=== PATIENT | female | born 1945 | race Two or more races ===

== ENCOUNTER 2020-09-07 08:11 | Outpatient (REF) | payer MEDICARE, SELFPAY ==
--- NOTE | 2020-09-07 | US_ITS ---
EXAMINATION: NONINVASIVE ASSESSMENT OF THE ARTERIES OF BOTH LOWER EXTREMITIES TO INCLUDE A PVR EXAM COMPLETE (3+ LEVELS), BILATERAL INCLUDING SEGMENTAL PRESSURES ? CLINICAL INFORMATION: Peripheral vascular disease COMPARISON: Bilateral lower extremity noninvasive examination on 05/10/2020 ? TECHNIQUE: The ankle/brachial indices of the distal posterior tibial and the dorsalis pedis arteries were obtained of the lower extremity arterial system bilaterally; along with segmental pressures and pulse volume recordings at the ankle, calf and above the knee levels and duplex Doppler techniques of the common femoral, proximal femoral and proximal profunda arteries. The study was performed at rest. ? FINDINGS: ?? RIGHT LEG 1. Right Ankle-Brachial Index: 1.10 (higher of the DP/PT) >0.97-1.25 = normal - no significant arterial disease 0.75-0.96 = mild peripheral arterial disease 0.5-0.74 = moderate peripheral arterial disease <0.50 = severe peripheral arterial disease <0.30 = critical arterial disease 2. SEGMENTAL PRESSURES: Ankle: PT 115 DP 199 3. PVR WAVEFORMS: Ankle: Biphasic 4. DIRECT DUPLEX: Common femoral: Moderate atherosclerotic disease, elevated velocities, biphasic waveform Proximal femoral: Moderate atherosclerotic disease, elevated velocities, monophasic waveforms Mid femoral: Mild atherosclerotic disease, normal velocities, biphasic waveform Distal femoral: Mild atherosclerotic disease, normal velocities, monophasic waveform Proximal profunda: Moderate atherosclerotic disease, elevated velocities, monophasic waveform Popliteal: Moderate atherosclerotic disease, elevated velocities, biphasic waveform Posterior tibial: Moderate atherosclerotic disease, decreased velocities, monophasic waveform LEFT LE. Left Ankle-Brachial Index: 0.48 (higher of the DP/PT) >0.97-1.25 = normal - no significant arterial disease 0.75-0.96 = mild peripheral arterial disease 0.5-0.74 = moderate peripheral arterial disease <0.50 = severe peripheral arterial disease <0.30 = critical arterial disease 2. SEGMENTAL PRESSURES: Ankle: PT not detected DP 86 3. PVR WAVEFORMS: Ankle: Monophasic 4. DIRECT DUPLEX: Common femoral: Moderate atherosclerotic disease, elevated velocities, monophasic waveforms Proximal femoral: Moderate atherosclerotic disease, elevated velocities, monophasic waveforms Mid femoral: Occluded Distal femoral: Moderate atherosclerotic disease, normal velocities, monophasic waveforms Proximal profunda: Moderate atherosclerotic disease, elevated velocities, monophasic waveforms Popliteal: Moderate atherosclerotic disease, normal velocities, monophasic waveforms Posterior tibial: Moderate atherosclerotic disease, decreased velocities, monophasic waveforms IMPRESSION: 1. Extensive bilateral lower extremity arterial disease, left greater than right. 2. Left mid SFA occlusion.
== END 2020-09-07 08:12 | disposition home or self-care (01) ==
LOC: HO.US 08:11
PROVIDERS: PCP Internal Medicine; Visit Provider Surgery Vascular Surgery
DX: I73.9 Peripheral vascular disease, unspecified (principal)
CPT/HCPCS: 93923; 93925

== ENCOUNTER 2020-10-06 08:37 | Outpatient (REF) | payer MEDICARE, SELFPAY ==
--- NOTE | 2020-10-06 08:42 | MM_ITS ---
EXAMINATION: MM SCREENING DIGITAL BREAST TOMOSYNTHESIS, BILATERAL CLINICAL INFORMATION: Screening. Asymptomatic. The lifetime risk of breast cancer based on the Tyrer-Cuzick Model is 1.6%. COMPARISON: Mammography: January 08, 2019 and study of March 21, 2007 TECHNIQUE: Digital breast tomosynthesis is performed in both the craniocaudal and mediolateral oblique views along with computer-aided detection (CAD). Synthesized 2D images are generated from the tomosynthesis. FINDINGS: The breasts are almost entirely fatty (ACR BI-RADS breast composition Category a). There are no significant masses, abnormal calcifications, or other abnormalities. MM/MM tomosynthesis screening BI IMPRESSION: There are no significant changes from prior study. ASSESSMENT: BI-RADS 1: Negative RECOMMENDATION: Routine annual mammography screening. This patient's information was entered into a reminder system with a target due date for their next mammogram.
== END 2020-10-06 08:38 | disposition home or self-care (01) ==
LOC: HO.MAMMO 08:37
PROVIDERS: Visit Provider Internal Medicine
DX: Z12.31 Encounter for screening mammogram for malignant neoplasm of breast (principal)
CPT/HCPCS: 77063; 77067

== ENCOUNTER → 2020-10-25 08:58 | Outpatient (BNVA) | payer MEDICARE, SELFPAY | PROVIDERS: PCP Internal Medicine; Referring Provider Internal Medicine; Visit Provider Surgery Vascular Surgery | DX: I73.9 Peripheral vascular disease, unspecified (principal) | CPT/HCPCS: 99212 ==

== ENCOUNTER 2021-04-11 09:51 | Outpatient (REF) | payer MEDICARE, SELFPAY ==
--- NOTE | ~2021-04-11 | US_ITS ---
EXAMINATION: ANKLE-BRACHIAL INDICES SINGLE LEVEL PULSE VOLUME RECORDING ARTERIAL DUPLEX BILATERAL LEGS CLINICAL INFORMATION: Peripheral artery disease. Hypertension, hyperlipidemia, history of SFA angioplasty. COMPARISON: 09/07/2020. TECHNIQUE: Ankle-brachial indices and PVR at the ankle were obtained. Duplex Doppler of the bilateral lower extremity arterial systems was performed. FINDINGS: RIGHT: Ankle-brachial index: 1.01 PVR: Normal. Common femoral: PSV 234 cm/s. Monophasic waveform. Deep femoral: PSV 202 cm/s. Monophasic waveform. Proximal superficial femoral: PSV 166 cm/s. Monophasic waveform. Mid superficial femoral: PSV 148 cm/s. Monophasic waveform. Distal superficial femoral: PSV 125 cm/s. Monophasic waveform. Popliteal: PSV 198 cm/s. Monophasic waveform. Posterior tibial artery: PSV 14 cm/s. Monophasic waveform. LEFT: Ankle-brachial index: 0.57 PVR: Abnormal. Common femoral: PSV 211 cm/s. Biphasic waveform. Deep femoral: PSV 181 cm/s. Monophasic waveform. Proximal superficial femoral: Occluded Mid superficial femoral: PSV 41 cm/s. Monophasic waveform. Distal superficial femoral: PSV 54 cm/s. Monophasic waveform. Popliteal: PSV 54 cm/s. Monophasic waveform. Posterior tibial artery: Not detected. US/US arterial duplex LE IMPRESSION: Bilateral peripheral arterial disease left greater than right which by RACHELLE is stable compared to the previous exam.
--- NOTE | ~2021-04-11 | US_ITS ---
EXAMINATION: ANKLE-BRACHIAL INDICES SINGLE LEVEL PULSE VOLUME RECORDING ARTERIAL DUPLEX BILATERAL LEGS CLINICAL INFORMATION: Peripheral artery disease. Hypertension, hyperlipidemia, history of SFA angioplasty. COMPARISON: 09/07/2020. TECHNIQUE: Ankle-brachial indices and PVR at the ankle were obtained. Duplex Doppler of the bilateral lower extremity arterial systems was performed. FINDINGS: RIGHT: Ankle-brachial index: 1.01 PVR: Normal. Common femoral: PSV 234 cm/s. Monophasic waveform. Deep femoral: PSV 202 cm/s. Monophasic waveform. Proximal superficial femoral: PSV 166 cm/s. Monophasic waveform. Mid superficial femoral: PSV 148 cm/s. Monophasic waveform. Distal superficial femoral: PSV 125 cm/s. Monophasic waveform. Popliteal: PSV 198 cm/s. Monophasic waveform. Posterior tibial artery: PSV 14 cm/s. Monophasic waveform. LEFT: Ankle-brachial index: 0.57 PVR: Abnormal. Common femoral: PSV 211 cm/s. Biphasic waveform. Deep femoral: PSV 181 cm/s. Monophasic waveform. Proximal superficial femoral: Occluded Mid superficial femoral: PSV 41 cm/s. Monophasic waveform. Distal superficial femoral: PSV 54 cm/s. Monophasic waveform. Popliteal: PSV 54 cm/s. Monophasic waveform. Posterior tibial artery: Not detected. US/US RACHELLE complete IMPRESSION: Bilateral peripheral arterial disease left greater than right which by RACHELLE is stable compared to the previous exam.
== END 2021-04-11 09:52 | disposition home or self-care (01) ==
LOC: HO.US 09:51
PROVIDERS: PCP Internal Medicine; Visit Provider Surgery Vascular Surgery
DX: I65.29 Occlusion and stenosis of unspecified carotid artery (principal); I70.213 Atherosclerosis of native arteries of extremities with intermittent claudication, bilateral legs
CPT/HCPCS: 93923; 93925

== ENCOUNTER → 2021-04-18 09:15 | Outpatient (BNVA) | payer MEDICARE, SELFPAY | PROVIDERS: PCP Internal Medicine; Visit Provider Surgery Vascular Surgery | DX: I73.9 Peripheral vascular disease, unspecified (principal) | CPT/HCPCS: 99212 ==

== ENCOUNTER 2021-06-01 08:46 | Inpatient (IN) | payer MEDICARE, SELFPAY ==
[2021-06-01] VITALS (11 sets, daily range): BP systolic 137–156; BP diastolic 43–70; PULSE 71–77; RESP 12–20; TEMP 36.1–36.8; O2SAT 95–100; BMI 24.9
--- NOTE | ~2021-06-01 | CT_ITS ---
EXAMINATION: CT ABDOMEN AND PELVIS WITHOUT CONTRAST CLINICAL INFORMATION: Diarrhea and vomiting and lower abdominal pain. Rule out diverticulitis COMPARISON: None TECHNIQUE: Multidetector volumetric imaging was performed from the superior aspect of the liver through the pubic symphysis. Sagittal and coronal reformatted images were obtained on the technologist's workstation. This CT examination was performed using dose optimization techniques as appropriate, variously including the following: *Automated exposure control *Adjustment of mA and/or kV according to patient size (this includes techniques or standardized protocols for targeted exams where dose is matched to indication/reason for exam; i.e. extremities or head) *Use of iterative reconstruction technique DLP: 434 mGy-cm FINDINGS: LUNG BASES: The visualized lung bases are unremarkable. LIVER, GALLBLADDER, AND BILIARY TREE: The liver is normal in size, shape, and attenuation. No focal hepatic lesion. The gallbladder has been removed. The common bile duct is slightly dilated entering 1.2 cm. This may be normal postcholecystectomy. PANCREAS: Unremarkable. SPLEEN: Unremarkable. ADRENAL GLANDS: Unremarkable. KIDNEYS AND URETERS: There are small bilateral renal calcifications probably representing stones. No hydronephrosis, ureteral dilatation or ureteral stone is seen. BLADDER: Not optimally distended. GASTROINTESTINAL TRACT: There is diffuse wall thickening of the colon suggestive of colitis. No evidence of obstruction, perforation or abscess is seen. There is evidence of mild diverticulosis. The appendix is normal. The stomach is not optimally distended. ABDOMINAL WALL: No significant hernia is appreciated. LYMPH NODES: Normal. VASCULAR: There is evidence of severe atherosclerotic disease. No aneurysm is seen. PELVIC VISCERA: The uterus appears to have been removed. No pelvic mass is seen. OSSEOUS STRUCTURES: There is arthritis at the hip joints. There are degenerative changes of the lumbar spine. CT/CT abdomen pelvis wo con IMPRESSION: Pancolitis. Small bilateral renal stones. Severe atherosclerotic disease.
--- NOTE | ~2021-06-01 | CT_ITS ---
EXAMINATION: CT ABDOMEN AND PELVIS WITHOUT CONTRAST CLINICAL INFORMATION: Pancolitis with persistent abdominal pain COMPARISON: CT abdomen pelvis June 01, 2021 TECHNIQUE: Multidetector volumetric imaging was performed from the superior aspect of the liver through the pubic symphysis. Sagittal and coronal reformatted images were obtained on the technologist's workstation. This CT examination was performed using dose optimization techniques as appropriate, variously including the following: *Automated exposure control *Adjustment of mA and/or kV according to patient size (this includes techniques or standardized protocols for targeted exams where dose is matched to indication/reason for exam; i.e. extremities or head) *Use of iterative reconstruction technique DLP: 485 mGy-cm FINDINGS: Visualized lung bases are well aerated. Interval development of trace bilateral pleural effusions with overlying airspace disease, suspected atelectasis. 3 mm subpleural nodule within the lateral left lung base (image 30/80, series 3). The liver demonstrates normal size, contour and attenuation. The gallbladder is surgically absent. The pancreas and spleen are unremarkable. The adrenal glands are mildly hypertrophied bilaterally. Symmetrically sized kidneys. Small bilateral nonobstructing renal calculi are again noted. There is no hydronephrosis of either kidney. The stomach is decompressed. Normal caliber loops of small bowel. Normal caliber colon. There remains some mild circumferential mucosal thickening of the descending colon, however, the previously visualized diffuse wall thickening of the remainder of the colon has resolved. The appendix is normal. Normal caliber abdominal aorta which demonstrates moderate to severe atherosclerotic disease. No retroperitoneal lymphadenopathy. The bladder is decompressed around a Monte catheter. Air within the bladder is felt to be iatrogenic. Uterus is surgically absent. No gross free pelvic fluid. No inguinal lymphadenopathy. Degenerative changes of the spine and hips. CT/CT abdomen pelvis wo con IMPRESSION: 1. There remains some mild circumferential mucosal thickening of the descending colon, however, the previously visualized diffuse wall thickening of the remainder of the colon has resolved. 2. Interval development of trace bilateral pleural effusions with overlying airspace disease, suspected atelectasis.
--- NOTE | 2021-06-01 10:18 | ECG_ITS ---
Test Reason : NAUSEA Blood Pressure : / mmHG Vent. Rate : 073 BPM Atrial Rate : 073 BPM P-R Int : 140 ms QRS Dur : 078 ms QT Int : 428 ms P-R-T Axes : -09 -04 257 degrees QTc Int : 471 ms Normal sinus rhythm ST & T wave abnormality, consider anterolateral ischemia Prolonged QT Abnormal ECG When compared with ECG of 14-APR-2019 16:58, Nonspecific T wave abnormality now evident in Inferior leads T wave inversion more evident in Anterolateral leads Referred By: Rubén Sesay Electronically Signed By:ZEE PIERCE MD
--- NOTE | 2021-06-01 10:22 | ED.NAVMDI ---
HPI - Nausea/Vomiting/Diarrhea General Chief complaint: Nausea/Vomiting/Diarrhea Stated complaint: N/V/D X'S 1 DAY Time Seen by Provider: 06/01/21 10:05 Source: patient and family ( patient's GEOSCIENCES ASSOCIATE PROFESSOR,Soco) Mode of arrival: EMS History of Present Illness HPI Narrative: 75-year-old female who presents emergency department for evaluation of nausea, vomiting, diarrhea. the patient states that she had 1 episode of vomiting yesterday. This morning at 2:00 a.m. she began vomiting again. She states she vomited too numerous times to count. She states initially she vomited up food that she ate earlier in the day and then the emesis was yellow. She denied any blood in the emesis. She states she then had 1 normal bowel movement and then had for liquidy diarrheal stools with no blood in the stool. She states that since her symptoms started she has been having abdominal pain, she points to her left lower quadrant, the pain is a constant, sharp pain which is severe and is 10/10. She denied fever, chills, lightheadedness, dizziness, chest pain, shortness of breath or dyspnea on exert Related Data Home Medications Medication Instructions Recorded Confirmed amlodipine 5 mg tablet 5 mg PO DAILY 04/18/21 06/01/21 aspirin 81 mg chewable tablet 1 tab PO DAILY 04/18/21 06/01/21 chlorthalidone 50 mg tablet 50 mg PO DAILY 04/18/21 06/01/21 cholecalciferol (vitamin D3) 50 50 mcg PO DAILY 04/18/21 06/01/21 mcg (2,000 unit) capsule gabapentin 300 mg capsule 300 mg PO TID 04/18/21 06/01/21 hydralazine 10 mg tablet 10 mg PO TID 04/18/21 06/01/21 pantoprazole 20 mg tablet,delayed 20 mg PO BID 04/18/21 06/01/21 release pioglitazone 15 mg tablet 15 mg PO BEDTIME 04/18/21 06/01/21 simvastatin 20 mg tablet 20 mg PO BEDTIME 04/18/21 06/01/21 trazodone 50 mg tablet 50 mg PO BEDTIME 04/18/21 06/01/21 verapamil 120 mg 24 hr 120 mg PO DAILY 04/18/21 06/01/21 capsule,extended release zolpidem 5 mg tablet 5 mg PO BEDTIME PRN 04/18/21 06/01/21 insulin glargine [Lantus U-100 25 unit SUBCUT QAM 06/01/21 06/01/21 Insulin] losartan 1 tab PO QAM 06/01/21 06/01/21 metformin 1 tab PO BID 06/01/21 06/01/21 sitagliptin [Januvia] 1 tab PO QAM 06/01/21 06/01/21 Allergies Allergy/AdvReac Type Severity Reaction Status Date / Time No Known Allergies Allergy Unknown Verified 06/01/21 09:12 [No Known Allergies*] Review of Systems Review of Systems: Yes all other systems are reviewed and are negative [facility] Past Medical History [facility] Narrative: Past medical history: Diabetes mellitus, hypertension, asthma, migraines, peripheral arterial disease with stents. Past surgical history: Appendectomy, 1 ovary removed. Social history: The patient lives by herself, she has a grandson that visits her and she has a GEOSCIENCES ASSOCIATE PROFESSOR that checks in on her daily. She denies tobacco, alcohol and drug use. Medical History HTN (hypertension) Hyperlipemia Osteoporosis Surgical History Cholecystostomy care Hx of hand surgery Family History Family History Father No problems noted. Mother No problems noted. Daughter No problems noted. Son No problems noted. Son No problems noted. Son No problems noted. Social History Social History Alcohol intake: never Patient Tobacco Use Status: Never used Tobacco Use of substances other than those prescribed or required for medical reasons: No Advance Directives: No Advance Directives Information Provided: Yes Physical Exam Vital Signs: Vital Signs: Last Vital Signs Temp 98.3 F 06/01/21 15:06 Pulse 76 06/01/21 16:24 Resp 18 06/01/21 16:24 BP 156/46 H 06/01/21 16:24 Pulse Ox 95 06/01/21 16:24 Body Mass Index 24.9 Const: General: cooperative Orientation/consciousness: oriented to person and oriented to place Limitations: no limitations HENMT: Head: Yes normal to inspection, Yes normocephalic and Yes atraumatic Ears: external ears normal General nose exam: Normal external nose present Face and sinus: Yes normal facial exam Mouth: Normal oral and palatal mucosa present Throat: Yes posterior oropharynx normal Eyes: Periorbital: periorbital findings normal Eyelids: Yes eyelids normal Conjunctivae: conjunctivae normal Sclerae: sclerae normal Corneas: corneas normal Pupils: Equal, round and reactive pupils present Direct Ophthalmoscopy: normal light reflex Neck: Neck: Yes full ROM, Yes no lymphadenopathy, Yes no meningeal signs, Yes trachea midline and Yes supple Chest: Chest palpation & inspection: normal inspection of the chest and normal palpation of entire chest wall Resp: Effort & Inspection: normal respiratory effort and able to speak in complete sentences Auscultation: clear to auscultation bilaterally Cardio: Rate: regular rate Rhythm: regular rhythm Heart sounds: S1 normal heart sound present, S2 normal heart sound present and no murmurs GI: Inspection: Yes normal to inspection Palpation (GI): Soft to palpation, Tenderness to palpation present (GI) ( Moderate left lower quadrant tenderness), no guarding, not rigid and No hepatosplenomegaly present : General: Yes no CVA tenderness Back/Spine/Pelvis: Back: no CVA tenderness Cervical Spine: normal cervical lordosis Thoracic/Lumbar Spine: thoracic and lumbar spine normal to inspection Skin: Lesions: no lesions Rashes: no rashes Wounds: no wounds Neuro: General: oriented to person, oriented to place and no meningeal signs Cranial nerves: Yes CN's II-XII intact bilaterally and Yes Equal, round and reactive pupils present Cognition (Neuro): normal cognition Motor exam (neuro): 5/5 motor strength present throughout Extrem: General: Yes normal to inspection and Yes full ROM Psych: Appearance: well kempt Mental Status: mental status grossly normal Speech and movement: Normal speech and movement present Affect: normal affect Attitude: cooperative Thought process: Normal thought process present Thought content: Normal thought content present Course Course Course Narrative: 75-year-old female who presents emergency department for evaluation nausea, vomiting, diarrhea and abdominal pain. Her symptoms started yesterday but became more severe at 2:00 a.m. this morning. The patient has vomited at least 4 times and has had too numerous to count diarrheal stools. vital signs revealed an elevated blood pressure of 141/48 otherwise was unremarkable. Physical examination did reveal moderate left lower quadrant tenderness otherwise was unremarkable. Laboratory evaluation was ordered. Also ordered a CT scan of the abdomen pelvis with IV contrast to evaluate her abdominal pain and tenderness. Patient's pain was treated with Toradol 30 mg IV. Her nausea was treated with Zofran 4 mg IV. She was ordered to get normal saline x1 L. 1439: Patient's abdominal pain improved with the above treatment. Laboratory evaluation revealed an elevated BUN and creatinine of 53 and 5.98 this is significantly above the patient's baseline. The patient's lactic acid is elevated at 3.5, this is most likely secondary to her renal failure. Urinalysis microscopic revealed 0-2 rbc's, 50-75 WBCs and 4+ bacteria suggesting the patient has urinary tract infection. CT scan of the patient's abdomen pelvis without IV contrast revealed a macdonald colitis. The patient was treated with ceftriaxone 1 g IV and Flagyl 500 mg IV for urinary tract infection and pancolitis. Patient has not been able to give us a stool sample. I will discuss the patient's presentation with Nephrology and with the covering hospitalist. The patient was treated with normal saline IV times 3 L. 16 20: I did discuss the patient's presentation with the covering seafood preparer , Dr. Kai Kerns who recommended that the patient continued to get IV normal saline. He also recommended checking a urine sodium. The patient will be admitted to the hospitalist service for further management. MDM - Nausea/Vomiting/Diarrhea Lab Data Result diagrams: 06/01/21 11:19 06/01/21 11:20 Labs: Lab Results 06/01/21 06/01/21 06/01/21 Range/Units 11:19 11:19 11:19 WBC 9.7 (4.8-10.8) X10*3/uL RBC 4.51 (4.20-5.50) X10*6/uL Hgb 12.0 (12.0-16.0) g/dl Hct 38.2 (37-47) % MCV 84.7 (80-98) fL MCH 26.6 L (27.0-33.0) pg MCHC 31.4 (31.0-35.0) g/dl RDW 14.0 (11.0-16.0) % Plt Count 290 (160-400) X10*3/uL MPV 10.5 (9.4-12.3) fL Immature Gran % (Auto) 0.4 (0.0-0.4) % Neut % (Auto) 77.8 H (45-73) % Lymph % (Auto) 13.1 L (20-40) % Stanly % (Auto) 8.5 (2-11) % Eos % (Auto) 0.1 (0-4) % Baso % (Auto) 0.1 (0-2) % Lymph # (Auto) 1.3 (1.2-4.9) X10*3/uL Stanly # (Auto) 0.8 (0.1-1.2) X10*3/uL Eos # (Auto) 0.0 (0.0-0.4) X10*3/uL Baso # (Auto) 0.0 (0.0-0.2) X10*3/uL Abs Immat Gran (auto) 0.04 H (0.00-0.03) X10*3/uL Absolute Neuts (auto) 7.5 (2.0-8.3) X10*3/uL Absolute Nucleated RBC 0.000 (0.0-0.012) X10*3/uL Nucleated RBC % (auto) 0.0 (0.0-0.2) /100WBC Sodium (135-145) mmol/L Potassium (3.3-5.1) mmol/L Chloride (96-108) mmol/L Carbon Dioxide (22-29) mmol/L Anion Gap (12-20) BUN (9-16) mg/dL Creatinine (0.5-1.4) mg/dL Estim Creat Clear Calc Estimated GFR POC Glucose (60-115) mg/dL Random Glucose (60-115) mg/dL Lactic Acid 3.0 H* (0.5-2.0) mmol/L Lactic Acid Fup @ 2Hr (0.5-2.0) mmol/L Lactic Acid Fup @ 4Hr (0.5-2.0) mmol/L Calcium (8.4-10.2) mg/dL Total Bilirubin (0.0-1.0) mg/dL AST (5-31) U/L ALT (0-31) U/L Alkaline Phosphatase (39-117) U/L Troponin I High Sens 14.6 (<3.5-17.0) ng/L Total Protein (6.5-8.0) g/dL Albumin (3.5-5.0) g/dL Lipase (8-78) U/L COVID-19 ([facility]) (Negative) COVID-19 Clin Com 06/01/21 06/01/21 06/01/21 Range/Units 11:19 11:20 11:26 WBC (4.8-10.8) X10*3/uL RBC (4.20-5.50) X10*6/uL Hgb (12.0-16.0) g/dl Hct (37-47) % MCV (80-98) fL MCH (27.0-33.0) pg MCHC (31.0-35.0) g/dl RDW (11.0-16.0) % Plt Count (160-400) X10*3/uL MPV (9.4-12.3) fL Immature Gran % (Auto) (0.0-0.4) % Neut % (Auto) (45-73) % Lymph % (Auto) (20-40) % Stanly % (Auto) (2-11) % Eos % (Auto) (0-4) % Baso % (Auto) (0-2) % Lymph # (Auto) (1.2-4.9) X10*3/uL Stanly # (Auto) (0.1-1.2) X10*3/uL Eos # (Auto) (0.0-0.4) X10*3/uL Baso # (Auto) (0.0-0.2) X10*3/uL Abs Immat Gran (auto) (0.00-0.03) X10*3/uL Absolute Neuts (auto) (2.0-8.3) X10*3/uL Absolute Nucleated RBC (0.0-0.012) X10*3/uL Nucleated RBC % (auto) (0.0-0.2) /100WBC Sodium 137 (135-145) mmol/L Potassium 5.7 H (3.3-5.1) mmol/L Chloride 101 (96-108) mmol/L Carbon Dioxide 18 L (22-29) mmol/L Anion Gap 24 H (12-20) BUN 53 H (9-16) mg/dL Creatinine 5.98 H* (0.5-1.4) mg/dL Estim Creat Clear Calc 7.1 Estimated GFR 7 POC Glucose 146 H (60-115) mg/dL Random Glucose 165 H (60-115) mg/dL Lactic Acid (0.5-2.0) mmol/L Lactic Acid Fup @ 2Hr (0.5-2.0) mmol/L Lactic Acid Fup @ 4Hr (0.5-2.0) mmol/L Calcium 8.8 (8.4-10.2) mg/dL Total Bilirubin 0.4 (0.0-1.0) mg/dL AST 16 (5-31) U/L ALT 9 (0-31) U/L Alkaline Phosphatase 42 (39-117) U/L Troponin I High Sens (<3.5-17.0) ng/L Total Protein 6.6 (6.5-8.0) g/dL Albumin 3.9 (3.5-5.0) g/dL Lipase < 4 L (8-78) U/L COVID-19 ([facility]LLY) Negative (Negative) COVID-19 Clin Com See Note 06/01/21 06/01/21 Range/Units 13:57 16:20 WBC (4.8-10.8) X10*3/uL RBC (4.20-5.50) X10*6/uL Hgb (12.0-16.0) g/dl Hct (37-47) % MCV (80-98) fL MCH (27.0-33.0) pg MCHC (31.0-35.0) g/dl RDW (11.0-16.0) % Plt Count (160-400) X10*3/uL MPV (9.4-12.3) fL Immature Gran % (Auto) (0.0-0.4) % Neut % (Auto) (45-73) % Lymph % (Auto) (20-40) % Stanly % (Auto) (2-11) % Eos % (Auto) (0-4) % Baso % (Auto) (0-2) % Lymph # (Auto) (1.2-4.9) X10*3/uL Stanly # (Auto) (0.1-1.2) X10*3/uL Eos # (Auto) (0.0-0.4) X10*3/uL Baso # (Auto) (0.0-0.2) X10*3/uL Abs Immat Gran (auto) (0.00-0.03) X10*3/uL Absolute Neuts (auto) (2.0-8.3) X10*3/uL Absolute Nucleated RBC (0.0-0.012) X10*3/uL Nucleated RBC % (auto) (0.0-0.2) /100WBC Sodium (135-145) mmol/L Potassium (3.3-5.1) mmol/L Chloride (96-108) mmol/L Carbon Dioxide (22-29) mmol/L Anion Gap (12-20) BUN (9-16) mg/dL Creatinine (0.5-1.4) mg/dL Estim Creat Clear Calc Estimated GFR POC Glucose (60-115) mg/dL Random Glucose (60-115) mg/dL Lactic Acid (0.5-2.0) mmol/L Lactic Acid Fup @ 2Hr 3.5 H* (0.5-2.0) mmol/L Lactic Acid Fup @ 4Hr 2.0 (0.5-2.0) mmol/L Calcium (8.4-10.2) mg/dL Total Bilirubin (0.0-1.0) mg/dL AST (5-31) U/L ALT (0-31) U/L Alkaline Phosphatase (39-117) U/L Troponin I High Sens (<3.5-17.0) ng/L Total Protein (6.5-8.0) g/dL Albumin (3.5-5.0) g/dL Lipase (8-78) U/L COVID-19 ([facility]) (Negative) COVID-19 Clin Com ECG Data Attestation: I personally reviewed and interpreted this ECG as follows: Interpretation: 1739: Normal sinus rhythm with a rate of 73, normal WA interval, QRS interval and QTC interval. Inverted T-waves V2 through V6, no PACs, no PVCs, no old EKG for comparison. Discharge Plan Discharge Clinical Impression: Colitis, Acute dehydration Urinary tract infection Qualifiers: Urinary tract infection type: site unspecified Hematuria presence: without hematuria Qualified Code(s): N39.0 - Urinary tract infection, site not specified Acute renal failure Qualifiers: Acute renal failure type: unspecified Qualified Code(s): N17.9 - Acute kidney failure, unspecified Patient Disposition: Admitted As Inpatient
[2021-06-01 11:27] LABS: MANUAL DIFF FLAG NO
--- NOTE | 2021-06-01 11:27 | PC.NURSE ---
RN aware POC 146
[2021-06-01 11:29] LABS: Basophils Percent Auto 0.1 % (0-2); Eosinophils Percent Auto 0.1 % (0-4); Hematocrit 38.2 % (37-47); Imm Gran Abs Auto 0.04 X10*3/uL (0.00-0.03); Imm Gran Pct Auto 0.4 % (0.0-0.4); Lymphocytes Absolute Auto 1.3 X10*3/uL (1.2-4.9); Lymphocytes Percent Auto 13.1 % (20-40); Mean Corpuscular HGB Conc 31.4 g/dl (31.0-35.0); Mean Corpuscular Hemoglobin 26.6 pg (27.0-33.0); Mean Corpuscular Volume 84.7 fL (80-98); Mean Platelet Volume 10.5 fL (9.4-12.3); Monocytes Absolute Auto 0.8 X10*3/uL (0.1-1.2); Monocytes Percent Auto 8.5 % (2-11); Neutrophils Absolute Auto 7.5 X10*3/uL (2.0-8.3); Neutrophils Percent Auto 77.8 % (45-73); Platelet Count 290 X10*3/uL (160-400); Red Blood Count 4.51 X10*6/uL (4.20-5.50); White Blood Count 9.7 X10*3/uL (4.8-10.8)
[2021-06-01 11:31] LABS: Glucose, Whole Blood 146 mg/dL (60-115)
[2021-06-01 11:53] LABS: COVID-19 Test Negative (Negative)
[2021-06-01] MEDS: 0.9 % Sodium Chloride 1,000 ML 999 ML IV ×3 (11:55→16:24)
[2021-06-01 12:01] LABS: Alanine Aminotransferase 9 U/L (0-31); Albumin Level 3.9 g/dL (3.5-5.0); Alkaline Phosphatase 42 U/L (39-117); Anion Gap 24 (12-20); Aspartate Amino Transferase 16 U/L (5-31); Bilirubin Total 0.4 mg/dL (0.0-1.0); Blood Urea Nitrogen 53 mg/dL (9-16); Calcium 8.8 mg/dL (8.4-10.2); Carbon Dioxide 18 mmol/L (22-29); Chloride 101 mmol/L (96-108); Creatinine Clr Calc Pharmacy 7.1; Estimated Glomerular Filt Rate 7; Glucose Random 165 mg/dL (60-115); Lipase < 4 U/L (8-78); Potassium 5.7 mmol/L (3.3-5.1); Sodium 137 mmol/L (135-145); Total Protein 6.6 g/dL (6.5-8.0)
[2021-06-01 12:04] LABS: Troponin-I High Sensitivity 14.6 ng/L (<3.5-17.0)
[2021-06-01] MEDS: ondansetron HCL 4 MG/2 ML VIAL IVPUSH (12:08)
[2021-06-01] MEDS: Ketorolac Tromethamine 30 MG/ML VIAL IVPUSH (12:10)
--- NOTE | 2021-06-01 12:59 | PC.NURSE ---
Patient is back from CT in no distress. Pt currently denies any pain. No vomiting since arrival in ER
[2021-06-01] MEDS: cefTRIAXone sodium 1 GM in 0.9 % Sodium Chloride 50 ML IV (13:05)
[2021-06-01 13:25] LABS: Reflex Lactate? Lactic Acid Added
[2021-06-01 14:38] LABS: ~Lactic Acid-LAB USE ONLY 3.5 mmol/L (0.5-2.0)
[2021-06-01] MEDS: metroNIDAZOLE/NS 500 MG/100 ML PIGGYBACK 100 MG IV ×2 (15:00→22:22)
[2021-06-01 15:59] LABS: Reflex Lactate? 2 Y
--- NOTE | 2021-06-01 19:43 | HP_ITS ---
DATE OF SERVICE: 06/01/2021 CHIEF COMPLAINT: Nausea, vomiting, abdominal pain, and diarrhea. HISTORY OF PRESENTING ILLNESS: This is a very pleasant, Albanian-speaking female patient, history is obtained via site interpreter, who presented to [facility] with acute onset of nausea, vomiting, and diarrhea since yesterday. According to the patient, she had some potatoes made by her family and after that she became nauseous, started vomiting. She had multiple bilious vomiting, nonbloody, associated with diffuse abdominal pain, diarrhea, mostly liquidy with no blood in stools. She felt very weak, lightheaded, dizzy, associated with fever and chills. The emergency room workup showed that she is in acute renal failure with a creatinine of 5.98 with no prior history of kidney disease. Her potassium was 5.7 with an anion gap of 24. Her lactic acid initially 3, bumped up to 3.5. Urinalysis also positive for UTI; however, the patient denies any urinary symptoms of urgency or frequency. The patient denied any sick contacts. No other family member with similar symptoms. The patient in the ER treated with IV fluids, antiemetics. CAT scan of the abdomen and pelvis showed pancolitis. The patient is now being admitted to [facility] for continued monitoring and treatment for pancolitis with acute kidney injury and anion gap metabolic acidosis. PAST MEDICAL HISTORY: Significant for, 1. Diabetes mellitus on insulin. 2. History of hypertension. 3. History of asthma. 4. History of migraine. 5. History of peripheral vascular disease, status post stent placement. 6. History of hyperlipidemia. 7. History of osteoporosis. PAST SURGICAL HISTORY: 1. Status post appendectomy. 2. Status post cholecystectomy. 3. Status post hand surgery. SOCIAL HISTORY: The patient lives alone, ambulates with the help of a walker. She has [facility] services Saturday through Saturday. Denies alcohol or tobacco use. FAMILY HISTORY: Denies any family history of premature coronary artery disease. Parents are . REVIEW OF SYSTEMS: UNLOADER OPERATOR: She complains of lightheadedness. Denies any headache. CVS: Denies chest pain or palpitation. RESPIRATORY: Denies cough, sputum production, or chest tightness. : She denies any symptoms of urgency or frequency. Rest of all other systems are reviewed and are negative. PHYSICAL EXAMINATION: GENERAL: She is resting in bed. Does not appear to be in acute distress. VITAL SIGNS: Her current vitals are BP 156/46, pulse of 76, respiratory rate 18, O2 saturation 95% on room air. HEENT: Pupils equal, round, and reactive to light and accommodation. Anicteric sclerae. NECK: Supple. No increased JVD. No lymphadenopathy. LUNGS: Clear to auscultation bilaterally. No wheezes, rhonchi, or respiratory distress noticed. HEART: Regular rate and rhythm. No murmurs. ABDOMEN: Soft, mild diffuse tenderness to palpation. No guarding, no rigidity. EXTREMITIES: No edema. Good peripheral pulses. SKIN: No rashes. No open wounds. PSYCH: Appropriate affect. LABORATORY DATA: Showed a WBC 9.7, hemoglobin 12, hematocrit 38, Sodium 137, potassium of 5.7, bicarb 18, anion gap 24, BUN 53, creatinine of 5.98 with a recent creatinine from last year of 0.84, blood sugar 146. Lactic acid 3.5. Repeat lactic acid improved to 2. Lipase less than 4. Troponin normal 14.6, albumin 3.9. Abdomen and pelvic CAT scan showed pancolitis, small bilateral renal stones, and severe arthrosclerotic renal disease. ASSESSMENT AND PLAN: 75-year-old female patient with multiple medical issues including hypertension, diabetes mellitus, hyperlipidemia, peripheral vascular disease, presented to [facility] with acute onset of nausea, vomiting, abdominal pain, and diarrhea. The patient diagnosed to have acute pancolitis, acute kidney injury with anion gap metabolic acidosis, hyperkalemia, and lactic acidosis with no evidence of sepsis. 1. Acute pancolitis. The patient will be admitted to medical floor. We will keep her n.p.o., treat with aggressive IV hydration. Continue IV ceftriaxone and Flagyl. Follow CBC, blood cultures, stool studies including stool for C diff, ova and parasite, and stool culture. 2. Acute kidney injury with anion gap metabolic acidosis likely due to GI loss. The patient will be aggressively treated with IV fluids, follow BMP closely. Obtain renal consultation, urine for urinary sodium. 3. Hyperkalemia due to acute renal failure. Give IV fluids and follow BMP closely. 4. Lactic acidosis due to acute colitis. Continue IV hydration. Lactic acid has improved. 5. Hypertension. The patient with elevated blood pressure. We will hold losartan and metformin. We will treat her with Norvasc for blood pressure control. 6. Diabetes mellitus. The patient will be placed on insulin sliding scale q.6 hours and she will be n.p.o., hold oral hypoglycemics including metformin and Januvia. 7. Deep vein thrombosis prophylaxis. The patient will be placed on heparin subcu. 8. Code status, the patient wishes to be a full code. MD CORINE Colbert/YONAS / [id number] MTDD
--- NOTE | 2021-06-01 20:02 | PC.NURSE ---
This RN called [facility] for second time to attempt to give RN to RN report, but nurse remains unavailable to take report at this time per Tiffanie (munitions handler supervisor). Awaiting call back from Donya. Plan to straight catheterize patient for urinary retention and urine specimen. Otherwise denies complaints. Will continue to monitor. neonatal critical care nurse aware.
--- NOTE | 2021-06-01 20:13 | PC.NURSE ---
Report given to Donya METCALF on IMC. Preparing for admission to room 473. Straight cath for urine and NS infusion to be initiated prior to transfer.
[2021-06-01] MEDS: 0.9 % Sodium Chloride 1,000 ML 100 ML IVCONT (20:35)
[2021-06-01 20:37] LABS: Glucose, Whole Blood 124 mg/dL (60-115)
[2021-06-01 20:50] LABS: Glucose Urine UA NEG (NEG); Leukocyte Esterase Urine 1+ (NEG); Nitrite Urine NEG (NEG); PH 5.5 (5.0-8.0); Specific Gravity - Urine 1.025 (1.005-1.025); UACC Culture Trigger YES; Urine Blood TRACE (NEG); Urine Ketones 5 MG/DL (NEG); Urine Protein 2+ MG/DL (NEG-TRACE)
[2021-06-01 20:53] LABS: Appearance Urine HAZY; Color Urine YELLOW
[2021-06-01 21:01] LABS: Amorphous Sediment Urine 2+ /LPF; Bacteria Urine 2+ /LPF; Squamous Epithelial Cell Urine 2+ /LPF; WBC Clumps Urine NOTED
[2021-06-01] MEDS: Acetaminophen 325 MG TABLET 650 MG PO (22:18)
[2021-06-01] MEDS: Heparin Sodium,Porcine 5,000 UNIT/ML VIAL 5000 UNIT SUBCUT (22:19)
[2021-06-02] VITALS (8 sets, daily range): BP systolic 132–172; BP diastolic 58–74; PULSE 71–83; RESP 14–20; TEMP 36.2–36.6; O2SAT 96–98
[2021-06-02] LABS: Glucose, Whole Blood 127 mg/dL (60-115)
[2021-06-02] MEDS: HYDROmorphone HCl 0.5 MG/0.5 ML SYRINGE IVPUSH (04:11)
[2021-06-02 04:23] LABS: Glucose, Whole Blood 130 mg/dL (60-115)
[2021-06-02 06:08] LABS: Hematocrit 37.9 % (37-47); Hemoglobin 11.5 g/dl (12.0-16.0); Mean Corpuscular HGB Conc 30.3 g/dl (31.0-35.0); Mean Corpuscular Hemoglobin 26.4 pg (27.0-33.0); Mean Corpuscular Volume 86.9 fL (80-98); Mean Platelet Volume 10.9 fL (9.4-12.3); Platelet Count 275 X10*3/uL (160-400); Red Blood Count 4.36 X10*6/uL (4.20-5.50); Red Cell Distribution Width 14.3 % (11.0-16.0); White Blood Count 7.6 X10*3/uL (4.8-10.8)
[2021-06-02] MEDS: metroNIDAZOLE/NS 500 MG/100 ML PIGGYBACK 100 MG IV ×3 (06:16→22:03)
[2021-06-02 06:25] LABS: Glucose, Whole Blood 163 mg/dL (60-115)
--- NOTE | 2021-06-02 07:20 | PC.NURSE ---
7P-7A; Patient up to floor from ed around 2100. Upon arrival to unit, patient bladder scanned for 90 mls. Patient denied urge to void. At 0400, patient up to bedside commode with 2 assist, voided 100 mls, bladder scan shows 81 mls. At 0600, patient voided small amount 50 mls yellow urine. Patient on IVF, NS @ 100mls/hr. MD made aware. 0600 POC 163, no coverage needed per MD.
[2021-06-02 07:30] LABS: Anion Gap 26 (12-20); Blood Urea Nitrogen 51 mg/dL (9-16); Calcium 7.9 mg/dL (8.4-10.2); Carbon Dioxide 11 mmol/L (22-29); Chloride 109 mmol/L (96-108); Creatinine Clr Calc Pharmacy 6.8; Estimated Glomerular Filt Rate 6; Glucose Random 166 mg/dL (60-115); Potassium 5.3 mmol/L (3.3-5.1); Sodium 141 mmol/L (135-145)
--- NOTE | 2021-06-02 08:37 | MHC.CM.PN ---
CM attempted tp reach Patient by phone at [phone], in order to use telephonic Bottle Label Inspector, but Patient's [facility]/BRANDYS LYE MACHINE OPERATOR/Tona (25 hours/week), answered the phone. CM met briefly with Patient and LYE MACHINE OPERATOR at bedside, providing Patient with the original IMM, in Bhutanese and placing a copy on the chart.Patient lives alone in an apartment and Patient's goal for dc is to return home with resumption of her home services. CM has initiated and will follow for dc planning. Patient's Grandson/HCP/Kevin @ [phone] and Patient's PCP is Dr. Hafsa Carlos.
[2021-06-02] MEDS: 0.9 % Sodium Chloride 1,000 ML 150 ML IVCONT (08:57)
[2021-06-02] MEDS: Heparin Sodium,Porcine 5,000 UNIT/ML VIAL 5000 UNIT SUBCUT ×2 (09:00→22:04)
[2021-06-02] MEDS: amLODIPine Besylate 5 MG TABLET PO (09:39)
--- NOTE | 2021-06-02 09:43 | PM.CNNEP ---
History of Present Illness Reason for Consult Consult date: 06/02/21 Reason for consult: RAHEL Requesting physician: Vin Ho Chief Complaint Chief complaint: Pancolitis RAHEL History of Present Illness Narrative: No prior kidney disease she is oliguric despite fluids Review of Systems Review of Systems Yes all other systems are reviewed and are negative [facility] Past Medical History Medical History HTN (hypertension) Hyperlipemia Osteoporosis Family History Family History Father No problems noted. Mother No problems noted. Daughter No problems noted. Son No problems noted. Son No problems noted. Son No problems noted. Surgical History Surgical History Cholecystostomy care Hx of hand surgery Social History Social History Household Members: None Housing: Apartment Do you presently have visiting nurse or other home services: Yes ([employer]INTER[employer] DAILY) Alcohol intake: never Patient Tobacco Use Status: Never used Tobacco Use of substances other than those prescribed or required for medical reasons: No Currently Displaying Signs/Symptoms of Drug Intoxication Withdrawal: No Have you been hit, kicked, punched, or otherwise hurt by someone within the past year? If so, by whom?: No Do you feel safe in your current relationship?: No Current Relationship Is there a partner from a previous relationship who is making you feel unsafe now?: No Are you made to feel afraid or neglected: No Advance Directives: No Advance Directives Information Provided: Yes Do you have thoughts of harming others: None Do you have a plan to hurt others: No Plan Recently lost weight without trying: Unsure service: No Current occupational status: disabled Meds Allergies Allergy/AdvReac Type Severity Reaction Status Date / Time No Known Allergies Allergy Unknown Verified 06/01/21 09:12 [No Known Allergies*] Active Medications: Current Medications Generic Name Dose Route Start Last Admin Trade Name Freq PRN Reason Stop Dose Admin Acetaminophen 650 mg 06/01/21 17:32 06/01/21 22:18 Acetaminophen 325 Mg Tablet PO 650 mg Q6H PRN Administration Pain, Mild (Pain Scale 1-3) Amlodipine Besylate 5 mg 06/02/21 10:00 06/02/21 09:39 Amlodipine Besylate 5 Mg Tablet PO 5 mg DAILY [facility] Administration Protocol Heparin Sodium (Porcine) 5,000 unit 06/01/21 21:00 06/02/21 09:00 Heparin Sodium,Porcine 5,000 Unit/Ml Vial SUBCUT 5,000 unit BID NERI Administration Hydromorphone HCl 0.5 mg 06/01/21 17:32 06/02/21 04:11 Hydromorphone Hcl 0.5 Mg/0.5 Ml Syringe IVPUSH 0.5 mg Q4H PRN Administration pain Metronidazole 500 mg in 100 mls @ 100 mls/hr 06/01/21 22:00 06/02/21 07:20 Flagyl IV Infused Q8H [facility] Infusion Ceftriaxone Sodium 1 gm/ 50 mls @ 100 mls/hr 06/02/21 13:00 Sodium Chloride IV Q24H NERI Sodium Chloride 1,000 mls @ 150 mls/hr 06/01/21 18:09 06/02/21 08:57 Ns IVCONT 150 mls/hr .Q6H40M [facility] Administration Insulin Human Lispro 0 unit 06/01/21 18:09 06/02/21 06:18 Insulin Lispro 100 Unit/Ml 3 Ml Vial SUBCUT Not Given Q6H [facility] Protocol Ondansetron HCl 4 mg 06/01/21 17:32 Ondansetron Hcl 4 Mg/2 Ml Vial IVPUSH Q8H PRN Nausea and Vomiting Pharmacy Consult 1 each 06/01/21 17:17 Consult Rx Perform Med Rec MISCELLANE ONCE PRN Consult order Sodium Chloride 3 ml 06/02/21 00:00 06/02/21 07:21 0.9 % Sodium Chloride Flush 3 Ml Syringe IVFLUSH Not Given QSHIFT [facility] Home Medications Medication Instructions Recorded Confirmed Last Taken Type amlodipine 5 mg tablet 5 mg PO DAILY 04/18/21 06/01/21 05/31/21 History aspirin 81 mg chewable tablet 1 tab PO DAILY 04/18/21 06/01/21 05/31/21 History chlorthalidone 50 mg tablet 50 mg PO DAILY 04/18/21 06/01/21 05/31/21 History cholecalciferol (vitamin D3) 50 50 mcg PO DAILY 04/18/21 06/01/21 05/31/21 History mcg (2,000 unit) capsule gabapentin 300 mg capsule 300 mg PO TID 04/18/21 06/01/21 05/31/21 History hydralazine 10 mg tablet 10 mg PO TID 04/18/21 06/01/21 05/31/21 History pantoprazole 20 mg tablet,delayed 20 mg PO BID 04/18/21 06/01/21 05/31/21 History release pioglitazone 15 mg tablet 15 mg PO BEDTIME 04/18/21 06/01/21 05/31/21 History simvastatin 20 mg tablet 20 mg PO BEDTIME 04/18/21 06/01/21 05/31/21 History trazodone 50 mg tablet 50 mg PO BEDTIME 04/18/21 06/01/21 05/31/21 History verapamil 120 mg 24 hr 120 mg PO DAILY 04/18/21 06/01/21 05/31/21 History capsule,extended release zolpidem 5 mg tablet 5 mg PO BEDTIME PRN 04/18/21 06/01/21 05/31/21 History insulin glargine [Lantus U-100 25 unit SUBCUT QAM 06/01/21 06/01/21 05/31/21 History Insulin] losartan 1 tab PO QAM 06/01/21 06/01/21 05/31/21 History metformin 1 tab PO BID 06/01/21 06/01/21 05/31/21 History sitagliptin [Januvia] 1 tab PO QAM 06/01/21 06/01/21 05/31/21 History Physical Exam Vital Signs: Last Vital Signs Temp 97.8 F 06/02/21 08:00 Pulse 77 06/02/21 08:00 Resp 18 06/02/21 08:00 BP 172/74 H 06/02/21 08:00 Pulse Ox 98 06/02/21 08:00 Body Mass Index 24.9 Const General: cooperative Orientation/consciousness: oriented to person and oriented to place Limitations: no limitations HENMT Head: Yes normal to inspection, Yes normocephalic and Yes atraumatic Ears: external ears normal General nose exam: Normal external nose present Face and sinus: Yes normal facial exam Mouth: Normal oral and palatal mucosa present Throat: Yes posterior oropharynx normal Eyes Periorbital: periorbital findings normal Eyelids: Yes eyelids normal Conjunctivae: conjunctivae normal Sclerae: sclerae normal Corneas: corneas normal Pupils: Equal, round and reactive pupils present Direct Ophthalmoscopy: normal light reflex Neck Neck: Yes full ROM, Yes no lymphadenopathy, Yes no meningeal signs, Yes trachea midline and Yes supple Chest Chest palpation & inspection: normal inspection of the chest and normal palpation of entire chest wall Resp Effort & Inspection: normal respiratory effort and able to speak in complete sentences Auscultation: clear to auscultation bilaterally Cardio Rate: regular rate Rhythm: regular rhythm Heart sounds: S1 normal heart sound present, S2 normal heart sound present and no murmurs GI Inspection: Yes normal to inspection Palpation (GI): Soft to palpation, Tenderness to palpation present (GI) ( Moderate left lower quadrant tenderness), no guarding, not rigid and No hepatosplenomegaly present General: Yes no CVA tenderness Back/Spine/Pelvis Back: no CVA tenderness Cervical Spine: normal cervical lordosis Thoracic/Lumbar Spine: thoracic and lumbar spine normal to inspection Skin Lesions: no lesions Rashes: no rashes Wounds: no wounds Neuro General: oriented to person, oriented to place and no meningeal signs Cranial nerves: Yes CN's II-XII intact bilaterally and Yes Equal, round and reactive pupils present Cognition (Neuro): normal cognition Motor exam (neuro): 5/5 motor strength present throughout Extrem General: Yes normal to inspection and Yes full ROM Psych Appearance: well kempt Mental Status: mental status grossly normal Speech and movement: Normal speech and movement present Affect: normal affect Attitude: cooperative Thought process: Normal thought process present Thought content: Normal thought content present Results Lab Results Result Diagrams: 06/02/21 05:22 06/02/21 05:22 Lab results: Chemistry 06/01/21 06/02/21 11:20 05:22 Sodium 137 141 Potassium 5.7 H 5.3 H Carbon Dioxide 18 L 11 L BUN 53 H 51 H Creatinine 5.98 H* 6.27 H* Calcium 8.8 7.9 L D Hematology 06/01/21 06/02/21 11:19 05:22 WBC 9.7 7.6 Hgb 12.0 11.5 L Plt Count 290 275 Urinalysis 06/01/21 20:31 Urine Color YELLOW Urine Appearance HAZY Urine pH 5.5 Ur Specific [place] 1.025 Urine Protein 2+ H Urine Glucose (UA) NEG Urine Ketones 5 Urine Blood TRACE Urine Nitrite NEG Ur Leukocyte Esterase 1+ H Urine RBC 5-9 H Urine WBC 5-9 H Ur Squamous Epith Cells 2+ Assessment and Plan (1) Colitis: Status: Acute (2) Acute renal failure: Qualifiers: Acute renal failure type: unspecified Qualified Code(s): N17.9 - Acute kidney failure, unspecified Status: Acute will order urine studies her CT KIDNEYS AND URETERS: There are small bilateral renal calcifications probably representing stones. No hydronephrosis, ureteral dilatation or ureteral stone is seen. KIDNEYS AND URETERS: There are small bilateral renal calcifications probably representing stones. No hydronephrosis, ureteral dilatation or ureteral stone is seen. would get a jerome in and agree to normal bicarb iv at 200 cc hr may need dialysis if stays oliguric aand looks like ATN (3) Acute dehydration: Status: Acute (4) PAD (peripheral artery disease): Status: Acute Procedures Date of Service Date of Service: 06/02/21
--- NOTE | 2021-06-02 10:02 | HO.PM.IMPN ---
Subjective Subjective Date of Service: 06/02/21 Interval History: patient complaining of persistent abdominal discomfort, headache, lightheadedness but feels a little better since yesterday, no further nausea vomiting or diarrhea. 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 Neck no JVD. CVS regular rate rhythm, Respiratory lungs clear to auscultation, no respiratory distress, no rales, no rhonchi. Gastrointestinal abdomen soft, mild diffuse tenderness, no distension, bowel sounds audible, no guarding , no rigidity. Extremities no edema. Neuro nonfocal ,speech clear. Skin no rash Objective Data Current Medications Generic Name Dose Route Start Last Admin Trade Name Freq PRN Reason Stop Dose Admin Acetaminophen 650 mg 06/01/21 17:32 06/01/21 22:18 Acetaminophen 325 Mg Tablet PO 650 mg Q6H PRN Administration Pain, Mild (Pain Scale 1-3) Amlodipine Besylate 5 mg 06/02/21 10:00 06/02/21 09:39 Amlodipine Besylate 5 Mg Tablet PO 5 mg DAILY NERI Administration Protocol Heparin Sodium (Porcine) 5,000 unit 06/01/21 21:00 06/02/21 09:00 Heparin Sodium,Porcine 5,000 Unit/Ml Vial SUBCUT 5,000 unit BID NERI Administration Hydromorphone HCl 0.5 mg 06/01/21 17:32 06/02/21 04:11 Hydromorphone Hcl 0.5 Mg/0.5 Ml Syringe IVPUSH 0.5 mg Q4H PRN Administration pain Metronidazole 500 mg in 100 mls @ 100 mls/hr 06/01/21 22:00 06/02/21 07:20 Flagyl IV Infused Q8H NERI Infusion Ceftriaxone Sodium 1 gm/ 50 mls @ 100 mls/hr 06/02/21 13:00 Sodium Chloride IV Q24H NERI Sodium Chloride 1,000 mls @ 150 mls/hr 06/01/21 18:09 06/02/21 08:57 Ns IVCONT 150 mls/hr .[id number] [facility] Administration Insulin Human Lispro 0 unit 06/01/21 18:09 06/02/21 06:18 Insulin Lispro 100 Unit/Ml 3 Ml Vial SUBCUT Not Given Q6H [facility] Protocol Ondansetron HCl 4 mg 06/01/21 17:32 Ondansetron Hcl 4 Mg/2 Ml Vial IVPUSH Q8H PRN Nausea and Vomiting Pharmacy Consult 1 each 06/01/21 17:17 Consult Rx Perform Med Rec MISCELLANE ONCE PRN Consult order Sodium Chloride 3 ml 06/02/21 00:00 06/02/21 07:21 0.9 % Sodium Chloride Flush 3 Ml Syringe IVFLUSH Not Given QSHIFT [facility] Labs CBC & Chem 7: 06/02/21 05:22 06/02/21 05:22 Labs: Laboratory Results - last 24 hr 06/01/21 06/01/21 06/01/21 11:19 11:19 11:19 WBC 9.7 RBC 4.51 Hgb 12.0 Hct 38.2 MCV 84.7 MCH 26.6 L MCHC 31.4 RDW 14.0 Plt Count 290 MPV 10.5 Immature Gran % (Auto) 0.4 Neut % (Auto) 77.8 H Lymph % (Auto) 13.1 L [place] % (Auto) 8.5 Eos % (Auto) 0.1 Baso % (Auto) 0.1 Lymph # (Auto) 1.3 [place] # (Auto) 0.8 Eos # (Auto) 0.0 Baso # (Auto) 0.0 Abs Immat Gran (auto) 0.04 H Absolute Neuts (auto) 7.5 Absolute Nucleated RBC 0.000 Nucleated RBC % (auto) 0.0 Sodium Potassium Chloride Carbon Dioxide Anion Gap BUN Creatinine Estim Creat Clear Calc Estimated GFR POC Glucose Random Glucose Lactic Acid 3.0 H* Lactic Acid Fup @ 2Hr Lactic Acid Fup @ 4Hr Calcium Total Bilirubin AST ALT Alkaline Phosphatase Troponin I High Sens 14.6 Total Protein Albumin Lipase Urine Color Urine Appearance Urine pH Ur Specific [place] Urine Protein Urine Glucose (UA) Urine Ketones Urine Blood Urine Nitrite Ur Leukocyte Esterase Urine RBC Urine WBC Urine WBC Clumps Ur Squamous Epith Cells Amorphous Sediment Urine Bacteria Ur Random Sodium COVID-19 (KELLY) COVID-19 Clin Com 06/01/21 06/01/21 06/01/21 11:19 11:20 11:26 WBC RBC Hgb Hct MCV MCH MCHC RDW Plt Count MPV Immature Gran % (Auto) Neut % (Auto) Lymph % (Auto) [place] % (Auto) Eos % (Auto) Baso % (Auto) Lymph # (Auto) [place] # (Auto) Eos # (Auto) Baso # (Auto) Abs Immat Gran (auto) Absolute Neuts (auto) Absolute Nucleated RBC Nucleated RBC % (auto) Sodium 137 Potassium 5.7 H Chloride 101 Carbon Dioxide 18 L Anion Gap 24 H BUN 53 H Creatinine 5.98 H* Estim Creat Clear Calc 7.1 Estimated GFR 7 POC Glucose 146 H Random Glucose 165 H Lactic Acid Lactic Acid Fup @ 2Hr Lactic Acid Fup @ 4Hr Calcium 8.8 Total Bilirubin 0.4 AST 16 ALT 9 Alkaline Phosphatase 42 Troponin I High Sens Total Protein 6.6 Albumin 3.9 Lipase < 4 L Urine Color Urine Appearance Urine pH Ur Specific [place] Urine Protein Urine Glucose (UA) Urine Ketones Urine Blood Urine Nitrite Ur Leukocyte Esterase Urine RBC Urine WBC Urine WBC Clumps Ur Squamous Epith Cells Amorphous Sediment Urine Bacteria Ur Random Sodium COVID-19 (KELLY) Negative COVID-19 [employer] Com See Note 06/01/21 06/01/21 06/01/21 13:57 16:20 20:30 WBC RBC Hgb Hct MCV MCH MCHC RDW Plt Count MPV Immature Gran % (Auto) Neut % (Auto) Lymph % (Auto) [place] % (Auto) Eos % (Auto) Baso % (Auto) Lymph # (Auto) [place] # (Auto) Eos # (Auto) Baso # (Auto) Abs Immat Gran (auto) Absolute Neuts (auto) Absolute Nucleated RBC Nucleated RBC % (auto) Sodium Potassium Chloride Carbon Dioxide Anion Gap BUN Creatinine Estim Creat Clear Calc Estimated GFR POC Glucose 124 H Random Glucose Lactic Acid Lactic Acid Fup @ 2Hr 3.5 H* Lactic Acid Fup @ 4Hr 2.0 Calcium Total Bilirubin AST ALT Alkaline Phosphatase Troponin I High Sens Total Protein Albumin Lipase Urine Color Urine Appearance Urine pH Ur Specific [place] Urine Protein Urine Glucose (UA) Urine Ketones Urine Blood Urine Nitrite Ur Leukocyte Esterase Urine RBC Urine WBC Urine WBC Clumps Ur Squamous Epith Cells Amorphous Sediment Urine Bacteria Ur Random Sodium COVID-19 (KELLY) COVID-19 [employer] Com 06/01/21 06/01/21 06/01/21 20:31 20:32 23:55 WBC RBC Hgb Hct MCV MCH MCHC RDW Plt Count MPV Immature Gran % (Auto) Neut % (Auto) Lymph % (Auto) [place] % (Auto) Eos % (Auto) Baso % (Auto) Lymph # (Auto) [place] # (Auto) Eos # (Auto) Baso # (Auto) Abs Immat Gran (auto) Absolute Neuts (auto) Absolute Nucleated RBC Nucleated RBC % (auto) Sodium Potassium Chloride Carbon Dioxide Anion Gap BUN Creatinine Estim Creat Clear Calc Estimated GFR POC Glucose 127 H Random Glucose Lactic Acid Lactic Acid Fup @ 2Hr Lactic Acid Fup @ 4Hr Calcium Total Bilirubin AST ALT Alkaline Phosphatase Troponin I High Sens Total Protein Albumin Lipase Urine Color YELLOW Urine Appearance HAZY Urine pH 5.5 Ur Specific [place] 1.025 Urine Protein 2+ H Urine Glucose (UA) NEG Urine Ketones 5 Urine Blood TRACE Urine Nitrite NEG Ur Leukocyte Esterase 1+ H Urine RBC 5-9 H Urine WBC 5-9 H Urine WBC Clumps NOTED Ur Squamous Epith Cells 2+ Amorphous Sediment 2+ Urine Bacteria 2+ Ur Random Sodium 84.0 COVID-19 (KELLY) COVID-19 [employer] 06/02/21 06/02/21 06/02/21 04:14 05:22 05:22 WBC 7.6 RBC 4.36 Hgb 11.5 L Hct 37.9 MCV 86.9 MCH 26.4 L MCHC 30.3 L RDW 14.3 Plt Count 275 MPV 10.9 Immature Gran % (Auto) Neut % (Auto) Lymph % (Auto) [place] % (Auto) Eos % (Auto) Baso % (Auto) Lymph # (Auto) [place] # (Auto) Eos # (Auto) Baso # (Auto) Abs Immat Gran (auto) Absolute Neuts (auto) Absolute Nucleated RBC 0.000 Nucleated RBC % (auto) 0.0 Sodium 141 Potassium 5.3 H Chloride 109 H Carbon Dioxide 11 L Anion Gap 26 H BUN 51 H Creatinine 6.27 H* Estim Creat Clear Calc 6.8 Estimated GFR 6 POC Glucose 130 H Random Glucose 166 H Lactic Acid Lactic Acid Fup @ 2Hr Lactic Acid Fup @ 4Hr Calcium 7.9 L D Total Bilirubin AST ALT Alkaline Phosphatase Troponin I High Sens Total Protein Albumin Lipase Urine Color Urine Appearance Urine pH Ur Specific [place] Urine Protein Urine Glucose (UA) Urine Ketones Urine Blood Urine Nitrite Ur Leukocyte Esterase Urine RBC Urine WBC Urine WBC Clumps Ur Squamous Epith Cells Amorphous Sediment Urine Bacteria Ur Random Sodium COVID-19 (KELLY) COVID-19 [employer] 06/02/21 06:17 WBC RBC Hgb Hct MCV MCH MCHC RDW Plt Count MPV Immature Gran % (Auto) Neut % (Auto) Lymph % (Auto) [place] % (Auto) Eos % (Auto) Baso % (Auto) Lymph # (Auto) [place] # (Auto) Eos # (Auto) Baso # (Auto) Abs Immat Gran (auto) Absolute Neuts (auto) Absolute Nucleated RBC Nucleated RBC % (auto) Sodium Potassium Chloride Carbon Dioxide Anion Gap BUN Creatinine Estim Creat Clear Calc Estimated GFR POC Glucose 163 H Random Glucose Lactic Acid Lactic Acid Fup @ 2Hr Lactic Acid Fup @ 4Hr Calcium Total Bilirubin AST ALT Alkaline Phosphatase Troponin I High Sens Total Protein Albumin Lipase Urine Color Urine Appearance Urine pH Ur Specific [place] Urine Protein Urine Glucose (UA) Urine Ketones Urine Blood Urine Nitrite Ur Leukocyte Esterase Urine RBC Urine WBC Urine WBC Clumps Ur Squamous Epith Cells Amorphous Sediment Urine Bacteria Ur Random Sodium COVID-19 (KELLY) COVID-19 [employer] Quality Stroke Does the patient have a stroke diagnosis?: No VTE Prior VTE?: No VTE Risk Level:: Medical - moderate - high VTE Device Contraindication: Treatment Not Indicated VTE Drug Contraindication: N/A - Med Ordered Assessment and Plan (1) Acute renal failure: Status: Acute (2) Colitis: Status: Acute (3) Acute dehydration: Status: Acute (4) PAD (peripheral artery disease): Status: Acute (5) Urinary tract infection: Status: Acute Assessment and Plan: 75-year-old female patient with multiple medical issues including hypertension, diabetes mellitus, hyperlipidemia, peripheral vascular disease, presented to [facility] with acute onset of nausea, vomiting, abdominal pain, and diarrhea. The patient diagnosed to have acute pancolitis, acute kidney injury with anion gap metabolic acidosis, hyperkalemia, and lactic acidosis with no evidence of sepsis. 1. Acute pancolitis. persistent abdominal pain and dizziness, no further nausea, vomiting or diarrhea NPO, start clears if pain improves,cont. ivf will continue IV ceftriaxone and Flagyl day 2, follow urine and blood culture, stool culture not collected since no diarrhea CT abdomen showed pancolitis with no obstruction, no abscess, follow clinical course closely continue supportive care with antiemetics and analgesics. 2. Acute kidney injury with anion gap metabolic acidosis / hyperkalemia likely pre renal from GI loss/question ATN. still appear dehydrated, Case discussed with Dr. Ortiz urine study sent, will change IV fluids to IV soda bicarb/d5w 200 mL/hr hold losartan and metformin follow BMP closely if not better,will need dialysis, spoke to daughter and grandson and informed them about current clinical condition 3. Hyperkalemia due to acute renal failure. Give IV fluids and follow BMP closely. 4. Lactic acidosis due to acute colitis. Continue IV hydration. Lactic acid normalized. 5. Hypertension. BP noted to be elevated will place on Norvasc and hold losartan. 6. Diabetes mellitus. Blood sugars stable around 150, continue insulin sliding scale , hold oral hypoglycemics including metformin and Januvia. 7. Deep vein thrombosis prophylaxis. on heparin subcu. 8. Code status, full code.
[2021-06-02] MEDS: Sodium Bicarbonate 8.4% 150 MEQ in Dextrose 5 % 850 ML 200 MEQ IV ×2 (10:45→18:01)
--- NOTE | 2021-06-02 11:58 | PC.NURSE ---
Skin assessment completed today. Patient has slight blanchable redness to buttocks. EPC barrier cream applied. No other skin issues were noted. Skin dry and intact.
[2021-06-02 13:24] LABS: Glucose, Whole Blood 222 mg/dL (60-115)
[2021-06-02] MEDS: cefTRIAXone sodium 1 GM in 0.9 % Sodium Chloride 50 ML IV (13:44)
[2021-06-02 13:48] LABS: Osmolality Urine 325 mosm/kg (373-1093)
[2021-06-02 16:33] LABS: Glucose, Whole Blood 168 mg/dL (60-115)
[2021-06-02 17:01] LABS: Anion Gap 25 (12-20); Blood Urea Nitrogen 52 mg/dL (9-16); Calcium 7.5 mg/dL (8.4-10.2); Carbon Dioxide 14 mmol/L (22-29); Chloride 107 mmol/L (96-108); Estimated Glomerular Filt Rate 7; Glucose Random 183 mg/dL (60-115); Potassium 4.9 mmol/L (3.3-5.1); Sodium 141 mmol/L (135-145)
--- NOTE | 2021-06-02 17:41 | PC.NURSE ---
at 12:00 pt had not voided. bladder scanned for 259mL, but then voided clear, light yellow urine, 200mL on the commode. Pt reported feeling better, decreased pain and no nausea. Moved to room 476 d/t outlet/call button broken. Pt diet increased to clears and pt sipped some water. at 1400 pt reported needing to have a BM, assisted to the commode. pt reported feeling dizzy/ lightheaded and nauseous. pt back to bed reported feeling better, but remained slightly nauseous. refused any further clear liquid diet. did not tolerate well. will cont to monitor and asses. pt now sleeping
[2021-06-02 20:17] LABS: Glucose, Whole Blood 217 mg/dL (60-115)
[2021-06-02] MEDS: Insulin Lispro 100 UNIT/ML 3 ML VIAL SUBCUT (22:04)
[2021-06-03] MEDS: Sodium Bicarbonate 8.4% 150 MEQ in Dextrose 5 % 850 ML 125 MEQ IV (01:49)
[2021-06-03 02:41] VITALS: BP 132/60; PULSE 68; RESP 18; TEMP 36.4; O2SAT 94
[2021-06-03 05:31] LABS: CDiff Gene PCR NEGATIVE (Negative)
[2021-06-03] MEDS: metroNIDAZOLE/NS 500 MG/100 ML PIGGYBACK 100 MG IV ×3 (06:18→21:37)
[2021-06-03 07:21] VITALS: BP 171/72; PULSE 77; RESP 20; TEMP 36; O2SAT 97
[2021-06-03 07:33] LABS: Glucose, Whole Blood 152 mg/dL (60-115)
[2021-06-03 07:56] LABS: Anion Gap 20 (12-20); Blood Urea Nitrogen 46 mg/dL (9-16); Calcium 7.2 mg/dL (8.4-10.2); Carbon Dioxide 26 mmol/L (22-29); Chloride 99 mmol/L (96-108); Creatinine Clr Calc Pharmacy 8.4; Estimated Glomerular Filt Rate 8; Glucose Random 173 mg/dL (60-115); Potassium 3.6 mmol/L (3.3-5.1); Sodium 141 mmol/L (135-145)
[2021-06-03] MEDS: amLODIPine Besylate 5 MG TABLET PO (08:22)
[2021-06-03] MEDS: Heparin Sodium,Porcine 5,000 UNIT/ML VIAL 5000 UNIT SUBCUT ×2 (08:24→20:43)
[2021-06-03 11:00] VITALS: BP 184/70; PULSE 79; RESP 20; TEMP 36.4; O2SAT 98
[2021-06-03 11:07] LABS: Glucose, Whole Blood 181 mg/dL (60-115)
[2021-06-03] MEDS: Insulin Lispro 100 UNIT/ML 3 ML VIAL SUBCUT ×2 (11:20→20:43)
--- NOTE | 2021-06-03 12:54 | HO.PM.IMPN ---
Subjective Subjective Date of Service: 06/03/21 Interval History: Seen in f/u for abdominal pain, acute pancolitis and renal failure ([place]), persistent abdominal pain, renal function not any better. 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 CVS no chest pain, no palpitation no urinary frequency, no urgency Musculoskeletal no back pain Physical Exam Vital Signs: Vital Signs: Last Vital Signs Temp 97.6 F 06/03/21 11:00 Pulse 79 06/03/21 11:00 Resp 20 06/03/21 11:00 BP 184/70 H 06/03/21 11:00 Pulse Ox 98 06/03/21 11:00 Body Mass Index 24.9 Const: Other: General: AO X 3, no acute distress Resp: CTA bilateral CVS: S1,S2,RRR GI: +BS, NT, no distention Skin: No rash Neuro: motor grossly intact Psych: appropriate affect Objective Data Current Medications Generic Name Dose Route Start Last Admin Trade Name Freq PRN Reason Stop Dose Admin Acetaminophen 650 mg 06/01/21 17:32 06/01/21 22:18 Acetaminophen 325 Mg Tablet PO 650 mg Q6H PRN Administration Pain, Mild (Pain Scale 1-3) Amlodipine Besylate 5 mg 06/02/21 10:00 06/03/21 08:22 Amlodipine Besylate 5 Mg Tablet PO 5 mg DAILY NERI Administration Protocol Heparin Sodium (Porcine) 5,000 unit 06/01/21 21:00 06/03/21 08:24 Heparin Sodium,Porcine 5,000 Unit/Ml Vial SUBCUT 5,000 unit BID NERI Administration Hydromorphone HCl 0.5 mg 06/01/21 17:32 06/02/21 04:11 Hydromorphone Hcl 0.5 Mg/0.5 Ml Syringe IVPUSH 0.5 mg Q4H PRN Administration pain Metronidazole 500 mg in 100 mls @ 100 mls/hr 06/01/21 22:00 06/03/21 07:18 Flagyl IV Infused Q8H NERI Infusion Ceftriaxone Sodium 1 gm/ 50 mls @ 100 mls/hr 06/02/21 13:00 06/02/21 14:18 Sodium Chloride IV Infused Q24H NERI Infusion Sodium Bicarbonate 150 meq/ 1,000 mls @ 125 mls/hr 06/02/21 10:15 06/03/21 09:49 Dextrose IV Infused .Q8H NERI Infusion Insulin Human Lispro 0 unit 06/02/21 16:30 06/03/21 11:20 Insulin Lispro 100 Unit/Ml 3 Ml Vial SUBCUT 2 unit [facility] Administration Protocol Ondansetron HCl 4 mg 06/01/21 17:32 Ondansetron Hcl 4 Mg/2 Ml Vial IVPUSH Q8H PRN Nausea and Vomiting Pharmacy Consult 1 each 06/01/21 17:17 Consult Rx Perform Med Rec MISCELLANE ONCE PRN Consult order Sodium Chloride 3 ml 06/02/21 00:00 06/03/21 08:22 0.9 % Sodium Chloride Flush 3 Ml Syringe IVFLUSH Not Given QSHIFT [facility] Labs CBC & Chem 7: 06/02/21 05:22 06/03/21 07:02 Labs: Laboratory Results - last 24 hr 06/02/21 06/02/21 06/02/21 12:18 12:18 13:20 Sodium Potassium Chloride Carbon Dioxide Anion Gap BUN Creatinine Estim Creat Clear Calc Estimated GFR POC Glucose 222 H Random Glucose Calcium Urine Osmolality 325 L Ur Random Sodium 94.0 C. difficile Tox B Gene 06/02/21 06/02/21 06/02/21 16:02 16:30 20:00 Sodium 141 Potassium 4.9 Chloride 107 Carbon Dioxide 14 L Anion Gap 25 H BUN 52 H Creatinine 6.14 H* Estim Creat Clear Calc 7.0 Estimated GFR 7 POC Glucose 168 H 217 H Random Glucose 183 H Calcium 7.5 L Urine Osmolality Ur Random Sodium C. difficile Tox B Gene 06/03/21 06/03/21 06/03/21 04:15 07:02 07:26 Sodium 141 Potassium 3.6 D Chloride 99 Carbon Dioxide 26 Anion Gap 20 BUN 46 H Creatinine 5.09 H* Estim Creat Clear Calc 8.4 Estimated GFR 8 POC Glucose 152 H Random Glucose 173 H Calcium 7.2 L Urine Osmolality Ur Random Sodium C. difficile Tox B Gene NEGATIVE 06/03/21 11:02 Sodium Potassium Chloride Carbon Dioxide Anion Gap BUN Creatinine Estim Creat Clear Calc Estimated GFR POC Glucose 181 H Random Glucose Calcium Urine Osmolality Ur Random Sodium C. difficile Tox B Gene Microbiology Microbiology Results: Microbiology 06/01/21 20:30 Urine Culture - Final Urine clean catch - Urine barrios top Escherichia coli 06/02/21 00:13 Blood Culture - Preliminary Blood - Venous No growth after 24 hours. 06/02/21 00:13 Blood Culture - Preliminary Blood - Venous No growth after 24 hours. Quality Stroke Does the patient have a stroke diagnosis?: No VTE Prior VTE?: No VTE Risk Level:: Medical - moderate - high VTE Device Contraindication: Treatment Not Indicated VTE Drug Contraindication: N/A - Med Ordered Assessment and Plan (1) Acute renal failure: Status: Acute (2) Colitis: Status: Acute (3) Acute dehydration: Status: Acute (4) PAD (peripheral artery disease): Status: Acute (5) Urinary tract infection: Status: Acute Assessment and Plan: 75-year-old female patient with multiple medical issues including hypertension, diabetes mellitus, hyperlipidemia, peripheral vascular disease, presented to [facility] with acute onset of nausea, vomiting, abdominal pain, and diarrhea. The patient diagnosed to have acute pancolitis, acute kidney injury with anion gap metabolic acidosis, hyperkalemia, and lactic acidosis with no evidence of sepsis. 1. Acute pancolitis. persistent abdominal , no further nausea, vomiting or diarrhea NPO, start clears if pain improves,cont. ivf will continue IV ceftriaxone and Flagyl day 2, follow urine and blood culture, stool culture not collected since no diarrhea CT abdomen showed pancolitis with no obstruction, no abscess, follow clinical course closely continue supportive care with antiemetics and analgesics. GI consult and surgery consult check c dif repeat CT if not improving 2. Acute kidney injury with anion gap metabolic acidosis / hyperkalemia, last known normal creatine was a year ago, so chronicity is unclear at this time. There is sligth improvement in renal function today, could be pre renal or possibly ATN. Continue current management guided by Nephrology. She may need Biopsy and ultimately may Dialysis. 3. Hyperkalemia due to acute renal failure. Corrected, K is 3.6 4. Lactic acidosis due to acute colitis or renal failure. Not repeat since admission, recheck today 5. Hypertension. BP high, On amodipine 5, may not be absorbing well due to colitis, Add IV labatlol 6. Diabetes mellitus. Blood sugars stable around 150, continue insulin sliding scale , hold oral hypoglycemics including metformin and Januvia. 7. Deep vein thrombosis prophylaxis. on heparin subcu. 8. Code status, full code. I discussed plan of care with patient's grandson (HCP) over the phone
[2021-06-03] MEDS: cefTRIAXone sodium 1 GM in 0.9 % Sodium Chloride 50 ML IV (13:21)
[2021-06-03 13:55] LABS: Lactic Acid 3.1 mmol/L (0.5-2.0)
[2021-06-03 14:00] VITALS: BP 158/70; PULSE 75
--- NOTE | 2021-06-03 14:50 | PM.CNGS ---
History of Present Illness Consult details Consult date: 06/03/21 Narrative: 75-year-old female referred for macdonald colitis. She was admitted on 06/01/2021 because of multiple episodes of diarrhea with water stools, nausea as well as vomiting. She said that this started the day before admission. This was acute in onset. She was extremely dehydrated at the time of admission and was in acute renal failure with elevated creatinine and lactic acidosis. She had a CAT scan showing pancolitis with diffuse beginning of the colon without any other acute changes. She continues to have watery stools. She says that she does not have any significant pain anymore. Her creatinine is still elevated at 5.09. She denies any blood per rectum. She denies any previous similar episodes. She says she has colonoscopies in the past although does not recall exactly when the last 1 was. She does not have any record of a colonoscopy done here at the [facility]. She has vascular disease and has undergone angioplasties for the lower extremities. Review of Systems Constitutional: Constitutional: Denies chills and Denies fever(s) Cardiovascular: Cardiovascular: Denies chest pain, Denies dyspnea and Denies dyspnea on exertion Respiratory: Respiratory: Denies cough, Denies dyspnea and Denies dyspnea on exertion Gastrointestinal: Gastrointestinal: Denies hematochezia, Denies change in bowel habits and Reports diarrhea Genitourinary: Genitourinary: Denies hematuria Musculoskeletal: Musculoskeletal: Denies back pain and Denies limited range of motion Neurologic: Denies focal weakness and Denies convulsions Psychiatric: Psychiatric: Denies depression and Denies mood swings PMF Past Medical History Medical History HTN (hypertension) Hyperlipemia Osteoporosis Peripheral vascular disease Family History Family History Father No problems noted. Mother No problems noted. Daughter No problems noted. Son No problems noted. Son No problems noted. Son No problems noted. 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 If so, by whom?: No Do you feel safe in your current relationship?: No Current Relationship Is there a partner from a previous relationship who is making you feel unsafe now?: No Are you made to feel afraid or neglected: No Advance Directives: No Advance Directives Information Provided: Yes Do you have thoughts of harming others: None Do you have a plan to hurt others: No Plan Recently lost weight without trying: Unsure service: No Current occupational status: disabled Meds Allergies Allergy/AdvReac Type Severity Reaction Status Date / Time No Known Allergies Allergy Unknown Verified 06/01/21 09:12 [No Known Allergies*] Active Medications: Current Medications Generic Name Dose Route Start Last Admin Trade Name Freq PRN Reason Stop Dose Admin Acetaminophen 650 mg 06/01/21 17:32 06/01/21 22:18 Acetaminophen 325 Mg Tablet PO 650 mg Q6H PRN Administration Pain, Mild (Pain Scale 1-3) Amlodipine Besylate 5 mg 06/02/21 10:00 06/03/21 08:22 Amlodipine Besylate 5 Mg Tablet PO 5 mg DAILY NERI Administration Protocol Heparin Sodium (Porcine) 5,000 unit 06/01/21 21:00 06/03/21 08:24 Heparin Sodium,Porcine 5,000 Unit/Ml Vial SUBCUT 5,000 unit BID NERI Administration Hydromorphone HCl 0.5 mg 06/01/21 17:32 06/02/21 04:11 Hydromorphone Hcl 0.5 Mg/0.5 Ml Syringe IVPUSH 0.5 mg Q4H PRN Administration pain Metronidazole 500 mg in 100 mls @ 100 mls/hr 06/01/21 22:00 06/03/21 14:14 Flagyl IV 100 mls/hr Q8H [facility] Administration Ceftriaxone Sodium 1 gm/ 50 mls @ 100 mls/hr 06/02/21 13:00 06/03/21 13:51 Sodium Chloride IV Infused Q24H [facility] Infusion Sodium Bicarbonate 150 meq/ 1,000 mls @ 125 mls/hr 06/02/21 10:15 06/03/21 13:56 Dextrose IV Not Given .Q8H [facility] Insulin Human Lispro 0 unit 06/02/21 16:30 06/03/21 11:20 Insulin Lispro 100 Unit/Ml 3 Ml Vial SUBCUT 2 unit QIDACHS [facility] Administration Protocol Ondansetron HCl 4 mg 06/01/21 17:32 Ondansetron Hcl 4 Mg/2 Ml Vial IVPUSH Q8H PRN Nausea and Vomiting Pharmacy Consult 1 each 06/01/21 17:17 Consult Rx Perform Med Rec MISCELLANE ONCE PRN Consult order Sodium Chloride 3 ml 06/02/21 00:00 06/03/21 08:22 0.9 % Sodium Chloride Flush 3 Ml Syringe IVFLUSH Not Given QSHIFT [facility] Home Medications Medication Instructions Recorded Confirmed Last Taken Type amlodipine 5 mg tablet 5 mg PO DAILY 04/18/21 06/01/21 05/31/21 History aspirin 81 mg chewable tablet 1 tab PO DAILY 04/18/21 06/01/21 05/31/21 History chlorthalidone 50 mg tablet 50 mg PO DAILY 04/18/21 06/01/21 05/31/21 History cholecalciferol (vitamin D3) 50 50 mcg PO DAILY 04/18/21 06/01/21 05/31/21 History mcg (2,000 unit) capsule gabapentin 300 mg capsule 300 mg PO TID 04/18/21 06/01/21 05/31/21 History hydralazine 10 mg tablet 10 mg PO TID 04/18/21 06/01/21 05/31/21 History pantoprazole 20 mg tablet,delayed 20 mg PO BID 04/18/21 06/01/21 05/31/21 History release pioglitazone 15 mg tablet 15 mg PO BEDTIME 04/18/21 06/01/21 05/31/21 History simvastatin 20 mg tablet 20 mg PO BEDTIME 04/18/21 06/01/21 05/31/21 History trazodone 50 mg tablet 50 mg PO BEDTIME 04/18/21 06/01/21 05/31/21 History verapamil 120 mg 24 hr 120 mg PO DAILY 04/18/21 06/01/21 05/31/21 History capsule,extended release zolpidem 5 mg tablet 5 mg PO BEDTIME PRN 0506/01/21 05/31/21 History insulin glargine [Lantus U-100 25 unit SUBCUT QAM 06/01/21 06/01/21 05/31/21 History Insulin] losartan 1 tab PO QAM 06/01/21 06/01/21 05/31/21 History metformin 1 tab PO BID 06/01/21 06/01/21 05/31/21 History sitagliptin [Januvia] 1 tab PO QAM 06/01/21 06/01/21 05/31/21 History Physical Exam Vital Signs: Vital Signs: Last Vital Signs Temp 97.6 F 06/03/21 11:00 Pulse 75 06/03/21 14:00 Resp 20 06/03/21 11:00 BP 158/70 H 06/03/21 14:00 Pulse Ox 98 06/03/21 11:00 Body Mass Index 24.9 Const: Other: looks well General: comfortable and no acute distress Orientation/consciousness: patient oriented x3 Neck: Neck: Yes no lymphadenopathy Resp: Auscultation: clear to auscultation bilaterally Cardio: Rhythm: regular rhythm GI: Palpation (GI): Soft to palpation, nontender and no guarding Neuro: General: patient oriented x3 Results Labs Result diagrams: 06/02/21 05:22 06/05/21 06:13 Labs: Abnormal lab results 06/02/21 06/02/21 06/02/21 Range/Units 16:02 16:30 20:00 Carbon Dioxide 14 L (22-29) mmol/L Anion Gap 25 H (12-20) BUN 52 H (9-16) mg/dL Creatinine 6.14 H* (0.5-1.4) mg/dL POC Glucose 168 H 217 H (60-115) mg/dL Random Glucose 183 H (60-115) mg/dL Lactic Acid (0.5-2.0) mmol/L Calcium 7.5 L (8.4-10.2) mg/dL 06/03/21 06/03/21 06/03/21 Range/Units 07:02 07:26 11:02 Carbon Dioxide (22-29) mmol/L Anion Gap (12-20) BUN 46 H (9-16) mg/dL Creatinine 5.09 H* (0.5-1.4) mg/dL POC Glucose 152 H 181 H (60-115) mg/dL Random Glucose 173 H (60-115) mg/dL Lactic Acid (0.5-2.0) mmol/L Calcium 7.2 L (8.4-10.2) mg/dL 06/03/21 Range/Units 13:20 Carbon Dioxide (22-29) mmol/L Anion Gap (12-20) BUN (9-16) mg/dL Creatinine (0.5-1.4) mg/dL POC Glucose (60-115) mg/dL Random Glucose (60-115) mg/dL Lactic Acid 3.1 H* (0.5-2.0) mmol/L Calcium (8.4-10.2) mg/dL BMP 06/02/21 06/03/21 16:02 07:02 Sodium 141 141 Potassium 4.9 3.6 D Chloride 107 99 Carbon Dioxide 14 L 26 BUN 52 H 46 H Creatinine 6.14 H* 5.09 H* Calcium 7.5 L 7.2 L Urine 06/01/21 Range/Units 20:31 Urine Color YELLOW Urine Appearance HAZY Urine pH 5.5 (5.0-8.0) Ur Specific [place] 1.025 (1.005-1.025) Urine Protein 2+ H (NEG-TRACE) MG/DL Urine Glucose (UA) NEG (NEG) MG/DL All other labs normal. Imaging Abdomen CT scan report/results: report reviewed and image reviewed CT scan - pelvis: report reviewed and image reviewed Assessment and Plan (1) Colitis: Status: Acute Her CAT scan on admission is consistent with colitis involving most of the colon. She continues to have diarrhea although does not have significant pain anymore. Her white count is normal. She has a very benign exam and does not have any significant tenderness. Her lactate is still elevated although this is likely secondary to her acute renal failure with a markedly elevated creatinine. She is being followed by the furnace clerk. Her C diff test is negative. I am uncertain as to the etiology of her colitis. I would recommend a Gastroenterology consult. Stool studies should be done if these have not been done yet. She has peripheral vascular disease and her colitis may be secondary to some chronic ischemia although not very likely. The rest of her management for now will depend on the medical service well as the furnace clerk. I will follow along while she is in the hospital. Procedures Date of Service Date of Service: 06/05/21
--- NOTE | 2021-06-03 15:03 | P.PNNP_ITS ---
Subjective Subjective Date of Service: 06/03/21 Interval history: Cr slow improvement from 6.14 mg/dL -> 5.09 mg/dL Acidosis corrected, Lactate remains 3.1 Hyperkalemia resolved UOP 2.5L Physical Exam Vital Signs: Vital Signs: Last Vital Signs Temp 97.6 F 06/03/21 11:00 Pulse 75 06/03/21 14:00 Resp 20 06/03/21 11:00 BP 158/70 H 06/03/21 14:00 Pulse Ox 98 06/03/21 11:00 Body Mass Index 24.9 Const: General: cooperative Orientation/consciousness: oriented to person and oriented to place Limitations: no limitations HENMT: Head: Yes normal to inspection, Yes normocephalic and Yes atraumatic Ears: external ears normal General nose exam: Normal external nose present Face and sinus: Yes normal facial exam Mouth: Normal oral and palatal mucosa present Throat: Yes posterior oropharynx normal Eyes: Periorbital: periorbital findings normal Eyelids: Yes eyelids normal Conjunctivae: conjunctivae normal Sclerae: sclerae normal Corneas: corneas normal Pupils: Equal, round and reactive pupils present Direct Ophthalmoscopy: normal light reflex Neck: Neck: Yes full ROM, Yes no lymphadenopathy, Yes no meningeal signs, Yes trachea midline and Yes supple Chest: Chest palpation & inspection: normal inspection of the chest and normal palpation of entire chest wall Resp: Effort & Inspection: normal respiratory effort and able to speak in complete sentences Auscultation: clear to auscultation bilaterally Cardio: Rate: regular rate Rhythm: regular rhythm Heart sounds: S1 normal heart sound present, S2 normal heart sound present and no murmurs GI: Inspection: Yes normal to inspection Palpation (GI): Soft to palpation, Tenderness to palpation present (GI) ( Moderate left lower quadrant tenderness), no guarding, not rigid and No hepatosplenomegaly present : General: Yes no CVA tenderness Back/Spine/Pelvis: Back: no CVA tenderness Cervical Spine: normal cervical lordosis Thoracic/Lumbar Spine: thoracic and lumbar spine normal to inspection Skin: Lesions: no lesions Rashes: no rashes Wounds: no wounds Neuro: General: oriented to person, oriented to place and no meningeal signs Cranial nerves: Yes CN's II-XII intact bilaterally and Yes Equal, round and reactive pupils present Cognition (Neuro): normal cognition Motor exam (neuro): 5/5 motor strength present throughout Extrem: General: Yes normal to inspection and Yes full ROM Psych: Appearance: well kempt Mental Status: mental status grossly normal Speech and movement: Normal speech and movement present Affect: normal affect Attitude: cooperative Thought process: Normal thought process present Thought content: Normal thought content present Objective Data Labs CBC & Chem 7: 06/02/21 05:22 06/03/21 07:02 Labs: Laboratory Results - last 24 hr 06/02/21 06/02/21 06/02/21 16:02 16:30 20:00 Sodium 141 Potassium 4.9 Chloride 107 Carbon Dioxide 14 L Anion Gap 25 H BUN 52 H Creatinine 6.14 H* Estim Creat Clear Calc 7.0 Estimated GFR 7 POC Glucose 168 H 217 H Random Glucose 183 H Lactic Acid Calcium 7.5 L C. difficile Tox B Gene 06/03/21 06/03/21 06/03/21 04:15 07:02 07:26 Sodium 141 Potassium 3.6 D Chloride 99 Carbon Dioxide 26 Anion Gap 20 BUN 46 H Creatinine 5.09 H* Estim Creat Clear Calc 8.4 Estimated GFR 8 POC Glucose 152 H Random Glucose 173 H Lactic Acid Calcium 7.2 L C. difficile Tox B Gene NEGATIVE 06/03/21 06/03/21 11:02 13:20 Sodium Potassium Chloride Carbon Dioxide Anion Gap BUN Creatinine Estim Creat Clear Calc Estimated GFR POC Glucose 181 H Random Glucose Lactic Acid 3.1 H* Calcium C. difficile Tox B Gene Microbiology Microbiology Results: Microbiology 06/01/21 20:30 Urine clean catch - Urine barrios top Urine Culture - Final Escherichia coli 06/02/21 00:13 Blood - Venous Blood Culture - Preliminary No growth after 24 hours. 06/02/21 00:13 Blood - Venous Blood Culture - Preliminary No growth after 24 hours. Assessment & Plan Assessment and plan (1) Colitis: Status: Acute (2) Acute renal failure: Status: Acute Assessment and Plan: CT without hydronephrosis, stones or obstruction. Overall course most c/w pre-renal azotemia and likely a component of ischemic ATN. This is why the correction of GFR is delayed. However with 2.5L UOP and electrolytes controlled with medical management (IVF) there is no indication for dialysis. PLAN: - stop bicarb gtt her serum bicarb is now 26 - trend lactate - start LR at 125cc/hr - avoid nephrotoxins - avoid IV contrast with CT scans - CTX/Flagyl are ok (3) Acute dehydration: Status: Acute (4) PAD (peripheral artery disease): Status: Acute Time Spent With Patient Time: Total time spent is greater than 50% in coordination of care (as do cumented) at patient's floor/unit and/or counseling patient: Procedures Date of Service Date of Service: 06/03/21 Progress Note: Quality Stroke Does the patient have a stroke diagnosis?: No
[2021-06-03 15:12] VITALS: BP 157/56; PULSE 73; RESP 20; TEMP 36; O2SAT 99
[2021-06-03 15:29] LABS: Reflex Lactate? Lactic Acid Added
[2021-06-03] MEDS: 0.9 % Sodium Chloride Flush 3 ML SYRINGE IVFLUSH ×2 (15:50→23:58)
[2021-06-03 15:58] LABS: Glucose, Whole Blood 136 mg/dL (60-115)
[2021-06-03 16:27] LABS: ~Lactic Acid-LAB USE ONLY 1.7 mmol/L (0.5-2.0)
[2021-06-03] MEDS: Lactated Ringers 1,000 ML 125 ML IVCONT (17:14)
[2021-06-03 19:08] VITALS: BP 153/61; PULSE 76; RESP 20; TEMP 36.4; O2SAT 98
[2021-06-03] MEDS: HYDROmorphone HCl 0.5 MG/0.5 ML SYRINGE IVPUSH (19:44)
[2021-06-03 20:11] LABS: Glucose, Whole Blood 157 mg/dL (60-115)
[2021-06-04] VITALS (8 sets, daily range): BP systolic 145–189; BP diastolic 56–77; PULSE 66–81; RESP 18–20; TEMP 36.3–37.1; O2SAT 96–99
[2021-06-04] MEDS: Lactated Ringers 1,000 ML 125 ML IVCONT ×3 (01:49→23:12)
[2021-06-04] MEDS: ondansetron HCL 4 MG/2 ML VIAL IVPUSH (03:18)
[2021-06-04] MEDS: HYDROmorphone HCl 0.5 MG/0.5 ML SYRINGE IVPUSH (03:18)
[2021-06-04] MEDS: metroNIDAZOLE/NS 500 MG/100 ML PIGGYBACK 100 MG IV ×3 (05:11→20:38)
[2021-06-04 07:31] LABS: Glucose, Whole Blood 208 mg/dL (60-115)
[2021-06-04] MEDS: Insulin Lispro 100 UNIT/ML 3 ML VIAL SUBCUT (07:44)
[2021-06-04] MEDS: amLODIPine Besylate 5 MG TABLET PO (07:44)
[2021-06-04] MEDS: Heparin Sodium,Porcine 5,000 UNIT/ML VIAL 5000 UNIT SUBCUT ×2 (07:45→20:38)
[2021-06-04 08:40] LABS: Anion Gap 16 (12-20); Blood Urea Nitrogen 30 mg/dL (9-16); Calcium 7.5 mg/dL (8.4-10.2); Carbon Dioxide 30 mmol/L (22-29); Chloride 98 mmol/L (96-108); Estimated Glomerular Filt Rate 16; Glucose Random 216 mg/dL (60-115); Potassium 3.3 mmol/L (3.3-5.1); Sodium 141 mmol/L (135-145)
--- NOTE | 2021-06-04 08:51 | PM.GICN ---
History of Present Illness Data of Consult Service Date: 06/04/21 Requesting physician: Jason Blanc Primary Care Provider: Hafsa Carlos MD HPI Reason for consult: colitis 75 yr old f w/ hx of DM, PVD, and HTN who I am seeing for assessment for colitis. She was initially admitted few days ago w/ acute nausea, vomiting, and diarrhea possibly after eating some potatoes. The emesis was bilious and non bloody, and associated with diffuse abdominal pain. The stools were liquid without blood. She had lightheadedness and dizziness with fever and chills. Patient denies any urinary symptoms of urgency or frequency. The patient denied any sick contacts. No other family member with similar symptoms. She came to ED and found to be on ARF with a creatinine of 5.98 and potassium of 5.7 with an anion gap of 24 and lactic acidosis. Urinalysis suggestive of UTI w pos leuks, protein. CAT scan of the abdomen and pelvis showed pancolitis. A repeat CT scan after she had been on antibioitcs for few days was done and showed reduced colonic inflammation with thickening of descending colon. She feesl mch better now, with minimal pain,just some nausea Review of Systems Review of Systems: Yes all other systems are reviewed and are negative Constitutional: Constitutional: Denies chills and Denies fever(s) Cardiovascular: Cardiovascular: Denies chest pain, Denies dyspnea and Denies dyspnea on exertion Respiratory: Respiratory: Denies cough, Denies dyspnea and Denies dyspnea on exertion Gastrointestinal: Gastrointestinal: Denies hematochezia, Denies change in bowel habits and Reports diarrhea Musculoskeletal: Musculoskeletal: Denies back pain and Denies limited range of motion Neurologic: Denies focal weakness and Denies convulsions Psychiatric: Psychiatric: Denies depression and Denies mood swings [facility] Past Medical History Medical History HTN (hypertension) Hyperlipemia Osteoporosis Peripheral vascular disease Family History Family History Father No problems noted. Mother No problems noted. Daughter No problems noted. Son No problems noted. Son No problems noted. Son No problems noted. 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 If so, by whom?: No Do you feel safe in your current relationship?: No Current Relationship Is there a partner from a previous relationship who is making you feel unsafe now?: No Are you made to feel afraid or neglected: No Advance Directives: No Advance Directives Information Provided: Yes Do you have thoughts of harming others: None Do you have a plan to hurt others: No Plan Recently lost weight without trying: Unsure service: No Current occupational status: disabled Meds Allergies Allergy/AdvReac Type Severity Reaction Status Date / Time No Known Allergies Allergy Unknown Verified 06/01/21 09:12 [No Known Allergies*] Active Medications: Current Medications Generic Name Dose Route Start Last Admin Trade Name Freq PRN Reason Stop Dose Admin Acetaminophen 650 mg 06/01/21 17:32 06/01/21 22:18 Acetaminophen 325 Mg Tablet PO 650 mg Q6H PRN Administration Pain, Mild (Pain Scale 1-3) Amlodipine Besylate 5 mg 06/02/21 10:00 06/04/21 07:44 Amlodipine Besylate 5 Mg Tablet PO 5 mg DAILY NERI Administration Protocol Heparin Sodium (Porcine) 5,000 unit 06/01/21 21:00 06/04/21 07:45 Heparin Sodium,Porcine 5,000 Unit/Ml Vial SUBCUT 5,000 unit BID NERI Administration Hydromorphone HCl 0.5 mg 06/01/21 17:32 06/04/21 03:18 Hydromorphone Hcl 0.5 Mg/0.5 Ml Syringe IVPUSH 0.5 mg Q4H PRN Administration pain Metronidazole 500 mg in 100 mls @ 100 mls/hr 06/01/21 22:00 06/04/21 06:15 Flagyl IV Infused Q8H [facility] Infusion Ceftriaxone Sodium 1 gm/ 50 mls @ 100 mls/hr 06/02/21 13:00 06/03/21 13:51 Sodium Chloride IV Infused Q24H [facility] Infusion Lactated Ringer's 1,000 mls @ 125 mls/hr 06/03/21 16:15 06/04/21 07:45 Lr IVCONT Not Given .Q8H [facility] Insulin Human Lispro 0 unit 06/02/21 16:30 06/04/21 07:44 Insulin Lispro 100 Unit/Ml 3 Ml Vial SUBCUT 4 unit QIDACHS [facility] Administration Protocol Ondansetron HCl 4 mg 06/01/21 17:32 06/04/21 03:18 Ondansetron Hcl 4 Mg/2 Ml Vial IVPUSH 4 mg Q8H PRN Administration Nausea and Vomiting Pharmacy Consult 1 each 06/01/21 17:17 Consult Rx Perform Med Rec MISCELLANE ONCE PRN Consult order Sodium Chloride 3 ml 06/02/21 00:00 06/04/21 07:45 0.9 % Sodium Chloride Flush 3 Ml Syringe IVFLUSH Not Given QSHIFT [facility] Home Medications Medication Instructions Recorded Confirmed Last Taken Type amlodipine 5 mg tablet 5 mg PO DAILY 04/18/21 06/01/21 05/31/21 History aspirin 81 mg chewable tablet 1 tab PO DAILY 04/18/21 06/01/21 05/31/21 History chlorthalidone 50 mg tablet 50 mg PO DAILY 04/18/21 06/01/21 05/31/21 History cholecalciferol (vitamin D3) 50 50 mcg PO DAILY 04/18/21 06/01/21 05/31/21 History mcg (2,000 unit) capsule gabapentin 300 mg capsule 300 mg PO TID 04/18/21 06/01/21 05/31/21 History hydralazine 10 mg tablet 10 mg PO TID 04/18/21 06/01/21 05/31/21 History pantoprazole 20 mg tablet,delayed 20 mg PO BID 04/18/21 06/01/21 05/31/21 History release pioglitazone 15 mg tablet 15 mg PO BEDTIME 04/18/21 06/01/21 05/31/21 History simvastatin 20 mg tablet 20 mg PO BEDTIME 04/18/21 06/01/21 05/31/21 History trazodone 50 mg tablet 50 mg PO BEDTIME 04/18/21 06/01/21 05/31/21 History verapamil 120 mg 24 hr 120 mg PO DAILY 04/18/21 06/01/21 05/31/21 History capsule,extended release zolpidem 5 mg tablet 5 mg PO BEDTIME PRN 04/18/21 06/01/21 05/31/21 History insulin glargine [Lantus U-100 25 unit SUBCUT QAM 06/01/21 06/01/21 05/31/21 History Insulin] losartan 1 tab PO QAM 06/01/21 06/01/21 05/31/21 History metformin 1 tab PO BID 06/01/21 06/01/21 05/31/21 History sitagliptin [Januvia] 1 tab PO QAM 06/01/21 06/01/21 05/31/21 History Physical Exam Vital Signs: Vital Signs: Last Vital Signs Temp 98.6 F 06/04/21 08:00 Pulse 77 06/04/21 08:00 Resp 18 06/04/21 08:00 BP 184/76 H 06/04/21 08:00 Pulse Ox 98 06/04/21 08:00 Body Mass Index 24.9 Const: Other: looks well General: cooperative, comfortable and no acute distress Orientation/consciousness: oriented to person, oriented to place and patient oriented x3 Limitations: no limitations HENMT: Head: Yes normal to inspection, Yes normocephalic and Yes atraumatic Ears: external ears normal General nose exam: Normal external nose present Face and sinus: Yes normal facial exam Mouth: Normal oral and palatal mucosa present Throat: Yes posterior oropharynx normal Eyes: Periorbital: periorbital findings normal Eyelids: Yes eyelids normal Conjunctivae: conjunctivae normal Sclerae: sclerae normal Corneas: corneas normal Pupils: Equal, round and reactive pupils present Direct Ophthalmoscopy: normal light reflex Neck: Neck: Yes full ROM, Yes no lymphadenopathy, Yes no meningeal signs, Yes trachea midline and Yes supple Chest: Chest palpation & inspection: normal inspection of the chest and normal palpation of entire chest wall Resp: Effort & Inspection: normal respiratory effort and able to speak in complete sentences Auscultation: clear to auscultation bilaterally Cardio: Rate: regular rate Rhythm: regular rhythm Heart sounds: S1 normal heart sound present, S2 normal heart sound present and no murmurs GI: Inspection: Yes normal to inspection Palpation (GI): Soft to palpation, not firm, nontender ( Moderate left lower quadrant tenderness), no guarding, not rigid, No hepatosplenomegaly present, no hepatosplenomegaly and no hernias : General: Yes no CVA tenderness Back/Spine/Pelvis: Back: no CVA tenderness Cervical Spine: normal cervical lordosis Thoracic/Lumbar Spine: thoracic and lumbar spine normal to inspection Skin: Lesions: no lesions Rashes: no rashes Wounds: no wounds Neuro: General: oriented to person, oriented to place, patient oriented x3 and no meningeal signs Cranial nerves: Yes CN's II-XII intact bilaterally and Yes Equal, round and reactive pupils present Cognition (Neuro): normal cognition Motor exam (neuro): 5/5 motor strength present throughout Extrem: General: Yes normal to inspection and Yes full ROM Psych: Appearance: well kempt Mental Status: mental status grossly normal Speech and movement: Normal speech and movement present Affect: normal affect Attitude: cooperative Thought process: Normal thought process present Thought content: Normal thought content present Results Labs CBC & Chem 7: 06/02/21 05:22 06/04/21 08:10 Labs: BMP 06/04/21 08:10 Sodium 141 Potassium 3.3 Chloride 98 Carbon Dioxide 30 H BUN 30 H Creatinine 2.87 H Calcium 7.5 L Microbiology Microbiology Results: Microbiology 06/03/21 04:15 Stool Stool Culture - Preliminary Normal so far. 06/02/21 00:13 Blood - Venous Blood Culture - Preliminary No growth after 48 hours. 06/02/21 00:13 Blood - Venous Blood Culture - Preliminary No growth after 48 hours. 06/01/21 20:30 Urine clean catch - Urine barrios top Urine Culture - Final Escherichia coli Assessment and Plan (1) Colitis: Status: Acute 1/Suspect she developed gastroenteritis from food and became dehydrated leading to ischemic colitis due to low flow state givne the extensive atheroma burden visible on CT scanning with multiple plagque like areas in abdominal vessels. She is now improving clinically and in terms of renal and GI function PLAN: 1/ cont with 7 d of ABX 2/ o/p colonocpy in 4 weeks to r/o any colonic lesion, polyp or mass, preferably in about 4 weeks unless she gets worse before then. 3/ avoid aggressive BP lowering Procedures Date of Service Date of Service: 06/04/21
--- NOTE | 2021-06-04 11:02 | P.PNIM_ITS ---
Subjective Subjective Date of Service: 06/04/21 Interval History: Seen in f/u for abdominal pain, acute pancolitis and renal failure (Henry), abdominal pain has been reduced to some burning and has nausea, renal function is signficantly much better Cr 2.87 down from 5.09 [employer], positive headache positive dizziness CVS no chest pain, no palpitation no urinary frequency, no urgency Musculoskeletal no back pain Physical Exam Vital Signs: Vital Signs: Last Vital Signs Temp 98.6 F 06/04/21 08:00 Pulse 77 06/04/21 08:00 Resp 18 06/04/21 08:00 BP 184/76 H 06/04/21 08:00 Pulse Ox 98 06/04/21 08:00 Body Mass Index 24.9 Const: Other: General: AO X 3, no acute distress Resp: CTA bilateral CVS: S1,S2,RRR GI: +BS, NT, no distention Skin: No rash Neuro: motor grossly intact Psych: appropriate affect Objective Data Current Medications Generic Name Dose Route Start Last Admin Trade Name Ciaranq PRN Reason Stop Dose Admin Acetaminophen 650 mg 06/01/21 17:32 06/01/21 22:18 Acetaminophen 325 Mg Tablet PO 650 mg Q6H PRN Administration Pain, Mild (Pain Scale 1-3) Amlodipine Besylate 5 mg 06/02/21 10:00 06/04/21 07:44 Amlodipine Besylate 5 Mg Tablet PO 5 mg DAILY [facility] Administration Protocol Heparin Sodium (Porcine) 5,000 unit 06/01/21 21:00 06/04/21 07:45 Heparin Sodium,Porcine 5,000 Unit/Ml Vial SUBCUT 5,000 unit BID [facility] Administration Hydromorphone HCl 0.5 mg 06/01/21 17:32 06/04/21 03:18 Hydromorphone Hcl 0.5 Mg/0.5 Ml Syringe IVPUSH 0.5 mg Q4H PRN Administration pain Metronidazole 500 mg in 100 mls @ 100 mls/hr 06/01/21 22:00 06/04/21 06:15 Flagyl IV Infused Q8H [facility] Infusion Ceftriaxone Sodium 1 gm/ 50 mls @ 100 mls/hr 06/02/21 13:00 06/03/21 13:51 Sodium Chloride IV Infused Q24H [facility] Infusion Lactated Ringer's 1,000 mls @ 125 mls/hr 06/03/21 16:15 06/04/21 07:45 Lr IVCONT Not Given .Q8H [facility] Insulin Human Lispro 0 unit 06/02/21 16:30 06/04/21 07:44 Insulin Lispro 100 Unit/Ml 3 Ml Vial SUBCUT 4 unit QIDACHS [facility] Administration Protocol Ondansetron HCl 4 mg 06/01/21 17:32 06/04/21 03:18 Ondansetron Hcl 4 Mg/2 Ml Vial IVPUSH 4 mg Q8H PRN Administration Nausea and Vomiting Pharmacy Consult 1 each 06/01/21 17:17 Consult Rx Perform Med Rec MISCELLANE ONCE PRN Consult order Sodium Chloride 3 ml 06/02/21 00:00 06/04/21 07:45 0.9 % Sodium Chloride Flush 3 Ml Syringe IVFLUSH Not Given QSHIFT [facility] Labs CBC & Chem 7: 06/02/21 05:22 06/04/21 08:10 Labs: Laboratory Results - last 24 hr 06/03/21 06/03/21 06/03/21 11:02 13:20 15:41 Sodium Potassium Chloride Carbon Dioxide Anion Gap BUN Creatinine Estim Creat Clear Calc Estimated GFR POC Glucose 181 H Random Glucose Lactic Acid 3.1 H* Lactic Acid Fup @ 2Hr 1.7 Calcium 06/03/21 06/03/21 06/04/21 15:54 20:07 07:26 Sodium Potassium Chloride Carbon Dioxide Anion Gap BUN Creatinine Estim Creat Clear Calc Estimated GFR POC Glucose 136 H 157 H 208 H Random Glucose Lactic Acid Lactic Acid Fup @ 2Hr Calcium 06/04/21 08:10 Sodium 141 Potassium 3.3 Chloride 98 Carbon Dioxide 30 H Anion Gap 16 BUN 30 H Creatinine 2.87 H Estim Creat Clear Calc 15.0 Estimated GFR 16 POC Glucose Random Glucose 216 H Lactic Acid Lactic Acid Fup @ 2Hr Calcium 7.5 L Microbiology Microbiology Results: Microbiology 06/03/21 04:15 Stool Culture - Preliminary Stool Normal so far. 06/02/21 00:13 Blood Culture - Preliminary Blood - Venous No growth after 48 hours. 06/02/21 00:13 Blood Culture - Preliminary Blood - Venous No growth after 48 hours. 06/01/21 20:30 Urine Culture - Final Urine clean catch - Urine barrios top Escherichia coli Quality Stroke Does the patient have a stroke diagnosis?: No VTE Prior VTE?: No VTE Risk Level:: Medical - moderate - high VTE Device Contraindication: Treatment Not Indicated VTE Drug Contraindication: N/A - Med Ordered Assessment and Plan (1) Acute renal failure: Status: Acute (2) Colitis: Status: Acute (3) Acute dehydration: Status: Acute (4) PAD (peripheral artery disease): Status: Acute (5) Urinary tract infection: Status: Acute Assessment and Plan: 75-year-old female patient with multiple medical issues including hypertension, diabetes mellitus, hyperlipidemia, peripheral vascular disease, presented to [facility] with acute onset of nausea, vomiting, abdominal pain, and diarrhea. The patient diagnosed to have acute pancolitis, acute kidney injury with anion gap metabolic acidosis, hyperkalemia, and lactic acidosis with no evidence of sepsis. 1. Acute pancolitis likely infectious Pain is better, residual nausea, no vomitting Repeat CT 06/03 shows improvment Advance diet Awaiting GI/Surgery eval, I don't think she need intervention 2. Acute kidney injury with anion gap metabolic acidosis / hyperkalemia, last known normal creatine was a year ago, so chronicity is unclear at this time. Renal function is better, probable pre renal with component of ATN. She has responded well to IVF and will continue and encourage oral intake and ultimately DC IVF. Nephrology continue to guide us with therapy 3. Hyperkalemia due to acute renal failure. Corrected, K is 3.6 4. Lactic acidosis due to acute colitis or renal failure. Not repeat since admission, recheck today 5. Hypertension. BP high, On amodipine 5, may not be absorbing well due to colitis. IV Labetalol PRN 6. Diabetes mellitus. Blood sugars stable around 150, continue insulin sliding scale , hold oral hypoglycemics including metformin and Januvia. 7. Deep vein thrombosis prophylaxis. on heparin subcu. 8. Code status, full code. I discussed plan with FACULTY ADMINISTRATOR at bed side Check labs in the morning. DC tele
[2021-06-04 11:13] LABS: Glucose, Whole Blood 112 mg/dL (60-115)
[2021-06-04] MEDS: cefTRIAXone sodium 1 GM in 0.9 % Sodium Chloride 50 ML IV (12:44)
--- NOTE | 2021-06-04 15:02 | PM.PNGS ---
Subjective Subjective Date of Service: 06/04/21 Interval history: feels much better diarrhea has improved markedly taking some clear liquids Physical Exam Vital Signs: Vital Signs: Last Vital Signs Temp 98.5 F 06/04/21 12:00 Pulse 80 06/04/21 12:00 Resp 18 06/04/21 12:00 BP 189/77 H 06/04/21 12:00 Pulse Ox 99 06/04/21 12:00 Body Mass Index 24.9 Chemistry 06/02/21 06/02/21 06/03/21 05:22 16:02 07:02 Sodium 141 141 141 Potassium 5.3 H 4.9 3.6 D Carbon Dioxide 11 L 14 L 26 BUN 51 H 52 H 46 H Creatinine 6.27 H* 6.14 H* 5.09 H* Calcium 7.9 L D 7.5 L 7.2 L 06/04/21 08:10 Sodium 141 Potassium 3.3 Carbon Dioxide 30 H BUN 30 H Creatinine 2.87 H Calcium 7.5 L Hematology 06/02/21 05:22 WBC 7.6 Hgb 11.5 L Plt Count 275 Urinalysis 06/01/21 20:31 Urine Color YELLOW Urine Appearance HAZY Urine pH 5.5 Ur Specific Gravit y 1.025 Urine Protein 2+ H Urine Glucose (UA) NEG Urine Ketones 5 Urine Blood TRACE Urine Nitrite NEG Ur Leukocyte Zena ase 1+ H Urine RBC 5-9 H Urine WBC 5-9 H Ur Squamous Epith Cells 2+ Urine Studies 06/02/21 12:18 Urine Osmolality 325 L Const: General: comfortable and no acute distress Resp: Effort & Inspection: normal respiratory effort Cardio: Rate: regular rate GI: Other: soft, minimal tenderness diffusely with deep paplpation, no guarding or rebound Progress Note: A&P Assessment and plan (1) Colitis: Status: Acute Assessment and Plan: diarrhea much improved minimal abdl pain and tenderness creatinine signficantly better continue current care likely to be able to advance diet tomorrow Fall Risk Details Current Medications: Current Medications Generic Name Dose Route Start Last Admin Trade Name Freq PRN Reason Stop Dose Admin Acetaminophen 650 mg 06/01/21 17:32 06/01/21 22:18 Acetaminophen 325 Mg Tablet PO 650 mg Q6H PRN Administration Pain, Mild (Pain Scale 1-3) Amlodipine Besylate 5 mg 06/02/21 10:00 06/04/21 07:44 Amlodipine Besylate 5 Mg Tablet PO 5 mg DAILY [facility] Administration Protocol Heparin Sodium (Porcine) 5,000 unit 06/01/21 21:00 06/04/21 07:45 Heparin Sodium,Porcine 5,000 Unit/Ml Vial SUBCUT 5,000 unit BID [facility]I Administration Hydromorphone HCl 0.5 mg 06/01/21 17:32 06/04/21 03:18 Hydromorphone Hcl 0.5 Mg/0.5 Ml Syringe IVPUSH 0.5 mg Q4H PRN Administration pain Metronidazole 500 mg in 100 mls @ 100 mls/hr 06/01/21 22:00 06/04/21 14:39 Flagyl IV Infused Q8H [facility] Infusion Ceftriaxone Sodium 1 gm/ 50 mls @ 100 mls/hr 06/02/21 13:00 06/04/21 13:21 Sodium Chloride IV Infused Q24H [facility] Infusion Lactated Ringer's 1,000 mls @ 125 mls/hr 06/03/21 16:15 06/04/21 12:44 Lr IVCONT 125 mls/hr .Q8H [facility] Administration Insulin Human Lispro 0 unit 06/02/21 16:30 06/04/21 11:27 Insulin Lispro 100 Unit/Ml 3 Ml Vial SUBCUT Not Given QIDACHS [facility] Protocol Ondansetron HCl 4 mg 06/01/21 17:32 06/04/21 03:18 Ondansetron Hcl 4 Mg/2 Ml Vial IVPUSH 4 mg Q8H PRN Administration Nausea and Vomiting Pharmacy Consult 1 each 06/01/21 17:17 Consult Rx Perform Med Rec MISCELLANE ONCE PRN Consult order Sodium Chloride 3 ml 06/02/21 00:00 06/04/21 07:45 0.9 % Sodium Chloride Flush 3 Ml Syringe IVFLUSH Not Given QSHIFT [facility] Time Spent With Patient Time: Total time spent is greater than 50% in coordination of care (as documented) at patient's floor/unit and/or counseling patient: Time with patient: 15 - 24 minutes Procedures Date of Service Date of Service: 06/04/21 Quality Stroke Does the patient have a stroke diagnosis?: No VTE Prior VTE?: No VTE Risk Level:: Medical - moderate - high VTE Device Contraindication: Treatment Not Indicated VTE Drug Contraindication: N/A - Med Ordered
[2021-06-04 16:07] LABS: Glucose, Whole Blood 130 mg/dL (60-115)
--- NOTE | 2021-06-04 16:07 | PM.PNNEP ---
Subjective Subjective Date of Service: 06/04/21 Interval history: Tolerated IVF Cr improving Physical Exam Vital Signs: Vital Signs: Last Vital Signs Temp 98.7 F 06/04/21 15:06 Pulse 76 06/04/21 15:06 Resp 20 06/04/21 15:06 BP 157/58 H 06/04/21 15:06 Pulse Ox 98 06/04/21 15:06 Body Mass Index 24.9 Const: General: cooperative Orientation/consciousness: oriented to person and oriented to place Limitations: no limitations HENMT: Head: Yes normal to inspection, Yes normocephalic and Yes atraumatic Ears: external ears normal General nose exam: Normal external nose present Face and sinus: Yes normal facial exam Mouth: Normal oral and palatal mucosa present Throat: Yes posterior oropharynx normal Eyes: Periorbital: periorbital findings normal Eyelids: Yes eyelids normal Conjunctivae: conjunctivae normal Sclerae: sclerae normal Corneas: corneas normal Pupils: Equal, round and reactive pupils present Direct Ophthalmoscopy: normal light reflex Neck: Neck: Yes full ROM, Yes no lymphadenopathy, Yes no meningeal signs, Yes trachea midline and Yes supple Chest: Chest palpation & inspection: normal inspection of the chest and normal palpation of entire chest wall Resp: Effort & Inspection: normal respiratory effort and able to speak in complete sentences Auscultation: clear to auscultation bilaterally Cardio: Rate: regular rate Rhythm: regular rhythm Heart sounds: S1 normal heart sound present, S2 normal heart sound present and no murmurs GI: Inspection: Yes normal to inspection Palpation (GI): Soft to palpation, Tenderness to palpation present (GI) ( Moderate left lower quadrant tenderness), no guarding, not rigid and No hepatosplenomegaly present : General: Yes no CVA tenderness Back/Spine/Pelvis: Back: no CVA tenderness Neuro: General: oriented to person, oriented to place and no meningeal signs Cranial nerves: Yes Equal, round and reactive pupils present Extrem: General: Yes normal to inspection and Yes full ROM Objective Data Labs CBC & Chem 7: 06/02/21 05:22 06/04/21 08:10 Labs: Laboratory Results - last 24 hr 06/03/21 06/03/21 06/04/21 15:41 20:07 07:26 Sodium Potassium Chloride Carbon Dioxide Anion Gap BUN Creatinine Estim Creat Clear Calc Estimated GFR POC Glucose 157 H 208 H Random Glucose Lactic Acid Fup @ 2Hr 1.7 Calcium 06/04/21 06/04/21 06/04/21 08:10 11:05 16:03 Sodium 141 Potassium 3.3 Chloride 98 Carbon Dioxide 30 H Anion Gap 16 BUN 30 H Creatinine 2.87 H Estim Creat Clear Calc 15.0 Estimated GFR 16 POC Glucose 112 130 H Random Glucose 216 H Lactic Acid Fup @ 2Hr Calcium 7.5 L Microbiology Microbiology Results: Microbiology 06/03/21 04:15 Stool Stool Culture - Preliminary Normal so far. 06/02/21 00:13 Blood - Venous Blood Culture - Preliminary No growth after 48 hours. 06/02/21 00:13 Blood - Venous Blood Culture - Preliminary No growth after 48 hours. 06/01/21 20:30 Urine clean catch - Urine barrios top Urine Culture - Final Escherichia coli Assessment & Plan Assessment and plan (1) Colitis: Status: Acute (2) Acute renal failure: Status: Acute Assessment and Plan: CT without hydronephrosis, stones or obstruction. Overall course most c/w pre-renal azotemia and likely a component of ischemic ATN. This is why the correction of GFR is delayed. Doing well with IVF PLAN: - c.w LR if PO intake is poor - avoid nephrotoxins - avoid IV contrast with CT scans - c/w amlodipine (3) Acute dehydration: Status: Acute (4) PAD (peripheral artery disease): Status: Acute Time Spent With Patient Time: Total time spent is greater than 50% in coordination of care (as documented) at patient's floor/unit and/or counseling patient: Procedures Date of Service Date of Service: 06/04/21 Progress Note: Quality Stroke Does the patient have a stroke diagnosis?: No
[2021-06-04 20:05] LABS: Glucose, Whole Blood 138 mg/dL (60-115)
[2021-06-04] MEDS: 0.9 % Sodium Chloride Flush 3 ML SYRINGE IVFLUSH (20:38)
[2021-06-05 02:51] VITALS: BP 180/76; PULSE 81; RESP 18; TEMP 36.8; O2SAT 99
[2021-06-05] MEDS: HYDROmorphone HCl 0.5 MG/0.5 ML SYRINGE IVPUSH (03:13)
[2021-06-05] MEDS: ondansetron HCL 4 MG/2 ML VIAL IVPUSH ×2 (03:23→11:47)
[2021-06-05] MEDS: metroNIDAZOLE/NS 500 MG/100 ML PIGGYBACK 100 MG IV ×3 (05:19→21:29)
--- NOTE | 2021-06-05 06:08 | PC.NURSE ---
Pt. complaining of burning sensation in abdomen. Pt crying, restless in bed. Medicated with PRN IV Dilaudid and IV zofran around 03:30. Pt jerome output was around 850 mls of clear yellow urine. Pt jerome pulled this AM at 0600. Pt states she feels a little better this morning than she did in the middle of the night. Pt educated about need to void in 6 hours. Due to void around 12:00.
[2021-06-05 07:21] LABS: Anion Gap 19 (12-20); Blood Urea Nitrogen 15 mg/dL (9-16); Calcium 7.5 mg/dL (8.4-10.2); Carbon Dioxide 26 mmol/L (22-29); Chloride 99 mmol/L (96-108); Creatinine Clr Calc Pharmacy 28.8; Estimated Glomerular Filt Rate 34; Glucose Random 179 mg/dL (60-115); Potassium 3.2 mmol/L (3.3-5.1); Sodium 141 mmol/L (135-145)
[2021-06-05 07:36] LABS: Glucose, Whole Blood 172 mg/dL (60-115)
[2021-06-05] MEDS: oxyCODONE HCl Immed Release 5 MG TABLET PO ×2 (07:52→14:07)
[2021-06-05] MEDS: amLODIPine Besylate 5 MG TABLET PO ×2 (07:52→14:05)
[2021-06-05] MEDS: Lactated Ringers 1,000 ML 125 ML IVCONT ×2 (07:52→17:29)
[2021-06-05] MEDS: Heparin Sodium,Porcine 5,000 UNIT/ML VIAL 5000 UNIT SUBCUT ×2 (07:52→21:30)
[2021-06-05] MEDS: Insulin Lispro 100 UNIT/ML 3 ML VIAL SUBCUT (07:52)
[2021-06-05 07:57] VITALS: BP 167/80; PULSE 77; RESP 20; TEMP 37.7; O2SAT 99
[2021-06-05 11:27] VITALS: BP 174/84; PULSE 86; RESP 20; TEMP 36.7; O2SAT 98
[2021-06-05 11:51] LABS: Glucose, Whole Blood 88 mg/dL (60-115)
--- NOTE | 2021-06-05 12:11 | P.PNIM_ITS ---
Subjective Subjective Date of Service: 06/05/21 Interval History: Seen in f/u for abdominal pain, acute pancolitis and renal failure (Henry), abdominal pain has been reduced to some burning and has nausea, renal function is signficantly much better Cr 1.49 down from 6. She is complaining of more pain today Review of Systems Gen: no fever Resp: no sob, no cough CV: no chest, no [place], no leg edema GI: +nausea, abdominal pain Neuro: No confusion Physical Exam Vital Signs: Vital Signs: Last Vital Signs Temp 98.0 F 06/05/21 11:27 Pulse 86 06/05/21 11:27 Resp 20 06/05/21 11:27 BP 174/84 H 06/05/21 11:27 Pulse Ox 98 06/05/21 11:27 Body Mass Index 24.9 Const: Other: General: AO X 3, no acute distress Resp: CTA bilateral CVS: S1,S2,RRR GI: +BS, mild tenderness Skin: No rash Neuro: motor grossly intact Psych: appropriate affect Objective Data Current Medications Generic Name Dose Route Start Last Admin Trade Name Freq PRN Reason Stop Dose Admin Acetaminophen 650 mg 06/01/21 17:32 06/01/21 22:18 Acetaminophen 325 Mg Tablet PO 650 mg Q6H PRN Administration Pain, Mild (Pain Scale 1-3) Amlodipine Besylate 5 mg 06/02/21 10:00 06/05/21 07:52 Amlodipine Besylate 5 Mg Tablet PO 5 mg DAILY [facility]ERI Administration Protocol Heparin Sodium (Porcine) 5,000 unit 06/01/21 21:00 06/05/21 07:52 Heparin Sodium,Porcine 5,000 Unit/Ml Vial SUBCUT 5,000 unit BID NERI Administration Hydromorphone HCl 0.5 mg 06/01/21 17:32 06/05/21 03:13 Hydromorphone Hcl 0.5 Mg/0.5 Ml Syringe IVPUSH 0.5 mg Q4H PRN Administration pain Metronidazole 500 mg in 100 mls @ 100 mls/hr 06/01/21 22:00 06/05/21 06:26 Flagyl IV Infused Q8H [facility] Infusion Ceftriaxone Sodium 1 gm/ 50 mls @ 100 mls/hr 06/02/21 13:00 06/04/21 13:21 Sodium Chloride IV Infused Q24H [facility] Infusion Lactated Ringer's 1,000 mls @ 125 mls/hr 06/03/21 16:15 06/05/21 07:52 Lr IVCONT 125 mls/hr .Q8H [facility] Administration Insulin Human Lispro 0 unit 06/02/21 16:30 06/05/21 11:50 Insulin Lispro 100 Unit/Ml 3 Ml Vial SUBCUT Not Given [facility] Protocol Ondansetron HCl 4 mg 06/01/21 17:32 06/05/21 11:47 Ondansetron Hcl 4 Mg/2 Ml Vial IVPUSH 4 mg Q8H PRN Administration Nausea and Vomiting Oxycodone HCl 5 mg 06/05/21 07:44 06/05/21 07:52 Oxycodone Hcl Immed Release 5 Mg Tablet PO 5 mg Q6H PRN Administration Pain, Severe (Pain Scale 7-10) Pharmacy Consult 1 each 06/01/21 17:17 Consult Rx Perform Med Rec MISCELLANE ONCE PRN Consult order Sodium Chloride 3 ml 06/02/21 00:00 06/05/21 07:36 0.9 % Sodium Chloride Flush 3 Ml Syringe IVFLUSH Not Given [facility] Labs CBC & Chem 7: 06/02/21 05:22 06/05/21 06:13 Labs: Laboratory Results - last 24 hr 06/04/21 06/04/21 06/05/21 16:03 20:02 06:13 Sodium 141 Potassium 3.2 L Chloride 99 Carbon Dioxide 26 Anion Gap 19 BUN 15 Creatinine 1.49 H Estim Creat Clear Calc 28.8 Estimated GFR 34 POC Glucose 130 H 138 H Random Glucose 179 H Calcium 7.5 L 06/05/21 06/05/21 07:07 11:25 Sodium Potassium Chloride Carbon Dioxide Anion Gap BUN Creatinine Estim Creat Clear Calc Estimated GFR POC Glucose 172 H 88 Random Glucose Calcium Microbiology Microbiology Results: Microbiology 06/03/21 04:15 Stool Culture - Preliminary Stool Normal so far. Quality Stroke Does the patient have a stroke diagnosis?: No VTE Prior VTE?: No VTE Risk Level:: Medical - moderate - high VTE Device Contraindication: Treatment Not Indicated VTE Drug Contraindication: N/A - Med Ordered Assessment and Plan (1) Acute renal failure: Status: Acute (2) Colitis: Status: Acute (3) Acute dehydration: Status: Acute (4) PAD (peripheral artery disease): Status: Acute (5) Urinary tract infection: Status: Acute Assessment and Plan: 75-year-old female patient with multiple medical issues including hypertension, diabetes mellitus, hyperlipidemia, peripheral vascular disease, presented to [facility] with acute onset of nausea, vomiting, abdominal pain, and diarrhea. The patient diagnosed to have acute pancolitis, acute kidney injury with anion gap metabolic acidosis, hyperkalemia, and lactic acidosis with no evidence of sepsis. 1. Acute pancolitis likely infectious, she has a bit more pain today Repeat CT 06/03 shows improvment Advance diet Awaiting GI/Surgery eval, no indication for procedure 2. Acute kidney injury with anion gap metabolic acidosis / hyperkalemia, last known normal creatine was a year ago, so chronicity is unclear at this time. Renal function is better, probable pre renal with component of ATN. She has responded well to IVF and will continue and encourage oral intake and ultimately DC IVF. Nephrology continue to guide us with therapy 3. Hyperkalemia due to acute renal failure, Now HypOkalemia 3.2, monitor 4. Lactic acidosis due to acute colitis or renal failure. Not repeat since admission, recheck today 5. Hypertension. BP high, On amodipine 5, may not be absorbing well due to colitis. IV Labetalol PRN 6. Diabetes mellitus. Blood sugars stable around 180, continue insulin sliding scale , hold oral hypoglycemics including metformin and Januvia. 7. Deep vein thrombosis prophylaxis. on heparin subcu. 8. Code status, full code. I discussed plan with CLASSROOM INSTRUCTIONAL AIDE at bed side Check labs in the morning. DC tele
[2021-06-05] MEDS: cefTRIAXone sodium 1 GM in 0.9 % Sodium Chloride 50 ML IV (12:20)
--- NOTE | 2021-06-05 15:05 | P.PNGS_ITS ---
Subjective Subjective Date of Service: 06/05/21 Interval history: says she is ok still with diarrhea although improved abdl pain better Physical Exam Vital Signs: Vital Signs: Last Vital Signs Temp 98.0 F 06/05/21 11:27 Pulse 86 06/05/21 11:27 Resp 20 06/05/21 11:27 BP 174/84 H 06/05/21 11:27 Pulse Ox 98 06/05/21 11:27 Body Mass Index 24.9 Laboratory Results - last 24 hr 06/04/21 06/04/21 06/05/21 16:03 20:02 06:13 Sodium 141 Potassium 3.2 L Chloride 99 Carbon Dioxide 26 Anion Gap 19 BUN 15 Creatinine 1.49 H Estim Creat Clear Calc 28.8 Estimated GFR 34 POC Glucose 130 H 138 H Random Glucose 179 H Calcium 7.5 L 06/05/21 06/05/21 07:07 11:25 Sodium Potassium Chloride Carbon Dioxide Anion Gap BUN Creatinine Estim Creat Clear Calc Estimated GFR POC Glucose 172 H 88 Random Glucose Calcium Const: General: comfortable and no acute distress Resp: Effort & Inspection: normal respiratory effort Cardio: Rhythm: regular rhythm GI: Inspection: No distended Palpation (GI): Soft to palpation, not firm, nontender and no guarding Progress Note: A&P Assessment and plan (1) Colitis: Status: Acute Assessment and Plan: improving diarrhea is less tolerating clear liquids abd remains benign creatinine much improved currently on Ceftriaxone and Flagyl etiol of colitis uncertain Fall Risk Details Current Medications: Current Medications Generic Name Dose Route Start Last Admin Trade Name Freq PRN Reason Stop Dose Admin Acetaminophen 650 mg 06/01/21 17:32 06/01/21 22:18 Acetaminophen 325 Mg Tablet PO 650 mg Q6H PRN Administration Pain, Mild (Pain Scale 1-3) Amlodipine Besylate 10 mg 06/06/21 09:00 Amlodipine Besylate 5 Mg Tablet PO DAILY [facility] Protocol Heparin Sodium (Porcine) 5,000 unit 06/01/21 21:00 06/05/21 07:52 Heparin Sodium,Porcine 5,000 Unit/Ml Vial SUBCUT 5,000 unit BID [facility] Administration Hydromorphone HCl 0.5 mg 06/01/21 17:32 06/05/21 03:13 Hydromorphone Hcl 0.5 Mg/0.5 Ml Syringe IVPUSH 0.5 mg Q4H PRN Administration pain Metronidazole 500 mg in 100 mls @ 100 mls/hr 06/01/21 22:00 06/05/21 14:05 Flagyl IV 100 mls/hr Q8H [facility] Administration Ceftriaxone Sodium 1 gm/ 50 mls @ 100 mls/hr 06/02/21 13:00 06/05/21 13:09 Sodium Chloride IV Infused Q24H [facility] Infusion Lactated Ringer's 1,000 mls @ 125 mls/hr 06/03/21 16:15 06/05/21 07:52 Lr IVCONT 125 mls/hr .Q8H [facility] Administration Insulin Human Lispro 0 unit 06/02/21 16:30 06/05/21 11:50 Insulin Lispro 100 Unit/Ml 3 Ml Vial SUBCUT Not Given QIDACHS [facility] Protocol Ondansetron HCl 4 mg 06/01/21 17:32 06/05/21 11:47 Ondansetron Hcl 4 Mg/2 Ml Vial IVPUSH 4 mg Q8H PRN Administration Nausea and Vomiting Oxycodone HCl 5 mg 06/05/21 07:44 06/05/21 14:07 Oxycodone Hcl Immed Release 5 Mg Tablet PO 5 mg Q6H PRN Administration Pain, Severe (Pain Scale 7-10) Pharmacy Consult 1 each 06/01/21 17:17 Consult Rx Perform Med Rec MISCELLANE ONCE PRN Consult order Sodium Chloride 3 ml 06/02/21 00:00 06/05/21 07:36 0.9 % Sodium Chloride Flush 3 Ml Syringe IVFLUSH Not Given QSHIFT [facility] Time Spent With Patient Time: Total time spent is greater than 50% in coordination of care (as documented) at patient's floor/unit and/or counseling patient: Time with patient: 15 - 24 minutes Procedures Date of Service Date of Service: 06/05/21 Quality Stroke Does the patient have a stroke diagnosis?: No VTE Prior VTE?: No VTE Risk Level:: Medical - moderate - high VTE Device Contraindication: Treatment Not Indicated VTE Drug Contraindication: N/A - Med Ordered
[2021-06-05 15:20] VITALS: BP 173/74; PULSE 72; RESP 20; TEMP 37.1; O2SAT 99
[2021-06-05 16:09] LABS: Glucose, Whole Blood 108 mg/dL (60-115)
--- NOTE | 2021-06-05 16:44 | PM.PNNEP ---
Subjective Subjective Date of Service: 06/05/21 Interval history: Cr improving daily tolerating IVF Physical Exam Vital Signs: Vital Signs: Last Vital Signs Temp 98.7 F 06/05/21 15:20 Pulse 72 06/05/21 15:20 Resp 20 06/05/21 15:20 BP 173/74 H 06/05/21 15:20 Pulse Ox 99 06/05/21 15:20 Body Mass Index 24.9 Const: General: cooperative Orientation/consciousness: oriented to person and oriented to place Limitations: no limitations HENMT: Head: Yes normal to inspection, Yes normocephalic and Yes atraumatic Ears: external ears normal General nose exam: Normal external nose present Face and sinus: Yes normal facial exam Mouth: Normal oral and palatal mucosa present Throat: Yes posterior oropharynx normal Eyes: Periorbital: periorbital findings normal Eyelids: Yes eyelids normal Conjunctivae: conjunctivae normal Sclerae: sclerae normal Corneas: corneas normal Pupils: Equal, round and reactive pupils present Direct Ophthalmoscopy: normal light reflex Neck: Neck: Yes full ROM, Yes no lymphadenopathy, Yes no meningeal signs, Yes trachea midline and Yes supple Chest: Chest palpation & inspection: normal inspection of the chest and normal palpation of entire chest wall Resp: Effort & Inspection: normal respiratory effort and able to speak in complete sentences Auscultation: clear to auscultation bilaterally Cardio: Rate: regular rate Rhythm: regular rhythm Heart sounds: S1 normal heart sound present, S2 normal heart sound present and no murmurs GI: Inspection: Yes normal to inspection Palpation (GI): Soft to palpation, Tenderness to palpation present (GI) ( Moderate left lower quadrant tenderness), no guarding, not rigid and No hepatosplenomegaly present : General: Yes no CVA tenderness Back/Spine/Pelvis: Back: no CVA tenderness Cervical Spine: normal cervical lordosis Thoracic/Lumbar Spine: thoracic and lumbar spine normal to inspection Skin: Lesions: no lesions Rashes: no rashes Wounds: no wounds Neuro: General: oriented to person, oriented to place and no meningeal signs Cranial nerves: Yes CN's II-XII intact bilaterally and Yes Equal, round and reactive pupils present Cognition (Neuro): normal cognition Motor exam (neuro): 5/5 motor strength present throughout Extrem: General: Yes normal to inspection and Yes full ROM Psych: Appearance: well kempt Mental Status: mental status grossly normal Speech and movement: Normal speech and movement present Affect: normal affect Attitude: cooperative Thought process: Normal thought process present Thought content: Normal thought content present Objective Data Labs CBC & Chem 7: 06/02/21 05:22 06/05/21 06:13 Labs: Laboratory Results - last 24 hr 06/04/21 06/05/21 06/05/21 20:02 06:13 07:07 Sodium 141 Potassium 3.2 L Chloride 99 Carbon Dioxide 26 Anion Gap 19 BUN 15 Creatinine 1.49 H Estim Creat Clear Calc 28.8 Estimated GFR 34 POC Glucose 138 H 172 H Random Glucose 179 H Calcium 7.5 L 06/05/21 06/05/21 11:25 16:06 Sodium Potassium Chloride Carbon Dioxide Anion Gap BUN Creatinine Estim Creat Clear Calc Estimated GFR POC Glucose 88 108 Random Glucose Calcium Microbiology Microbiology Results: Microbiology 06/03/21 04:15 Stool Stool Culture - Preliminary Normal so far. 06/02/21 00:13 Blood - Venous Blood Culture - Preliminary No growth after 48 hours. 06/02/21 00:13 Blood - Venous Blood Culture - Preliminary No growth after 48 hours. 06/01/21 20:30 Urine clean catch - Urine barrios top Urine Culture - Final Escherichia coli Assessment & Plan Assessment and plan (1) Colitis: Status: Acute (2) Acute renal failure: Status: Acute Assessment and Plan: CT without hydronephrosis, stones or obstruction. Overall course most c/w pre-renal azotemia and likely a component of ischemic ATN. This is why the correction of GFR is delayed. Doing well with IVF PLAN: - c.w LR if PO intake is poor - avoid nephrotoxins - avoid IV contrast with CT scans - c/w amlodipine (3) Acute dehydration: Status: Acute (4) PAD (peripheral artery disease): Status: Acute Time Spent With Patient Time: Total time spent is greater than 50% in coordination of care (as documented) at patient's floor/unit and/or counseling patient: Procedures Date of Service Date of Service: 06/05/21 Progress Note: Quality Stroke Does the patient have a stroke diagnosis?: No
[2021-06-05 19:05] VITALS: BP 132/63; PULSE 69; RESP 20; TEMP 37; O2SAT 97
[2021-06-05 20:04] LABS: Glucose, Whole Blood 128 mg/dL (60-115)
[2021-06-05 23:28] VITALS: BP 156/71; PULSE 75; RESP 18; TEMP 36.9; O2SAT 98
[2021-06-05] MEDS: 0.9 % Sodium Chloride Flush 3 ML SYRINGE IVFLUSH (23:51)
[2021-06-06] VITALS (9 sets, daily range): BP systolic 147–189; BP diastolic 66–79; PULSE 69–88; RESP 18–20; TEMP 36.6–37.3; O2SAT 96–99
[2021-06-06] MEDS: Lactated Ringers 1,000 ML 125 ML IVCONT (02:33)
--- NOTE | 2021-06-06 04:33 | ECG_ITS ---
Test Reason : CHEST PAIN Blood Pressure : / mmHG Vent. Rate : 084 BPM Atrial Rate : 083 BPM P-R Int : 134 ms QRS Dur : 078 ms QT Int : 402 ms P-R-T Axes : 058 -01 -85 degrees QTc Int : 475 ms Artiffact in tracing Likely sinus rhythm Low voltage QRS ST & T wave abnormality, consider anterolateral ischemia Abnormal ECG No previous ECGs available Referred By: Jason Blanc Electronically Signed By:JOHN QUIGLEY
--- NOTE | 2021-06-06 04:45 | MHC.PIE ---
P.CHEST PAIN I.PT C/O MIDSTERNAL CHEST PAIN,NON RADIATING.O2 APPLIED AT 2L,STAT EKG DONE,BP 189/77,HR 78,SR ON TELE. UPDATED AND EKG SENT TO MD.ORDER FOR NITRO SL AND TROPONINS ORDERED .PT UPDATED AND MED WITH NITRO. E.PT STATES GOOD EFFECT FROM NITRO,O2 REMAINS ON.BP 160/70,HR 79.CONT TO MONITOR.
[2021-06-06] MEDS: Nitroglycerin 0.4 MG TAB.SUBL SUBLINGUAL (05:05)
[2021-06-06] MEDS: metroNIDAZOLE/NS 500 MG/100 ML PIGGYBACK 100 MG IV ×3 (05:13→21:22)
[2021-06-06 06:35] LABS: Anion Gap 22 (12-20); Blood Urea Nitrogen 8 mg/dL (9-16); Calcium 7.7 mg/dL (8.4-10.2); Carbon Dioxide 23 mmol/L (22-29); Chloride 99 mmol/L (96-108); Creatinine Clr Calc Pharmacy 47.8; Estimated Glomerular Filt Rate > 60; Glucose Random 189 mg/dL (60-115); Potassium 2.8 mmol/L (3.3-5.1); Sodium 141 mmol/L (135-145)
[2021-06-06 06:39] LABS: Troponin-I High Sensitivity 20.2 ng/L (<3.5-17.0)
[2021-06-06 07:26] LABS: Glucose, Whole Blood 182 mg/dL (60-115)
[2021-06-06] MEDS: Insulin Lispro 100 UNIT/ML 3 ML VIAL SUBCUT ×2 (07:45→16:27)
--- NOTE | 2021-06-06 08:45 | P.PNIM_ITS ---
Subjective Subjective Date of Service: 06/06/21 Interval History: Seen in f/u for colitis, RAHEL, overall feeling better this morning, No pain. Cr is < 1. Had chest pain overnight, non this morning, ECG shows no acute changes, trop 20 of no significance, repeat pending. Review of Systems Gen: no fever Resp: no sob, no cough CV: no chest, no [place], no leg edema GI: No n/v, no abd pain Neuro: No confusion Physical Exam Vital Signs: Vital Signs: Last Vital Signs Temp 98.6 F 06/06/21 08:00 Pulse 84 06/06/21 08:00 Resp 19 06/06/21 08:00 BP 173/76 H 06/06/21 08:00 Pulse Ox 99 06/06/21 08:00 Body Mass Index 24.9 Const: Other: General: AO X 3, no acute distress Resp: CTA bilateral CVS: S1,S2,RRR GI: +BS, mild tenderness Skin: No rash Neuro: motor grossly intact Psych: appropriate affect Objective Data Current Medications Generic Name Dose Route Start Last Admin Trade Name Ciaranq PRN Reason Stop Dose Admin Acetaminophen 650 mg 06/01/21 17:32 06/01/21 22:18 Acetaminophen 325 Mg Tablet PO 650 mg Q6H PRN Administration Pain, Mild (Pain Scale 1-3) Amlodipine Besylate 10 mg 06/06/21 09:00 Amlodipine Besylate 5 Mg Tablet PO DAILY [facility] Protocol Heparin Sodium (Porcine) 5,000 unit 06/01/21 21:00 06/05/21 21:30 Heparin Sodium,Porcine 5,000 Unit/Ml Vial SUBCUT 5,000 unit BID [facility] Administration Hydromorphone HCl 0.5 mg 06/01/21 17:32 06/05/21 03:13 Hydromorphone Hcl 0.5 Mg/0.5 Ml Syringe IVPUSH 0.5 mg Q4H PRN Administration pain Metronidazole 500 mg in 100 mls @ 100 mls/hr 06/01/21 22:00 06/06/21 06:22 Flagyl IV Infused Q8H [facility] Infusion Ceftriaxone Sodium 1 gm/ 50 mls @ 100 mls/hr 06/02/21 13:00 06/05/21 13:09 Sodium Chloride IV Infused Q24H [facility] Infusion Lactated Ringer's 1,000 mls @ 125 mls/hr 06/03/21 16:15 06/06/21 02:33 Lr IVCONT 125 mls/hr .Q8H [facility] Administration Potassium Chloride 10 meq in 100 mls @ 100 mls/hr 06/06/21 08:45 IV 06/06/21 10:44 Q1H [facility] Insulin Human Lispro 0 unit 06/02/21 16:30 06/06/21 07:45 Insulin Lispro 100 Unit/Ml 3 Ml Vial SUBCUT 2 unit QIDACHS [facility] Administration Protocol Nitroglycerin 0.4 mg 06/06/21 04:51 06/06/21 05:05 Nitroglycerin 0.4 Mg Tab.Subl SUBLINGUAL 0.4 mg Q5MX3 PRN Administration Chest Pain Ondansetron HCl 4 mg 06/01/21 17:32 06/05/21 11:47 Ondansetron Hcl 4 Mg/2 Ml Vial IVPUSH 4 mg Q8H PRN Administration Nausea and Vomiting Oxycodone HCl 5 mg 06/05/21 07:44 06/05/21 14:07 Oxycodone Hcl Immed Release 5 Mg Tablet PO 5 mg Q6H PRN Administration Pain, Severe (Pain Scale 7-10) Pharmacy Consult 1 each 06/01/21 17:17 Consult Rx Perform Med Rec MISCELLANE ONCE PRN Consult order Potassium Chloride 40 meq 06/06/21 08:45 Potassium Chloride Packet 20 Meq Packet PO 06/06/21 16:46 Q8H [facility] Sodium Chloride 3 ml 06/02/21 00:00 06/06/21 07:45 0.9 % Sodium Chloride Flush 3 Ml Syringe IVFLUSH Not Given QSHIFT [facility] Labs CBC & Chem 7: 06/02/21 05:22 06/06/21 05:21 Labs: Laboratory Results - last 24 hr 06/05/21 06/05/21 06/05/21 11:25 16:06 19:59 Sodium Potassium Chloride Carbon Dioxide Anion Gap BUN Creatinine Estim Creat Clear Calc Estimated GFR POC Glucose 88 108 128 H Random Glucose Calcium Troponin I High Sens 06/06/21 06/06/21 06/06/21 05:21 05:21 07:21 Sodium 141 Potassium 2.8 L Chloride 99 Carbon Dioxide 23 Anion Gap 22 H BUN 8 L Creatinine 0.90 Estim Creat Clear Calc 47.8 Estimated GFR > 60 POC Glucose 182 H Random Glucose 189 H Calcium 7.7 L Troponin I High Sens 20.2 H* Microbiology Microbiology Results: Microbiology 06/03/21 04:15 Stool Culture - Final Stool Quality Stroke Does the patient have a stroke diagnosis?: No VTE Prior VTE?: No VTE Risk Level:: Medical - moderate - high VTE Device Contraindication: Treatment Not Indicated VTE Drug Contraindication: N/A - Med Ordered Assessment and Plan (1) Acute renal failure: Status: Acute (2) Colitis: Status: Acute (3) Acute dehydration: Status: Acute (4) PAD (peripheral artery disease): Status: Acute (5) Urinary tract infection: Status: Acute Assessment and Plan: 75-year-old female patient with multiple medical issues including hypertension, diabetes mellitus, hyperlipidemia, peripheral vascular disease, presented to [facility] with acute onset of nausea, vomiting, abdominal pain, and diarrhea. The patient diagnosed to have acute pancolitis, acute kidney injury with anion gap metabolic acidosis, hyperkalemia, and lactic acidosis with no evidence of sepsis. 1. Acute pancolitis likely infectious, improved, no pain today Repeat CT 06/03 shows improvment Advance diet to full liquid and low residue later today Oral pain meds 2. Acute kidney injury with anion gap metabolic acidosis / hyperkalemia, last known normal creatine was a year ago, so chronicity is unclear at this time. Renal function is now normal, probable pre renal with component of ATN. She has responded well to IVF but will dc at this time, and encrouage oral water intake 3. Hyperkalemia, resolved, Now HyPOkalemia--give IV and PO potassium, check magnesium 4. Lactic acidosis, stabilized and didn't need repeat, mostly due to renal failure 5. Hypertension. BP remains high, Amlodipine has been increased to 10, add Metoprolol 25 bid 6. Diabetes mellitus. Blood sugars stable around 180, continue insulin sliding scale , hold oral hypoglycemics including metformin and Januvia until eating properly 7. Chest pain this morning, with no ischemic changes on ECG, no further pain, t rop 20, repeat pending if high will get cardiology consult, possibly echo 7. Deep vein thrombosis prophylaxis. on heparin subcu. PT eval Check labs in the morning. DC tele
[2021-06-06 09:11] LABS: Troponin-I High Sensitivity 20.4 ng/L (<3.5-17.0)
[2021-06-06] MEDS: Metoprolol Tartrate 25 MG TABLET PO ×2 (09:25→21:21)
[2021-06-06] MEDS: Heparin Sodium,Porcine 5,000 UNIT/ML VIAL 5000 UNIT SUBCUT ×2 (09:25→21:21)
[2021-06-06] MEDS: amLODIPine Besylate 5 MG TABLET 10 MG PO (09:25)
[2021-06-06] MEDS: Potassium Chloride Packet 20 MEQ PACKET 40 MEQ PO ×2 (09:26→17:38)
[2021-06-06] MEDS: Potassium Chloride/H20 10 MEQ/100 ML PIGGYBACK 100 MEQ IV ×2 (10:16→11:40)
[2021-06-06 11:12] LABS: Glucose, Whole Blood 114 mg/dL (60-115)
[2021-06-06] MEDS: cefTRIAXone sodium 1 GM in 0.9 % Sodium Chloride 50 ML IV (13:28)
[2021-06-06 16:19] LABS: Glucose, Whole Blood 185 mg/dL (60-115)
[2021-06-06 19:59] LABS: Glucose, Whole Blood 112 mg/dL (60-115)
[2021-06-06] MEDS: 0.9 % Sodium Chloride Flush 3 ML SYRINGE IVFLUSH (21:22)
[2021-06-07 03:35] VITALS: BP 180/76; PULSE 79; RESP 18; TEMP 37.3; O2SAT 98
[2021-06-07] MEDS: metroNIDAZOLE/NS 500 MG/100 ML PIGGYBACK 100 MG IV (05:38)
[2021-06-07 07:09] VITALS: BP 157/67; PULSE 80; RESP 16; TEMP 37.6; O2SAT 98
[2021-06-07 07:17] LABS: Anion Gap 25 (12-20); Blood Urea Nitrogen 5 mg/dL (9-16); Calcium 7.4 mg/dL (8.4-10.2); Carbon Dioxide 19 mmol/L (22-29); Chloride 101 mmol/L (96-108); Creatinine Clr Calc Pharmacy 55.2; Estimated Glomerular Filt Rate > 60; Glucose Random 198 mg/dL (60-115); Potassium 3.3 mmol/L (3.3-5.1); Sodium 142 mmol/L (135-145)
[2021-06-07 07:26] LABS: Glucose, Whole Blood 181 mg/dL (60-115)
[2021-06-07] MEDS: Insulin Lispro 100 UNIT/ML 3 ML VIAL SUBCUT ×2 (07:51→11:55)
[2021-06-07] MEDS: 0.9 % Sodium Chloride Flush 3 ML SYRINGE IVFLUSH (07:51)
[2021-06-07] MEDS: Metoprolol Tartrate 25 MG TABLET PO (08:11)
[2021-06-07] MEDS: Heparin Sodium,Porcine 5,000 UNIT/ML VIAL 5000 UNIT SUBCUT (08:11)
[2021-06-07] MEDS: amLODIPine Besylate 5 MG TABLET 10 MG PO (08:12)
--- NOTE | 2021-06-07 08:27 | MHC.CM.PN ---
dc plan is to return home c exercise physiology professor via [facility], exercise physiology professor to provide transport at dc. cm to cont. to follow.
[2021-06-07 08:42] VITALS: BP 157/67; PULSE 80; O2SAT 98
--- NOTE | 2021-06-07 09:36 | PM.DS ---
DS: Providers Provider Date of Service: 06/07/21 Date of admission: 06/01/21 17:32 Primary care physician: Hafsa Carlos MD Consults: 06/02/21 07:18 Consult to Nephrology Routine Consulting Provider: Alexei Dockery Reason for consultation: wilber Has provider been notified: No 06/03/21 13:02 Consult to General Surgery Routine Consulting Provider: Kip Melton Reason for consultation: Colitis 06/03/21 13:03 Consult to Gastroenterology Routine Consulting Provider: Rommel Avila Reason for consultation: pancolitis DS: Diagnosis Discharge Diagnosis (1) Acute renal failure: Status: Resolved (2) Colitis: Status: Acute (3) Acute dehydration: Status: Resolved (4) PAD (peripheral artery disease): (5) Urinary tract infection: Status: Resolved DS: Medications Discharge Medications Home Medications: Home Medications Medication Instructions Recorded Confirmed amlodipine 5 mg tablet 5 mg PO DAILY 04/18/21 06/01/21 aspirin 81 mg chewable tablet 1 tab PO DAILY 04/18/21 06/01/21 chlorthalidone 50 mg tablet 50 mg PO DAILY 04/18/21 06/01/21 cholecalciferol (vitamin D3) 50 50 mcg PO DAILY 04/18/21 06/01/21 mcg (2,000 unit) capsule gabapentin 300 mg capsule 300 mg PO TID 04/18/21 06/01/21 hydralazine 10 mg tablet 10 mg PO TID 04/18/21 06/01/21 pantoprazole 20 mg tablet,delayed 20 mg PO BID 04/18/21 06/01/21 release pioglitazone 15 mg tablet 15 mg PO BEDTIME 04/18/21 06/01/21 simvastatin 20 mg tablet 20 mg PO BEDTIME 04/18/21 06/01/21 trazodone 50 mg tablet 50 mg PO BEDTIME 04/18/21 06/01/21 verapamil 120 mg 24 hr 120 mg PO DAILY 04/18/21 06/01/21 capsule,extended release zolpidem 5 mg tablet 5 mg PO BEDTIME PRN 04/18/21 06/01/21 insulin glargine [Lantus U-100 25 unit SUBCUT QAM 06/01/21 06/01/21 Insulin] losartan 1 tab PO QAM 06/01/21 06/01/21 metformin 1 tab PO BID 06/01/21 06/01/21 sitagliptin [Januvia] 1 tab PO QAM 06/01/21 06/01/21 DS: Summary Hospital Course Hospital Course: CHIEF COMPLAINT: Nausea, vomiting, abdominal pain, and diarrhea. HISTORY OF PRESENTING ILLNESS: This is a very pleasant, Azeri-speaking female patient, history is obtained via certified court/medical interpreter, who presented to [facility] with acute onset of nausea, vomiting, and diarrhea since yesterday. According to the patient, she had some potatoes made by her family and after that she became nauseous, started vomiting. She had multiple bilious vomiting, nonbloody, associated with diffuse abdominal pain, diarrhea, mostly liquidy with no blood in stools. She felt very weak, lightheaded, dizzy, associated with fever and chills. The emergency room workup showed that she is in acute renal failure with a creatinine of 5.98 with no prior history of kidney disease. Her potassium was 5.7 with an anion gap of 24. Her lactic acid initially 3, bumped up to 3.5. Urinalysis also positive for UTI; however, the patient denies any urinary symptoms of urgency or frequency. The patient denied any sick contacts. No other family member with similar symptoms. The patient in the ER treated with IV fluids, antiemetics. CAT scan of the abdomen and pelvis showed pancolitis. The patient is now being admitted to [facility] for continued monitoring and treatment for pancolitis with acute kidney injury and anion gap metabolic acidosis. PAST MEDICAL HISTORY: Significant for, 1. Diabetes mellitus on insulin. 2. History of hypertension. 3. History of asthma. 4. History of migraine. 5. History of peripheral vascular disease, status post stent placement. 6. History of hyperlipidemia. 7. History of osteoporosis. PAST SURGICAL HISTORY: 1. Status post appendectomy. 2. Status post cholecystectomy. 3. Status post hand surgery. Hospital course: 1. Acute pancolitis likely infectious. Treated with IV Ceftriaxone and Ceftin with signficant improvement. The follow up CT 06/03 shows improvment. WBC has been normal the whole time. She was seen by surgery and GI and no intervention recommended. Presently her pain has resolved and diet has been advanced to normal diet which she is tolerating. Will discharge with Ceftin and Flgyl for total of 10 days. 2. Acute kidney injury with anion gap metabolic acidosis / hyperkalemia, last known normal creatine was a year ago, so chronicity is unclear at this time. Renal function is now normal, probable pre renal with component of ATN. She has responded well to IVF. Patient was followed by Nephrlogy service, Cratinine is 0.78 today which is much better from a high of 6.14. 3. Hyperkalemia, resolved, and later had Hypokalemia which rico corrected as well. K is 3.3 4. Lactic acidosis, stabilized and didn't need repeat, mostly due to renal failure 5. Hypertension. BP remains high, Amlodipine has been increased to 10, and Metoprolol 25 bid and should follow up with PCP for further med adjustment 6. Diabetes mellitus. Blood sugars stable around 180, continue insulin sliding scale , Januvia and Metformin were on hold but resume upon discharge. 7. Chest pain this morning, with no ischemic changes on ECG, no further pain, trop 20 was unchanged. 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 Time Spent with Patient Time attestation: Total time spent providing and/or coordinating discharge services: Discharge coordination time: Greater than 30 minutes Quality: Stroke Does the patient have a stroke diagnosis?: No Physical Exam Vital Signs: Vital Signs: Last Vital Signs Temp 99.6 F 06/07/21 07:09 Pulse 80 06/07/21 08:42 Resp 16 06/07/21 07:09 BP 157/67 H 06/07/21 08:42 Pulse Ox 98 06/07/21 08:42 Body Mass Index 24.9 DS: Data Data Completed and Pending Labs on day of discharge: Laboratory Results - last 24 hr 06/06/21 06/06/21 06/06/21 11:00 16:11 19:52 Sodium Potassium Chloride Carbon Dioxide Anion Gap BUN Creatinine Estim Creat Clear Calc Estimated GFR POC Glucose 114 185 H 112 Random Glucose Calcium 06/07/21 06/07/21 05:32 07:11 Sodium 142 Potassium 3.3 Chloride 101 Carbon Dioxide 19 L Anion Gap 25 H BUN 5 L Creatinine 0.78 Estim Creat Clear Calc 55.2 Estimated GFR > 60 POC Glucose 181 H Random Glucose 198 H Calcium 7.4 L Discharge Plan Discharge Anticipated Discharge Date/Time: 06/07/21 11:41 Patient Disposition: Home Health Service Discharge Diagnosis: colitis and acute renal failure Referrals: [facility] [Other] - 1 Week Hafsa Skinner MD [Primary Care Provider] - 1 Week Discharge Medications: New cefuroxime axetil 500 mg tablet 500 mg PO BID 3 Days Qty: 6 RF: 0 metronidazole [Flagyl] 500 mg tablet 500 mg PO BID Qty: 7 RF: 0 amlodipine 5 mg Tablet 10 mg PO DAILY Qty: 30 RF: 0 metoprolol tartrate 25 mg Tablet 25 mg PO BID Qty: 60 RF: 0 Continued Lantus U-100 Insulin 100 unit/mL Solution 25 unit SUBCUT QAM RF: 0 metformin 1,000 mg tablet 1 tab PO BID RF: 0 Januvia 50 mg tablet 1 tab PO QAM RF: 0 losartan 100 mg tablet 1 tab PO QAM RF: 0 Discharge Orders: Discharge Order (Routine); Ordered 06/07/21 Ordered By: Jason Smith Diet: advance to usual diet and diabetic diet Activity on Discharge: As tolerated Stand Alone Forms: Patient Portal Discharge page Care Plan Goals: full recovery from colitis, reanl ailure Health Concerns: renal failure, colitis Plan of Treatment: Take cefuroxime and Flagyl as recommended and follow up with your doctor henry week Drink plenty of fluid, follow up with your Doctor in a week Assessment: See above Discharge Date/Time: 06/07/21 12:35
--- NOTE | 2021-06-07 10:10 | MHC.CM.PN ---
mei clayton at ph: [phone] was called to inform her of dc and to request [facility] - home PT for patient per [facility] PT eval . this will be provided by [facility]. [email or web address] to cont. to follow.
[2021-06-07 11:28] VITALS: BP 147/70; PULSE 77; RESP 16; TEMP 37.3; O2SAT 95
[2021-06-07 11:42] LABS: Glucose, Whole Blood 175 mg/dL (60-115)
--- NOTE | 2021-06-07 11:48 | W.MHC.F2F ---
Service Date Service Date: 06/07/21 Encounter Date of encounter: 06/07/21 Reasons for Services Homebound: Leaving the home is medically contraindicated at this time without the asist of a device and/or another person due th the listed conditions above and below. Homebound supporting statement: Homeboud due severe decondition from hospilization for renal failure an colitis and is very weakn and therefore needs the assistance of another person Certification: Based on the above findings, I certify that this patient is confined to the home and needs intermittent [facility] care, physical therapy and/or speech therapy, or continues to need occupational therapy. The patient is under my care, and I have initiated the establishment of the plan of care. The patient will be followed by a physician who will periodically review the plan of care.
== END 2021-06-07 12:35 | disposition home health service (06) | DRG 391 ==
LOC: HO.ED 16:19 → HO.EDOVER 17:37 → HO.IMC 19:13
PROVIDERS: Hospitalist; Internal Medicine Nephrology; Admitting Provider Hospitalist; Emergency Provider Emergency Medicine Emergency Medical Services; PCP Internal Medicine; Visit Provider Internal Medicine
DX: A09 Infectious gastroenteritis and colitis, unspecified (principal); N17.0 Acute kidney failure with tubular necrosis; N39.0 Urinary tract infection, site not specified; E87.2 Acidosis; E78.5 Hyperlipidemia, unspecified; R07.9 Chest pain, unspecified; E11.51 Type 2 diabetes mellitus with diabetic peripheral angiopathy without gangrene; E87.5 Hyperkalemia; I10 Essential (primary) hypertension; E86.0 Dehydration; M81.0 Age-related osteoporosis without current pathological fracture; Z20.822 Contact with and (suspected) exposure to COVID-19; Z79.4 Long term (current) use of insulin; Z79.82 Long term (current) use of aspirin; Z79.899 Other long term (current) drug therapy
CPT/HCPCS: 36415; 74176; 80048; 80053; 81001; 81003; 82947; 83605; 83690; 83935; 84300; 84484; 85025; 85027; 87040; 87045; 87046; 87086; 87088; 87186; 87493; 87635; 93005; 97162; 99285; C1758; J0696; J1170; J1885; J2405

== ENCOUNTER 2021-08-21 08:45 | Day surgery (SDC) | payer MEDICARE, SELFPAY ==
[2021-08-16 09:25] VITALS: BMI 25.1
--- NOTE | 2021-08-17 14:41 | P.CONAN_ITS ---
Documented by User: Rachael Castro NP 08/17/21 14:45 HPI - Anesthesia Eval Consult details Narrative: 75yo F for Colonoscopy 06/2021 [facility] admit with acute colitis PMFSH Active Problems Active Problems: All Active Problems (Updated 08/15/21 @ 15:35 by Gisele Casarez RN) Colitis (Acute) Peripheral vascular disease (Acute) Past Medical History Medical History (Updated 08/15/21 @ 15:35 by Gisele Casarez RN) Diabetes Elevated cholesterol GERD (gastroesophageal reflux disease) History of femoral angiogram HTN (hypertension) Hyperlipemia Osteoporosis PAD (peripheral artery disease) Peripheral vascular disease Family History Family History Father No problems noted. Mother No problems noted. Daughter No problems noted. Son No problems noted. Son No problems noted. Son No problems noted. 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 If so, by whom?: No Are you DNR?: No Advance Directives: No (states is grandson-unsure if has official HCP form) Advance Directives Information Provided: Yes Advance Directives on File: No Recently lost weight without trying: No Eating poorly because of decreased appetite: No Nutrition Risks: Surgical patient >75years service: No Current occupational status: disabled Meds Allergies Allergy/AdvReac Type Severity Reaction Status Date / Time No Known Allergies Allergy Verified 08/16/21 09:25 Home Medications Medication Instructions Recorded Confirmed Last Taken Type aspirin 81 mg chewable tablet 1 tab PO DAILY 04/18/21 08/16/21 05/31/21 History chlorthalidone 50 mg tablet 50 mg PO DAILY 04/18/21 08/16/21 05/31/21 History cholecalciferol (vitamin D3) 50 50 mcg PO DAILY 04/18/21 08/16/21 05/31/21 History mcg (2,000 unit) capsule gabapentin 300 mg capsule 300 mg PO TID 04/18/21 08/16/21 05/31/21 History hydralazine 10 mg tablet 10 mg PO TID 04/18/21 08/16/21 05/31/21 History pantoprazole 20 mg tablet,delayed 20 mg PO BID 04/18/21 08/16/21 05/31/21 History release pioglitazone 15 mg tablet 15 mg PO BEDTIME 04/18/21 08/16/21 05/31/21 History simvastatin 20 mg tablet 20 mg PO BEDTIME 04/18/21 08/16/21 05/31/21 History trazodone 50 mg tablet 50 mg PO BEDTIME 04/18/21 08/16/21 05/31/21 History verapamil 120 mg 24 hr 120 mg PO DAILY 04/18/21 08/16/21 05/31/21 History capsule,extended release zolpidem 5 mg tablet 5 mg PO BEDTIME PRN 04/18/21 08/16/21 05/31/21 History insulin glargine 100 unit/mL 25 unit SUBCUT QAM 06/01/21 08/16/21 05/31/21 History subcutaneous solution (Lantus U-100 Insulin) losartan 100 mg tablet 1 tab PO QAM 06/01/21 08/16/21 05/31/21 History metformin 1,000 mg tablet 1 tab PO BID 06/01/21 08/16/21 05/31/21 History sitagliptin 50 mg tablet (Januvia) 1 tab PO QAM 06/01/21 08/16/21 05/31/21 History Exam Exam Date and Time: August 17, 2021 1441 Height,Weight and Vital Signs: Height 5 ft 3 in Weight 64.41 kg Pertinent Lab Results Pertinent Lab Results: Laboratory Tests 06/02/21 06/07/21 05:22 05:32 WBC 7.6 Hgb 11.5 L Hct 37.9 Plt Count 275 Sodium 142 Potassium 3.3 Chloride 101 Carbon Dioxide 19 L BUN 5 L Creatinine 0.78 Narrative Narrative: EKG 06/2021 Vent. Rate : 084 BPM ? ? Atrial Rate : 083 BPM ?? P-R Int : 134 ms? QRS Dur : 078 ms ? ? QT Int : 402 ms ? ? ? P-R-T Axes : 058 -01 -85 degrees ?? QTc Int : 475 ms ? Artiffact in tracing Likely sinus rhythm Low voltage QRS ST & T wave abnormality, consider anterolateral ischemia Abnormal ECG No previous ECGs available Assessment and Plan Assessment Anesthesia Assessment: Chart Reviewed Documented by User: Judy Cortes MD 08/21/21 09:02 [facility] Past Medical History Medical History (Updated 08/15/21 @ 15:35 by Gisele Casarez RN) Diabetes Elevated cholesterol GERD (gastroesophageal reflux disease) History of femoral angiogram HTN (hypertension) Hyperlipemia Osteoporosis PAD (peripheral artery disease) Peripheral vascular disease Family History Family History Father No problems noted. Mother No problems noted. Daughter No problems noted. Son No problems noted. Son No problems noted. Son No problems noted. 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 If so, by whom?: No Are you DNR?: No Advance Directives: No (states is grandson-unsure if has official HCP form) Advance Directives Information Provided: Yes Advance Directives on File: No Recently lost weight without trying: No Eating poorly because of decreased appetite: No Nutrition Risks: Surgical patient >75years service: No Current occupational status: disabled Meds Allergies Allergy/AdvReac Type Severity Reaction Status Date / Time No Known Allergies Allergy Verified 08/16/21 09:25 Home Medications Medication Instructions Recorded Confirmed Last Taken Type aspirin 81 mg chewable tablet 1 tab PO DAILY 04/18/21 08/16/21 05/31/21 History chlorthalidone 50 mg tablet 50 mg PO DAILY 04/18/21 08/16/21 05/31/21 History cholecalciferol (vitamin D3) 50 50 mcg PO DAILY 04/18/21 08/16/21 05/31/21 History mcg (2,000 unit) capsule gabapentin 300 mg capsule 300 mg PO TID 04/18/21 08/16/21 05/31/21 History hydralazine 10 mg tablet 10 mg PO TID 04/18/21 08/16/21 05/31/21 History pantoprazole 20 mg tablet,delayed 20 mg PO BID 04/18/21 08/16/21 05/31/21 History release pioglitazone 15 mg tablet 15 mg PO BEDTIME 04/18/21 08/16/21 05/31/21 History simvastatin 20 mg tablet 20 mg PO BEDTIME 04/18/21 08/16/21 05/31/21 History trazodone 50 mg tablet 50 mg PO BEDTIME 04/18/21 08/16/21 05/31/21 History verapamil 120 mg 24 hr 120 mg PO DAILY 04/18/21 08/16/21 05/31/21 History capsule,extended release zolpidem 5 mg tablet 5 mg PO BEDTIME PRN 04/18/21 08/16/21 05/31/21 History insulin glargine 100 unit/mL 25 unit SUBCUT QAM 06/01/21 08/16/21 05/31/21 History subcutaneous solution (Lantus U-100 Insulin) losartan 100 mg tablet 1 tab PO QAM 06/01/21 08/16/21 05/31/21 History metformin 1,000 mg tablet 1 tab PO BID 06/01/21 08/16/21 05/31/21 History sitagliptin 50 mg tablet (Januvia) 1 tab PO QAM 06/01/21 08/16/21 05/31/21 History Exam Airway Mallampati Class: II (Missing a couple) TM Dist: >3cm Neck ROM: Full Heart: rrr Lungs: cta Assessment and Plan Assessment Anesthesia Assessment: Anesthesia Plan Discussed and Chart Reviewed Final Anesthetic Review Family History of Problems with Anesthesia: No History of Problems with Anesthesia: No NPO: Yes ASA Class: III Final Preanesthetic Review: No Changes in Pt Med Stat, Meds/Allgs Chart Reviewed and Consent Obtained/Reviewed Patient Risk: Intermediate Procedure Risk: Intermediate Anesthetic Plan Anesthetic Plan: MAC: Disposition: Standard PACU
--- NOTE | 2021-08-21 09:00 | MHC.SHP ---
Pre-Procedural Eval Section A Date of Service: 08/21/21 Section B Chief Complaint: Colitis Relevant Family History (Specify if Yes): No Relevant Social History: None Present Medications: see Short Stay Collaborative assessment Medical History: Significant History (Diabetes Elevated cholesterol GERD (gastroesophageal reflux disease) History of femoral angiogram HTN (hypertension) Hyperlipemia Osteoporosis PAD (peripheral artery disease) Peripheral vascular disease) History of Previous Operations: Relevant previous surgery/procedure and date(s) (H/O colonoscopy Hx of angioplasty Hx of hand surgery) Allergies: Allergies Allergy/AdvReac Type Severity Reaction Status Date / Time No Known Allergies Allergy Verified 08/16/21 09:25 Review of Systems Sugical H&P ROS: Negative: Constitution, Cardiovascular, Respiratory, Neurological, Psychiatric, Hem-Onc, Allergic/Immunologic, Gastrointestinal, Genitourinary, Musculoskeletal, Integumentary, Endocrine and Eyes/Ears/Nose/Throat Exam Surgical H&P Exam: Normal: HEENT, Normal: Heart, Normal: Lungs, Normal: Extremities, Normal: Abdomen, Normal: Skin and Normal: Neurological Plan Diagnosis/Plan: Unchanged I have reviewed the history and physical and performed a pertinent physical examination on my patient. No changes have occurred unless specified.
[2021-08-21 09:11] VITALS: BP 171/58; PULSE 65; RESP 16; TEMP 37.1; O2SAT 100
[2021-08-21 09:24] LABS: Glucose, Whole Blood 189 mg/dL (60-115)
--- NOTE | 2021-08-21 10:18 | P.BOP_ITS ---
Brief Operative Note Date of Service: 08/21/21 Pre-op diagnosis: hx of ischemic colitis Post-op diagnosis: same Procedure: see op note Surgeon: Rommel Avila MD Anesthesia: MAC Was an Chief Hydroelectric Station Operator used for this Procedure?: No Estimated blood loss (mL): 0 Condition: stable Disposition: PACU
--- NOTE | 2021-08-21 10:19 | P.OP_ITS ---
Operative Note Operative Note Date of Service: 08/21/21 Narrative: Operative Information Procedure Description: Colonoscopy COLONOSCOPY Instrument: Olympus variable stiffness pediatric scope 190L Colonoscopy Monitoring: Vital signs and clinical assessment, continuous EKG monitoring, Pulse oximetry, Carbon Dioxide monitoring and blood pressure monitoring were done throughout the procedure. Colon withdrawal time was 17 minutes. Procedure: The patient was placed in the left lateral decubitis position and pre-procedure medications were administered. After a digital rectal examination of the ano-rectum, the video colonoscope was inserted into the rectum and advanced through the colon to the cecum/TI. The colonoscope was slowly withdrawn in a retrograde panoramic fashion and the colon mucosa was carefully examined including a retroflexed view of the rectum. Findings and interventions are described below. Procedure Difficulty:moderate Findings: Terminal Ileum-normal Cecum:normal Ascending Colon: x 1 sessile polyp 6-8 mm removed with forceps Transverse Colon -normal Descending Colon:x 2 sessile polyps 10-12 mm removed with cold snare. X1 polyp with clip applied due to oozing of blood. Sigmoid Colon: mild diverticulosis noted Rectum: Retroflexion with small internal hemorrhoids, grade I Anorectum - normal Colon preparation: [place] Bowel Preparation Scale Right colon; 2 Transverse colon: 2 Left colon; 2 (0 = Unprepared colon segment with mucosa not seen due to solid stool that cannot be cleared. 1 = Portion of mucosa of the colon segment seen, but other areas of the colon segment not well seen due to staining, residual stool and/or opaque liquid. 2 = Minor amount of residual staining, small fragments of stool and/or opaque liquid, but mucosa of colon segment seen well. 3 = Entire mucosa of colon segment seen well with no residual staining, small fragments of stool or opaque liquid) Impression and Post Procedure Diagnosis: polyps internal hemorrhoids diverticular disease Plan: High fiber diet leaflet Avoid straining at stool, epsom salts and sitz bath, anusol supps or cream Repeat Colonoscopy in 5 years due to polyps or earlier if clinically indicated and if her general health allows at that time. Above findings were reviewed with the patient and relevant handouts were provided if indicated.
[2021-08-21 10:27] VITALS: BP 106/42; PULSE 51; RESP 16; TEMP 36.4; O2SAT 100
[2021-08-21 10:41] VITALS: BP 135/59; PULSE 55; RESP 16; O2SAT 100
== END 2021-08-21 11:21 | disposition home or self-care (01) ==
PROVIDERS: PCP Internal Medicine; Visit Provider Internal Medicine Gastroenterology
PROC: 0DJD8ZZ Inspection of Lower Intestinal Tract, Via Natural or Artificial Opening Endoscopic (ICD-10-PCS; CPT 45378; principal; 2021-08-21 10:00)
DX: K52.9 Noninfective gastroenteritis and colitis, unspecified (principal); D12.2 Benign neoplasm of ascending colon; D12.4 Benign neoplasm of descending colon; K57.30 Diverticulosis of large intestine without perforation or abscess without bleeding; K64.0 First degree hemorrhoids; E11.9 Type 2 diabetes mellitus without complications; I10 Essential (primary) hypertension
CPT/HCPCS: 45385; 45380; 82947; 88305

== ENCOUNTER 2021-10-18 10:01 | Outpatient (REF) | payer MEDICARE, SELFPAY ==
--- NOTE | ~2021-10-18 | MM_ITS ---
EXAMINATION: MM SCREENING DIGITAL BREAST TOMOSYNTHESIS, BILATERAL CLINICAL INFORMATION: Screening. Asymptomatic. The lifetime risk of breast cancer based on the Tyrer-Cuzick Model is 2%. COMPARISON: Mammography: 10/06/2020, 01/08/2019 TECHNIQUE: Digital breast tomosynthesis is performed in both the craniocaudal and mediolateral oblique views along with computer-aided detection (CAD). Synthesized 2D images are generated from the tomosynthesis. FINDINGS: There are scattered areas of fibroglandular density (ACR BI-RADS breast composition Category b). There are no significant masses, abnormal calcifications, or other abnormalities. There are bilateral vascular and multiple grouped dermal calcifications again seen. No significant changes. MM/MM tomosynthesis screening BI IMPRESSION: No mammographic evidence of malignancy. ASSESSMENT: BI-RADS 2: Benign RECOMMENDATION: Routine annual mammography screening. This patient's information was entered into a reminder system with a target due date for their next mammogram.
== END 2021-10-18 10:02 | disposition home or self-care (01) ==
LOC: HO.MAMMO 10:01
PROVIDERS: Visit Provider Internal Medicine
DX: Z12.31 Encounter for screening mammogram for malignant neoplasm of breast (principal)
CPT/HCPCS: 77063; 77067

== ENCOUNTER → 2021-10-19 09:17 | Outpatient (BNVA) | payer MEDICARE, SELFPAY | PROVIDERS: PCP Internal Medicine; Visit Provider Surgery Vascular Surgery | DX: I73.9 Peripheral vascular disease, unspecified (principal) | CPT/HCPCS: 99212 ==

== ENCOUNTER 2021-11-21 10:19 | Outpatient (REF) | payer MEDICARE, SELFPAY ==
--- NOTE | ~2021-11-21 | XR_ITS ---
EXAMINATION: XR RIBS, LEFT CLINICAL INFORMATION: Left-sided rib pain following a fall. COMPARISON: Chest radiograph dated 04/14/2019. TECHNIQUE: PA view the chest as well as 3 views of the left ribs. FINDINGS: Minimal probable atelectasis within the left costophrenic angle. No pleural effusion or pneumothorax. Stable cardiomediastinal silhouette. No displaced fracture. No lytic or blastic osseous lesion. No abnormal soft tissue calcification. XR/XR ribs LT min 3V w CXR1V IMPRESSION: No displaced fracture.
== END 2021-11-21 10:20 | disposition home or self-care (01) ==
LOC: HO.XRAY 10:19
PROVIDERS: Visit Provider Internal Medicine
DX: R07.81 Pleurodynia (principal)
CPT/HCPCS: 71101

== ENCOUNTER → 2022-04-23 09:40 | Outpatient (BNVA) | payer MEDICARE, SELFPAY | PROVIDERS: PCP Internal Medicine; Visit Provider Internal Medicine Gastroenterology | DX: Z13.89 Encounter for screening for other disorder (principal) | CPT/HCPCS: 99212 ==

== ENCOUNTER → 2022-08-07 10:07 | Outpatient (REF) | payer OTHER, SELFPAY ==
--- NOTE | 2022-08-07 10:15 | CA_ITS ---
Transthoracic Echocardiogram Patient (Last, First, Middle): Gabriella Galan, Gender: Female Date of : 1945 Age: 76 Procedure Date: 08/07/2022 Procedure Type: Transthoracic Echocardiogram Location: OP Height: 162.56 cm Weight: 54.43 kg BSA: 1.57 m2 Heart Rate: bpm BP: 130 / 65 mmHg Supervisor [employer]: GEORGE Referring MD: Hafsa Carlos MD Symptoms: R60.0 LOCALIZED EDEMA Study Quality: Adequate ECG Rhythm: Sinus Conclusions: - The left ventricular systolic function is normal. The calculated ejection fraction is 64% by biplane method. - No obvious valvular pathology seen on this study. Findings Left Ventricle Normal left ventricular cavity size. There is normal left ventricular wall thickness. The left ventricular systolic function is normal. The calculated ejection fraction is 64% by biplane method. There is no evidence of regional wall motion abnormalities. Diastolic function is normal for age. Right Ventricle Normal right ventricular cavity size and systolic function. Atria The left atrium is mildly dilated. The right atrium is normal in size. Aortic Valve There is a normal trileaflet aortic valve. There is no aortic valve stenosis. There is no aortic valve regurgitation. Mitral Valve The mitral valve appears normal. There is trace mitral valve regurgitation. There is no mitral valve stenosis. Pulmonic Valve The pulmonic valve is likely normal. Tricuspid Valve Normal tricuspid valve structure. There is trace tricuspid valve regurgitation. The pulmonary artery systolic pressure is normal. Great Vessels The asc aorta is normal in size. Venous The inferior vena cava is normal in size and collapses greater than 50% with inspiration. Pericardium/Pleural There is no evidence of pericardial effusion. Prior Study Comparison No prior study available for comparison. Recommendations, Care & Conclusions No obvious valvular pathology seen on this study. Measurements 2D Linear Measurements IVSd: 0.85 0.6-0.9/0.6-1.0 cm LVIDd: 4.40 3.9-5.3/4.2-5.9 cm LVIDd Index: 2.80 2.4-3.2/2.2-3.1 cm/m2 LVIDs: 3.13 2.0-3.6 cm LVPWd: 0.98 0.7-1.1 cm LA Diam: 3.00 2.7-3.8/3.0-4.0 cm LAIDs Index: 1.91 1.5-2.3 cm/m2 LV Mass: 162.28 67-162/88-224 g LV Mass Index: 103.36 43-95/49-115 g/m2 LVOT Diam: 2.00 3.0+(-)1.3 cm 2D Systolic Function EF 4C: 63.30 >55% EF 2C: 65.40 >55% EF BiP: 64.40 >55% Mitral Valve MV Pk E: 0.77 MV PK A: 1.04 MV Decel Time: 248.00 E/A: 0.70 E'Lateral: 9.36 E'Medial: 7.29 E/E' Med: 10.60 E/E' Lat: 8.20 PHT: 67.00 MVA PHT: 3.28 Decel Izard: 3.45 Aortic Valve AoV Pk Ritchie: 1.05 AoV Mn Ritchie: 0.75 AoV VTI: 0.29 AoV Pk Grad: 4.00 Aov Mn Grad: 3.00 SOLEDAD Cont.VTI: 2.28 LVOT LVOT Pk Ritchie: 0.76 LVOT Mn Ritchie: 0.49 LVOT VTI: 0.21 LVOT Pk Grad: 2.00 LVOT Mn Grad: 1.00 LVOT Diam: 2.00 LVOT Area: 3.14 Diastolic Function MV Pk E: 0.77 MV Pk A: 1.04 E/A: 0.70 E'Medial: 7.29 E/E' Med: 10.60 E' Laterial: 9.36 E/E' Lat: 8.20 Right Ventricle TAPSE (mm): 18.30 TVS' Ritchie: 10.40 Tricuspid Valve TR Pk Ritchie: 1.71 TR Pk Grad: 12.00 RA Press: 3.00 RVSP: 15.00 Great Vessels Aorta Sinus of Valsalva: 3.16 2.0-3.[address] [place]: 2.64 1.7-3.4 cm Ao Asc: 3.30 2.1-3.4 cm Updated in Other Vendor System with Status of Final Magen Tierney MD electronically signed on 08/07/2022 12:21:10 PM with status of Final
== END ==
LOC: HO.CARD 10:07
PROVIDERS: PCP Internal Medicine; Visit Provider Internal Medicine
DX: R60.0 Localized edema (principal)
CPT/HCPCS: 93306

== ENCOUNTER 2022-08-09 09:06 | Outpatient (REF) | payer OTHER, SELFPAY ==
--- NOTE | ~2022-08-09 | US_ITS ---
EXAMINATION: NONINVASIVE ASSESSMENT OF THE ARTERIES OF BOTH LOWER EXTREMITIES INCLUDING PVR EXAM AND BILATERAL LOWER EXTREMITY DUPLEX. CLINICAL INFORMATION: Peripheral vascular disease COMPARISON: Noninvasive arterial exam on 04/11/2021 TECHNIQUE: Ankle pulse volume recordings, ankle pressure measurements and ankle brachial indices were obtained of the lower extremity arterial system bilaterally in addition to duplex Doppler techniques with wave form analysis and measurement of velocities in the common femoral, profunda femoral, superficial femoral, popliteal, tibial and peroneal arteries. The study was performed only at rest. FINDINGS: RIGHT LEG 1. THE RIGHT ANKLE-BRACHIAL INDEX IS: 1.02 >0.97-1.25 = normal - no significant arterial disease 0.75-0.96 = mild peripheral arterial disease 0.5-0.74 = moderate peripheral arterial disease <0.50 = severe peripheral arterial disease <0.30 = critical arterial disease 2. SEGMENTAL PRESSURES (mmHg): Ankle: DP 203 3. PVR WAVEFORMS: Ankle: Normal 4. DIRECT DUPLEX: Common femoral artery: 266 cm/s, monophasic Profunda femoris artery: 181 cm/s, monophasic Superficial femoral artery (proximal): 157 cm/s, monophasic Superficial femoral artery (mid): 187 cm/s, monophasic Superficial femoral artery (distal): 156 cm/s, monophasic Proximal Popliteal artery: 160 cm/s, monophasic Mid posterior tibial artery: 26 cm/s, monophasic LEFT LE. THE LEFT ANKLE-BRACHIAL INDEX IS: 1.03 (higher of the DP/PT) >0.97-1.25 = normal - no significant arterial disease 0.75-0.96 = mild peripheral arterial disease 0.5-0.74 = moderate peripheral arterial disease <0.50 = severe peripheral arterial disease <0.30 = critical arterial disease 2. SEGMENTAL PRESSURES: Ankle: DP 206 3. PVR WAVEFORMS: Ankle: Normal 4. DIRECT DUPLEX: Common femoral artery: 199 cm/s, monophasic Profunda femoris artery: 214 cm/s, monophasic Superficial femoral artery (proximal): Occluded Superficial femoral artery (mid): 63 cm/s, monophasic Superficial femoral artery (distal): 63 cm/s, monophasic Proximal Popliteal artery: 66 cm/s, monophasic Distal popliteal artery: 52 cm/s, monophasic Mid posterior tibial artery: 52 cm/s, monophasic US/US arterial duplex LE BI IMPRESSION: 1. 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 2. Redemonstration of bilateral moderate peripheral vascular disease, however the left lower extremity RACHELLE on this exam has normalized.
== END 2022-08-09 09:07 | disposition home or self-care (01) ==
LOC: HO.US 09:06
PROVIDERS: Visit Provider Surgery Vascular Surgery
DX: I73.9 Peripheral vascular disease, unspecified (principal)
CPT/HCPCS: 93923; 93925

== ENCOUNTER → 2022-08-14 10:34 | Outpatient (BNVA) | payer OTHER, SELFPAY | PROVIDERS: PCP Internal Medicine; Visit Provider Surgery Vascular Surgery | DX: I73.9 Peripheral vascular disease, unspecified (principal) | CPT/HCPCS: 99212 ==

== ENCOUNTER 2022-10-19 09:49 | Outpatient (REF) | payer OTHER, SELFPAY ==
--- NOTE | ~2022-10-19 | MM_ITS ---
EXAMINATION: MM SCREENING DIGITAL BREAST TOMOSYNTHESIS, BILATERAL CLINICAL INFORMATION: Screening. Asymptomatic. The lifetime risk of breast cancer based on the Tyrer-Cuzick Model is 3%. COMPARISON: Mammography: 10/18/2021, 10/06/2020, 01/08/2019 TECHNIQUE: Digital breast tomosynthesis is performed in both the craniocaudal and mediolateral oblique views along with computer-aided detection (CAD). Synthesized 2D images are generated from the tomosynthesis. FINDINGS: There are scattered areas of fibroglandular density (ACR BI-RADS breast composition Category b). There are no significant masses, abnormal calcifications, or other abnormalities. Breast tissue composition borders on predominantly fatty. Background stromal markings are stable. Again, there are scattered vascular calcifications upper outer quadrants and bilateral grouped predominantly dermal calcifications in the inferior medial bilateral breasts. Biopsy clip marker is seen posterior inferior medial left breast on CC view. No developing density or architectural abnormality. No significant changes. MM/MM tomosynthesis screening BI IMPRESSION: No mammographic evidence of malignancy. ASSESSMENT: BI-RADS 2: Benign RECOMMENDATION: Routine annual mammography screening. This patient's information was entered into a reminder system with a target due date for their next mammogram.
== END 2022-10-19 09:50 | disposition home or self-care (01) ==
LOC: HO.MAMMO 09:49
PROVIDERS: PCP Internal Medicine; Visit Provider Internal Medicine
DX: Z12.31 Encounter for screening mammogram for malignant neoplasm of breast (principal)
CPT/HCPCS: 77063; 77067

== ENCOUNTER 2022-12-14 15:30 | Observation (INO) | payer OTHER, SELFPAY ==
--- NOTE | ~2022-12-14 | CT_ITS ---
EXAMINATION: NONCONTRAST HEAD CT NONCONTRAST CERVICAL SPINE CT INDICATION INFORMATION: Fall with loss of consciousness. Neck pain COMPARISON: Head CT 04/14/2019 TECHNIQUE: Separate noncontrast CT examinations of the head and cervical spine were performed. Coronal and sagittal images were created for each examination at the technologist workstation. This CT examination was performed using dose optimization techniques as appropriate, variously including the following: *Automated exposure control *Adjustment of mA and/or kV according to patient size (this includes techniques or standardized protocols for targeted exams where dose is matched to indication/reason for exam; i.e. extremities or head) *Use of iterative reconstruction technique DLP: 1169 mGy-cm FINDINGS: HEAD: No intra or extra-axial fluid collection, hemorrhage, or mass. No ventriculomegaly. No midline shift or herniation. Basal cisterns are patent. Carey-white matter differentiation is maintained. Unchanged small focus of encephalomalacia in the lateral left frontal lobe with surrounding hypoattenuation/gliosis. Proportional prominence of the ventricles and sulcal spaces is consistent with mild volume loss. Patchy periventricular and deep white matter hypoattenuation is consistent with mild small vessel ischemic changes. No calvarial fracture or soft tissue abnormality. Partial opacification of a posterior left ethmoid air cell. Paranasal sinuses and mastoid air cells otherwise normally aerated. CERVICAL SPINE: Alignment: Mild retrolisthesis at C5-C6. No additional subluxation. Vertebra: No acute fracture. No prevertebral soft tissue swelling. Degenerative disc disease: Mild multilevel cervical spondylosis with mild endplate sclerosis and proliferative change. Mild disc height loss at C5-C6. Intervertebral disc heights otherwise fairly well-maintained. Multilevel small posterior disc protrusions/disc osteophyte complexes at C3-C4 through C6-C7. Some focal ossification of the region of the ligamentum flavum at C3-C4 and C4-C5 noted incidentally. Other findings: Scattered small sub-4 mm subpleural biapical pulmonary nodules right greater than left. Asymmetrically enlarged left thyroid lobe with heterogeneous conglomerate nodules or large dominant nodule measuring 4.8 cm in size. No calcification detected. Left worse than right carotid vascular calcifications at the carotid bifurcations. CT/CT cervical spine wo IV con IMPRESSION: 1. No intracranial hemorrhage, calvarial fracture, or other acute intracranial abnormality. 2. No traumatic subluxation or acute cervical spine fracture. 3. Scattered small sub-4 mm subpleural biapical pulmonary nodules right greater than left, likely benign. If patient is high risk for primary pulmonary malignancy consider optional low-dose chest CT in 12 months. Otherwise no follow-up or core per Fleischner Society guidelines. 4. Asymmetrically enlarged left thyroid lobe with heterogeneous conglomerate nodules or large dominant nodule measuring 4.8 cm in size. Suggest thyroid ultrasound for further evaluation if clinically appropriate.
--- NOTE | ~2022-12-14 | XR_ITS ---
EXAMINATION: CR X-RAY WRIST LEFT WITH SCAPHOID CLINICAL INFORMATION: Distal radius fracture with scaphoid fracture. COMPARISON: Left hand radiographs dated 12/14/2022. TECHNIQUE: 4 views of the left wrist are obtained with limited scaphoid view. FINDINGS: There is questionable deformity in the mid body of the scaphoid bone with subtle transverse linear lucency. The carpal bones are normally aligned. Again seen is a comminuted distal radial metaphysis fracture with intra-articular extension distally to the radiocarpal joint space. A transverse linear lucency is seen to the distal tip of the ulnar styloid. There is generalized osteopenia. Moderate to severe atherosclerosis is noted. XR/XR wrist LT w scaphoid IMPRESSION: 1. Questionable deformity in the mid body of the scaphoid bone with subtle transverse linear lucency. Nondisplaced fracture cannot be excluded. A CT scan may be needed to better investigate this finding. 2. Comminuted distal radial metaphysis fracture with intra-articular extension. 3. Probable nondisplaced fracture of the distal tip of the ulnar styloid. 4. Generalized osteopenia. 5. Moderate to severe atherosclerosis.
--- NOTE | ~2022-12-14 | XR_ITS ---
EXAMINATION: X-RAY LEFT SHOULDER X-RAY LEFT HUMERUS X-RAY LEFT ELBOW X-RAY LEFT WRIST/HAND CLINICAL INFORMATION: Fall, pain. COMPARISON: Radiograph of the left shoulder 12/31/2019. TECHNIQUE: 3 views of the left shoulder. 2 views of the left humerus. 1 view of the left forearm. 4 views of the left wrist/hand. FINDINGS: Left shoulder: Comminuted mildly displaced and impacted left humeral neck fracture. The acromioclavicular joint is intact with superimposed osteoarthritis. Multiple left-sided rib fractures, best described on separate report from a simultaneous chest radiograph. Decreased bone mineralization. Left humerus and left elbow: No other fractures or malalignment. Although evaluation is somewhat limited in the absence of lateral views. Decreased bone mineralization. Left wrist/hand: Comminuted distal radial fracture with intra-articular extension. Equivocal linear defect in the scaphoid waist which could be related with a scaphoid fracture. 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 Extensive vascular calcifications. There is a 2 mm radiopaque body projecting over the ventral soft tissues adjacent to the base of the first metacarpal, possibly representing a foreign body. XR/XR elbow LT min 3V IMPRESSION: 1. Comminuted mildly displaced and impacted left humeral neck fracture. 2. Comminuted distal radial fracture with intra-articular extension. 3. Equivocal scaphoid waist fracture. 4. Multiple left-sided rib fractures, best seen on separate report from a simultaneous chest radiograph. 5. Questionable 2 mm foreign body in the ventral soft tissues adjacent to the base of the first metacarpal. 6. 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
--- NOTE | ~2022-12-14 | US_ITS ---
EXAMINATION: US THYROID CLINICAL INFORMATION: Thyroid nodule. COMPARISON: None TECHNIQUE: Linear transducer grayscale and color Doppler examination with attention to the region of the thyroid. FINDINGS: SIZE: Measurements of the thyroid lobes and nodules are given in sagittal, anteroposterior and transverse dimensions respectively. Right Thyroid Lobe: 3.3 x 1.3 x 1.0 cm, volume 2.2 mL. Parenchyma: The gland echotexture is heterogeneous. Thyroid vascularity is normal. Left Thyroid Lobe: 5.1 x 3.1 x 2.6 cm, volume 27.5 mL. Parenchyma: The gland echotexture is heterogeneous. Thyroid vascularity is normal. Isthmus: 0.2 cm in maximum AP dimension. Estimated total number of nodules greater than or equal to 1 cm: 2. 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 Location: Right upper pole. Size: 1.0 x 0.6 x 0.8 cm, volume 0.3 mL. Nodule characteristics: Composition: Solid/almost completely solid (2). Echogenicity: Isoechoic (1). Shape: Not taller than wide (0). Margins: Ill-defined (0). Echogenic Foci: Comet-tail artifacts (0). ACR TI-RADS total points: 3 ACR TI-RADS category: 3 2. Location: Upper/midpole. Size: 0.5 x 0.3 x 0.4 cm, volume 0.30 mL. Nodule characteristics: Composition: Solid/almost completely solid (2). Echogenicity: Hypoechoic Shape: Not taller than wide (0). Margins: Ill-defined (0). Echogenic Foci: ACR TI-RADS total points: 4 ACR TI-RADS category: 4 3. Location: Lower pole. Size: 0.8 x 0.5 x 0.7 cm, volume 0.1 mL. Nodule characteristics: Composition: Solid/almost completely solid (2). Echogenicity: Hypoechoic Shape: Not taller than wide (0). Margins: Smooth (0). Echogenic Foci: None. ACR TI-RADS total points: 4 ACR TI-RADS category: 4 4. Location: Isthmus. Size: 0.7 x 0.2 x 0.5 cm, volume 0.03 mL. Nodule characteristics: Composition: Solid/almost completely solid (2). Echogenicity: Isoechoic (1). Shape: Not taller than wide (0). Margins: Ill-defined (0). Echogenic Foci: None (0). ACR TI-RADS total points: 3 ACR TI-RADS category: 3 5. There is a larger 3.1 x 2.4 x 3.0 nodule in the left midpole with a volume 11.8 mL. It is mixed in position with hyperechogenicity and ill-defined margins. No acute increased echogenicity seen. Total points 2. TI-RADS 2. NODES: No lymphadenopathy is seen in the tissue surrounding the thyroid gland. US/US thyroid IMPRESSION: 1. Bilateral thyroid nodules. 2 nodular greater than 1 cm and are nonsuspicious. Recommend follow-up as per TI-RADS recommendation 2. TR1 (0 point) and TR 2 (2 points): 3. TR4 (4-6 points): FNA if more than or equal to 1.5 cm in maximum dimension, followup ultrasound in 1, 2, 3 and 5 years if 1 to 1.4 cm in maximum dimension. 4. TR5 (more than or equal to 7 points): FNA if more than or equal to 1 cm in maximum dimension, followup ultrasound every year for 5 years if 0.5 to 0.9 cm in maximum dimension.
--- NOTE | ~2022-12-14 | XR_ITS ---
EXAMINATION: XR RIBS, LEFT CLINICAL INFORMATION: Pain. COMPARISON: Chest radiograph 11/21/2021. TECHNIQUE: 3 views of the left ribs were obtained. FINDINGS: Stable appearance of the cardiomediastinal silhouette with atherosclerotic disease of the thoracic aorta. No focal airspace opacity, pleural effusion or pneumothorax. Displaced left-sided fourth, fifth, sixth and seventh rib fractures. Left humeral neck fracture, described on separate report from dedicated views of the left shoulder. XR/XR ribs LT min 3V w CXR1V IMPRESSION: 1. Multiple displaced left-sided rib fractures. 2. No acute cardiopulmonary findings. 3. Left humeral neck fracture, described on separate report from the left shoulder.
--- NOTE | ~2022-12-14 | XR_ITS ---
EXAMINATION: X-RAY LEFT SHOULDER X-RAY LEFT HUMERUS X-RAY LEFT ELBOW X-RAY LEFT WRIST/HAND CLINICAL INFORMATION: Fall, pain. COMPARISON: Radiograph of the left shoulder 12/31/2019. TECHNIQUE: 3 views of the left shoulder. 2 views of the left humerus. 1 view of the left forearm. 4 views of the left wrist/hand. FINDINGS: Left shoulder: Comminuted mildly displaced and impacted left humeral neck fracture. The acromioclavicular joint is intact with superimposed osteoarthritis. Multiple left-sided rib fractures, best described on separate report from a simultaneous chest radiograph. Decreased bone mineralization. Left humerus and left elbow: No other fractures or malalignment. Although evaluation is somewhat limited in the absence of lateral views. Decreased bone mineralization. Left wrist/hand: Comminuted distal radial fracture with intra-articular extension. Equivocal linear defect in the scaphoid waist which could be related with a scaphoid fracture. 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 Extensive vascular calcifications. There is a 2 mm radiopaque body projecting over the ventral soft tissues adjacent to the base of the first metacarpal, possibly representing a foreign body. XR/XR shoulder LT min 2V IMPRESSION: 1. Comminuted mildly displaced and impacted left humeral neck fracture. 2. Comminuted distal radial fracture with intra-articular extension. 3. Equivocal scaphoid waist fracture. 4. Multiple left-sided rib fractures, best seen on separate report from a simultaneous chest radiograph. 5. Questionable 2 mm foreign body in the ventral soft tissues adjacent to the base of the first metacarpal. 6. 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
--- NOTE | ~2022-12-14 | XR_ITS ---
EXAMINATION: X-RAY LEFT SHOULDER X-RAY LEFT HUMERUS X-RAY LEFT ELBOW X-RAY LEFT WRIST/HAND CLINICAL INFORMATION: Fall, pain. COMPARISON: Radiograph of the left shoulder 12/31/2019. TECHNIQUE: 3 views of the left shoulder. 2 views of the left humerus. 1 view of the left forearm. 4 views of the left wrist/hand. FINDINGS: Left shoulder: Comminuted mildly displaced and impacted left humeral neck fracture. The acromioclavicular joint is intact with superimposed osteoarthritis. Multiple left-sided rib fractures, best described on separate report from a simultaneous chest radiograph. Decreased bone mineralization. Left humerus and left elbow: No other fractures or malalignment. Although evaluation is somewhat limited in the absence of lateral views. Decreased bone mineralization. Left wrist/hand: Comminuted distal radial fracture with intra-articular extension. Equivocal linear defect in the scaphoid waist which could be related with a scaphoid fracture. 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 Extensive vascular calcifications. There is a 2 mm radiopaque body projecting over the ventral soft tissues adjacent to the base of the first metacarpal, possibly representing a foreign body. XR/XR hand wrist LT IMPRESSION: 1. Comminuted mildly displaced and impacted left humeral neck fracture. 2. Comminuted distal radial fracture with intra-articular extension. 3. Equivocal scaphoid waist fracture. 4. Multiple left-sided rib fractures, best seen on separate report from a simultaneous chest radiograph. 5. Questionable 2 mm foreign body in the ventral soft tissues adjacent to the base of the first metacarpal. 6. 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
--- NOTE | ~2022-12-14 | XR_ITS ---
EXAMINATION: X-RAY LEFT SHOULDER X-RAY LEFT HUMERUS X-RAY LEFT ELBOW X-RAY LEFT WRIST/HAND CLINICAL INFORMATION: Fall, pain. COMPARISON: Radiograph of the left shoulder 12/31/2019. TECHNIQUE: 3 views of the left shoulder. 2 views of the left humerus. 1 view of the left forearm. 4 views of the left wrist/hand. FINDINGS: Left shoulder: Comminuted mildly displaced and impacted left humeral neck fracture. The acromioclavicular joint is intact with superimposed osteoarthritis. Multiple left-sided rib fractures, best described on separate report from a simultaneous chest radiograph. Decreased bone mineralization. Left humerus and left elbow: No other fractures or malalignment. Although evaluation is somewhat limited in the absence of lateral views. Decreased bone mineralization. Left wrist/hand: Comminuted distal radial fracture with intra-articular extension. Equivocal linear defect in the scaphoid waist which could be related with a scaphoid fracture. 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 Extensive vascular calcifications. There is a 2 mm radiopaque body projecting over the ventral soft tissues adjacent to the base of the first metacarpal, possibly representing a foreign body. XR/XR humerus LT IMPRESSION: 1. Comminuted mildly displaced and impacted left humeral neck fracture. 2. Comminuted distal radial fracture with intra-articular extension. 3. Equivocal scaphoid waist fracture. 4. Multiple left-sided rib fractures, best seen on separate report from a simultaneous chest radiograph. 5. Questionable 2 mm foreign body in the ventral soft tissues adjacent to the base of the first metacarpal. 6. 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
[2022-12-14 15:45] VITALS: BP 100/58; BP 131/45; PULSE 54; PULSE 76; RESP 16; TEMP 36.7; O2SAT 98; BMI 21.9
--- NOTE | 2022-12-14 16:05 | ECG_ITS ---
Test Reason : SYNCOPAL Blood Pressure : / mmHG Vent. Rate : 050 BPM Atrial Rate : 050 BPM P-R Int : 142 ms QRS Dur : 086 ms QT Int : 478 ms P-R-T Axes : 031 -07 043 degrees QTc Int : 435 ms Sinus bradycardia T wave abnormality, consider anterior ischemia Abnormal ECG When compared with ECG of 06-JUN-2021 04:42, Previous ECG has undetermined rhythm, needs review ST no longer depressed in Inferior leads ST no longer depressed in Lateral leads Nonspecific T wave abnormality no longer evident in Inferior leads T wave inversion no longer evident in Lateral leads Referred By: Generic ED Physician Electronically Signed By:Link Real
--- NOTE | 2022-12-14 16:24 | ED.FALL ---
HPI - Fall General Chief Complaint: Fall Stated Complaint: FALL,LT SHLDR PAIN,?THINNERS,+COLLAR Time Seen by Provider: 12/14/22 16:06 Source: patient and EMS Mode of arrival: EMS Limitations: no limitations History of Present Illness HPI Narrative: Patient comes to the emergency room via EMS from home. Patient states that she was trying to get out of the couch, started to feel dizzy, fell on her left side. Patient states that she remembers hitting something on her way down, hurting her shoulder. Also, patient states that she may have passed out for a few seconds but is not sure. Patient complaining of a headache, neck pain, and severe left arm pain from the shoulder to the elbow. Patient states that she had to drag herself across the room to get to the phone. When she attempted to grabbing the phone with her right arm, it fell behind a piece of foreign sure. Patient had to rotate her whole body and tried to pull it out with her legs. Then she was able to call her friend and 911. Patient lives by herself. Patient states that she has history of dizziness (from what the patient describes, likely vertigo), describing dizziness as room spinning . Patient states that she is already being worked up by her primary care physician for patient. Related Data Home Medications Medication Instructions Recorded Confirmed aspirin 81 mg chewable tablet 1 tab PO DAILY 04/18/21 08/16/21 chlorthalidone 50 mg tablet 50 mg PO DAILY 04/18/21 08/16/21 cholecalciferol (vitamin D3) 50 50 mcg PO DAILY 04/18/21 08/16/21 mcg (2,000 unit) capsule gabapentin 300 mg capsule 300 mg PO TID 04/18/21 08/16/21 hydralazine 10 mg tablet 10 mg PO TID 04/18/21 08/16/21 pantoprazole 20 mg tablet,delayed 20 mg PO BID 04/18/21 08/16/21 release pioglitazone 15 mg tablet 15 mg PO BEDTIME 04/18/21 08/16/21 simvastatin 20 mg tablet 20 mg PO BEDTIME 04/18/21 08/16/21 trazodone 50 mg tablet 50 mg PO BEDTIME 04/18/21 08/16/21 verapamil 120 mg 24 hr 120 mg PO DAILY 04/18/21 08/16/21 capsule,extended release zolpidem 5 mg tablet 5 mg PO BEDTIME PRN Sleep 04/18/21 08/16/21 insulin glargine 100 unit/mL 25 unit subcut QAM 06/01/21 08/16/21 subcutaneous solution (Lantus U-100 Insulin) losartan 100 mg tablet 1 tab PO QAM 06/01/21 08/16/21 metformin 1,000 mg tablet 1 tab PO BID 06/01/21 08/16/21 sitagliptin phosphate 50 mg tablet 1 tab PO QAM 06/01/21 08/16/21 (Januvia) alcohol swabs (Alcohol Prep Pads) 0 pad topical QID 04/23/22 amlodipine 10 mg tablet 10 mg PO QAM 04/23/22 insulin glargine 100 unit/mL (3 25 unit subcut DAILY 04/23/22 mL) subcutaneous pen (Lantus Solostar U-100 Insulin) lancets 33 gauge (TRUEplus Lancets) #100 ea 04/23/22 multivitamin 1 tab PO QAM 04/23/22 Previous Rx's Medication Instructions Recorded amlodipine 5 mg tablet 10 mg PO DAILY #30 tabs 06/07/21 metoprolol tartrate 25 mg tablet 25 mg PO BID #60 tabs 06/07/21 bisacodyl 5 mg tablet,delayed 20 mg PO ONCE 1 day #4 tabs 06/30/21 release (Dulcolax (bisacodyl)) polyethylene glycol 3350 17 238 g PO ONCE #238 grams 06/30/21 gram/dose oral powder (Miralax) Allergies Allergy/AdvReac Type Severity Reaction Status Date / Time No Known Allergies Allergy Verified 08/14/22 10:40 Review of Systems Review of Systems: Constitutional : No Weight loss, No Fever, No Chills, No Night Sweats, No Fatigue, No Malaise ENT/Mouth : No Hearing loss, No Ear Pain, No Nasal Congestion, No Sinus Pain, No Hoarseness, No sore throat, No Rhinorrhea, No Swallowing Difficulty Eyes: No Eye Pain, No Swelling, No Redness, No Foreign Body, No Discharge, No Vision Changes Cardiovascular : No Chest Pain, No SOB, No Dyspnea on Exertion, No Orthopnea, No Edema, No Palpitations Respiratory : No Cough, No Sputum, No Wheezing, No Smoke Exposure, No Dyspnea Gastrointestinal : No Nausea, No Vomiting, No Diarrhea, No Constipation, No abdominal Pain, No Hematochezia, No Melena Genitourinary : no irregular bleeding, No Dysuria, No Urinary Frequency, No Hematuria, No Urinary Incontinence, No Urgency, No Flank Pain, No Urinary Flow Changes, No Hesitancy Musculoskeletal : Complaining of severe left arm pain from the shoulder down to the left elbow, No Myalgias, No Joint Swelling Skin : No Skin Lesions, No rash Neuro : No Weakness, No Numbness, No Paresthesias, No Loss of Consciousness, No Dizziness, No Headache Psych : No Anxiety/Panic, No Depression, No SI/HI/AH/VH, No Social Issues, Heme/Lymph: No Bruising, No Bleeding,No Lymphadenopathy Endocrine : No Polyuria, No Polydipsia, No Temperature Intolerance [facility] Past Medical History Medical History Diabetes Elevated cholesterol GERD (gastroesophageal reflux disease) History of femoral angiogram HTN (hypertension) Hyperlipemia Osteoporosis PAD (peripheral artery disease) Peripheral vascular disease Surgical History H/O colonoscopy Hx of angioplasty Hx of hand surgery Family History Family History Father No problems noted. Mother No problems noted. Daughter No problems noted. Son No problems noted. Son No problems noted. Son No problems noted. 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) Alcohol intake: never Patient Tobacco Use Status: Former Tobacco user Quit Date: >50 years ago Tobacco use type: Cigarette Smoked in Last 30 Days: No Use of substances other than those prescribed or required for medical reasons: No Advance Directives: No Advance Directives Information Provided: No service: No Current occupational status: disabled Physical Exam Vital Signs: Vital Signs: Last Vital Signs Temp 97.9 F 12/14/22 18:14 Pulse 51 12/14/22 18:14 Resp 12 12/14/22 18:14 BP 142/40 H 12/14/22 18:14 Pulse Ox 100 12/14/22 18:14 O2 Del Method 12/14/22 18:14 O2 Flow Rate 2 12/14/22 16:47 BMI result Body Mass Index 21.9 Const: Other: Appearance: Alert. Oriented X3. No acute distress. Eyes: Pupils equal, round and reactive to light. ENT: Pharynx normal. Neck: Normal inspection. Neck supple. No lymph nodes noted. No crepitus CVS: Normal heart rate and rhythm. Pulses normal. Normal S1 and S2 Respiratory: No respiratory distress. Breath sounds normal. No Wheezing. No rales Abdomen: Soft and nontender. No rigidity. No distention. Skin: Skin warm and dry. Normal skin color. Normal skin turgor. Extremities: No lower extremity edema. Patient complaining of severe pain in the left shoulder and left humerus, moderate pain in left elbow, minimal wrist pain. Patient complaining of palpation around the ribs laterally on the side Neuro: Oriented X 3. No motor deficit. No sensory deficit. Moving all extremities. No slurred speech. CN 2 through 12 grossly intact Psych: calm, cooperative, normal affect Course Course Course Narrative: -seems that the vertigo/dizziness is chronic, being worked up by the PCP. All of patient's labs are pending. -labs and CT scan/x-rays pending. -patient was IV fluids, morphine. Patient more comfortable. However still in pain. It has a left humeral neck fracture and also for rib fractures. Patient's respiratory rate and oxygen saturation within normal limits. I discussed the patient with the hospitalist team, patient being admitted for pain control. Patient does not have flail chest Medications Administered Discontinued Medications Generic Name Dose Route Start Last Admin Trade Name Freq PRN Reason Stop Dose Admin Sodium Chloride 1,000 mls @ 999 mls/hr 12/14/22 16:18 12/14/22 18:10 Ns IVCONT 12/14/22 17:18 Infused .Q1H1M ONE Infusion Morphine Sulfate 4 mg 12/14/22 16:40 12/14/22 16:54 Morphine Sulfate 4 Mg/Ml Cartridge IVPUSH 12/14/22 16:41 4 mg ONCE ONE Administration Protocol Morphine Sulfate 2 mg 12/14/22 18:59 12/14/22 20:07 Morphine Sulfate 2 Mg/Ml Cartridge IVPUSH 12/14/22 19:00 2 mg ONCE ONE Administration Protocol Medical Decision Making Differential Diagnosis Differential Diagnoses: The differential diagnosis associated with the presentation includes (Costochondritis, rib fracture, shoulder dislocation, shoulder contusion, humeral fracture, clavicular fracture) Admission/Observation Consideration of admission/observation: Escalation of care including admission/observation considered (Patient is still uncomfortable, has multiple rib fractures and humeral neck fracture. Patient will be admitted to hospitalist service) Consult Healthcare Provider Management of the patient was discussed with: Hospitalist Dr. Burris Lab Data MDM Lab Attestation statement: I reviewed the patient's lab results. 12/14/22 16:53 12/14/22 16:53 Labs: Lab Results 12/14/22 12/14/22 12/14/22 Range/Units 16:53 16:53 16:53 WBC 11.9 H (4.8-10.8) X10*3/uL RBC 4.45 (4.20-5.50) X10*6/uL Hgb 11.6 L (12.0-16.0) g/dl Hct 35.9 L (37.0-47.0) % MCV 80.7 (80.0-98.0) fL MCH 26.1 L (27.0-33.0) pg MCHC 32.3 (31.0-35.0) g/dl RDW 14.1 (11.0-16.0) % Plt Count 292 (160-400) X10*3/uL MPV 10.6 (9.4-12.3) fL Immature Gran % (Auto) 0.5 H (0.0-0.4) % Neut % (Auto) 77.5 H (45-73) % Lymph % (Auto) 14.3 L (20-40) % [place] % (Auto) 6.6 (2-11) % Eos % (Auto) 0.8 (0-4) % Baso % (Auto) 0.3 (0-2) % Lymph # (Auto) 1.7 (1.2-4.9) X10*3/uL [place] # (Auto) 0.8 (0.1-1.2) X10*3/uL Eos # (Auto) 0.1 (0.0-0.4) X10*3/uL Baso # (Auto) 0.0 (0.0-0.2) X10*3/uL Abs Immat Gran (auto) 0.06 H (0.00-0.03) X10*3/uL Absolute Neuts (auto) 9.2 H (2.0-8.3) x10*3/uL Absolute Nucleated RBC 0.000 (0.0-0.012) X10*3/uL Nucleated RBC % (auto) 0.0 (0.0-0.2) /100WBC Sodium 137 (135-145) mmol/L Potassium 3.7 (3.3-5.1) mmol/L Chloride 103 (96-108) mmol/L Carbon Dioxide 23 (22-29) mmol/L Anion Gap 15 (12-20) BUN 45 H (9-16) mg/dL Creatinine 1.18 (0.5-1.4) mg/dL Estim Creat Clear Calc 32.5 Estimated GFR 44 Random Glucose 114 (60-115) mg/dL Calcium 8.9 D (8.4-10.2) mg/dL Total Bilirubin 0.3 (0.0-1.0) mg/dL Direct Bilirubin < 0.2 (0.0-0.5) mg/dL AST 19 (5-31) U/L ALT 13 (0-31) U/L Alkaline Phosphatase 48 (39-117) U/L Total Creatine Kinase 79 (26-140) U/L Troponin I High Sens 13.0 (<3.5-17.0) ng/L Total Protein 6.4 L (6.5-8.0) g/dL Albumin 3.7 (3.5-5.0) g/dL Ethyl Alcohol mg/dL COVID-19 ([facility]) (Negative) COVID-19 Clin Com 12/14/22 12/14/22 Range/Units 16:53 16:53 WBC (4.8-10.8) X10*3/uL RBC (4.20-5.50) X10*6/uL Hgb (12.0-16.0) g/dl Hct (37.0-47.0) % MCV (80.0-98.0) fL MCH (27.0-33.0) pg MCHC (31.0-35.0) g/dl RDW (11.0-16.0) % Plt Count (160-400) X10*3/uL MPV (9.4-12.3) fL Immature Gran % (Auto) (0.0-0.4) % Neut % (Auto) (45-73) % Lymph % (Auto) (20-40) % [place] % (Auto) (2-11) % Eos % (Auto) (0-4) % Baso % (Auto) (0-2) % Lymph # (Auto) (1.2-4.9) X10*3/uL [place] # (Auto) (0.1-1.2) X10*3/uL Eos # (Auto) (0.0-0.4) X10*3/uL Baso # (Auto) (0.0-0.2) X10*3/uL Abs Immat Gran (auto) (0.00-0.03) X10*3/uL Absolute Neuts (auto) (2.0-8.3) x10*3/uL Absolute Nucleated RBC (0.0-0.012) X10*3/uL Nucleated RBC % (auto) (0.0-0.2) /100WBC Sodium (135-145) mmol/L Potassium (3.3-5.1) mmol/L Chloride (96-108) mmol/L Carbon Dioxide (22-29) mmol/L Anion Gap (12-20) BUN (9-16) mg/dL Creatinine (0.5-1.4) mg/dL Estim Creat Clear Calc Estimated GFR Random Glucose (60-115) mg/dL Calcium (8.4-10.2) mg/dL Total Bilirubin (0.0-1.0) mg/dL Direct Bilirubin (0.0-0.5) mg/dL AST (5-31) U/L ALT (0-31) U/L Alkaline Phosphatase (39-117) U/L Total Creatine Kinase (26-140) U/L Troponin I High Sens (<3.5-17.0) ng/L Total Protein (6.5-8.0) g/dL Albumin (3.5-5.0) g/dL Ethyl Alcohol < 10 mg/dL COVID-19 ([facility]) Negative (Negative) COVID-19 Clin Com See Note Independent Interpretation I performed an independent interpretation of an: Plain X-Ray (My interpretation from x-rays: Multiple left-sided rib fractures, at least 3, the femoral neck fracture) Radiology Impression Discussion of test interpretation with radiology: I have reviewed the radiologist's reading. Radiologist Impression: IMPRESSION: 1.? Multiple displaced left-sided rib fractures. 2.? No acute cardiopulmonary findings. 3.? Left humeral neck fracture, described on separate report from the left shoulder. Critical Care Time Critical Care Time Critical Care Time: Yes Total Critical Care Time: 30 Attestation: I have personally provided critical care time. Time includes review of lab data, radiology results, discussion with consultants, and monitoring for potential decompensation. Intervention performed as documented. Discharge Plan Discharge Clinical Impression: Multiple fractures of rib involving four or more ribs, Closed fracture of neck of left humerus, Inadequate pain control Patient Disposition: Admitted As Inpatient Prescriptions: No Action polyethylene glycol 3350 [Miralax] 17 gram/dose powder 238 g PO ONCE Qty: 238 0RF Rx Instructions: mix the full container with 64 ounces of gatorade for colonoscopy prep day before the test bisacodyl [Dulcolax (bisacodyl)] 5 mg tablet,delayed release (DR/EC) 20 mg PO ONCE 1 Days Qty: 4 0RF Rx Instructions: take at 6 pm day before colonoscopy Lantus U-100 Insulin 100 unit/mL Solution 25 unit SUBCUT QAM metformin 1,000 mg tablet 1 tab PO BID Januvia 50 mg tablet 1 tab PO QAM losartan 100 mg tablet 1 tab PO QAM amlodipine 5 mg Tablet 10 mg PO DAILY Qty: 30 0RF Protocol: Hold for SBP< HOLD for SBP < : 90 metoprolol tartrate 25 mg Tablet 25 mg PO BID Qty: 60 0RF Protocol: Hold for SBP/HR < HOLD for SBP < : 90 HOLD for HR < : 60 gabapentin 300 mg capsule 300 mg PO TID simvastatin 20 mg tablet 20 mg PO BEDTIME trazodone 50 mg tablet 50 mg PO BEDTIME cholecalciferol (vitamin D3) 50 mcg (2,000 unit) capsule 50 mcg PO DAILY zolpidem 5 mg tablet 5 mg PO BEDTIME PRN (Reason: Sleep) verapamil 120 mg capsule,ext rel. pellets 24 hr 120 mg PO DAILY chlorthalidone 50 mg tablet 50 mg PO DAILY hydralazine 10 mg tablet 10 mg PO TID pantoprazole 20 mg tablet,delayed release (DR/EC) 20 mg PO BID pioglitazone 15 mg tablet 15 mg PO BEDTIME aspirin 81 mg tablet,chewable 1 tab PO DAILY (DME) lancets [TRUEplus Lancets] 33 gauge misc See Rx Instructions topical .MEDSUPPLY Qty: 100 Rx Instructions: As directed alcohol swabs [Alcohol Prep Pads] Pads, Medicated 0 pad topical QID multivitamin Tablet 1 tab PO QAM amlodipine 10 mg tablet 10 mg PO QAM Lanmary Josephar U-100 Insulin 100 unit/mL (3 mL) insulin pen 25 unit subcut DAILY
[2022-12-14 16:47] VITALS: BP 177/39; PULSE 49; RESP 22; TEMP 36.5; O2SAT 100
[2022-12-14] MEDS: 0.9 % Sodium Chloride 1,000 ML 999 ML IVCONT (16:54)
[2022-12-14] MEDS: Morphine Sulfate 4 MG/ML CARTRIDGE IVPUSH (16:54)
--- NOTE | 2022-12-14 17:05 | PC.NURSE ---
pt's grand-son kamila jackson ([phone]) called and was updated on pt status.
--- NOTE | 2022-12-14 17:06 | PC.NURSE ---
pt's grand-son (kamila bettencourt) states that he is pt's hcp.
[2022-12-14 17:28] LABS: MANUAL DIFF FLAG NO
[2022-12-14 17:31] LABS: Basophils Percent Auto 0.3 % (0-2); Eosinophils Absolute Auto 0.1 X10*3/uL (0.0-0.4); Eosinophils Percent Auto 0.8 % (0-4); Hematocrit 35.9 % (37.0-47.0); Hemoglobin 11.6 g/dl (12.0-16.0); Imm Gran Abs Auto 0.06 X10*3/uL (0.00-0.03); Imm Gran Pct Auto 0.5 % (0.0-0.4); Lymphocytes Absolute Auto 1.7 X10*3/uL (1.2-4.9); Lymphocytes Percent Auto 14.3 % (20-40); Mean Corpuscular HGB Conc 32.3 g/dl (31.0-35.0); Mean Corpuscular Hemoglobin 26.1 pg (27.0-33.0); Mean Corpuscular Volume 80.7 fL (80.0-98.0); Mean Platelet Volume 10.6 fL (9.4-12.3); Monocytes Absolute Auto 0.8 X10*3/uL (0.1-1.2); Monocytes Percent Auto 6.6 % (2-11); Neutrophils Absolute Auto 9.2 x10*3/uL (2.0-8.3); Neutrophils Percent Auto 77.5 % (45-73); Platelet Count 292 X10*3/uL (160-400); Red Blood Count 4.45 X10*6/uL (4.20-5.50); Red Cell Distribution Width 14.1 % (11.0-16.0); White Blood Count 11.9 X10*3/uL (4.8-10.8)
[2022-12-14 17:47] LABS: IDNOW Serial# 16C4AD1C
[2022-12-14 17:48] LABS: COVID-19 Test Negative (Negative); Ethanol < 10 mg/dL
[2022-12-14 17:51] LABS: Alanine Aminotransferase 13 U/L (0-31); Albumin Level 3.7 g/dL (3.5-5.0); Alkaline Phosphatase 48 U/L (39-117); Anion Gap 15 (12-20); Aspartate Amino Transferase 19 U/L (5-31); Bilirubin Direct < 0.2 mg/dL (0.0-0.5); Bilirubin Total 0.3 mg/dL (0.0-1.0); Blood Urea Nitrogen 45 mg/dL (9-16); Calcium 8.9 mg/dL (8.4-10.2); Carbon Dioxide 23 mmol/L (22-29); Chloride 103 mmol/L (96-108); Creatinine Clr Calc Pharmacy 32.5; Estimated Glomerular Filt Rate 44; Glucose Random 114 mg/dL (60-115); Potassium 3.7 mmol/L (3.3-5.1); Sodium 137 mmol/L (135-145); Total Protein 6.4 g/dL (6.5-8.0)
[2022-12-14 18:14] VITALS: BP 142/40; PULSE 51; PULSE 53; RESP 12; TEMP 36.6; O2SAT 100
--- NOTE | 2022-12-14 18:19 | PC.NURSE ---
pt states that when she was lying down she was dizzy, she got up to get some water(drinks water when she feels dizzy) hit herself on the table felt disorientated then she fell on the carpet hitting head and l arm/shoulder. pt c/o increase pain with deep breathing. s/p fall pt screamed and the neighbors head and open the door. her grand-son was notified because he works in [place] as a truck bracer and he called the ems. he is the pt hcp.
[2022-12-14] MEDS: Morphine Sulfate 2 MG/ML CARTRIDGE IVPUSH (20:07)
--- NOTE | 2022-12-14 22:45 | PC.NURSE ---
Pt. lying in bed. Pt. reports some pain relief from the morphine down to 8/10 from 08/11. Pt's family is at bedside. Pt. requesting water. Water was provided to pt.
[2022-12-15] VITALS (7 sets, daily range): BP systolic 130–156; BP diastolic 51–76; PULSE 55–84; RESP 17–20; TEMP 36.2–36.7; O2SAT 98–100; BMI 22.6
--- NOTE | 2022-12-15 00:43 | P.HPHOSP_ITS ---
History of Present Illness Date of Service: 12/15/22 Chief Complaint: fall Cypriot-speaking only, she is obtained with the help of ED physician as no rv parts and service director was available this is a 77-year-old female with past medical history of diabetes, HLD, GERD, HTN, peripheral vascular disease who comes from home after having a fall. Patient reports that she has chronic vertigo, she was walking, felt dizzy, trip ped on a table in the house and fell to her left side. Patient reports that when she fell she did lose consciousness, that she gained her consciousness was not seconds, denies having any chest pain, denied having any palpitations, ports no change in vision, reports no previous similar episode, no change in vision prior to the fall, no seizure-like activity. Patient reports that she has been well, eating and drinking well, has not had any chest pain, no shortness of breath, no abdominal pain nausea or vomiting, no diarrhea constipation, no urinary symptoms and no lower extremity edema. Currently has pain on her left arm as well as left chest wall. Reports no difficulty with taking deep breaths. On arrival to the ED patient hemodynamically stable with a slightly elevated blood pressure Labs are significant for WBC count of 11.9, hemoglobin of 11.9, hematocrit 35.9, labs otherwise unremarkable, alcoholic negative, COVID-19 negative, troponin of 13, Patient imaging include commuted mildly displaced and impacted left humeral neck fracture, commuted distal radial fracture with an intra-articular extension, scaphoid waist fracture, multiple left-sided rib fractures, cervical spine CT showed asymmetrically enlarged left thyroid lobe with heterogeneous conglomerate nodule measuring about 4.8 cm in size and recommending thyroid ultrasound Ribs x-ray shows 4 displaced left-sided rib fractures patient will be admitted for pain control Review of Systems Review of Systems: Yes all other systems are reviewed and are negative [facility] Medical History Diabetes Elevated cholesterol GERD (gastroesophageal reflux disease) History of femoral angiogram HTN (hypertension) Hyperlipemia Osteoporosis PAD (peripheral artery disease) Peripheral vascular disease Family History Father No problems noted. Mother No problems noted. Daughter No problems noted. Son No problems noted. Son No problems noted. Son No problems noted. Surgical History H/O colonoscopy Hx of angioplasty Hx of hand surgery Social History Household Members: None Housing: Apartment Are you a primary companion caregiver to a significant other at home: No Do you presently have visiting nurse or other home services: Yes (has RN HOUSE SUPERVISOR) Alcohol intake: never Patient Tobacco Use Status: Former Tobacco user Quit Date: >50 years ago Tobacco use type: Cigarette Smoked in Last 30 Days: No Use of substances other than those prescribed or required for medical reasons: No Advance Directives: No Advance Directives Information Provided: No service: No Current occupational status: disabled Meds Allergies Allergy/AdvReac Type Severity Reaction Status Date / Time No Known Allergies Allergy Verified 08/14/22 10:40 Home Medications Medication Instructions Recorded Confirmed Last Taken Type aspirin 81 mg chewable tablet 1 tab PO DAILY 04/18/21 08/16/21 05/31/21 History chlorthalidone 50 mg tablet 50 mg PO DAILY 04/18/21 08/16/21 05/31/21 History cholecalciferol (vitamin D3) 50 50 mcg PO DAILY 04/18/21 08/16/21 05/31/21 History mcg (2,000 unit) capsule gabapentin 300 mg capsule 300 mg PO TID 04/18/21 08/16/21 05/31/21 History hydralazine 10 mg tablet 10 mg PO TID 04/18/21 08/16/21 05/31/21 History pantoprazole 20 mg tablet,delayed 20 mg PO BID 04/18/21 08/16/21 05/31/21 History release pioglitazone 15 mg tablet 15 mg PO BEDTIME 04/18/21 08/16/21 05/31/21 History simvastatin 20 mg tablet 20 mg PO BEDTIME 04/18/21 08/16/21 05/31/21 History trazodone 50 mg tablet 50 mg PO BEDTIME 04/18/21 08/16/21 05/31/21 History verapamil 120 mg 24 hr 120 mg PO DAILY 04/18/21 08/16/21 05/31/21 History capsule,extended release losartan 100 mg tablet 1 tab PO DAILY 06/01/21 08/16/21 05/31/21 History metformin 1,000 mg tablet 1 tab PO BID 06/01/21 08/16/21 05/31/21 History lancets 33 gauge (TRUEplus Lancets) #100 ea 04/23/22 Unknown History multivitamin 1 tab PO DAILY 04/23/22 Unknown History amlodipine 10 mg tablet 1 tab PO DAILY 12/14/22 Unknown History dapagliflozin 5 mg tablet (Farxiga) 1 tab PO DAILY 12/14/22 Unknown History docusate sodium 100 mg capsule 1 cap PO BID 12/14/22 Unknown History insulin glargine 100 unit/mL (3 25 unit subcut DAILY 12/14/22 Unknown History mL) subcutaneous pen (Lantus Solostar U-100 Insulin) sitagliptin phosphate 50 mg tablet 1 tab PO DAILY 12/14/22 Unknown History ([place]) Physical Exam Vital Signs and Narrative: Vital Signs: Last Vital Signs Temp 97.9 F 12/14/22 18:14 Pulse 51 12/14/22 18:14 Resp 12 12/14/22 18:14 BP 142/40 H 12/14/22 18:14 Pulse Ox 100 12/14/22 18:14 O2 Del Method 12/14/22 18:14 O2 Flow Rate 2 12/14/22 16:47 BMI result Body Mass Index 21.9 Const: Other: patient appears comfortable, no apparent distress General: cooperative and no acute distress Orientation/consciousness: patient oriented x3 Eyes: General: appearance normal, both eyes and all related structures Chest: Other: pain on palpation of left chest wall Resp: Other: no respiratory distress, no tachypnea, Effort & Inspection: normal respiratory effort Auscultation: clear to auscultation bilaterally Cardio: Rate: regular rate Rhythm: regular rhythm GI: Palpation (GI): Soft to palpation Auscultation: normal bowel sounds Skin: General skin exam: no rashes or lesions noted Neuro: General: patient oriented x3 Cognition (Neuro): normal cognition Extrem: Other: holding her all left arm in a sling, General: Yes normal to inspection and Yes no pedal edema Results Labs 12/14/22 16:53 12/14/22 16:53 Labs: Laboratory Results - last 24 hr 12/14/22 12/14/22 12/14/22 16:53 16:53 16:53 MCV 80.7 MCH 26.1 L MCHC 32.3 RDW 14.1 Plt Count 292 MPV 10.6 Immature Gran % (Auto) 0.5 H Neut % (Auto) 77.5 H Lymph % (Auto) 14.3 L Stanton % (Auto) 6.6 Eos % (Auto) 0.8 Baso % (Auto) 0.3 Lymph # (Auto) 1.7 Stanton # (Auto) 0.8 Eos # (Auto) 0.1 Baso # (Auto) 0.0 Abs Immat Gran (auto) 0.06 H Absolute Neuts (auto) 9.2 H Absolute Nucleated RBC 0.000 Nucleated RBC % (auto) 0.0 Anion Gap 15 Estim Creat Clear Calc 32.5 Estimated GFR 44 Random Glucose 114 Calcium 8.9 D Total Bilirubin 0.3 Direct Bilirubin < 0.2 AST 19 ALT 13 Alkaline Phosphatase 48 Total Creatine Kinase 79 Troponin I High Sens 13.0 Total Protein 6.4 L Albumin 3.7 Ethyl Alcohol COVID-19 (KELLY) COVID-19 Clin Com 12/14/22 12/14/22 16:53 16:53 MCV MCH MCHC RDW Plt Count MPV Immature Gran % (Auto) Neut % (Auto) Lymph % (Auto) Stanton % (Auto) Eos % (Auto) Baso % (Auto) Lymph # (Auto) Stanton # (Auto) Eos # (Auto) Baso # (Auto) Abs Immat Gran (auto) Absolute Neuts (auto) Absolute Nucleated RBC Nucleated RBC % (auto) Anion Gap Estim Creat Clear Calc Estimated GFR Random Glucose Calcium Total Bilirubin Direct Bilirubin AST ALT Alkaline Phosphatase Total Creatine Kinase Troponin I High Sens Total Protein Albumin Ethyl Alcohol < 10 COVID-19 (KELLY) Negative COVID-19 Clin Com See Note Imaging Radiologist's Impressions: Impressions Cervical Spine CT 12/14/22 17:42 IMPRESSION: 1. No intracranial hemorrhage, calvarial fracture, or other acute intracranial abnormality. 2. No traumatic subluxation or acute cervical spine fracture. 3. Scattered small sub-4 mm subpleural biapical pulmonary nodules right greater than left, likely benign. If patient is high risk for primary pulmonary malignancy consider optional low-dose chest CT in 12 months. Otherwise no follow-up or core per Fleischner Society guidelines. 4. Asymmetrically enlarged left thyroid lobe with heterogeneous conglomerate nodules or large dominant nodule measuring 4.8 cm in size. Suggest thyroid ultrasound for further evaluation if clinically appropriate. Head CT 12/14/22 17:42 IMPRESSION: 1. No intracranial hemorrhage, calvarial fracture, or other acute intracranial abnormality. 2. No traumatic subluxation or acute cervical spine fracture. 3. Scattered small sub-4 mm subpleural biapical pulmonary nodules right greater than left, likely benign. If patient is high risk for primary pulmonary malignancy consider optional low-dose chest CT in 12 months. Otherwise no follow-up or core per Fleischner Society guidelines. 4. Asymmetrically enlarged left thyroid lobe with heterogeneous conglomerate nodules or large dominant nodule measuring 4.8 cm in size. Suggest thyroid ultrasound for further evaluation if clinically appropriate. Elbow X-Ray 12/14/22 19:52 IMPRESSION: 1. Comminuted mildly displaced and impacted left humeral neck fracture. 2. Comminuted distal radial fracture with intra-articular extension. 3. Equivocal scaphoid waist fracture. 4. Multiple left-sided rib fractures, best seen on separate report from a simultaneous chest radiograph. 5. Questionable 2 mm foreign body in the ventral soft tissues adjacent to the base of the first metacarpal. 6. 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 Hand/Wrist X-Ray 12/14/22 19:52 IMPRESSION: 1. Comminuted mildly displaced and impacted left humeral neck fracture. 2. Comminuted distal radial fracture with intra-articular extension. 3. Equivocal scaphoid waist fracture. 4. Multiple left-sided rib fractures, best seen on separate report from a simultaneous chest radiograph. 5. Questionable 2 mm foreign body in the ventral soft tissues adjacent to the base of the first metacarpal. 6. 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 Humerus X-Ray 12/14/22 19:52 IMPRESSION: 1. Comminuted mildly displaced and impacted left humeral neck fracture. 2. Comminuted distal radial fracture with intra-articular extension. 3. Equivocal scaphoid waist fracture. 4. Multiple left-sided rib fractures, best seen on separate report from a simultaneous chest radiograph. 5. Questionable 2 mm foreign body in the ventral soft tissues adjacent to the base of the first metacarpal. 6. 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 Ribs X-Ray 12/14/22 19:52 IMPRESSION: 1. Multiple displaced left-sided rib fractures. 2. No acute cardiopulmonary findings. 3. Left humeral neck fracture, described on separate report from the left shoulder. Shoulder X-Ray 12/14/22 19:52 IMPRESSION: 1. Comminuted mildly displaced and impacted left humeral neck fracture. 2. Comminuted distal radial fracture with intra-articular extension. 3. Equivocal scaphoid waist fracture. 4. Multiple left-sided rib fractures, best seen on separate report from a simultaneous chest radiograph. 5. Questionable 2 mm foreign body in the ventral soft tissues adjacent to the base of the first metacarpal. 6. 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 Assessment and Plan (1) Multiple fractures of rib involving four or more ribs: Status: Acute (2) Closed fracture of neck of left humerus: Status: Acute (3) Dizziness: Status: Acute (4) Thyroid nodule: Status: Acute Plan 77-year-old female with past medical history of use, hypertension, hyperlipidemia, GERD presents to the hospital with fall found to have multiple rib fractures # floor rib fractures of the left, was humeral fracture - patient hemodynamically stable, has no evidence of flail chest, breathing normally, with no difficulty, satting 100% on room air - at this time will consult orthopedic surgery for humerus fracture - incentive spirometry - pain control # dizziness - unclear etiology - orthostatic vitals ordered - pending UA but has no evidence of acute infection - monitor BP, orthostatics prior to discharge - telemetry # thyroid nodule - seen on cervical spine - will obtain thyroid ultrasound - TSH DVT prophylaxis: Eliquis Time Spent With Patient Time: Total time managing care of this patient today ____ minutes. Quality Stroke Does the patient have a stroke diagnosis?: No VTE Prior VTE?: No VTE Risk Level:: Medical - moderate - high VTE Device Contraindication: Treatment Not Indicated VTE Drug Contraindication: N/A - Med Ordered
[2022-12-15] MEDS: Morphine Sulfate 4 MG/ML CARTRIDGE IVPUSH ×3 (01:52→22:21)
[2022-12-15] MEDS: Enoxaparin Sodium 40 MG/0.4 ML SYRINGE SUBCUT (01:52)
--- NOTE | 2022-12-15 04:01 | PC.NURSE ---
Pt. awake and lying in bed, requesting food. Provided pt. with ham sandwich. Pt. reports relief from pain with the morphine and is reporting pain at 6/10. Pt. is moving to [facility], bed 469. Pt. is aware of this plan. Report called, however, RN unable to take call. RNJacqueline, will call to the ED as soon as she's available.
--- NOTE | 2022-12-15 06:51 | PC.NURSE ---
Pt's grandson, Kevin, is his contact and healthcare proxy. Kevin cell number is [phone].
--- NOTE | 2022-12-15 08:32 | PHA.MEDREC ---
Pharmacy Consult ? Medication Reconciliation Pharmacy has completed the medication reconciliation. med rec completed by rn and reviewed by pharmacy. insulin dose verified with kamila FERRIS
[2022-12-15] MEDS: Acetaminophen 325 MG TABLET 650 MG PO (08:38)
[2022-12-15 08:44] LABS: Appearance Urine Clear; Color Urine Yellow; Glucose Urine UA >=1000 mg/dL (Negative); Leukocyte Esterase Urine Negative (Negative); Nitrite Urine Negative (Negative); PH 5.5 (5.0-9.0); UMIC TRIGGER UACC YES; Urine Blood Negative (Negative); Urine Ketones Trace mg/dL (Negative); Urine Protein Negative (Neg-Trace)
[2022-12-15 08:47] LABS: Glucose, Whole Blood 206 mg/dL (60-115)
[2022-12-15 08:49] LABS: Bacteria Urine None Seen (None Seen); WBC Urine 0-5 /HPF (0-5)
[2022-12-15] MEDS: Insulin Lispro 100 UNIT/ML 3 ML VIAL SUBCUT ×4 (08:56→23:42)
[2022-12-15 09:48] LABS: Thyroid Stimulating Hormone 2.22 uIU/mL (0.32-4.0)
[2022-12-15 09:57] LABS: Alanine Aminotransferase 14 U/L (0-31); Alkaline Phosphatase 54 U/L (39-117); Anion Gap 17 (12-20); Aspartate Amino Transferase 21 U/L (5-31); Bilirubin Total 0.5 mg/dL (0.0-1.0); Blood Urea Nitrogen 39 mg/dL (9-16); Carbon Dioxide 21 mmol/L (22-29); Chloride 99 mmol/L (96-108); Creatinine Clr Calc Pharmacy 35.4; Estimated Glomerular Filt Rate 49; Glucose Random 236 mg/dL (60-115); Potassium 3.2 mmol/L (3.3-5.1); Sodium 134 mmol/L (135-145); Total Protein 7.1 g/dL (6.5-8.0)
--- NOTE | 2022-12-15 10:51 | P.CONOP_ITS ---
History of Present Illness HPI Consult date: 12/15/22 Chief complaint: rib fracture, dizziness Narrative: 77 yo female presented to the emergency department yesterday after a mechanical fall. Male family member is at bedside. She is in a sling and velcro wrist splint. Pain is well managed. No additional complaints. Review of Systems Review of Systems: Yes all other systems are reviewed and are negative PMFSH Past Medical History Medical History Diabetes Elevated cholesterol GERD (gastroesophageal reflux disease) History of femoral angiogram HTN (hypertension) Hyperlipemia Osteoporosis PAD (peripheral artery disease) Peripheral vascular disease Family History Family History Father No problems noted. Mother No problems noted. Daughter No problems noted. Son No problems noted. Son No problems noted. Son No problems noted. Surgical History Surgical History H/O colonoscopy Hx of angioplasty Hx of hand surgery Social History Social History Household Members: None Housing: Apartment Are you a primary wound care specialist to a significant other at home: No Do you presently have visiting nurse or other home services: Yes Alcohol intake: never Patient Tobacco Use Status: Former Tobacco user Quit Date: > 50 yrs Tobacco use type: Cigarette Smoked in Last 30 Days: No Use of substances other than those prescribed or required for medical reasons: No Have you been hit, kicked, punched, or otherwise hurt by someone within the past year? If so, by whom?: No Do you feel safe in your current relationship?: No Current Relationship Is there a partner from a previous relationship who is making you feel unsafe now?: No Are you made to feel afraid or neglected: No Advance Directives: No Advance Directives Information Provided: No Do you have thoughts of harming others: None Do you have a plan to hurt others: No Plan Recently lost weight without trying: No Nutrition Risks: No Nutritional Risk Patient : No : No Poor oral hygiene: No service: No Current occupational status: disabled Meds Allergies Allergy/AdvReac Type Severity Reaction Status Date / Time No Known Allergies Allergy Verified 08/14/22 10:40 Active Medications: Current Medications Acetaminophen (Acetaminophen 325 Mg Tablet) 650 mg PO Q6H PRN PRN Reason: Pain, Mild (Pain Scale 1-3) Last Admin: 12/15/22 08:38 Dose: 650 mg Dextrose (Dextrose 50 % 25 Gm/50 Ml Syringe) 25 gm IVPUSH Q15M PRN; Protocol PRN Reason: per Hypoglycemia Standing Ord. Enoxaparin Sodium (Enoxaparin Sodium 40 Mg/0.4 Ml Syringe) 40 mg SUBCUT Q24H [facility] Last Admin: 12/15/22 01:52 Dose: 40 mg Glucose (Glucose Gel 15 Gm Gel..Gram.) 15 gm PO Q15M PRN; Protocol PRN Reason: per Hypoglycemia Standing Ord. Insulin Human Lispro (Insulin Lispro 100 Unit/Ml 3 Ml Vial) 0 unit SUBCUT QIDACHS [facility]; Protocol Last Admin: 12/15/22 08:56 Dose: 4 unit Morphine Sulfate (Morphine Sulfate 4 Mg/Ml Cartridge) 4 mg IVPUSH Q4H PRN; Protocol PRN Reason: Pain, Severe (Pain Scale 7-10) Last Admin: 12/15/22 05:49 Dose: 4 mg Pharmacy Consult (Consult Rx Perform Med Rec) 1 each MISCELLANE ONCE PRN PRN Reason: Consult order Home Medications Medication Instructions Recorded Confirmed Last Taken Type aspirin 81 mg chewable tablet 1 tab PO DAILY 04/18/21 12/15/22 05/31/21 History chlorthalidone 50 mg tablet 50 mg PO DAILY 04/18/21 12/15/22 05/31/21 History cholecalciferol (vitamin D3) 50 50 mcg PO DAILY 04/18/21 12/15/22 05/31/21 History mcg (2,000 unit) capsule gabapentin 300 mg capsule 300 mg PO TID 04/18/21 12/15/22 05/31/21 History hydralazine 10 mg tablet 10 mg PO TID 04/18/21 12/15/22 05/31/21 History pantoprazole 20 mg tablet,delayed 20 mg PO BID 04/18/21 12/15/22 05/31/21 History release pioglitazone 15 mg tablet 15 mg PO BEDTIME 04/18/21 12/15/22 05/31/21 History simvastatin 20 mg tablet 20 mg PO BEDTIME 04/18/21 12/15/22 05/31/21 History trazodone 50 mg tablet 50 mg PO BEDTIME 04/18/21 12/15/22 05/31/21 History verapamil 120 mg 24 hr 120 mg PO DAILY 04/18/21 12/15/22 05/31/21 History capsule,extended release losartan 100 mg tablet 1 tab PO DAILY 06/01/21 12/15/22 05/31/21 History metformin 1,000 mg tablet 1 tab PO BID 06/01/21 12/15/22 05/31/21 History lancets 33 gauge (TRUEplus Lancets) #100 ea 04/23/22 12/15/22 Unknown History multivitamin 1 tab PO DAILY 04/23/22 12/15/22 Unknown History amlodipine 10 mg tablet 1 tab PO DAILY 12/14/22 12/15/22 Unknown History dapagliflozin 5 mg tablet (Farxiga) 1 tab PO DAILY 12/14/22 12/15/22 Unknown History docusate sodium 100 mg capsule 1 cap PO BID 12/14/22 12/15/22 Unknown History insulin glargine 100 unit/mL (3 20 unit subcut DAILY 12/14/22 12/15/22 Unknown History mL) subcutaneous pen (Lantus Solostar U-100 Insulin) sitagliptin phosphate 50 mg tablet 1 tab PO DAILY 12/14/22 12/15/22 Unknown History (Chace) Physical Exam Vital Signs: Vital Signs: Last Vital Signs Temp 97.9 F 12/15/22 08:00 Pulse 84 12/15/22 08:00 Resp 20 12/15/22 08:00 BP 148/66 H 12/15/22 08:00 Pulse Ox 98 12/15/22 08:00 O2 Del Method 12/15/22 08:00 O2 Flow Rate 2 12/14/22 16:47 BMI result Body Mass Index 22.6 Const: General: cooperative, healthy appearing and no acute distress Resp: Effort & Inspection: normal respiratory effort and able to speak in complete sentences Cardio: Rate: regular rate Peripheral pulses: Peripheral pulses 2+ throughout GI: Palpation (GI): Soft to palpation Skin: Lesions: no lesions Rashes: no rashes Extrem: Other: Left upper extremity sensation intact lateral aspect of humerus, forearm, and hand. Able to move all digits. Able to make a closed fist. Tremor noted on exam - confirmed with family member this is baseline. Results Labs 12/14/22 16:53 12/15/22 08:57 Labs: Abnormal lab results 12/14/22 12/14/22 12/15/22 Range/Units 16:53 16:53 08:30 WBC 11.9 H (4.8-10.8) X10*3/uL Hgb 11.6 L (12.0-16.0) g/dl Hct 35.9 L (37.0-47.0) % MCH 26.1 L (27.0-33.0) pg Immature Gran % (Auto) 0.5 H (0.0-0.4) % Neut % (Auto) 77.5 H (45-73) % Lymph % (Auto) 14.3 L (20-40) % Abs Immat Gran (auto) 0.06 H (0.00-0.03) X10*3/uL Absolute Neuts (auto) 9.2 H (2.0-8.3) x10*3/uL Sodium (135-145) mmol/L Potassium (3.3-5.1) mmol/L Carbon Dioxide (22-29) mmol/L BUN 45 H (9-16) mg/dL POC Glucose (60-115) mg/dL Random Glucose (60-115) mg/dL Total Protein 6.4 L (6.5-8.0) g/dL Urine Glucose (UA) >=1000 H (Negative) mg/dL Urine RBC 3-5 H (0-2) /HPF 12/15/22 12/15/22 Range/Units 08:42 08:57 WBC (4.8-10.8) X10*3/uL Hgb (12.0-16.0) g/dl Hct (37.0-47.0) % MCH (27.0-33.0) pg Immature Gran % (Auto) (0.0-0.4) % Neut % (Auto) (45-73) % Lymph % (Auto) (20-40) % Abs Immat Gran (auto) (0.00-0.03) X10*3/uL Absolute Neuts (auto) (2.0-8.3) x10*3/uL Sodium 134 L (135-145) mmol/L Potassium 3.2 L (3.3-5.1) mmol/L Carbon Dioxide 21 L (22-29) mmol/L BUN 39 H (9-16) mg/dL POC Glucose 206 H (60-115) mg/dL Random Glucose 236 H (60-115) mg/dL Total Protein (6.5-8.0) g/dL Urine Glucose (UA) (Negative) mg/dL Urine RBC (0-2) /HPF H & H 12/14/22 Range/Units 16:53 Hgb 11.6 L (12.0-16.0) g/dl Hct 35.9 L (37.0-47.0) % All other labs normal. Assessment and Plan (1) Closed fracture of neck of left humerus: Status: Acute Left humerus surgical neck fracture - Sling for comfort, can come out to let the arm hang. Can perform elbow ROM to prevent stiffness. No lifting, pushing pulling LUE. Pain management as appropriate Will f/u in the out patient clinic this week (2) Distal radius fracture, left: Status: Acute Left distal radius fx - Continue velcro wrist splint Encourage ROM all digits to a closed fist No WB, pushing, pulling, lifting greater than a coffee cup or cell phone LUE Pain management as appropriate Evaluate in the outpatient office this week for possibility of surgical intervention. Time Spent With Patient Time: Total time managing care of this patient today ____ minutes. Procedures Date of Service Date of Service: 12/15/22
[2022-12-15 11:44] LABS: Glucose, Whole Blood 261 mg/dL (60-115)
--- NOTE | 2022-12-15 15:52 | PM.EVENT ---
Event Note Date of Service: 12/15/22 Event Note: Chart reviewed patient examined agree with exam assessment and plan as outlined Time Spent With Patient Time: Total time managing care of this patient today ____ minutes.
[2022-12-15 16:10] LABS: Glucose, Whole Blood 164 mg/dL (60-115)
--- NOTE | 2022-12-15 17:15 | PC.NURSE ---
POC maintained. Per Chelly metformin to start tomorrow morning, evening dose to not be administered. wastewater treatment plant attendant at bedside throughout the shift for assessment and med pass. pt able to get OOB to bedside commode [address] pt's pain has improved. pt refused tylenol for pain stating she was not in pain this evening. Chelly informed of pt's abnormal labs and ?'ed transition of IV morphine to PO pain meds. HCP was updated by this RN and visited this evening
[2022-12-15 20:29] LABS: Glucose, Whole Blood 254 mg/dL (60-115)
[2022-12-15] MEDS: hydrALAZINE HCl 10 MG TABLET PO (23:41)
[2022-12-15] MEDS: Docusate Sodium 100 MG CAPSULE PO (23:41)
[2022-12-15] MEDS: Gabapentin 300 MG CAPSULE PO (23:41)
[2022-12-15] MEDS: Metoprolol Tartrate 25 MG TABLET PO (23:41)
[2022-12-15] MEDS: traZODone HCL 50 MG TABLET PO (23:42)
[2022-12-16] VITALS (7 sets, daily range): BP systolic 101–159; BP diastolic 51–67; PULSE 65–78; RESP 16–20; TEMP 36.3–37.6; O2SAT 95–99
[2022-12-16] MEDS: Enoxaparin Sodium 40 MG/0.4 ML SYRINGE SUBCUT (01:20)
[2022-12-16] MEDS: Morphine Sulfate 4 MG/ML CARTRIDGE IVPUSH ×2 (03:07→15:33)
[2022-12-16] MEDS: Omeprazole 20 MG CAPSULE.DR PO (05:43)
[2022-12-16 07:35] LABS: Glucose, Whole Blood 275 mg/dL (60-115)
[2022-12-16] MEDS: Gabapentin 300 MG CAPSULE PO ×3 (08:01→21:25)
[2022-12-16] MEDS: Losartan Potassium 50 MG TABLET 100 MG PO (08:01)
[2022-12-16 08:02] LABS: MANUAL DIFF FLAG NO
[2022-12-16] MEDS: VerapamiL HCL SR 120 MG TABLET.ER PO (08:03)
[2022-12-16] MEDS: Cholecalciferol (Vitamin D3) 25 MCG TABLET 50 MCG PO (08:03)
[2022-12-16] MEDS: hydroCHLOROthiazide 50 MG TABLET PO (08:03)
[2022-12-16] MEDS: amLODIPine Besylate 10 MG TABLET PO (08:04)
[2022-12-16] MEDS: Multivitamin TABLET 1 TAB PO (08:04)
[2022-12-16] MEDS: Metoprolol Tartrate 25 MG TABLET PO ×2 (08:04→21:25)
[2022-12-16] MEDS: Aspirin 81 MG TAB.CHEW PO (08:04)
[2022-12-16] MEDS: SITagliptin Phosphate 50 MG TABLET PO (08:04)
[2022-12-16 08:05] LABS: Basophils Percent Auto 0.2 % (0-2); Eosinophils Percent Auto 0.3 % (0-4); Hematocrit 34.6 % (37.0-47.0); Imm Gran Abs Auto 0.04 X10*3/uL (0.00-0.03); Imm Gran Pct Auto 0.4 % (0.0-0.4); Lymphocytes Absolute Auto 1.5 X10*3/uL (1.2-4.9); Lymphocytes Percent Auto 16.3 % (20-40); Mean Corpuscular HGB Conc 31.8 g/dl (31.0-35.0); Mean Corpuscular Hemoglobin 25.7 pg (27.0-33.0); Mean Corpuscular Volume 80.8 fL (80.0-98.0); Mean Platelet Volume 10.9 fL (9.4-12.3); Monocytes Percent Auto 10.8 % (2-11); Neutrophils Absolute Auto 6.7 x10*3/uL (2.0-8.3); Platelet Count 246 X10*3/uL (160-400); Red Blood Count 4.28 X10*6/uL (4.20-5.50); White Blood Count 9.3 X10*3/uL (4.8-10.8)
[2022-12-16] MEDS: Insulin Lispro 100 UNIT/ML 3 ML VIAL SUBCUT ×4 (08:05→21:38)
[2022-12-16] MEDS: Atorvastatin Calcium 10 MG TABLET PO (08:05)
[2022-12-16] MEDS: metFORMIN HCl 1,000 MG TABLET 1000 MG PO ×2 (08:05→16:46)
[2022-12-16] MEDS: Insulin Glargine,Hum.rec.anlog 100 UNIT/ML 10 ML VIAL 20 UNIT SUBCUT (08:07)
[2022-12-16] MEDS: Docusate Sodium 100 MG CAPSULE PO ×2 (08:08→21:25)
[2022-12-16] MEDS: hydrALAZINE HCl 10 MG TABLET PO ×3 (08:09→21:25)
[2022-12-16 08:33] LABS: Alanine Aminotransferase 10 U/L (0-31); Albumin Level 3.7 g/dL (3.5-5.0); Alkaline Phosphatase 52 U/L (39-117); Anion Gap 19 (12-20); Aspartate Amino Transferase 18 U/L (5-31); Bilirubin Total 0.5 mg/dL (0.0-1.0); Blood Urea Nitrogen 25 mg/dL (9-16); Carbon Dioxide 27 mmol/L (22-29); Chloride 94 mmol/L (96-108); Creatinine Clr Calc Pharmacy 43.5; Estimated Glomerular Filt Rate > 60; Glucose Random 285 mg/dL (60-115); Potassium 3.5 mmol/L (3.3-5.1); Sodium 136 mmol/L (135-145); Total Protein 6.7 g/dL (6.5-8.0)
[2022-12-16 11:24] LABS: Glucose, Whole Blood 235 mg/dL (60-115)
--- NOTE | 2022-12-16 13:00 | HO.PM.IMPN ---
Subjective Subjective Date of Service: 12/16/22 Interval History: All information gleaned via solar installation crew supervisor Pain control adequate per patient. No acute issues Review of Systems Denies chest pain Denies shortness of breath Denies nausea vomiting diarrhea Physical Exam Vital Signs: Vital Signs: Last Vital Signs Temp 99.6 F 12/16/22 11:29 Pulse 70 12/16/22 11:29 Resp 20 12/16/22 11:29 BP 117/55 L 12/16/22 11:29 Pulse Ox 97 12/16/22 11:29 O2 Del Method 12/16/22 11:29 O2 Flow Rate 2 12/14/22 16:47 BMI result Body Mass Index 22.6 Objective Data Active Medications Acetaminophen (Acetaminophen 325 Mg Tablet) 650 mg PO Q6H PRN PRN Reason: Pain, Mild (Pain Scale 1-3) Last Admin: 12/15/22 08:38 Dose: 650 mg Documented By: MEGAN Amlodipine Besylate (Amlodipine Besylate 10 Mg Tablet) 10 mg PO DAILY [facility]; Protocol Last Admin: 12/16/22 08:04 Dose: 10 mg Documented By: MATT Aspirin (Aspirin 81 Mg Tab.Chew) 81 mg PO DAILY [facility] Last Admin: 12/16/22 08:04 Dose: 81 mg Documented By: MATT Atorvastatin Calcium (Atorvastatin Calcium 10 Mg Tablet) 10 mg PO DAILY [facility] Last Admin: 12/16/22 08:05 Dose: 10 mg Documented By: MATT Dextrose (Dextrose 50 % 25 Gm/50 Ml Syringe) 25 gm IVPUSH Q15M PRN; Protocol PRN Reason: per Hypoglycemia Standing Ord. Docusate Sodium (Docusate Sodium 100 Mg Capsule) 100 mg PO BID [facility] Last Admin: 12/16/22 08:08 Dose: 100 mg Documented By: MATT Enoxaparin Sodium (Enoxaparin Sodium 40 Mg/0.4 Ml Syringe) 40 mg SUBCUT Q24H [facility] Last Admin: 12/16/22 01:20 Dose: 40 mg Documented By: MISA Gabapentin (Gabapentin 300 Mg Capsule) 300 mg PO TID [facility] Last Admin: 12/16/22 08:01 Dose: 300 mg Documented By: MATT Glucose (Glucose Gel 15 Gm Gel..Gram.) 15 gm PO Q15M PRN; Protocol PRN Reason: per Hypoglycemia Standing Ord. Hydralazine HCl (Hydralazine Hcl 10 Mg Tablet) 10 mg PO TID [facility]; Protocol Last Admin: 12/16/22 08:09 Dose: 10 mg Documented By: MATT Hydrochlorothiazide (Hydrochlorothiazide 50 Mg Tablet) 50 mg PO DAILY [facility] Last Admin: 12/16/22 08:03 Dose: 50 mg Documented By: MATT Insulin Glargine (Insulin Glargine,Hum.Rec.Anlog 100 Unit/Ml 10 Ml Vial) 20 unit SUBCUT DAILY [facility] Last Admin: 12/16/22 08:07 Dose: 20 unit Documented By: MATT Insulin Human Lispro (Insulin Lispro 100 Unit/Ml 3 Ml Vial) 0 unit SUBCUT QIDACHS [facility]; Protocol Last Admin: 12/16/22 11:42 Dose: 4 unit Documented By: MATT Losartan Potassium (Losartan Potassium 50 Mg Tablet) 100 mg PO DAILY [facility]; Protocol Last Admin: 12/16/22 08:01 Dose: 100 mg Documented By: MATT Metformin HCl (Metformin Hcl 1,000 Mg Tablet) 1,000 mg PO BIDWM [facility] Last Admin: 12/16/22 08:05 Dose: 1,000 mg Documented By: MATT Metoprolol Tartrate (Metoprolol Tartrate 25 Mg Tablet) 25 mg PO BID [facility]; Protocol Last Admin: 12/16/22 08:04 Dose: 25 mg Documented By: MATT Morphine Sulfate (Morphine Sulfate 4 Mg/Ml Cartridge) 4 mg IVPUSH Q4H PRN; Protocol PRN Reason: Pain, Severe (Pain Scale 7-10) Last Admin: 12/16/22 03:07 Dose: 4 mg Documented By: MISA Multivitamins/Vitamin C (Multivitamin Tablet) 1 tab PO DAILY [facility] Last Admin: 12/16/22 08:04 Dose: 1 tab Documented By: MATT Non-Formulary Medication (Dapagliflozin [Farxiga]) 1 tab PO DAILY [facility] Omeprazole (Omeprazole 20 Mg Capsule.Dr) 20 mg PO DAILY@0630 [facility] Last Admin: 12/16/22 05:43 Dose: 20 mg Documented By: MISA Oxycodone HCl (Oxycodone Hcl Immed Release 5 Mg Tablet) 5 mg PO Q4H PRN PRN Reason: Pain, Moderate (Pain Scale 4-6 Pharmacy Consult (Consult Rx Perform Med Rec) 1 each MISCELLANE ONCE PRN PRN Reason: Consult order Pioglitazone HCl (Pioglitazone Hcl 15 Mg Tablet) 15 mg PO BEDTIME [facility] Last Admin: 12/15/22 23:41 Dose: 15 mg Documented By: MISA Sitagliptin Phosphate (Sitagliptin Phosphate 50 Mg Tablet) 50 mg PO DAILY [facility] Last Admin: 12/16/22 08:04 Dose: 50 mg Documented By: MATT Trazodone HCl (Trazodone Hcl 50 Mg Tablet) 50 mg PO BEDTIME [facility] Last Admin: 12/15/22 23:42 Dose: 50 mg Documented By: MISA Verapamil HCl (Verapamil Hcl Sr 120 Mg Tablet.Er) 120 mg PO DAILY [facility]; Protocol Last Admin: 12/16/22 08:03 Dose: 120 mg Documented By: MATT Vitamin D (Cholecalciferol (Vitamin D3) 25 Mcg Tablet) 50 mcg PO DAILY [facility] Last Admin: 12/16/22 08:03 Dose: 50 mcg Documented By: MATT Labs 12/16/22 07:38 12/16/22 07:38 Labs: Laboratory Results - last 24 hr 12/15/22 12/15/22 12/16/22 16:00 20:24 07:26 MCV MCH MCHC RDW Plt Count MPV Immature Gran % (Auto) Neut % (Auto) Lymph % (Auto) [place] % (Auto) Eos % (Auto) Baso % (Auto) Lymph # (Auto) [place] # (Auto) Eos # (Auto) Baso # (Auto) Abs Immat Gran (auto) Absolute Neuts (auto) Absolute Nucleated RBC Nucleated RBC % (auto) Anion Gap Estim Creat Clear Calc Estimated GFR POC Glucose 164 H 254 H 275 H Random Glucose Calcium Total Bilirubin AST ALT Alkaline Phosphatase Total Protein Albumin 12/16/22 12/16/22 12/16/22 07:38 07:38 11:08 MCV 80.8 MCH 25.7 L MCHC 31.8 RDW 14.0 Plt Count 246 MPV 10.9 Immature Gran % (Auto) 0.4 Neut % (Auto) 72.0 Lymph % (Auto) 16.3 L [place] % (Auto) 10.8 Eos % (Auto) 0.3 Baso % (Auto) 0.2 Lymph # (Auto) 1.5 [place] # (Auto) 1.0 Eos # (Auto) 0.0 Baso # (Auto) 0.0 Abs Immat Gran (auto) 0.04 H Absolute Neuts (auto) 6.7 Absolute Nucleated RBC 0.000 Nucleated RBC % (auto) 0.0 Anion Gap 19 Estim Creat Clear Calc 43.5 Estimated GFR > 60 POC Glucose 235 H Random Glucose 285 H Calcium 9.0 Total Bilirubin 0.5 AST 18 ALT 10 Alkaline Phosphatase 52 Total Protein 6.7 Albumin 3.7 Assessment and Plan (1) Multiple fractures of rib involving four or more ribs: Status: Acute (2) Closed fracture of neck of left humerus: Status: Acute (3) Dizziness: Status: Acute (4) Thyroid nodule: Status: Acute Plan 77-year-old female with past medical history of use, hypertension, hyperlipidemia, GERD presents to the hospital with fall found to have multiple rib fractures 1.Multiple rib fractures/humeral fracture of the left - ortho consult reviewed -adamantly refusing placement. .. States family very involved - incentive spirometry - pain control 2.Dizziness - workup thus far unremarkable - 3.Thyroid nodule - thyroid ultrasound reviewed -follow-up with PCP Full code DVT prophylaxis: Mily Requires ongoing hospitalization for stabilization of fractures and monitoring on telemetry Time Spent With Patient Time: Total time managing care of this patient today ____ minutes. Quality Stroke Does the patient have a stroke diagnosis?: No VTE Prior VTE?: No VTE Risk Level:: Medical - moderate - high VTE Device Contraindication: Treatment Not Indicated VTE Drug Contraindication: N/A - Med Ordered
--- NOTE | 2022-12-16 14:36 | MHC.CM.PN ---
CM ATTEMPTED TO CONTACT PTS SONJEREMIAH [phone] HOWEVER THERE WAS NO ANSWER CM ALSO UNABLE TO LEAVE A VM CM WILL REVISIT PT WHO WAS SLEEPING ON FIRST ATTEMPT
[2022-12-16 15:43] LABS: Glucose, Whole Blood 168 mg/dL (60-115)
--- NOTE | 2022-12-16 18:15 | PC.NURSE ---
PATIENT COMPLAIN OF 10/10 RIB/L SIDE PAIN. 4MG MORPHINE IVP GIVEN PRN, SEE EMAR. PATIENT AND FAMILY MADE AWARE OF CURRENT HEALTH STATUS.
[2022-12-16 19:30] LABS: Glucose, Whole Blood 161 mg/dL (60-115)
[2022-12-16] MEDS: traZODone HCL 50 MG TABLET PO (21:25)
[2022-12-17] VITALS (7 sets, daily range): BP systolic 109–142; BP diastolic 52–68; PULSE 66–70; RESP 18–20; TEMP 36.7–37.3; O2SAT 96–98
[2022-12-17] MEDS: Enoxaparin Sodium 40 MG/0.4 ML SYRINGE SUBCUT ×2 (00:20→23:45)
[2022-12-17] MEDS: Morphine Sulfate 4 MG/ML CARTRIDGE IVPUSH (01:52)
[2022-12-17] MEDS: oxyCODONE HCl Immed Release 5 MG TABLET PO ×4 (05:55→20:38)
[2022-12-17] MEDS: Omeprazole 20 MG CAPSULE.DR PO (05:55)
[2022-12-17 07:35] LABS: Glucose, Whole Blood 173 mg/dL (60-115)
--- NOTE | 2022-12-17 09:42 | MHC.CM.PN ---
CM met with Patient at bedside with the assist of a Vendor Management Consultant and addressed GARNICA with Patient (original was given to Patient and a copy has been placed on the chart). STR (pending rehab evals) is Patient's goal and CM has initiated and will follow for dc planning. Patient lives alone in an apartment and she explains that she was alone when she fell. Patient's Grandson is the HCP and the PCP is Dr. Topete. Patient has received covid vax x5. Patient was using a walker SEWER REPAIRER and her SENIOR SCHEDULER recently quit.
[2022-12-17] MEDS: Acetaminophen 325 MG TABLET 650 MG PO (10:03)
[2022-12-17] MEDS: Docusate Sodium 100 MG CAPSULE PO ×2 (10:03→20:38)
[2022-12-17] MEDS: Gabapentin 300 MG CAPSULE PO ×3 (10:04→20:38)
[2022-12-17] MEDS: Aspirin 81 MG TAB.CHEW PO (10:04)
[2022-12-17] MEDS: VerapamiL HCL SR 120 MG TABLET.ER PO (10:16)
[2022-12-17] MEDS: Empagliflozin 10 MG TABLET PO (10:16)
[2022-12-17] MEDS: Cholecalciferol (Vitamin D3) 25 MCG TABLET 50 MCG PO (10:17)
[2022-12-17] MEDS: amLODIPine Besylate 10 MG TABLET PO (10:17)
[2022-12-17] MEDS: metFORMIN HCl 1,000 MG TABLET 1000 MG PO ×2 (10:17→17:01)
[2022-12-17] MEDS: hydroCHLOROthiazide 50 MG TABLET PO (10:17)
[2022-12-17] MEDS: SITagliptin Phosphate 50 MG TABLET PO (10:17)
[2022-12-17] MEDS: Multivitamin TABLET 1 TAB PO (10:17)
[2022-12-17] MEDS: hydrALAZINE HCl 10 MG TABLET PO ×3 (10:17→20:38)
[2022-12-17] MEDS: Atorvastatin Calcium 10 MG TABLET PO (10:17)
[2022-12-17] MEDS: Losartan Potassium 50 MG TABLET 100 MG PO (10:17)
[2022-12-17] MEDS: Metoprolol Tartrate 25 MG TABLET PO ×2 (10:18→20:38)
[2022-12-17] MEDS: Insulin Glargine,Hum.rec.anlog 100 UNIT/ML 10 ML VIAL 20 UNIT SUBCUT (10:20)
[2022-12-17] MEDS: Insulin Lispro 100 UNIT/ML 3 ML VIAL SUBCUT ×3 (10:20→20:37)
--- NOTE | 2022-12-17 11:12 | PC.NURSE ---
informed of pt's tremors. PT and aviation neuropsychologist at bedside this AM for assessment and med pass. pt cont able to get OOB with 1 assist to commode. sling fixed. pain meds administered w/ + effect.
--- NOTE | 2022-12-17 11:20 | P.PNIM_ITS ---
Subjective Subjective Date of Service: 12/17/22 Interval History: This history was taken in Kiswahili from the patient. C/o tremor Pain in left arm + ribs Review of Systems Review of Systems: Yes all other systems are reviewed and are negative Physical Exam Vital Signs: Vital Signs: Last Vital Signs Temp 98.2 F 12/17/22 08:00 Pulse 66 12/17/22 08:00 Resp 18 12/17/22 08:00 BP 142/54 H 12/17/22 08:00 Pulse Ox 97 12/17/22 08:00 O2 Del Method 12/17/22 08:00 O2 Flow Rate 2 12/14/22 16:47 BMI result Body Mass Index 22.6 Gen: in no acute distress HEENT: sclera anicteric, moist mucus membranes Neck: supple Lungs: clear to auscultation bilaterally Heart: regular rate and rhythm, no murmurs Abd: soft, non-tender, non-distended Ext: no edema, LUE in sling + wrist splint, distally neurovascularly intact Skin: warm/well-perfused Neuro: alert and oriented x3, tremulous Psych: appropriate affect Objective Data Active Medications Acetaminophen (Acetaminophen 325 Mg Tablet) 650 mg PO Q6H PRN PRN Reason: Pain, Mild (Pain Scale 1-3) Last Admin: 12/17/22 10:03 Dose: 650 mg Documented By: PAULINA-LEONIDES Amlodipine Besylate (Amlodipine Besylate 10 Mg Tablet) 10 mg PO DAILY [facility]; Protocol Last Admin: 12/17/22 10:17 Dose: 10 mg Documented By: MEGAN Aspirin (Aspirin 81 Mg Tab.Chew) 81 mg PO DAILY [facility] Last Admin: 12/17/22 10:04 Dose: 81 mg Documented By: MEGAN Atorvastatin Calcium (Atorvastatin Calcium 10 Mg Tablet) 10 mg PO DAILY [facility] Last Admin: 12/17/22 10:17 Dose: 10 mg Documented By: MEGAN Dextrose (Dextrose 50 % 25 Gm/50 Ml Syringe) 25 gm IVPUSH Q15M PRN; Protocol PRN Reason: per Hypoglycemia Standing Ord. Docusate Sodium (Docusate Sodium 100 Mg Capsule) 100 mg PO BID [facility] Last Admin: 12/17/22 10:03 Dose: 100 mg Documented By: PAULINA-LEONIDES Empagliflozin (Empagliflozin 10 Mg Tablet) 10 mg PO DAILY [facility] Last Admin: 12/17/22 10:16 Dose: 10 mg Documented By: PAULINA-FAITHFA Enoxaparin Sodium (Enoxaparin Sodium 40 Mg/0.4 Ml Syringe) 40 mg SUBCUT Q24H [facility] Last Admin: 12/17/22 00:20 Dose: 40 mg Documented By: SHANNAN Gabapentin (Gabapentin 300 Mg Capsule) 300 mg PO TID [facility] Last Admin: 12/17/22 10:04 Dose: 300 mg Documented By: PAULINA-LEONIDES Glucose (Glucose Gel 15 Gm Gel..Gram.) 15 gm PO Q15M PRN; Protocol PRN Reason: per Hypoglycemia Standing Ord. Hydralazine HCl (Hydralazine Hcl 10 Mg Tablet) 10 mg PO TID [facility]; Protocol Last Admin: 12/17/22 10:17 Dose: 10 mg Documented By: PAULINA-FAITHFA Hydrochlorothiazide (Hydrochlorothiazide 50 Mg Tablet) 50 mg PO DAILY [facility] Last Admin: 12/17/22 10:17 Dose: 50 mg Documented By: PAULINA-SOFFA Insulin Glargine (Insulin Glargine,Hum.Rec.Anlog 100 Unit/Ml 10 Ml Vial) 20 unit SUBCUT DAILY [facility] Last Admin: 12/17/22 10:20 Dose: 20 unit Documented By: PAULINA-FAITHFA Insulin Human Lispro (Insulin Lispro 100 Unit/Ml 3 Ml Vial) 0 unit SUBCUT QIDACHS [facility]; Protocol Last Admin: 12/17/22 10:20 Dose: 4 unit Documented By: PAULINA-FAITHFA Losartan Potassium (Losartan Potassium 50 Mg Tablet) 100 mg PO DAILY [facility]; Protocol Last Admin: 12/17/22 10:17 Dose: 100 mg Documented By: PAULINA-FAITHFA Metformin HCl (Metformin Hcl 1,000 Mg Tablet) 1,000 mg PO BIDWM [facility] Last Admin: 12/17/22 10:17 Dose: 1,000 mg Documented By: PAULINA-SOFFA Metoprolol Tartrate (Metoprolol Tartrate 25 Mg Tablet) 25 mg PO BID [facility]; Protocol Last Admin: 12/17/22 10:18 Dose: 25 mg Documented By: PAULINA-SOFFA Morphine Sulfate (Morphine Sulfate 4 Mg/Ml Cartridge) 4 mg IVPUSH Q4H PRN; Protocol PRN Reason: Pain, Severe (Pain Scale 7-10) Last Admin: 12/17/22 01:52 Dose: 4 mg Multivitamins/Vitamin C (Multivitamin Tablet) 1 tab PO DAILY [facility] Last Admin: 12/17/22 10:17 Dose: 1 tab Documented By: MEGAN Omeprazole (Omeprazole 20 Mg Capsule.Dr) 20 mg PO DAILY@0630 [facility] Last Admin: 12/17/22 05:55 Dose: 20 mg Documented By: SHANNAN Oxycodone HCl (Oxycodone Hcl Immed Release 5 Mg Tablet) 5 mg PO Q4H PRN PRN Reason: Pain, Moderate (Pain Scale 4-6 Last Admin: 12/17/22 10:03 Dose: 5 mg Documented By: MEGAN Pharmacy Consult (Consult Rx Perform Med Rec) 1 each MISCELLANE ONCE PRN PRN Reason: Consult order Pioglitazone HCl (Pioglitazone Hcl 15 Mg Tablet) 15 mg PO BEDTIME [facility] Last Admin: 12/16/22 21:38 Dose: Not Given Documented By: RAYMOND Non-Admin Reason: Patient Refused Sitagliptin Phosphate (Sitagliptin Phosphate 50 Mg Tablet) 50 mg PO DAILY [facility] Last Admin: 12/17/22 10:17 Dose: 50 mg Documented By: MEGAN Trazodone HCl (Trazodone Hcl 50 Mg Tablet) 50 mg PO BEDTIME [facility] Last Admin: 12/16/22 21:25 Dose: 50 mg Documented By: RAYMOND Verapamil HCl (Verapamil Hcl Sr 120 Mg Tablet.Er) 120 mg PO DAILY [facility]; Protocol Last Admin: 12/17/22 10:16 Dose: 120 mg Documented By: MEGAN Vitamin D (Cholecalciferol (Vitamin D3) 25 Mcg Tablet) 50 mcg PO DAILY [facility] Last Admin: 12/17/22 10:17 Dose: 50 mcg Documented By: MEGAN Labs 12/16/22 07:38 12/16/22 07:38 Labs: Laboratory Results - last 24 hr 12/16/22 12/16/22 12/16/22 11:08 15:35 19:12 POC Glucose 235 H 168 H 161 H 12/17/22 07:25 POC Glucose 173 H ITS Impressions Cervical Spine CT 12/14/22 17:42 IMPRESSION: 1. No intracranial hemorrhage, calvarial fracture, or other acute intracranial abnormality. 2. No traumatic subluxation or acute cervical spine fracture. 3. Scattered small sub-4 mm subpleural biapical pulmonary nodules right greater than left, likely benign. If patient is high risk for primary pulmonary malignancy consider optional low-dose chest CT in 12 months. Otherwise no follow-up or core per Fleischner Society guidelines. 4. Asymmetrically enlarged left thyroid lobe with heterogeneous conglomerate nodules or large dominant nodule measuring 4.8 cm in size. Suggest thyroid ultrasound for further evaluation if clinically appropriate. Head CT 12/14/22 17:42 IMPRESSION: 1. No intracranial hemorrhage, calvarial fracture, or other acute intracranial abnormality. 2. No traumatic subluxation or acute cervical spine fracture. 3. Scattered small sub-4 mm subpleural biapical pulmonary nodules right greater than left, likely benign. If patient is high risk for primary pulmonary malignancy consider optional low-dose chest CT in 12 months. Otherwise no follow-up or core per Fleischner Society guidelines. 4. Asymmetrically enlarged left thyroid lobe with heterogeneous conglomerate nodules or large dominant nodule measuring 4.8 cm in size. Suggest thyroid ultrasound for further evaluation if clinically appropriate. Elbow X-Ray 12/14/22 19:52 IMPRESSION: 1. Comminuted mildly displaced and impacted left humeral neck fracture. 2. Comminuted distal radial fracture with intra-articular extension. 3. Equivocal scaphoid waist fracture. 4. Multiple left-sided rib fractures, best seen on separate report from a simultaneous chest radiograph. 5. Questionable 2 mm foreign body in the ventral soft tissues adjacent to the base of the first metacarpal. 6. 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 Hand/Wrist X-Ray 12/14/22 19:52 IMPRESSION: 1. Comminuted mildly displaced and impacted left humeral neck fracture. 2. Comminuted distal radial fracture with intra-articular extension. 3. Equivocal scaphoid waist fracture. 4. Multiple left-sided rib fractures, best seen on separate report from a simultaneous chest radiograph. 5. Questionable 2 mm foreign body in the ventral soft tissues adjacent to the base of the first metacarpal. 6. 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 Humerus X-Ray 12/14/22 19:52 IMPRESSION: 1. Comminuted mildly displaced and impacted left humeral neck fracture. 2. Comminuted distal radial fracture with intra-articular extension. 3. Equivocal scaphoid waist fracture. 4. Multiple left-sided rib fractures, best seen on separate report from a simultaneous chest radiograph. 5. Questionable 2 mm foreign body in the ventral soft tissues adjacent to the base of the first metacarpal. 6. 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 Ribs X-Ray 12/14/22 19:52 IMPRESSION: 1. Multiple displaced left-sided rib fractures. 2. No acute cardiopulmonary findings. 3. Left humeral neck fracture, described on separate report from the left shoulder. Shoulder X-Ray 12/14/22 19:52 IMPRESSION: 1. Comminuted mildly displaced and impacted left humeral neck fracture. 2. Comminuted distal radial fracture with intra-articular extension. 3. Equivocal scaphoid waist fracture. 4. Multiple left-sided rib fractures, best seen on separate report from a simultaneous chest radiograph. 5. Questionable 2 mm foreign body in the ventral soft tissues adjacent to the base of the first metacarpal. 6. 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 Thyroid Ultrasound 12/15/22 08:04 IMPRESSION: 1. Bilateral thyroid nodules. 2 nodular greater than 1 cm and are nonsuspicious. Recommend follow-up as per TI-RADS recommendation 2. TR1 (0 point) and TR 2 (2 points): 3. TR4 (4-6 points): FNA if more than or equal to 1.5 cm in maximum dimension, followup ultrasound in 1, 2, 3 and 5 years if 1 to 1.4 cm in maximum dimension. 4. TR5 (more than or equal to 7 points): FNA if more than or equal to 1 cm in maximum dimension, followup ultrasound every year for 5 years if 0.5 to 0.9 cm in maximum dimension. Assessment and Plan (1) Multiple fractures of rib involving four or more ribs: Status: Acute (2) Closed fracture of neck of left humerus: Status: Acute (3) Dizziness: Status: Acute (4) Thyroid nodule: Status: Acute Plan d#3 77yo F with DM2, HTN, HLD, GERD presented after fall, found to have multiple fractures # L humeral neck fx, comminuted + mildly displaced/impacted # L distal radial fx, comminuted with intra-articular extension # possible L scaphoid waist fx - Ortho consulted. maintain sling/splint and plan outpt evaluation in clinic 12/25/22 @ 10:30 - PT consult # rib fractures - IS, pain control # dizziness - resolved. check orthostatics # tremor - Neuro consult # multiple thyroid nodules - outpt f/u # HTN - amlodipine, hydralazine, losartan, verapamil, metoprolol, HCTZ # DM2 - MTF, pioglitazone, Lantus, sitagliptin, empagliflozin # HLD - atorvastatin # VTE ppx: LMWH # dispo: pending PT eval In my clinical judgment, the patient requires continued inpatient hospitalization for the following reasons: placement Time Spent With Patient Time: Total time managing care of this patient today __30__ minutes. Quality Stroke Does the patient have a stroke diagnosis?: No VTE Prior VTE?: No VTE Risk Level:: Medical - moderate - high VTE Device Contraindication: Treatment Not Indicated VTE Drug Contraindication: N/A - Med Ordered
[2022-12-17 11:51] LABS: Glucose, Whole Blood 204 mg/dL (60-115)
[2022-12-17] MEDS: oxyCODONE HCl Immed Release 5 MG TABLET 2.5 MG PO (12:02)
--- NOTE | 2022-12-17 15:54 | PM.NEUROCN ---
History of Present Illness Data of Consult Service Date: 12/17/22 Primary Care Provider: Hafsa Carlos MD [facility] Reason for consult: Tremor 77 years old woman who was admitted hospital after a fall. She has sustained multiple left-sided fractures including left humeral fracture. This consultation was requesting for tremor though she did not complain of any symptom. Review of Systems Review of Systems: Limited partly due to language barrier [facility] Past Medical History Medical History Diabetes Elevated cholesterol GERD (gastroesophageal reflux disease) History of femoral angiogram HTN (hypertension) Hyperlipemia Osteoporosis PAD (peripheral artery disease) Peripheral vascular disease Family History Family History Father No problems noted. Mother No problems noted. Daughter No problems noted. Son No problems noted. Son No problems noted. Son No problems noted. Surgical History Surgical History H/O colonoscopy Hx of angioplasty Hx of hand surgery Social History Social History Household Members: None Housing: Apartment Are you a primary critical care clinical nurse specialist to a significant other at home: No Do you presently have visiting nurse or other home services: Yes Alcohol intake: never Patient Tobacco Use Status: Former Tobacco user Quit Date: > 50 yrs Tobacco use type: Cigarette service: No Current occupational status: disabled Meds Allergies Allergy/AdvReac Type Severity Reaction Status Date / Time No Known Allergies Allergy Verified 08/14/22 10:40 Active Medications: Current Medications Acetaminophen (Acetaminophen 325 Mg Tablet) 650 mg PO Q6H PRN PRN Reason: Pain, Mild (Pain Scale 1-3) Last Admin: 12/17/22 10:03 Dose: 650 mg Amlodipine Besylate (Amlodipine Besylate 10 Mg Tablet) 10 mg PO DAILY [facility]; Protocol Last Admin: 12/17/22 10:17 Dose: 10 mg Aspirin (Aspirin 81 Mg Tab.Chew) 81 mg PO DAILY [facility] Last Admin: 12/17/22 10:04 Dose: 81 mg Atorvastatin Calcium (Atorvastatin Calcium 10 Mg Tablet) 10 mg PO DAILY [facility] Last Admin: 12/17/22 10:17 Dose: 10 mg Dextrose (Dextrose 50 % 25 Gm/50 Ml Syringe) 25 gm IVPUSH Q15M PRN; Protocol PRN Reason: per Hypoglycemia Standing Ord. Docusate Sodium (Docusate Sodium 100 Mg Capsule) 100 mg PO BID [facility] Last Admin: 12/17/22 10:03 Dose: 100 mg Empagliflozin (Empagliflozin 10 Mg Tablet) 10 mg PO DAILY [facility] Last Admin: 12/17/22 10:16 Dose: 10 mg Enoxaparin Sodium (Enoxaparin Sodium 40 Mg/0.4 Ml Syringe) 40 mg SUBCUT Q24H [facility] Last Admin: 12/17/22 00:20 Dose: 40 mg Gabapentin (Gabapentin 300 Mg Capsule) 300 mg PO TID [facility] Last Admin: 12/17/22 14:26 Dose: 300 mg Glucose (Glucose Gel 15 Gm Gel..Gram.) 15 gm PO Q15M PRN; Protocol PRN Reason: per Hypoglycemia Standing Ord. Hydralazine HCl (Hydralazine Hcl 10 Mg Tablet) 10 mg PO TID [facility]; Protocol Last Admin: 12/17/22 14:26 Dose: 10 mg Hydrochlorothiazide (Hydrochlorothiazide 50 Mg Tablet) 50 mg PO DAILY [facility] Last Admin: 12/17/22 10:17 Dose: 50 mg Insulin Glargine (Insulin Glargine,Hum.Rec.Anlog 100 Unit/Ml 10 Ml Vial) 20 unit SUBCUT DAILY [facility] Last Admin: 12/17/22 10:20 Dose: 20 unit Insulin Human Lispro (Insulin Lispro 100 Unit/Ml 3 Ml Vial) 0 unit SUBCUT QIDACHS [facility]; Protocol Last Admin: 12/17/22 12:02 Dose: 4 unit Losartan Potassium (Losartan Potassium 50 Mg Tablet) 100 mg PO DAILY [facility]; Protocol Last Admin: 12/17/22 10:17 Dose: 100 mg Metformin HCl (Metformin Hcl 1,000 Mg Tablet) 1,000 mg PO BIDWM [facility] Last Admin: 12/17/22 10:17 Dose: 1,000 mg Metoprolol Tartrate (Metoprolol Tartrate 25 Mg Tablet) 25 mg PO BID [facility]; Protocol Last Admin: 12/17/22 10:18 Dose: 25 mg Morphine Sulfate (Morphine Sulfate 4 Mg/Ml Cartridge) 4 mg IVPUSH Q4H PRN; Protocol PRN Reason: Pain, Severe (Pain Scale 7-10) Last Admin: 12/17/22 01:52 Dose: 4 mg Multivitamins/Vitamin C (Multivitamin Tablet) 1 tab PO DAILY [facility] Last Admin: 12/17/22 10:17 Dose: 1 tab Omeprazole (Omeprazole 20 Mg Capsule.Dr) 20 mg PO DAILY@0630 [facility] Last Admin: 12/17/22 05:55 Dose: 20 mg Oxycodone HCl (Oxycodone Hcl Immed Release 5 Mg Tablet) 5 mg PO Q4H PRN PRN Reason: Pain, Moderate (Pain Scale 4-6 Last Admin: 12/17/22 14:26 Dose: 5 mg Pharmacy Consult (Consult Rx Perform Med Rec) 1 each MISCELLANE ONCE PRN PRN Reason: Consult order Pioglitazone HCl (Pioglitazone Hcl 15 Mg Tablet) 15 mg PO BEDTIME [facility] Last Admin: 12/16/22 21:38 Dose: Not Given Sitagliptin Phosphate (Sitagliptin Phosphate 50 Mg Tablet) 50 mg PO DAILY [facility] Last Admin: 12/17/22 10:17 Dose: 50 mg Trazodone HCl (Trazodone Hcl 50 Mg Tablet) 50 mg PO BEDTIME [facility] Last Admin: 12/16/22 21:25 Dose: 50 mg Verapamil HCl (Verapamil Hcl Sr 120 Mg Tablet.Er) 120 mg PO DAILY [facility]; Protocol Last Admin: 12/17/22 10:16 Dose: 120 mg Vitamin D (Cholecalciferol (Vitamin D3) 25 Mcg Tablet) 50 mcg PO DAILY [facility] Last Admin: 12/17/22 10:17 Dose: 50 mcg Home Medications Medication Instructions Recorded Confirmed Last Taken Type aspirin 81 mg chewable tablet 1 tab PO DAILY 04/18/21 12/15/22 05/31/21 History chlorthalidone 50 mg tablet 50 mg PO DAILY 04/18/21 12/15/22 05/31/21 History cholecalciferol (vitamin D3) 50 50 mcg PO DAILY 04/18/21 12/15/22 05/31/21 History mcg (2,000 unit) capsule gabapentin 300 mg capsule 300 mg PO TID 04/18/21 12/15/22 05/31/21 History hydralazine 10 mg tablet 10 mg PO TID 04/18/21 12/15/22 05/31/21 History pantoprazole 20 mg tablet,delayed 20 mg PO BID 04/18/21 12/15/22 05/31/21 History release pioglitazone 15 mg tablet 15 mg PO BEDTIME 04/18/21 12/15/22 05/31/21 History simvastatin 20 mg tablet 20 mg PO BEDTIME 04/18/21 12/15/22 05/31/21 History trazodone 50 mg tablet 50 mg PO BEDTIME 04/18/21 12/15/22 05/31/21 History verapamil 120 mg 24 hr 120 mg PO DAILY 04/18/21 12/15/22 05/31/21 History capsule,extended release losartan 100 mg tablet 1 tab PO DAILY 06/01/21 12/15/22 05/31/21 History metformin 1,000 mg tablet 1 tab PO BID 06/01/21 12/15/22 05/31/21 History lancets 33 gauge (TRUEplus Lancets) #100 ea 04/23/22 12/15/22 Unknown History multivitamin 1 tab PO DAILY 04/23/22 12/15/22 Unknown History amlodipine 10 mg tablet 1 tab PO DAILY 12/14/22 12/15/22 Unknown History dapagliflozin 5 mg tablet (Farxiga) 1 tab PO DAILY 12/14/22 12/15/22 Unknown History docusate sodium 100 mg capsule 1 cap PO BID 12/14/22 12/15/22 Unknown History insulin glargine 100 unit/mL (3 20 unit subcut DAILY 12/14/22 12/15/22 Unknown History mL) subcutaneous pen (Lantus Solostar U-100 Insulin) sitagliptin phosphate 50 mg tablet 1 tab PO DAILY 12/14/22 12/15/22 Unknown History (Chace) Physical Exam Vital Signs: Vital Signs: Last Vital Signs Temp 98.1 F 12/17/22 15:28 Pulse 70 12/17/22 15:28 Resp 18 12/17/22 15:28 BP 124/68 12/17/22 15:28 Pulse Ox 97 12/17/22 15:28 O2 Del Method 12/17/22 15:28 O2 Flow Rate 2 12/14/22 16:47 BMI result Body Mass Index 22.6 Neuro: Other: She was alert and awake answering questions or following commands. There was no nystagmus. There was no facial asymmetry. Visual [place] are full. There was no tremor right hand. Left arm was in sling and she was very resistant to examination of her left side. Deep tendon reflexes were trace to absent with flexor plantars. Results Labs 12/16/22 07:38 12/16/22 07:38 Labs: Head CT revealed moderately severe cortical atrophy and embolic looking left frontal chronic ischemic infarction. 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 Her examination was limited as she was resistant to be examined or left side because of recent fracture and pain. On the right side, I did not see any significant resting or postural or action tremor. As far as tremor is concerned, my recommendation is to not intervene at this time and have an outpatient evaluation if needed in 2-3 months time when her other ailments are healed. As far as stroke is concerned, anti-platelet agent blood pressure control and control of vascular risk factors is recommended. Time Spent With Patient Time: Total time managing care of this patient today ____ minutes. Procedures Date of Service Date of Service: 12/17/22
[2022-12-17 16:06] LABS: Glucose, Whole Blood 139 mg/dL (60-115)
[2022-12-17 20:18] LABS: Glucose, Whole Blood 170 mg/dL (60-115)
[2022-12-17] MEDS: traZODone HCL 50 MG TABLET PO (20:38)
[2022-12-18] VITALS (7 sets, daily range): BP systolic 94–125; BP diastolic 44–69; PULSE 59–69; RESP 15–18; TEMP 36.4–36.9; O2SAT 96–99
[2022-12-18] MEDS: Omeprazole 20 MG CAPSULE.DR PO (03:38)
[2022-12-18] MEDS: Acetaminophen 325 MG TABLET 650 MG PO ×2 (03:38→11:27)
[2022-12-18] MEDS: oxyCODONE HCl Immed Release 5 MG TABLET PO ×3 (03:38→16:59)
[2022-12-18 08:06] LABS: Glucose, Whole Blood 141 mg/dL (60-115)
[2022-12-18] MEDS: VerapamiL HCL SR 120 MG TABLET.ER PO (08:22)
[2022-12-18] MEDS: Gabapentin 300 MG CAPSULE PO ×3 (08:22→21:43)
[2022-12-18] MEDS: metFORMIN HCl 1,000 MG TABLET 1000 MG PO ×2 (08:23→16:58)
[2022-12-18] MEDS: SITagliptin Phosphate 50 MG TABLET PO (08:23)
[2022-12-18] MEDS: Docusate Sodium 100 MG CAPSULE PO ×2 (08:23→21:43)
[2022-12-18] MEDS: hydrALAZINE HCl 10 MG TABLET PO ×2 (08:23→21:43)
[2022-12-18] MEDS: hydroCHLOROthiazide 50 MG TABLET PO (08:23)
[2022-12-18] MEDS: Insulin Glargine,Hum.rec.anlog 100 UNIT/ML 10 ML VIAL 20 UNIT SUBCUT (08:23)
[2022-12-18] MEDS: amLODIPine Besylate 10 MG TABLET PO (08:23)
[2022-12-18] MEDS: Multivitamin TABLET 1 TAB PO (08:23)
[2022-12-18] MEDS: Atorvastatin Calcium 10 MG TABLET PO (08:23)
[2022-12-18] MEDS: Aspirin 81 MG TAB.CHEW PO (08:23)
[2022-12-18] MEDS: Losartan Potassium 50 MG TABLET 100 MG PO (08:23)
[2022-12-18] MEDS: Empagliflozin 10 MG TABLET PO (08:23)
[2022-12-18] MEDS: Cholecalciferol (Vitamin D3) 25 MCG TABLET 50 MCG PO (08:23)
[2022-12-18] MEDS: Metoprolol Tartrate 25 MG TABLET PO ×2 (08:23→21:43)
--- NOTE | 2022-12-18 09:37 | HO.PM.IMPN ---
Subjective Subjective Date of Service: 12/18/22 Interval History: This history was taken in Nepali from the patient. c/o severe L wrist pain, also rib pain tremor resolved Review of Systems Review of Systems: Yes all other systems are reviewed and are negative Physical Exam Vital Signs: Vital Signs: Last Vital Signs Temp 97.8 F 12/18/22 07:29 Pulse 66 12/18/22 07:29 Resp 16 12/18/22 07:29 BP 116/44 L 12/18/22 07:29 Pulse Ox 98 12/18/22 07:29 O2 Del Method 12/18/22 07:29 O2 Flow Rate 2 12/14/22 16:47 BMI result Body Mass Index 22.6 Gen: in pain HEENT: sclera anicteric, moist mucus membranes Neck: supple Lungs: clear to auscultation bilaterally Heart: regular rate and rhythm, no murmurs Abd: soft, non-tender, non-distended Ext: no edema, LUE in sling + wrist splint, distally neurovascularly intact Skin: warm/well-perfused Neuro: alert and oriented x3 Psych: appropriate affect Objective Data Active Medications Acetaminophen (Acetaminophen 325 Mg Tablet) 650 mg PO Q6H PRN PRN Reason: Pain, Mild (Pain Scale 1-3) Last Admin: 12/18/22 03:38 Dose: 650 mg Documented By: KENNEY Amlodipine Besylate (Amlodipine Besylate 10 Mg Tablet) 10 mg PO DAILY [facility]; Protocol Last Admin: 12/18/22 08:23 Dose: 10 mg Documented By: MEGAN Aspirin (Aspirin 81 Mg Tab.Chew) 81 mg PO DAILY [facility] Last Admin: 12/18/22 08:23 Dose: 81 mg Documented By: MEGAN Atorvastatin Calcium (Atorvastatin Calcium 10 Mg Tablet) 10 mg PO DAILY [facility] Last Admin: 12/18/22 08:23 Dose: 10 mg Documented By: MEGAN Dextrose (Dextrose 50 % 25 Gm/50 Ml Syringe) 25 gm IVPUSH Q15M PRN; Protocol PRN Reason: per Hypoglycemia Standing Ord. Docusate Sodium (Docusate Sodium 100 Mg Capsule) 100 mg PO BID [facility] Last Admin: 12/18/22 08:23 Dose: 100 mg Documented By: MEGAN Empagliflozin (Empagliflozin 10 Mg Tablet) 10 mg PO DAILY [facility] Last Admin: 12/18/22 08:23 Dose: 10 mg Documented By: PAULINA-LEONIDES Enoxaparin Sodium (Enoxaparin Sodium 40 Mg/0.4 Ml Syringe) 40 mg SUBCUT Q24H [facility] Last Admin: 12/17/22 23:45 Dose: 40 mg Documented By: RADHAASY Gabapentin (Gabapentin 300 Mg Capsule) 300 mg PO TID [facility] Last Admin: 12/18/22 08:22 Dose: 300 mg Documented By: PAULINA-LEONIDES Glucose (Glucose Gel 15 Gm Gel..Gram.) 15 gm PO Q15M PRN; Protocol PRN Reason: per Hypoglycemia Standing Ord. Hydralazine HCl (Hydralazine Hcl 10 Mg Tablet) 10 mg PO TID [facility]; Protocol Last Admin: 12/18/22 08:23 Dose: 10 mg Documented By: PAULINA-LEONIDES Hydrochlorothiazide (Hydrochlorothiazide 50 Mg Tablet) 50 mg PO DAILY [facility] Last Admin: 12/18/22 08:23 Dose: 50 mg Documented By: PAULINA-LEONIDES Insulin Glargine (Insulin Glargine,Hum.Rec.Anlog 100 Unit/Ml 10 Ml Vial) 20 unit SUBCUT DAILY [facility] Last Admin: 12/18/22 08:23 Dose: 20 unit Documented By: PAULINA-LEONIDES Insulin Human Lispro (Insulin Lispro 100 Unit/Ml 3 Ml Vial) 0 unit SUBCUT QIDACHS [facility]; Protocol Last Admin: 12/18/22 08:11 Dose: Not Given Documented By: PAULINA-LEONIDES Non-Admin Reason: See Note Losartan Potassium (Losartan Potassium 50 Mg Tablet) 100 mg PO DAILY [facility]; Protocol Last Admin: 12/18/22 08:23 Dose: 100 mg Documented By: PAULINA-FAITHFA Metformin HCl (Metformin Hcl 1,000 Mg Tablet) 1,000 mg PO BIDWM [facility] Last Admin: 12/18/22 08:23 Dose: 1,000 mg Documented By: PAULINA-FAITHFA Metoprolol Tartrate (Metoprolol Tartrate 25 Mg Tablet) 25 mg PO BID [facility]; Protocol Last Admin: 12/18/22 08:23 Dose: 25 mg Documented By: PAULINA-FAITHFA Morphine Sulfate (Morphine Sulfate 4 Mg/Ml Cartridge) 2 mg IVPUSH Q4H PRN; Protocol PRN Reason: Pain, Severe (Pain Scale 7-10) Multivitamins/Vitamin C (Multivitamin Tablet) 1 tab PO DAILY [facility] Last Admin: 12/18/22 08:23 Dose: 1 tab Documented By: MEGAN Omeprazole (Omeprazole 20 Mg Capsule.Dr) 20 mg PO DAILY@0630 [facility] Last Admin: 12/18/22 03:38 Dose: 20 mg Documented By: KENNEY Oxycodone HCl (Oxycodone Hcl Immed Release 5 Mg Tablet) 5 mg PO Q4H PRN PRN Reason: Pain, Moderate (Pain Scale 4-6 Last Admin: 12/18/22 08:22 Dose: 5 mg Documented By: MEGAN Pharmacy Consult (Consult Rx Perform Med Rec) 1 each MISCELLANE ONCE PRN PRN Reason: Consult order Pioglitazone HCl (Pioglitazone Hcl 15 Mg Tablet) 15 mg PO BEDTIME [facility] Last Admin: 12/17/22 20:42 Dose: 15 mg Documented By: SABINA Sitagliptin Phosphate (Sitagliptin Phosphate 50 Mg Tablet) 50 mg PO DAILY [facility] Last Admin: 12/18/22 08:23 Dose: 50 mg Documented By: MEGAN Trazodone HCl (Trazodone Hcl 50 Mg Tablet) 50 mg PO BEDTIME [facility] Last Admin: 12/17/22 20:38 Dose: 50 mg Documented By: SABINA Verapamil HCl (Verapamil Hcl Sr 120 Mg Tablet.Er) 120 mg PO DAILY [facility]; Protocol Last Admin: 12/18/22 08:22 Dose: 120 mg Documented By: MEGAN Vitamin D (Cholecalciferol (Vitamin D3) 25 Mcg Tablet) 50 mcg PO DAILY [facility] Last Admin: 12/18/22 08:23 Dose: 50 mcg Documented By: MEGAN Labs 12/16/22 07:38 12/16/22 07:38 Labs: Laboratory Results - last 24 hr 12/17/22 12/17/22 12/17/22 11:48 16:02 20:13 POC Glucose 204 H 139 H 170 H 12/18/22 07:56 POC Glucose 141 H Assessment and Plan (1) Multiple fractures of rib involving four or more ribs: Status: Acute (2) Closed fracture of neck of left humerus: Status: Acute (3) Dizziness: Status: Acute (4) Thyroid nodule: Status: Acute Plan d#4 77yo F with DM2, HTN, HLD, GERD presented after fall, found to have multiple fractures # L humeral neck fx, comminuted + mildly displaced/impacted # L distal radial fx, comminuted with intra-articular extension # possible L scaphoid waist fx - Ortho consulted. maintain sling/splint. scaphoid films now. IV/PO opioids for pain control and plan ORIF distal radius and scaphoid 12/20/22 - PT consulted, STR recommended # rib fractures - IS, pain control # dizziness - resolved. check orthostatics # tremor - Neuro consulted, appears to have resolved, outpt f/u if recurs # multiple thyroid nodules - outpt f/u # HTN - continue outpt regimen: amlodipine, hydralazine, losartan, verapamil, metoprolol, HCTZ # DM2 - continue outpt regimen: MTF, pioglitazone, Lantus, sitagliptin, empagliflozin # HLD - atorvastatin # VTE ppx: LMWH # dispo: STR postop In my clinical judgment, the patient requires continued inpatient hospitalization for the following reasons: pain control, operative fixation Time Spent With Patient Time: Total time managing care of this patient today _30___ minutes. Quality Stroke Does the patient have a stroke diagnosis?: No VTE Prior VTE?: No VTE Risk Level:: Medical - moderate - high VTE Device Contraindication: Treatment Not Indicated VTE Drug Contraindication: N/A - Med Ordered
[2022-12-18] MEDS: Morphine Sulfate 4 MG/ML CARTRIDGE 2 MG IVPUSH (09:46)
[2022-12-18 11:14] LABS: Glucose, Whole Blood 165 mg/dL (60-115)
[2022-12-18] MEDS: Insulin Lispro 100 UNIT/ML 3 ML VIAL SUBCUT (11:27)
[2022-12-18 16:13] LABS: Glucose, Whole Blood 107 mg/dL (60-115)
[2022-12-18 20:02] LABS: Glucose, Whole Blood 138 mg/dL (60-115)
[2022-12-18] MEDS: traZODone HCL 50 MG TABLET PO (21:43)
[2022-12-19] MEDS: Enoxaparin Sodium 40 MG/0.4 ML SYRINGE SUBCUT (01:11)
[2022-12-19 03:47] VITALS: BP 134/63; PULSE 72; RESP 14; TEMP 36.9; O2SAT 96
[2022-12-19] MEDS: Omeprazole 20 MG CAPSULE.DR PO (04:47)
[2022-12-19] MEDS: oxyCODONE HCl Immed Release 5 MG TABLET PO ×2 (04:47→12:39)
[2022-12-19 07:18] VITALS: BP 160/69; PULSE 69; RESP 20; TEMP 36.4; O2SAT 97
--- NOTE | 2022-12-19 07:34 | PM.EVENT ---
Event Note Date of Service: 12/19/22 Event Note: Repeat x-rays obtained of the left distal radius and scaphoid. Stable appearance of both fractures. Imaging and case discussed with Dr. Drake. Nonoperative management is recommended at this time. Continue velcro wrist splint at all times. Sling for left proximal humerus fx. F/U with orthopedics outpatient next week. 12/25/22 at 1:00pm with Dr. Drake Time Spent With Patient Time: Total time managing care of this patient today ____ minutes.
[2022-12-19 07:36] LABS: Glucose, Whole Blood 118 mg/dL (60-115)
[2022-12-19] MEDS: Insulin Glargine,Hum.rec.anlog 100 UNIT/ML 10 ML VIAL 20 UNIT SUBCUT (09:18)
[2022-12-19] MEDS: amLODIPine Besylate 10 MG TABLET PO (09:20)
[2022-12-19] MEDS: Multivitamin TABLET 1 TAB PO (09:20)
[2022-12-19] MEDS: Empagliflozin 10 MG TABLET PO (09:20)
[2022-12-19] MEDS: Cholecalciferol (Vitamin D3) 25 MCG TABLET 50 MCG PO (09:21)
[2022-12-19] MEDS: hydroCHLOROthiazide 50 MG TABLET PO (09:23)
[2022-12-19] MEDS: hydrALAZINE HCl 10 MG TABLET PO ×2 (09:23→18:00)
[2022-12-19] MEDS: Atorvastatin Calcium 10 MG TABLET PO (09:23)
[2022-12-19] MEDS: Gabapentin 300 MG CAPSULE PO ×2 (09:25→18:00)
[2022-12-19] MEDS: Docusate Sodium 100 MG CAPSULE PO (09:25)
[2022-12-19] MEDS: metFORMIN HCl 1,000 MG TABLET 1000 MG PO (09:25)
[2022-12-19] MEDS: VerapamiL HCL SR 120 MG TABLET.ER PO (09:25)
[2022-12-19] MEDS: Metoprolol Tartrate 25 MG TABLET PO (09:25)
[2022-12-19] MEDS: Aspirin 81 MG TAB.CHEW PO (09:25)
[2022-12-19] MEDS: Losartan Potassium 50 MG TABLET 100 MG PO (09:25)
[2022-12-19] MEDS: SITagliptin Phosphate 50 MG TABLET PO (09:25)
--- NOTE | 2022-12-19 11:10 | HO.PM.IMPN ---
Subjective Subjective Date of Service: 12/19/22 Interval History: This history was taken in Estonian from the patient. LUE pain controlled Orthopedics recommends nonoperative management now STR placement pending Review of Systems Review of Systems: Yes all other systems are reviewed and are negative Physical Exam Vital Signs: Vital Signs: Last Vital Signs Temp 97.6 F 12/19/22 07:18 Pulse 69 12/19/22 07:18 Resp 20 12/19/22 07:18 BP 160/69 H 12/19/22 07:18 Pulse Ox 97 12/19/22 07:18 O2 Del Method 12/19/22 07:18 O2 Flow Rate 2 12/14/22 16:47 BMI result Body Mass Index 22.6 Gen: NAD HEENT: sclera anicteric, moist mucus membranes Neck: supple Lungs: clear to auscultation bilaterally Heart: regular rate and rhythm, no murmurs Abd: soft, non-tender, non-distended Ext: no edema, LUE in sling + wrist splint, distally neurovascularly intact Skin: warm/well-perfused Neuro: alert and oriented x3 Psych: appropriate affect ? Objective Data Active Medications Acetaminophen (Acetaminophen 325 Mg Tablet) 650 mg PO Q6H PRN PRN Reason: Pain, Mild (Pain Scale 1-3) Last Admin: 12/18/22 11:27 Dose: 650 mg Documented By: MEGAN Amlodipine Besylate (Amlodipine Besylate 10 Mg Tablet) 10 mg PO DAILY [facility]; Protocol Last Admin: 12/19/22 09:20 Dose: 10 mg Documented By: DOMONIQUE Aspirin (Aspirin 81 Mg Tab.Chew) 81 mg PO DAILY [facility] Last Admin: 12/19/22 09:25 Dose: 81 mg Documented By: DOMONIQUE Atorvastatin Calcium (Atorvastatin Calcium 10 Mg Tablet) 10 mg PO DAILY [facility] Last Admin: 12/19/22 09:23 Dose: 10 mg Documented By: DOMONIQUE Dextrose (Dextrose 50 % 25 Gm/50 Ml Syringe) 25 gm IVPUSH Q15M PRN; Protocol PRN Reason: per Hypoglycemia Standing Ord. Docusate Sodium (Docusate Sodium 100 Mg Capsule) 100 mg PO BID [facility] Last Admin: 12/19/22 09:25 Dose: 100 mg Documented By: DOMONIQUE Empagliflozin (Empagliflozin 10 Mg Tablet) 10 mg PO DAILY [facility] Last Admin: 12/19/22 09:20 Dose: 10 mg Documented By: DOMONIQUE Enoxaparin Sodium (Enoxaparin Sodium 40 Mg/0.4 Ml Syringe) 40 mg SUBCUT Q24H [facility] Last Admin: 12/19/22 01:11 Dose: 40 mg Documented By: PAULINA-CARLOS Gabapentin (Gabapentin 300 Mg Capsule) 300 mg PO TID [facility] Last Admin: 12/19/22 09:25 Dose: 300 mg Documented By: DOMONIQUE Glucose (Glucose Gel 15 Gm Gel..Gram.) 15 gm PO Q15M PRN; Protocol PRN Reason: per Hypoglycemia Standing Ord. Hydralazine HCl (Hydralazine Hcl 10 Mg Tablet) 10 mg PO TID [facility]; Protocol Last Admin: 12/19/22 09:23 Dose: 10 mg Documented By: DOMONIQUE Hydrochlorothiazide (Hydrochlorothiazide 50 Mg Tablet) 50 mg PO DAILY [facility] Last Admin: 12/19/22 09:23 Dose: 50 mg Documented By: DOMONIQUE Insulin Glargine (Insulin Glargine,Hum.Rec.Anlog 100 Unit/Ml 10 Ml Vial) 20 unit SUBCUT DAILY [facility] Last Admin: 12/19/22 09:18 Dose: 20 unit Documented By: DOMONIQUE Insulin Human Lispro (Insulin Lispro 100 Unit/Ml 3 Ml Vial) 0 unit SUBCUT QIDACHS [facility]; Protocol Last Admin: 12/19/22 08:19 Dose: Not Given Documented By: DOMONIQUE Non-Admin Reason: No Insulin Coverage Losartan Potassium (Losartan Potassium 50 Mg Tablet) 100 mg PO DAILY [facility]; Protocol Last Admin: 12/19/22 09:25 Dose: 100 mg Documented By: DOMONIQUE Metformin HCl (Metformin Hcl 1,000 Mg Tablet) 1,000 mg PO BIDWM [facility] Last Admin: 12/19/22 09:25 Dose: 1,000 mg Documented By: DOMONIQUE Metoprolol Tartrate (Metoprolol Tartrate 25 Mg Tablet) 25 mg PO BID [facility]; Protocol Last Admin: 12/19/22 09:25 Dose: 25 mg Documented By: DOMONIQUE Morphine Sulfate (Morphine Sulfate 4 Mg/Ml Cartridge) 2 mg IVPUSH Q4H PRN; Protocol PRN Reason: Pain, Severe (Pain Scale 7-10) Last Admin: 12/18/22 09:46 Dose: 2 mg Documented By: MEGAN Multivitamins/Vitamin C (Multivitamin Tablet) 1 tab PO DAILY [facility] Last Admin: 12/19/22 09:20 Dose: 1 tab Documented By: DOMONIQUE Omeprazole (Omeprazole 20 Mg Capsule.Dr) 20 mg PO DAILY@0630 [facility] Last Admin: 12/19/22 04:47 Dose: 20 mg Documented By: FLACA Oxycodone HCl (Oxycodone Hcl Immed Release 5 Mg Tablet) 5 mg PO Q4H PRN PRN Reason: Pain, Moderate (Pain Scale 4-6 Last Admin: 12/19/22 04:47 Dose: 5 mg Documented By: FLACA Pharmacy Consult (Consult Rx Perform Med Rec) 1 each MISCELLANE ONCE PRN PRN Reason: Consult order Pioglitazone HCl (Pioglitazone Hcl 15 Mg Tablet) 15 mg PO BEDTIME [facility] Last Admin: 12/18/22 21:43 Dose: 15 mg Documented By: RAYMOND Sitagliptin Phosphate (Sitagliptin Phosphate 50 Mg Tablet) 50 mg PO DAILY [facility] Last Admin: 12/19/22 09:25 Dose: 50 mg Documented By: DOMONIQUE Trazodone HCl (Trazodone Hcl 50 Mg Tablet) 50 mg PO BEDTIME [facility] Last Admin: 12/18/22 21:43 Dose: 50 mg Documented By: RAYMOND Verapamil HCl (Verapamil Hcl Sr 120 Mg Tablet.Er) 120 mg PO DAILY [facility]; Protocol Last Admin: 12/19/22 09:25 Dose: 120 mg Documented By: DOMONIQUE Vitamin D (Cholecalciferol (Vitamin D3) 25 Mcg Tablet) 50 mcg PO DAILY [facility] Last Admin: 12/19/22 09:21 Dose: 50 mcg Documented By: DOMONIQUE Labs 12/16/22 07:38 12/16/22 07:38 Labs: Laboratory Results - last 24 hr 12/18/22 12/18/22 12/18/22 10:56 16:07 19:54 POC Glucose 165 H 107 138 H 12/19/22 07:20 POC Glucose 118 H Impressions Wrist X-Ray 12/18/22 10:15 IMPRESSION: 1. Questionable deformity in the mid body of the scaphoid bone with subtle transverse linear lucency. Nondisplaced fracture cannot be excluded. A CT scan may be needed to better investigate this finding. 2. Comminuted distal radial metaphysis fracture with intra-articular extension. 3. Probable nondisplaced fracture of the distal tip of the ulnar styloid. 4. Generalized osteopenia. 5. Moderate to severe atherosclerosis. Assessment and Plan (1) Multiple fractures of rib involving four or more ribs: Status: Acute (2) Closed fracture of neck of left humerus: Status: Acute (3) Dizziness: Status: Acute (4) Thyroid nodule: Status: Acute Plan d#5 77yo F with DM2, HTN, HLD, GERD presented after fall, found to have multiple fractures # L humeral neck fx, comminuted + mildly displaced/impacted # L distal radial fx, comminuted with intra-articular extension # possible L scaphoid waist fx - Ortho consulted. maintain sling/splint. Orthopedics outpt 12/25/22 at 10:30 scheduled - PT consulted, STR recommended # rib fractures - IS, pain control # dizziness - resolved. # tremor - Neuro consulted, appears to have resolved, outpt f/u if recurs # multiple thyroid nodules - outpt f/u # HTN - continue outpt regimen: amlodipine, hydralazine, losartan, verapamil, metoprolol, HCTZ # DM2 - continue outpt regimen: MTF, pioglitazone, Lantus, sitagliptin, empagliflozin # HLD - atorvastatin # VTE ppx: LMWH # dispo: STR In my clinical judgment, the patient requires continued inpatient hospitalization for the following reasons: safe disposition/placement Time Spent With Patient Time: Total time managing care of this patient today ___25_ minutes. Quality Stroke Does the patient have a stroke diagnosis?: No VTE Prior VTE?: No VTE Risk Level:: Medical - moderate - high VTE Device Contraindication: Treatment Not Indicated VTE Drug Contraindication: N/A - Med Ordered
[2022-12-19 11:12] VITALS: BP 110/56; PULSE 59; RESP 18; TEMP 36.7; O2SAT 96
[2022-12-19 11:19] LABS: Glucose, Whole Blood 165 mg/dL (60-115)
[2022-12-19] MEDS: Insulin Lispro 100 UNIT/ML 3 ML VIAL SUBCUT (11:32)
--- NOTE | 2022-12-19 11:44 | MHC.CM.PN ---
Per ROUNDS discussion, Patient is medically cleared for dc. Broad SNF search referrals have been updated and a few facilities are following but no bed openings/offers today. CM has informed MD and will continue to follow.
[2022-12-19 14:56] VITALS: BP 116/56; PULSE 64; RESP 18; TEMP 37.2; O2SAT 97
--- NOTE | 2022-12-19 15:31 | PM.DS ---
DS: Providers Provider Date of Service: 12/19/22 Date of admission: 12/15/22 00:40 Primary care physician: Hafsa Carlos MD Consults: 12/15/22 06:08 Consult to Orthopedics Routine Consulting Provider: Aric Butts Reason for consultation: humerus fx Has provider been notified: Yes 12/17/22 11:07 Consult to Neurology Routine Consulting Provider: [facility] Reason for consultation: tremor DS: Diagnosis Discharge Diagnosis (1) Multiple fractures of rib involving four or more ribs: Status: Acute (2) Closed fracture of neck of left humerus: Status: Acute (3) Thyroid nodule: Status: Acute (4) Scaphoid fracture of wrist: Status: Acute DS: Summary Hospital Course Hospital Course: from admission H+P by hospitalist Jose Burris MD, 12/15/22: this is a 77-year-old female with past medical history of diabetes, HLD, GERD, HTN,? peripheral vascular disease who comes from home? after having a fall.? Patient reports that she? has chronic vertigo, she was walking, felt dizzy, tripped on a table in the house and fell to her left side.? Patient reports that? when she fell she did lose consciousness, that she? gained her consciousness was not seconds, denies having any chest pain, denied having any palpitations, ports no change in vision, reports no previous similar? episode, no change in vision prior to the fall, no seizure-like activity.? Patient reports that she has been well, eating and drinking well, has not had any chest pain, no shortness of breath, no abdominal pain nausea or vomiting, no diarrhea constipation, no urinary symptoms and no lower extremity edema.? Currently has pain on her left arm as well as left chest wall.? Reports no difficulty with taking deep breaths. ? On arrival to the ED patient hemodynamically stable with a slightly elevated blood pressure Labs are significant for? WBC count of 11.9, hemoglobin of 11.9, hematocrit 35.9, labs otherwise unremarkable, alcoholic? negative, COVID-19 negative, troponin of 13, Patient imaging include commuted mildly displaced and impacted left humeral neck fracture, commuted distal radial fracture with an intra-articular extension, scaphoid waist fracture, multiple left-sided rib fractures, ?cervical spine CT showed asymmetrically enlarged left thyroid lobe with heterogeneous conglomerate nodule measuring about 4.8 cm in size and recommending thyroid ultrasound Ribs x-ray shows 4 displaced left-sided rib fractures ?patient will be admitted for pain control 77yo F with DM2, HTN, HLD, GERD presented after fall and was found to have multiple fractures. Hospital course by problem: # L humeral neck fx, comminuted + mildly displaced/impacted # L distal radial fx, comminuted with intra-articular extension # possible L scaphoid waist fx - Ortho consulted.? maintain sling/splint.? Orthopedics appt scheduled 12/25/22 at 13:00. - PT consulted, STR recommended # rib fractures - IS, pain control # dizziness - resolved # tremor - Neuro consulted, appears to have resolved, outpt f/u if recurs # incidental finding of multiple thyroid nodules - outpt f/u as per radiology guidelines Time Spent with Patient Time attestation: Total time managing care of this patient today __35__ minutes. Discharge coordination time: Greater than 30 minutes Quality: Safe Use of Opioids Does Pt have an Active Cancer Diagnosis on the Problem List?: No Quality: Stroke Does the patient have a stroke diagnosis?: No Physical Exam Vital Signs: Vital Signs: Last Vital Signs Temp 98.9 F 12/19/22 14:56 Pulse 64 12/19/22 14:56 Resp 18 12/19/22 14:56 BP 116/56 L 12/19/22 14:56 Pulse Ox 97 12/19/22 14:56 O2 Del Method 12/19/22 14:56 O2 Flow Rate 2 12/14/22 16:47 BMI result Body Mass Index 22.6 Const: Other: Temp Pulse Resp BP Pulse Ox O2 Del Method O2 Flow Rate 98.9 F 64 18 116/56 L 97 2 12/19/22 14:56 12/19/22 14:56 12/19/22 14:56 12/19/22 14:56 12/19/22 14:56 12/19/22 14:56 12/14/22 16:47 Gen: NAD HEENT: sclera anicteric, moist mucus membranes Neck: supple Lungs: clear to auscultation bilaterally Heart: regular rate and rhythm, no murmurs Abd: soft, non-tender, non-distended Ext: no edema, LUE in sling + wrist splint, distally neurovascularly intact Skin: warm/well-perfused Neuro: alert and oriented x3 Psych: appropriate affect DS: Data Data Completed and Pending Completed studies during hospitalization [Text1]: Laboratory Results WBC 9.3 X10*3/uL (4.8-10.8) 12/16/22 07:38 RBC 4.28 X10*6/uL (4.20-5.50) 12/16/22 07:38 Hgb 11.0 g/dl (12.0-16.0) L 12/16/22 07:38 Hct 34.6 % (37.0-47.0) L 12/16/22 07:38 MCV 80.8 fL (80.0-98.0) 12/16/22 07:38 MCH 25.7 pg (27.0-33.0) L 12/16/22 07:38 MCHC 31.8 g/dl (31.0-35.0) 12/16/22 07:38 RDW 14.0 % (11.0-16.0) 12/16/22 07:38 Plt Count 246 X10*3/uL (160-400) 12/16/22 07:38 MPV 10.9 fL (9.4-12.3) 12/16/22 07:38 Immature Gran % (Auto) 0.4 % (0.0-0.4) 12/16/22 07:38 Neut % (Auto) 72.0 % (45-73) 12/16/22 07:38 Lymph % (Auto) 16.3 % (20-40) L 12/16/22 07:38 [place] % (Auto) 10.8 % (2-11) 12/16/22 07:38 Eos % (Auto) 0.3 % (0-4) 12/16/22 07:38 Baso % (Auto) 0.2 % (0-2) 12/16/22 07:38 Lymph # (Auto) 1.5 X10*3/uL (1.2-4.9) 12/16/22 07:38 [place] # (Auto) 1.0 X10*3/uL (0.1-1.2) 12/16/22 07:38 Eos # (Auto) 0.0 X10*3/uL (0.0-0.4) 12/16/22 07:38 Baso # (Auto) 0.0 X10*3/uL (0.0-0.2) 12/16/22 07:38 Abs Immat Gran (auto) 0.04 X10*3/uL (0.00-0.03) H 12/16/22 07:38 Absolute Neuts (auto) 6.7 x10*3/uL (2.0-8.3) 12/16/22 07:38 Absolute Nucleated RBC 0.000 X10*3/uL (0.0-0.012) 12/16/22 07:38 Nucleated RBC % (auto) 0.0 /100WBC (0.0-0.2) 12/16/22 07:38 Sodium 136 mmol/L (135-145) 12/16/22 07:38 Potassium 3.5 mmol/L (3.3-5.1) 12/16/22 07:38 Chloride 94 mmol/L (96-108) L 12/16/22 07:38 Carbon Dioxide 27 mmol/L (22-29) 12/16/22 07:38 Anion Gap 19 (12-20) 12/16/22 07:38 BUN 25 mg/dL (9-16) H 12/16/22 07:38 Creatinine 0.88 mg/dL (0.5-1.4) 12/16/22 07:38 Estim Creat Clear Calc 43.5 12/16/22 07:38 Estimated GFR > 60 12/16/22 07:38 POC Glucose 165 mg/dL (60-115) H 12/19/22 11:13 Random Glucose 285 mg/dL (60-115) H 12/16/22 07:38 Calcium 9.0 mg/dL (8.4-10.2) 12/16/22 07:38 Total Bilirubin 0.5 mg/dL (0.0-1.0) 12/16/22 07:38 Direct Bilirubin < 0.2 mg/dL (0.0-0.5) 12/14/22 16:53 AST 18 U/L (5-31) 12/16/22 07:38 ALT 10 U/L (0-31) 12/16/22 07:38 Alkaline Phosphatase 52 U/L (39-117) 12/16/22 07:38 Total Creatine Kinase 79 U/L (26-140) 12/14/22 16:53 Troponin I High Sens 13.0 ng/L (<3.5-17.0) 12/14/22 16:53 Total Protein 6.7 g/dL (6.5-8.0) 12/16/22 07:38 Albumin 3.7 g/dL (3.5-5.0) 12/16/22 07:38 TSH 2.22 uIU/mL (0.32-4.0) 12/15/22 08:57 Urine Color Yellow 12/15/22 08:30 Urine Appearance Clear 12/15/22 08:30 Urine pH 5.5 (5.0-9.0) 12/15/22 08:30 Ur Specific [place] 1.020 (1.005-1.025) 12/15/22 08:30 Urine Protein Negative mg/dL (Neg-Trace) 12/15/22 08:30 Urine Glucose (UA) >=1000 mg/dL (Negative) H 12/15/22 08:30 Urine Ketones Trace mg/dL (Negative) 12/15/22 08:30 Urine Blood Negative (Negative) 12/15/22 08:30 Urine Nitrite Negative (Negative) 12/15/22 08:30 Ur Leukocyte Esterase Negative (Negative) 12/15/22 08:30 Urine RBC 3-5 /HPF (0-2) H 12/15/22 08:30 Urine WBC 0-5 /HPF (0-5) 12/15/22 08:30 Ur Squamous Epith Cells 3-5 /HPF (0-2) 12/15/22 08:30 Urine Bacteria None Seen (None Seen) 12/15/22 08:30 Hyaline Casts 3-5 /LPF (0-2) 12/15/22 08:30 Ethyl Alcohol < 10 mg/dL 12/14/22 16:53 COVID-19 (KELLY) Negative (Negative) 12/14/22 16:53 COVID-19 Clin Com See Note 12/14/22 16:[address] 12/14/22 17:42 IMPRESSION: 1. No intracranial hemorrhage, calvarial fracture, or other acute intracranial abnormality. 2. No traumatic subluxation or acute cervical spine fracture. 3. Scattered small sub-4 mm subpleural biapical pulmonary nodules right greater than left, likely benign. If patient is high risk for primary pulmonary malignancy consider optional low-dose chest CT in 12 months. Otherwise no follow-up or core per Fleischner Society guidelines. 4. Asymmetrically enlarged left thyroid lobe with heterogeneous conglomerate nodules or large dominant nodule measuring 4.8 cm in size. Suggest thyroid ultrasound for further evaluation if clinically appropriate. Head CT 12/14/22 17:42 IMPRESSION: 1. No intracranial hemorrhage, calvarial fracture, or other acute intracranial abnormality. 2. No traumatic subluxation or acute cervical spine fracture. 3. Scattered small sub-4 mm subpleural biapical pulmonary nodules right greater than left, likely benign. If patient is high risk for primary pulmonary malignancy consider optional low-dose chest CT in 12 months. Otherwise no follow-up or core per Fleischner Society guidelines. 4. Asymmetrically enlarged left thyroid lobe with heterogeneous conglomerate nodules or large dominant nodule measuring 4.8 cm in size. Suggest thyroid ultrasound for further evaluation if clinically appropriate. Elbow X-Ray 12/14/22 19:52 IMPRESSION: 1. Comminuted mildly displaced and impacted left humeral neck fracture. 2. Comminuted distal radial fracture with intra-articular extension. 3. Equivocal scaphoid waist fracture. 4. Multiple left-sided rib fractures, best seen on separate report from a simultaneous chest radiograph. 5. Questionable 2 mm foreign body in the ventral soft tissues adjacent to the base of the first metacarpal. 6. 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 Hand/Wrist X-Ray 12/14/22 19:52 IMPRESSION: 1. Comminuted mildly displaced and impacted left humeral neck fracture. 2. Comminuted distal radial fracture with intra-articular extension. 3. Equivocal scaphoid waist fracture. 4. Multiple left-sided rib fractures, best seen on separate report from a simultaneous chest radiograph. 5. Questionable 2 mm foreign body in the ventral soft tissues adjacent to the base of the first metacarpal. 6. 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 Humerus X-Ray 12/14/22 19:52 IMPRESSION: 1. Comminuted mildly displaced and impacted left humeral neck fracture. 2. Comminuted distal radial fracture with intra-articular extension. 3. Equivocal scaphoid waist fracture. 4. Multiple left-sided rib fractures, best seen on separate report from a simultaneous chest radiograph. 5. Questionable 2 mm foreign body in the ventral soft tissues adjacent to the base of the first metacarpal. 6. 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 Ribs X-Ray 12/14/22 19:52 IMPRESSION: 1. Multiple displaced left-sided rib fractures. 2. No acute cardiopulmonary findings. 3. Left humeral neck fracture, described on separate report from the left shoulder. Shoulder X-Ray 12/14/22 19:52 IMPRESSION: 1. Comminuted mildly displaced and impacted left humeral neck fracture. 2. Comminuted distal radial fracture with intra-articular extension. 3. Equivocal scaphoid waist fracture. 4. Multiple left-sided rib fractures, best seen on separate report from a simultaneous chest radiograph. 5. Questionable 2 mm foreign body in the ventral soft tissues adjacent to the base of the first metacarpal. 6. 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 Thyroid Ultrasound 12/15/22 08:04 IMPRESSION: 1. Bilateral thyroid nodules. 2 nodular greater than 1 cm and are nonsuspicious. Recommend follow-up as per TI-RADS recommendation 2. TR1 (0 point) and TR 2 (2 points): 3. TR4 (4-6 points): FNA if more than or equal to 1.5 cm in maximum dimension, followup ultrasound in 1, 2, 3 and 5 years if 1 to 1.4 cm in maximum dimension. 4. TR5 (more than or equal to 7 points): FNA if more than or equal to 1 cm in maximum dimension, followup ultrasound every year for 5 years if 0.5 to 0.9 cm in maximum dimension. Wrist X-Ray 12/18/22 10:15 IMPRESSION: 1. Questionable deformity in the mid body of the scaphoid bone with subtle transverse linear lucency. Nondisplaced fracture cannot be excluded. A CT scan may be needed to better investigate this finding. 2. Comminuted distal radial metaphysis fracture with intra-articular extension. 3. Probable nondisplaced fracture of the distal tip of the ulnar styloid. 4. Generalized osteopenia. 5. Moderate to severe atherosclerosis. Discharge Plan Discharge Patient Disposition: [facility] Discharge Diagnosis: humerus fracture, distal radius fracture, scaphoid fracture, multiple rib fractures thyroid nodules Referrals: [facility] [Outside] - 1 Week Hafsa Skinner MD [Primary Care Provider] - 1 Week Vanessa Drake MD [Physician] - 12/25/22 1:00 pm (12/25/22 at 1pm with AR) Discharge Medications: New oxycodone 5 mg Tablet 5 mg PO Q4H PRN (Reason: Pain, Moderate (Pain Scale 4-6) Qty: 18 0RF Rx Instructions: Partial Fill upon patient request. Continued metformin 1,000 mg tablet 1 tab PO BID losartan 100 mg tablet 1 tab PO DAILY metoprolol tartrate 25 mg Tablet 25 mg PO BID Qty: 60 0RF Protocol: Hold for SBP/HR < HOLD for SBP < : 90 HOLD for HR < : 60 amlodipine 10 mg tablet 1 tab PO DAILY docusate sodium 100 mg capsule 1 cap PO BID Januvia 50 mg tablet 1 tab PO DAILY Farxiga 5 mg tablet 1 tab PO DAILY insulin glargine [Lantus Solostar U-100 Insulin] 100 unit/mL (3 mL) insulin pen 20 unit subcut DAILY gabapentin 300 mg capsule 300 mg PO TID simvastatin 20 mg tablet 20 mg PO BEDTIME trazodone 50 mg tablet 50 mg PO BEDTIME cholecalciferol (vitamin D3) 50 mcg (2,000 unit) capsule 50 mcg PO DAILY verapamil 120 mg capsule,ext rel. pellets 24 hr 120 mg PO DAILY chlorthalidone 50 mg tablet 50 mg PO DAILY hydralazine 10 mg tablet 10 mg PO TID pantoprazole 20 mg tablet,delayed release (DR/EC) 20 mg PO BID pioglitazone 15 mg tablet 15 mg PO BEDTIME aspirin 81 mg tablet,chewable 1 tab PO DAILY (DME) lancets [TRUEplus Lancets] 33 gauge misc See Rx Instructions topical .MEDSUPPLY Qty: 100 Rx Instructions: As directed multivitamin Tablet 1 tab PO DAILY Discharge Orders: Discharge Order (Routine); Ordered 12/19/22 Ordered By: Olga Lidia Jack Diet: Diabetic diet Activity on Discharge: As tolerated Stand Alone Forms: Patient Portal Discharge page Care Plan Goals: healing/pain control Health Concerns: # L humeral neck fx, comminuted + mildly displaced/impacted # L distal radial fx, comminuted with intra-articular extension # possible L scaphoid waist fx # rib fractures # multiple thyroid nodules Plan of Treatment: LUE: NWB sling - may come out to let the arm hand and perform gentle elbow ROM Wrist splint at all times Encourage finger rom flexion, extension, abduction, adduction f/u 12/25/22 with orthopedics at 10:30am # L humeral neck fx, comminuted + mildly displaced/impacted # L distal radial fx, comminuted with intra-articular extension # possible L scaphoid waist fx - Ortho consulted.? maintain sling/splint.? Orthopedics outpt 12/25/22 at 13:00 scheduled - PT consulted, STR recommended # rib fractures - IS, pain control # multiple thyroid nodules - outpt follow-up Assessment: See Discharge Summary.
--- NOTE | 2022-12-19 15:46 | MHC.CM.PN ---
CM met with Patient at bedside x2 with Musculoskeletal Physiotherapist to do a HCP with Patient and to discuss dc planning. Patient is medically cleared for dc to STR/SNF today and she has accepted [facility] bed offer. CM has made several attempts to reach Patient's Grandson/HCP/Kevin @ [phone] to inform him of his Grandmother's bed acceptance but there was no answer and no opportunity to leave a voice message. IMM addressed with Patient.
[2022-12-19 16:06] LABS: Glucose, Whole Blood 144 mg/dL (60-115)
[2022-12-19 16:35] LABS: COVID-19 Test Negative (Negative); IDNOW Serial# BCCEAD1C
== END 2022-12-19 18:31 | disposition skilled nursing facility (03) ==
LOC: HO.ED 21:45 → HO.EDOVER 12-15 00:48 → HO.IMC 12-15 03:09
PROVIDERS: Hospitalist; Admitting Provider Internal Medicine; Emergency Provider Emergency Medicine; PCP Internal Medicine; Visit Provider Family Medicine
DX: S22.42XA Multiple fractures of ribs, left side, initial encounter for closed fracture (principal); S42.292A Other displaced fracture of upper end of left humerus, initial encounter for closed fracture; S52.502A Unspecified fracture of the lower end of left radius, initial encounter for closed fracture; E04.1 Nontoxic single thyroid nodule; R42 Dizziness and giddiness; W01.190A Fall on same level from slipping, tripping and stumbling with subsequent striking against furniture, initial encounter; Y93.9 Activity, unspecified; Y92.000 Kitchen of unspecified non-institutional (private) residence as the place of occurrence of the external cause; Y99.9 Unspecified external cause status; R25.1 Tremor, unspecified; E11.9 Type 2 diabetes mellitus without complications; M54.2 Cervicalgia; I10 Essential (primary) hypertension; R26.81 Unsteadiness on feet; R51.9 Headache, unspecified; R07.81 Pleurodynia; M25.532 Pain in left wrist; M79.602 Pain in left arm; Z20.822 Contact with and (suspected) exposure to COVID-19; Z20.828 Contact with and (suspected) exposure to other viral communicable diseases; Z79.4 Long term (current) use of insulin; Z79.899 Other long term (current) drug therapy
CPT/HCPCS: 29125; 36415; 70450; 71101; 72125; 73030; 73060; 73080; 73110; 73130; 76536; 80048; 80053; 80076; 81001; 82077; 82550; 82947; 84443; 84484; 85025; 87635; 93005; 96361; 96372; 96374; 96375; 96376; 97110; 97162; 99222; 99285; J1650; J2270

== ENCOUNTER 2022-12-25 10:04 | Outpatient (REF) | payer OTHER, SELFPAY ==
--- NOTE | ~2022-12-25 | XR_ITS ---
EXAMINATION: XR WRIST, LEFT CLINICAL INFORMATION: Pain. COMPARISON: None TECHNIQUE: PA, lateral, and oblique views of the left wrist. FINDINGS: There is bony demineralization. The proximal and distal carpal rows are intact. No acute fracture or dislocation is seen. The previously noted distal radial fracture with intra-articular extension is now faintly redemonstrated. There is an ulnar positive variance. No abnormal bone erosion is seen. There are diffuse atherosclerotic calcifications. XR/XR wrist LT 2V IMPRESSION: The previously noted intra-articular distal right radial metaphyseal fracture is now only faintly redemonstrated. No scaphoid fracture is seen.
== END 2022-12-25 10:05 | disposition home or self-care (01) ==
LOC: HO.HOSX 10:04
PROVIDERS: Visit Provider Orthopaedic Surgery
DX: S52.502A Unspecified fracture of the lower end of left radius, initial encounter for closed fracture (principal); S62.002A Unspecified fracture of navicular [scaphoid] bone of left wrist, initial encounter for closed fracture; S42.212A Unspecified displaced fracture of surgical neck of left humerus, initial encounter for closed fracture
CPT/HCPCS: 73100; 99212

== ENCOUNTER 2023-01-08 11:09 | Outpatient (REF) | payer OTHER, SELFPAY ==
--- NOTE | ~2023-01-08 | XR_ITS ---
EXAMINATION: XR SHOULDER, LEFT CLINICAL INFORMATION: Left shoulder pain COMPARISON: None TECHNIQUE: 2 views of the left shoulder. FINDINGS: Left shoulder There is a left surgical neck nondisplaced fracture. There is loss of left AC joint space with periarticular spurring. The soft tissues are normal. Incidental finding of fractures involving the left lateral third, fourth, fifth and sixth ribs. XR/XR shoulder LT min 2V IMPRESSION: 1. Nondisplaced left surgical neck fracture. 2. Degenerative arthritic changes left A.C. joint. 3. Multiple left rib fractures.
== END 2023-01-08 11:10 | disposition home or self-care (01) ==
LOC: HO.HOSX 11:09
PROVIDERS: Visit Provider Physician Assistant
DX: S42.212A Unspecified displaced fracture of surgical neck of left humerus, initial encounter for closed fracture (principal)
CPT/HCPCS: 73030; 99212

== ENCOUNTER 2023-01-29 16:37 | Outpatient (REF) | payer OTHER, SELFPAY ==
--- NOTE | ~2023-01-29 | XR_ITS ---
EXAMINATION: LEFT WRIST. CLINICAL INFORMATION: Left scaphoid fracture.. COMPARISON: Left wrist 12/25/2022 TECHNIQUE: 4 views FINDINGS: There is a healing distal radial fracture with callus formation. Faint fracture line is visualized. There is diffuse osteopenia. The wrist joint and the carpometacarpal joint space is maintained normal. There is mild wrist soft tissue swelling more so along the dorsal distal hand. XR/XR wrist LT w scaphoid IMPRESSION: Healing distal radial fracture with callus formation with faint fracture line visualized. There is mild wrist soft tissue swelling more so along the dorsal distal hand.
== END 2023-01-29 16:38 | disposition home or self-care (01) ==
LOC: HO.HOSX 16:37
PROVIDERS: Visit Provider Physician Assistant
DX: S52.502A Unspecified fracture of the lower end of left radius, initial encounter for closed fracture (principal)
CPT/HCPCS: 73110; 99212

== ENCOUNTER 2023-08-08 12:58 | Outpatient (REF) | payer OTHER, SELFPAY ==
--- NOTE | ~2023-08-08 | US_ITS ---
EXAMINATION: NONINVASIVE ASSESSMENT OF THE ARTERIES OF BOTH LOWER EXTREMITIES INCLUDING PVR EXAM AND BILATERAL LOWER EXTREMITY DUPLEX CLINICAL INFORMATION: Peripheral vascular disease, unspecified COMPARISON: 08/09/2022 TECHNIQUE: Ankle pulse volume recordings, ankle pressure measurements and ankle brachial indices were obtained of the lower extremity arterial system bilaterally in addition to duplex Doppler techniques with wave form analysis and measurement of velocities in the common femoral, profunda femoral, superficial femoral, popliteal, tibial and peroneal arteries. The study was performed only at rest. FINDINGS: RIGHT LEG 1. Right Ankle-Brachial Index: 1.5 (likely falsely elevated secondary to noncompressible vessels) >0.97-1.25 = normal - no significant arterial disease 0.75-0.96 = mild peripheral arterial disease 0.5-0.74 = moderate peripheral arterial disease <0.50 = severe peripheral arterial disease <0.30 = critical arterial disease 2. Segmental Pressures (mmHg): Brachial: 135 Ankle:DP 203 3. PVR Waveforms: Ankle: Lack of dicrotic notch, similar to prior 4. Direct Duplex: Common femoral artery: 162 cm/s, monophasic Profunda femoris artery: 189 cm/s, monophasic Superficial femoral artery (proximal): 118 cm/s, monophasic Superficial femoral artery (mid): 109 cm/s, monophasic Superficial femoral artery (distal): 112 cm/s, monophasic Proximal Popliteal artery: 163 cm/s, monophasic Distal popliteal artery: 148 cm/s, monophasic Proximal posterior tibial artery: 107 cm/s, monophasic Mid posterior tibial artery: 22.4 cm/s, monophasic Peroneal artery: 41 cm/s, monophasic Anterior tibial artery: 55 cm/s, monophasic Dorsalis pedis: 44.8 cm/s, monophasic LEFT LE. Left Ankle-Brachial Index: 1.5 (likely falsely elevated secondary to noncompressible vessels) >0.97-1.25 = normal - no significant arterial disease 0.75-0.96 = mild peripheral arterial disease 0.5-0.74 = moderate peripheral arterial disease <0.50 = severe peripheral arterial disease <0.30 = critical arterial disease 2. Segmental Pressures: Brachial: 133 Ankle: DP 203 3. PVR Waveforms: Ankle: Abnormal, low amplitude, minimal phasicity decreased from prior 4. Direct Duplex: Common femoral artery: 96.3 cm/s, Multiphasic Profunda femoris artery: 171 cm/s, monophasic There is either significant calcific disease of the superficial femoral artery from the stent construct proximal to mid aspect, on the submitted images it is difficult to discern. In either case the proximal and mid portions of the superficial femoral artery are occluded. The distal aspect of the superficial femoral artery is patent with peak systolic velocity is 133 cm/s monophasic waveform. Proximal Popliteal artery: 87.2 cm/s, monophasic tardus parvus waveform Distal popliteal artery: 106 cm/s, monophasic Mid posterior tibial artery: 18.3 cm/s, monophasic tardus parvus waveform Distal posterior tibial artery is not visualized, possibly occluded Peroneal artery: Not visualized Anterior tibial artery: 17.7 cm/s, monophasic tardus parvus Dorsalis pedis: 40.4 cm/s, monophasic US/US arterial duplex LE BI IMPRESSION: The ankle brachial indices are nondiagnostic, likely relating to calcified poorly compressible vessels. On PVR waveforms and lack of dicrotic notch on the right, similar to prior. On the left there is a minimally phasic waveform. Monophasic flow is seen throughout the right lower extremity arterial vasculature suggesting inflow disease On the left there is occlusion of the distal superficial femoral artery with low velocity monophasic waveforms beyond. Uncertain if there is a stent within the superficial femoral artery or if there is dense peripheral calcification.
== END 2023-08-08 12:59 | disposition home or self-care (01) ==
LOC: HO.US 12:58
PROVIDERS: Visit Provider Surgery Vascular Surgery
DX: I70.213 Atherosclerosis of native arteries of extremities with intermittent claudication, bilateral legs (principal)
CPT/HCPCS: 93923; 93925

== ENCOUNTER 2023-10-15 15:06 | Emergency (ER) | payer OTHER, SELFPAY ==
--- NOTE | ~2023-10-15 | CT_ITS ---
EXAMINATION: CT HEAD WITHOUT CONTRAST CLINICAL INFORMATION: Altered mental status COMPARISON: 12/14/2022 TECHNIQUE: Contiguous axial imaging was performed from the skull base to vertex without intravenous administration of contrast. This CT examination was performed using dose optimization techniques as appropriate, variously including the following: *Automated exposure control *Adjustment of mA and/or kV according to patient size (this includes techniques or standardized protocols for targeted exams where dose is matched to indication/reason for exam; i.e. extremities or head) *Use of iterative reconstruction technique DLP: 624 mGy-cm FINDINGS: There is an acute hyperdense left posterior parietal intraparenchymal hematoma with surrounding edema and associated adjacent subarachnoid hemorrhage. The acute hemorrhage measures approximately 3.3 x 2.8 cm, and including the surrounding edema of the abnormality measures approximately 4 x 4 cm. There is no detected intraventricular hemorrhage. No significant transtentorial or subfalcine herniation is evident. Mild age-related involutional changes are again evident. 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 In the posterior fossa, the brainstem, cerebellum and fourth ventricle are unremarkable. The orbits and bony calvarium are intact. The paranasal sinuses and mastoid air cells are well pneumatized and clear. CT/CT head/brain wo IV con IMPRESSION: 1. Acute left posterior parietal 4 cm intraparenchymal hematoma with surrounding vasogenic edema and associated subarachnoid hemorrhage. No significant subfalcine or transtentorial herniation. As no underlying mass is detected and none was present on the prior examination, is felt likely to reflect a primary parenchymal hematoma although a hemorrhagic mass is not excluded with certainty. 2. No change in periventricular white matter disease normal focal geographic left frontal hypodensity with encephalomalacia. 3. The above emergent findings reported by phone at the time of interpretation on 10/15/2023 at 6:55 PM to Sofie Murcia in the [place] [facility].
--- NOTE | ~2023-10-15 | XR_ITS ---
EXAMINATION: XR CHEST CLINICAL INFORMATION: Difficulty breathing COMPARISON: None available. TECHNIQUE: 2 views of the chest were obtained. FINDINGS: Lungs grossly are clear. No pleural effusions. Heart and pulmonary vessels normal. XR/XR chest 2V IMPRESSION: No active disease.
[2023-10-15 15:15] VITALS: BP 108/45; PULSE 63; RESP 18; TEMP 36.6; O2SAT 100
[2023-10-15 15:32] VITALS: BP 104/64; PULSE 68; O2SAT 83; BMI 21.4
--- NOTE | 2023-10-15 15:36 | PC.NURSE ---
Patient arrived via ems from home accompanied by son . Per son patient lives alone and has been more confused, weak, and has a a poor appetite for the last 2 days. Per son patient has a herb digger but she is away this week. Son states patient alert to self
--- NOTE | 2023-10-15 15:59 | ED.AMS ---
HPI - Altered Mental Status General Chief Complaint: Altered Mental Status Stated Complaint: CONFUSION,SOB,NECK PAIN,NOT EATING SINCE T-1 Time Seen by Provider: 10/15/23 15:56 Source: patient, family and RN notes reviewed Mode of arrival: ambulatory Limitations: altered mental status History of Present Illness HPI narrative: This is a 77-year-old [place]ian-speaking female, with a history of diabetes, GERD, hypertension, hyperlipidemia, osteoporosis, PAD and PVD, presenting to the emergency department for evaluation of altered mental status. Patient presents with flynn who states that over the last 2 days she has been eating less. Flynn also reports that at approximately 7:30 a.m. this morning, patient seemed confused. Flynn also reports that this morning patient was listening to him however staring off into the distance as if he was sitting in a different spot. He also states that patient was answering questions that were inappropriate. For example, flynn asked weight here was in patient states my neck . Flynn reports no recent illnesses. She is incontinent of urine at baseline therefore she wears diapers usually. Flynn reports no recent falls however patient does spend time alone at home. Flynn does report that she has had difficulty ambulating this morning. On arrival to the emergency room, patient reporting her hands are bothering her. She is alert & oriented x 0. MD complaint: altered mental status and confusion Time: 07:30 Timing confirmed by: family member Severity: severe Consistency of symptoms: constant Associated symptoms: denies other symptoms Related Data Home Medications Medication Instructions Recorded Confirmed aspirin 81 mg chewable tablet 1 tab PO DAILY 04/18/21 12/15/22 chlorthalidone 50 mg tablet 50 mg PO DAILY 04/18/21 12/15/22 cholecalciferol (vitamin D3) 50 50 mcg PO DAILY 04/18/21 12/15/22 mcg (2,000 unit) capsule gabapentin 300 mg capsule 300 mg PO TID 04/18/21 12/15/22 hydralazine 10 mg tablet 10 mg PO TID 04/18/21 12/15/22 pantoprazole 20 mg tablet,delayed 20 mg PO BID 04/18/21 12/15/22 release pioglitazone 15 mg tablet 15 mg PO BEDTIME 04/18/21 12/15/22 simvastatin 20 mg tablet 20 mg PO BEDTIME 04/18/21 12/15/22 trazodone 50 mg tablet 50 mg PO BEDTIME 04/18/21 12/15/22 verapamil 120 mg 24 hr 120 mg PO DAILY 04/18/21 12/15/22 capsule,extended release losartan 100 mg tablet 1 tab PO DAILY 06/01/21 12/15/22 metformin 1,000 mg tablet 1 tab PO BID 06/01/21 12/15/22 lancets 33 gauge (TRUEplus Lancets) #100 ea 04/23/22 12/15/22 multivitamin 1 tab PO DAILY 04/23/22 12/15/22 amlodipine 10 mg tablet 1 tab PO DAILY 12/14/22 12/15/22 dapagliflozin propanediol 5 mg 1 tab PO DAILY 12/14/22 12/15/22 tablet (Farxiga) docusate sodium 100 mg capsule 1 cap PO BID 12/14/22 12/15/22 insulin glargine 100 unit/mL (3 20 unit subcut DAILY 12/14/22 12/15/22 mL) subcutaneous pen (Lantus Solostar U-100 Insulin) sitagliptin phosphate 50 mg tablet 1 tab PO DAILY 12/14/22 12/15/22 (Januvia) Previous Rx's Medication Instructions Recorded metoprolol tartrate 25 mg tablet 25 mg PO BID #60 tabs 06/07/21 oxycodone 5 mg tablet 5 mg PO Q4H PRN Pain, Moderate 12/19/22 (Pain Scale 4-6 #18 tabs Allergies Allergy/AdvReac Type Severity Reaction Status Date / Time No Known Allergies Allergy Verified 12/25/22 13:21 Review of Systems Review of Systems: Yes all other systems are reviewed and are negative Constitutional: Constitutional: Reports as per HPI Neurologic: Reports confusion Psychiatric: Psychiatric: Reports confusion [facility] Past Medical History Attestation statement: The following information was validated with the patient. Medical History Diabetes GERD (gastroesophageal reflux disease) Elevated cholesterol History of femoral angiogram Peripheral vascular disease PAD (peripheral artery disease) HTN (hypertension) Hyperlipemia Osteoporosis Surgical History H/O colonoscopy Hx of angioplasty Hx of hand surgery Family History Family History Father No problems noted. Mother No problems noted. Daughter No problems noted. Son No problems noted. Son No problems noted. Son No problems noted. Social History Social History Household Members: None Housing: Apartment Are you a primary customer care coordinator to a significant other at home: No Do you presently have visiting nurse or other home services: Yes Alcohol intake: former Patient Tobacco Use Status: Former Tobacco user Quit Date: > 50 yrs Tobacco use type: Cigarette Smoked in Last 30 Days: No Use of substances other than those prescribed or required for medical reasons: No Advance Directives: No Advance Directives Information Provided: No service: No Current occupational status: disabled Physical Exam ED Vital Signs: Vital Signs - 24 hr 10/15/23 15:15 10/15/23 19:20 10/15/23 19:51 Temperature 97.9 F 98.1 F Pulse Rate 63 66 68 Respiratory Rate 18 14 16 Blood Pressure 108/45 L 146/53 H 143/60 H Pulse Oximetry 100 95 Oxygen Delivery Method Room Air Room Air BMI result Body Mass Index 21.4 Const General: awake, confusion and tired appearing Nutritional Appearance: thin Orientation/consciousness: confusion Limitations: altered mental status HENMT Other: partial left sided gaze noted on examination. Head: Yes normal to inspection, Yes normocephalic and Yes atraumatic Ears: hearing grossly normal bilaterally General nose exam: Normal external nose present Face and sinus: Yes normal facial exam Mouth: Normal oral and palatal mucosa present, oropharynx normal and moist mucous membranes Throat: Yes posterior oropharynx normal Eyes General: appearance normal, both eyes and all related structures Eyelids: Yes eyelids normal Conjunctivae: conjunctivae normal Sclerae: sclerae normal Pupils: Equal, round and reactive pupils present EOM: EOMs intact bilaterally Neck Neck: Yes normal visual inspection, Yes full ROM and Yes no lymphadenopathy Lymphatic: no lymphadenopathy noted Chest Chest palpation & inspection: normal inspection of the chest Resp Effort & Inspection: normal respiratory effort and able to speak in complete sentences Auscultation: clear to auscultation bilaterally, no crackles, no rales, no rhonchi and no wheezes Cardio Rate: regular rate Rhythm: regular rhythm Heart sounds: S1 normal heart sound present and S2 normal heart sound present GI Inspection: Yes normal to inspection Skin General skin exam: no rashes or lesions noted Trauma: no lacerations or abrasions Wounds: no wounds Neuro Other: RLE: 3/5 strength, sensation intact LLE: 4/5 strength, sensation intact General: confusion and Unable to assess gait Cranial nerves: Yes Equal, round and reactive pupils present and Yes Midline tongue present Speech: Expressive aphasia present Gait exam (Neuro): Unable to assess gait Motor exam (neuro): no tremor noted Extrem General: Yes normal to inspection Right upper extremity: normal to inspection Left upper extremity: normal to inspection Right lower extremity: normal to inspection Left lower extremity: normal to inspection NIH Stroke Scale Internal: Initial- Upon Arrival Time: 17:30 Level of Consciousness: Alert Level of Consciousness Questions: Answers neither question correctly Level of Consciousness Commands: Performs neither task correctly Best Gaze: Partial gaze palsy Visual: No visual loss Facial Palsy: Normal Motor Arm (Right): Some effort against gravity Motor Arm (Left): Some effort against gravity Motor Leg (Right): Some effort against gravity Motor Leg (Left): Some effort against gravity Limb Ataxia: Absent Sensory: Mild to moderate sensory loss Best Language: Mild to moderate aphasia Dysarthia: Mild to moderate dysarthria Extinction and Inattention: No abnormality Score: 16 Course Reevaluation(s) Reevaluation #1: Lactic acidosis at 3.2, BUN 41 creatinine 1.39, which is double at her baseline. Chest x-ray negative for infection. Unclear whether not this is a lactic acidosis due to ?metformin or possible urinary tract infection. 1L IV fluids, and 1 g of ceftriaxone IV ordered as infection is suspected at this time. Urinalysis pending. Will closely monitor blood pressure. Time: 18:00 Reevaluation #2: It was brought to my attention from the radiology department that patient has abnormality on CT scan. I reviewed CT scan with my attending physician, Dr. Sarah. [place] Radiologist, Dr. Ulrich, called reporting acute left posterior parietal 4 cm intraparenchymal hematoma with surrounding vasogenic edema and associated subarachnoid hemorrhage. I urgently called [facility] for transfer. I discussed these findings with the patient's grandson at bedside. Patient's bed at 30?. Time: 18:55 Reevaluation #3: Spoke to [facility] ICU, Dr. Hensley, who will accept patient. Initiation of transfer started. Recommends keeping blood pressure under 150 systolically. Time: 19:22 Additional Reevaluation(s): 194 - Pt left the ED via ALS, BP remained below 145 systolically. Medications Administered Discontinued Medications Generic Name Dose Route Start Last Admin Trade Name Tom PRN Reason Stop Dose Admin Sodium Chloride 1,644 mls @ 1,644 mls/hr 10/15/23 17:55 10/15/23 18:17 Ns 30 ml/kg infuse over 1 hr (1644 ml) 10/15/23 18:54 1,644 mls/hr IV Administration .Q1H STA Ceftriaxone Sodium 1 gm/ 50 mls @ 100 mls/hr 10/15/23 17:55 10/15/23 18:43 Sodium Chloride IV 10/15/23 18:24 Infused ONCE ONE Infusion Medical Decision Making Medical Decision Making [facility] Narrative: This is a 77-year-old female, with a history of diabetes, GERD, hypertension, hyperlipidemia, osteoporosis, PAD. and PVD, presenting to the emergency department for evaluation of altered mental status. On arrival, blood pressure 108/45, all other vital signs within normal limits. Patient on examination is confused, alert and orientedx0. Appears comfortable. Grandson giving history. NIH scale 16. Difficult to obtain examination as pt does not follow commands. Plan: Labs, EKG, cultures, lactic, ammonia, glucose, chest x-ray, CT head, UA Differential Diagnosis Differential Diagnoses: The differential diagnosis associated with the presentation includes Failure to thrive CVA UTI PNE metabolic encephalopathy Admission/Observation Consideration of admission/observation: Escalation of care including admission/observation considered escalation of care including admission considered given presentation and acute confusion onset. Consult Healthcare Provider Management of the patient was discussed with: International Controller [facility] ICU physician, Dr. Hensley Lab Data [facility] Lab Attestation statement: I reviewed the patient's lab results. Leukocytosis at 13.9 with a left shift noted, elevated troponin at 77.7, CRP 1.65, lactic acidosis 3.2, BUN 41 10/15/23 17:29 10/15/23 17:28 Labs: Lab Results 10/15/23 10/15/23 10/15/23 Range/Units 17:28 17:29 18:13 WBC 13.9 H (4.8-10.8) X10*3/uL RBC 4.73 (4.20-5.50) X10*6/uL Hgb 12.9 (12.0-16.0) g/dl Hct 39.5 (37.0-47.0) % MCV 83.5 (80.0-98.0) fL MCH 27.3 (27.0-33.0) pg MCHC 32.7 (31.0-35.0) g/dl RDW 13.7 (11.0-16.0) % Plt Count 354 D (160-400) X10*3/uL MPV 10.9 (9.4-12.3) fL Immature Gran % (Auto) 0.5 H (0.0-0.4) % Neut % (Auto) 82.0 H (45-73) % Lymph % (Auto) 9.7 L (20-40) % Cottle % (Auto) 7.5 (2-11) % Eos % (Auto) 0.1 (0-4) % Baso % (Auto) 0.2 (0-2) % Lymph # (Auto) 1.4 (1.2-4.9) X10*3/uL Cottle # (Auto) 1.0 (0.1-1.2) X10*3/uL Eos # (Auto) 0.0 (0.0-0.4) X10*3/uL Baso # (Auto) 0.0 (0.0-0.2) X10*3/uL Abs Immat Gran (auto) 0.07 H (0.00-0.03) X10*3/uL Absolute Neuts (auto) 11.4 H (2.0-8.3) x10*3/uL Absolute Nucleated RBC 0.000 (0.0-0.012) X10*3/uL Nucleated RBC % (auto) 0.0 (0.0-0.2) /100WBC ESR 23 H (0-20) MM/HR Sodium 143 (135-145) mmol/L Potassium 4.3 D (3.3-5.1) mmol/L Chloride 102 (96-108) mmol/L Carbon Dioxide 24 (22-29) mmol/L Anion Gap 21 H (12-20) BUN 41 H (9-16) mg/dL Creatinine 1.39 (0.5-1.4) mg/dL Estim Creat Clear Calc 27.5 Estimated GFR 37 Random Glucose 213 H (60-115) mg/dL Lactic Acid 3.2 H* (0.5-2.0) mmol/L Calcium 10.5 H D (8.4-10.2) mg/dL Magnesium 1.7 (1.6-2.6) mg/dL Total Bilirubin 0.6 (0.0-1.0) mg/dL Direct Bilirubin 0.3 (0.0-0.5) mg/dL AST 20 (5-31) U/L ALT 9 (0-31) U/L Alkaline Phosphatase 77 (39-117) U/L Ammonia 24 (13-55) umol/L Total Creatine Kinase 145 H (26-140) U/L Troponin I High Sens 77.7 H* D (<3.5-17.0) ng/L C-Reactive Protein 1.65 H (< or = 0.50) mg/dL B-Natriuretic Peptide 45 (<100) pg/mL Total Protein 8.3 H (6.5-8.0) g/dL Albumin 4.5 (3.5-5.0) g/dL Lipase 9 (8-78) U/L Urine Color Yellow Urine Appearance Clear Urine pH 5.5 (5.0-9.0) Ur Specific Melvin 1.025 (1.005-1.025) Urine Protein Trace (Neg-Trace) mg/dL Urine Glucose (UA) >=1000 H (Negative) mg/dL Urine Ketones 15 (Negative) mg/dL Urine Blood Negative (Negative) Urine Nitrite Negative (Negative) Ur Leukocyte Esterase Trace H (Negative) Urine RBC 0-2 (0-2) /HPF Urine WBC 11-20 H (0-5) /HPF Ur Squamous Epith Cells 0-2 (0-2) /HPF Urine Bacteria 2+ (None Seen) Hyaline Casts 0-2 (0-2) /LPF Urine Opiates Screen Not Detected (Not Detect) Urine Fentanyl Screen Not Detected (Not Detect) Ur Barbiturates Screen Not Detected (Not Detect) Ur Phencyclidine Scrn Not Detected (Not Detect) Ur Amphetamines Screen Not Detected (Not Detect) U Benzodiazepines Scrn Not Detected (Not Detect) Urine Cocaine Screen Not Detected (Not Detect) U Marijuana (THC) Screen Not Detected (Not Detect) Ethyl Alcohol < 10 mg/dL Influenza Type A (PCR) NEGATIVE (Negative) Influenza Type B (PCR) NEGATIVE (Negative) RSV RNA Qual (PCR) NEGATIVE (Negative) SARS-CoV-2 RNA (RT-PCR) NEGATIVE (Negative) Independent Interpretation I performed an independent interpretation of an: EKG Interpretation: EKG sinus rhythm at a ventricular rate of 66 beats per minute with PACs. NJ interval 124, QTC 517. Radiology Impression Discussion of test interpretation with radiology: I have reviewed the radiologist's reading. Radiologist Impression: EXAMINATION: CT HEAD WITHOUT CONTRAST CLINICAL INFORMATION: Altered mental status COMPARISON: 12/14/2022 TECHNIQUE: Contiguous axial imaging was performed from the skull base to vertex without intravenous administration of contrast. This CT examination was performed using dose optimization techniques as appropriate, variously including the following: *Automated exposure control *Adjustment of mA and/or kV according to patient size (this includes techniques or standardized protocols for targeted exams where dose is matched to indication/reason for exam; i.e. extremities or head) *Use of iterative reconstruction technique DLP: 624 mGy-cm FINDINGS: There is an acute hyperdense left posterior parietal intraparenchymal hematoma with surrounding edema and associated adjacent subarachnoid hemorrhage. The acute hemorrhage measures approximately 3.3 x 2.8 cm, and including the surrounding edema of the abnormality measures approximately 4 x 4 cm. There is no detected intraventricular hemorrhage. No significant transtentorial or subfalcine herniation is evident. Mild age-related involutional changes are again evident. 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 In the posterior fossa, the brainstem, cerebellum and fourth ventricle are unremarkable. The orbits and bony calvarium are intact. The paranasal sinuses and mastoid air cells are well pneumatized and clear. CT/CT head/brain wo IV con IMPRESSION: 1. Acute left posterior parietal 4 cm intraparenchymal hematoma with surrounding vasogenic edema and associated subarachnoid hemorrhage. No significant subfalcine or transtentorial herniation. As no underlying mass is detected and none was present on the prior examination, is felt likely to reflect a primary parenchymal hematoma although a hemorrhagic mass is not excluded with certainty. 2. No change in periventricular white matter disease normal focal geographic left frontal hypodensity with encephalomalacia. 3. The above emergent findings reported by phone at the time of interpretation on 10/15/2023 at 6:55 PM to Sofie Murcia in the [facility]. Dictated By: Leanrd Ulrich MD Independent Historian Clinical information obtained from an independent historian. History obtained from or confirmed by: Other (Grandson) Critical Care Time Critical Care Time Critical Care Time: Yes Total Critical Care Time: 60 Attestation: I have personally provided critical care time exclusive of time spent on separately billable procedures. Time includes review of lab data, radiology results, discussion with consultants, and monitoring for potential decompensation. Intervention performed as documented. Discharge Plan Discharge Clinical Impression: Subarachnoid hemorrhage Patient Disposition: [facility] Transfer Details: [facility] Prescriptions: No Action metformin 1,000 mg tablet 1 tab PO BID losartan 100 mg tablet 1 tab PO DAILY metoprolol tartrate 25 mg Tablet 25 mg PO BID Qty: 60 0RF Protocol: Hold for SBP/HR < HOLD for SBP < : 90 HOLD for HR < : 60 amlodipine 10 mg tablet 1 tab PO DAILY docusate sodium 100 mg capsule 1 cap PO BID Januvia 50 mg tablet 1 tab PO DAILY Farxiga 5 mg tablet 1 tab PO DAILY insulin glargine [Lantus Solostar U-100 Insulin] 100 unit/mL (3 mL) insulin pen 20 unit subcut DAILY oxycodone 5 mg Tablet 5 mg PO Q4H PRN (Reason: Pain, Moderate (Pain Scale 4-6) Qty: 18 0RF Rx Instructions: Partial Fill upon patient request. gabapentin 300 mg capsule 300 mg PO TID simvastatin 20 mg tablet 20 mg PO BEDTIME trazodone 50 mg tablet 50 mg PO BEDTIME cholecalciferol (vitamin D3) 50 mcg (2,000 unit) capsule 50 mcg PO DAILY verapamil 120 mg capsule,ext rel. pellets 24 hr 120 mg PO DAILY chlorthalidone 50 mg tablet 50 mg PO DAILY hydralazine 10 mg tablet 10 mg PO TID pantoprazole 20 mg tablet,delayed release (DR/EC) 20 mg PO BID pioglitazone 15 mg tablet 15 mg PO BEDTIME aspirin 81 mg tablet,chewable 1 tab PO DAILY (DME) lancets [TRUEplus Lancets] 33 gauge misc See Rx Instructions topical .MEDSUPPLY Qty: 100 Rx Instructions: As directed multivitamin Tablet 1 tab PO DAILY Interventions: Acute Care Transfer Worksheet (ED) Last Done: 10/15/23 20:12 Discharge Date/Time: 10/15/23 20:13
--- NOTE | 2023-10-15 16:09 | PC.NURSE ---
Son reports patient has not had any recent falls. Patient responded via asl interpreter that her neck hurts when asked if she has any pain. Patient with only bruising on left porter and right leg.
--- NOTE | 2023-10-15 16:16 | ECG_ITS ---
Test Reason : WEAKNESS Blood Pressure : / mmHG Vent. Rate : 066 BPM Atrial Rate : 066 BPM P-R Int : 124 ms QRS Dur : 080 ms QT Int : 494 ms P-R-T Axes : 000 000 074 degrees QTc Int : 517 ms Poor data quality Sinus rhythm with Premature atrial complexes Nonspecific ST and T wave abnormality Abnormal ECG When compared with ECG of 14-DEC-2022 16:17, Premature atrial complexes are now Present QT has lengthened Referred By: Sofie Murcia Electronically Signed By:BRI CHESTER MD
[2023-10-15 17:36] LABS: MANUAL DIFF FLAG NO
[2023-10-15 17:39] LABS: Basophils Percent Auto 0.2 % (0-2); Eosinophils Percent Auto 0.1 % (0-4); Hematocrit 39.5 % (37.0-47.0); Hemoglobin 12.9 g/dl (12.0-16.0); Imm Gran Abs Auto 0.07 X10*3/uL (0.00-0.03); Imm Gran Pct Auto 0.5 % (0.0-0.4); Lymphocytes Absolute Auto 1.4 X10*3/uL (1.2-4.9); Lymphocytes Percent Auto 9.7 % (20-40); Mean Corpuscular HGB Conc 32.7 g/dl (31.0-35.0); Mean Corpuscular Hemoglobin 27.3 pg (27.0-33.0); Mean Corpuscular Volume 83.5 fL (80.0-98.0); Mean Platelet Volume 10.9 fL (9.4-12.3); Monocytes Percent Auto 7.5 % (2-11); Neutrophils Absolute Auto 11.4 x10*3/uL (2.0-8.3); Platelet Count 354 X10*3/uL (160-400); Red Blood Count 4.73 X10*6/uL (4.20-5.50); Red Cell Distribution Width 13.7 % (11.0-16.0); White Blood Count 13.9 X10*3/uL (4.8-10.8)
[2023-10-15 17:44] LABS: Ammonia 24 umol/L (13-55)
[2023-10-15 17:51] LABS: Lactic Acid 3.2 mmol/L (0.5-2.0)
[2023-10-15 17:53] LABS: C Reactive Protein 1.65 mg/dL (< or = 0.50); Ethanol < 10 mg/dL
[2023-10-15 17:55] LABS: Alanine Aminotransferase 9 U/L (0-31); Albumin Level 4.5 g/dL (3.5-5.0); Alkaline Phosphatase 77 U/L (39-117); Anion Gap 21 (12-20); Aspartate Amino Transferase 20 U/L (5-31); Bilirubin Direct 0.3 mg/dL (0.0-0.5); Bilirubin Total 0.6 mg/dL (0.0-1.0); Blood Urea Nitrogen 41 mg/dL (9-16); Calcium 10.5 mg/dL (8.4-10.2); Carbon Dioxide 24 mmol/L (22-29); Chloride 102 mmol/L (96-108); Creatinine Clr Calc Pharmacy 27.5; Estimated Glomerular Filt Rate 37; Glucose Random 213 mg/dL (60-115); Lipase 9 U/L (8-78); Magnesium 1.7 mg/dL (1.6-2.6); Potassium 4.3 mmol/L (3.3-5.1); Sodium 143 mmol/L (135-145); Total Protein 8.3 g/dL (6.5-8.0)
[2023-10-15 18:03] LABS: Troponin-I High Sensitivity 77.7 ng/L (<3.5-17.0)
[2023-10-15 18:14] LABS: Influenza A PCR NEGATIVE (Negative); Influenza B PCR NEGATIVE (Negative); Resp Syncy Virus RNA Qual PCR NEGATIVE (Negative); SARS COV2 PCR INHOUSE NEGATIVE (Negative)
[2023-10-15] MEDS: cefTRIAXone sodium 1 GM in 0.9 % Sodium Chloride 50 ML IV (18:22)
[2023-10-15 18:25] LABS: Appearance Urine Clear; Color Urine Yellow; Glucose Urine UA >=1000 mg/dL (Negative); Leukocyte Esterase Urine Trace (Negative); Nitrite Urine Negative (Negative); PH 5.5 (5.0-9.0); Specific Gravity - Urine 1.025 (1.005-1.025); UMIC TRIGGER UACC YES; Urine Blood Negative (Negative); Urine Ketones 15 mg/dL (Negative); Urine Protein Trace mg/dL (Neg-Trace)
--- NOTE | 2023-10-15 18:25 | PC.NURSE ---
Urine obtained via straight cath, patient tolerated well. Fluids and abt infusing per order. Patient more alert, nsr on monitor
[2023-10-15 18:31] LABS: Amphetamine Screen Urine Not Detected (Not Detect); Barbiturates, Urine Not Detected (Not Detect); Benzodiazepines Screen Urine Not Detected (Not Detect); Cannabinoid Screen Urine Not Detected (Not Detect); Cocaine Screen Urine Not Detected (Not Detect); Fentanyl, urine Not Detected (Not Detect); Opiate Screen Urine Not Detected (Not Detect); Phencyclidine Screen Urine Not Detected (Not Detect)
[2023-10-15 18:35] LABS: Erythrocyte Sedimentation Rate 23 MM/HR (0-20)
[2023-10-15 18:38] LABS: Bacteria Urine 2+ (None Seen); Hyaline Casts Urine 0-2 /LPF (0-2); RBC Urine 0-2 /HPF (0-2); Squamous Epithelial Cell Urine 0-2 /HPF (0-2); UACC Culture Trigger YES
[2023-10-15 18:56] LABS: B Type Natriuretic Peptide 45 pg/mL (<100)
[2023-10-15 19:20] VITALS: BP 146/53; PULSE 66; RESP 14
[2023-10-15 19:34] LABS: Reflex Lactate? Lactic Acid Added
[2023-10-15 19:51] VITALS: BP 143/60; PULSE 68; RESP 16; TEMP 36.7; O2SAT 95
--- NOTE | 2023-10-15 20:09 | PC.NURSE ---
this rn assumed care of pt @ 1900. nupur yareli made this rn aware @ 1914 of subaracnoid hemorrhage and plan to transfer to [facility] neuro ICU this rn contacted neuro icu for nurse to nurse report. after x 2 attempts report given to joaquina METCALF . report given to als prior to transport
== END 2023-10-15 20:13 | disposition short-term general hospital (02) ==
PROVIDERS: Physician Assistant; Physician Assistant Medical; Emergency Provider Emergency Medicine; PCP Internal Medicine
DX: I60.9 Nontraumatic subarachnoid hemorrhage, unspecified (principal); R29.716 NIHSS score 16; Z20.822 Contact with and (suspected) exposure to COVID-19; Z20.828 Contact with and (suspected) exposure to other viral communicable diseases; E11.9 Type 2 diabetes mellitus without complications; I10 Essential (primary) hypertension; E78.5 Hyperlipidemia, unspecified; Z87.891 Personal history of nicotine dependence; Z79.82 Long term (current) use of aspirin; Z79.899 Other long term (current) drug therapy; Z79.4 Long term (current) use of insulin
CPT/HCPCS: 0241U; 36415; 51701; 70450; 71046; 80048; 80076; 80307; 81001; 82140; 82550; 83605; 83690; 83735; 83880; 84484; 85025; 85652; 86140; 87040; 87086; 87088; 87186; 93005; 96365; 99285; J0696

== ENCOUNTER 2023-11-07 10:30 | Outpatient (REF) | payer OTHER, SELFPAY ==
[2023-11-07 11:40] LABS: Hematocrit 35.1 % (37.0-47.0); Hemoglobin 10.9 g/dl (12.0-16.0); Mean Corpuscular HGB Conc 31.1 g/dl (31.0-35.0); Mean Corpuscular Hemoglobin 26.7 pg (27.0-33.0); Platelet Count 196 X10*3/uL (160-400); Red Blood Count 4.08 X10*6/uL (4.20-5.50); Red Cell Distribution Width 14.7 % (11.0-16.0); White Blood Count 7.2 X10*3/uL (4.8-10.8)
[2023-11-07 12:34] LABS: Alanine Aminotransferase 9 U/L (0-31); Albumin Level 3.3 g/dL (3.5-5.0); Alkaline Phosphatase 66 U/L (39-117); Anion Gap 14 (12-20); Aspartate Amino Transferase 19 U/L (5-31); Bilirubin Direct < 0.2 mg/dL (0.0-0.5); Bilirubin Total 0.2 mg/dL (0.0-1.0); Blood Urea Nitrogen 16 mg/dL (9-16); Calcium 9.1 mg/dL (8.4-10.2); Carbon Dioxide 25 mmol/L (22-29); Chloride 106 mmol/L (96-108); Cholesterol 172 mg/dL (<200); Estimated Glomerular Filt Rate > 60; Free T4 (Free Thyroxine) 0.94 ng/dL (0.71-1.85); Glucose Random 198 mg/dL (60-115); HDL Cholesterol 59 mg/dL (>40); LDL Cholesterol Calculated 86 mg/dL (<100); Potassium 3.9 mmol/L (3.3-5.1); Sodium 141 mmol/L (135-145); Thyroid Stimulating Hormone 2.15 uIU/mL (0.32-4.0); Total Protein 6.4 g/dL (6.5-8.0); Triglycerides 139 mg/dL (<150); Vitamin D 25-OH Total 48.8 ng/mL (>30)
== END 2023-11-07 10:31 | disposition home or self-care (01) ==
LOC: HO.HHCL 10:30
PROVIDERS: Visit Provider Family Medicine
DX: E11.22 Type 2 diabetes mellitus with diabetic chronic kidney disease (principal); I12.9 Hypertensive chronic kidney disease with stage 1 through stage 4 chronic kidney disease, or unspecified chronic kidney disease; N18.31 Chronic kidney disease, stage 3a; E78.00 Pure hypercholesterolemia, unspecified
CPT/HCPCS: 36415; 80048; 80061; 80076; 82306; 84439; 84443; 85027

== ENCOUNTER 2024-01-03 18:15 | Emergency (ER) | payer OTHER, SELFPAY ==
--- NOTE | ~2024-01-03 | CT_ITS ---
EXAMINATION: CT head for stroke CLINICAL INFORMATION: Reason for Exam slurred speech, confusion COMPARISON: CT head 10/05/2023 TECHNIQUE: Contiguous axial imaging was performed from the skull base to vertex without intravenous contrast. Sagittal and coronal reformatted images were obtained. This CT examination was performed using dose optimization techniques as appropriate, variously including the following: * Automated exposure control * Adjustment of mA and/or kV according to patient size (this includes techniques or standardized protocols for targeted exams where dose is matched to indication/reason for exam; i.e. extremities or head) Use of iterative reconstruction technique DLP: 710.22 mGy-cm mGy-cm FINDINGS: Motion degraded examination. There are persistent small-volume hyperdense blood products along the left posterior parietal lobe at the site of prior intraparenchymal hemorrhage. Surrounding edema has significantly decreased. There are stable hypodensity in the left frontal lobe. No acute, territorial loss of barrios-white differentiation. Generalized cerebral volume loss with associated ventricular and sulcal prominence.Periventricular and subcortical white matter hypodensity is nonspecific but likely represents chronic microvascular ischemic change. Dense intracranial atherosclerotic calcification is noted. Empty sella turcica. Evaluation of the skull base/facial bones is degraded by motion. No depressed calvarial fracture is visualized within this constraint.Bilateral intraocular lens replacements. Calcified left posterior ethmoid air cells. The mastoid air cells are well-aerated. CT/CT head for stroke IMPRESSION: Decreased size of prior noted left parietal parenchymal hemorrhage with persistent small-volume hyperdense blood products in the left posterior parietal lobe. Surrounding edema has also diminished. No new, territorial loss of barrios-white differentiation.
--- NOTE | ~2024-01-03 | CT_ITS ---
EXAMINATION: CT ANGIOGRAM HEAD CT ANGIOGRAM NECK CLINICAL INFORMATION: Reason for Exam slurred speech, confusion COMPARISON: CT head without contrast 10/15/2023, earlier same day noncontrast head CT. TECHNIQUE: Initial noncontrast rider ticket worker imaging of the head and neck was performed. Comparison is made with noncontrast head CT from earlier today. Test bolus sequences followed by intravenous administration 70 mL of Omnipaque 350. Helical imaging was performed in the axial plane from the aortic arch to the skull vertex. Delayed postcontrast imaging of the head was also performed. The data was processed at the angio technologist workstation for generation of MIP sequences. Angled MIPs and volume rendered reformatted images were also generated at an offline 3D workstation. Stenoses are assessed in accordance with NASCET criteria unless otherwise indicated. DLP: 1575.26 mGy-cm This CT examination was performed using dose optimization techniques as appropriate, variously including the following: *Automated exposure control. *Adjustment of mA and/or kV according to patient size (this includes techniques or standardized protocols for targeted exams where dose is matched to indication/reason for exam; i.e. extremities or head). *Use of iterative reconstruction technique. FINDINGS: CT Head: There is persistent but significantly decreased hyperdensity in the left parietal lobe corresponding to region of parenchymal hemorrhage on CT from 10/15/2023 There is no evidence of acute edematous territorial infarction. Stable patchy hypodensity in the left frontal white matter. Mild chronic microangiopathy. Carey-white matter differentiation is preserved. Proportional prominence of the ventricles and sulcal spaces. No evidence for obstructive hydrocephalus. No abnormal mass effect or midline shift. No extra-axial fluid collections. No pathologic intra-axial enhancement or regional oligemia. No acute soft tissue or osseous abnormalities. The mastoids are clear. Partial left ethmoid sinus opacification. CT Neck: There is asymmetric enlargement of the left hemithyroid gland containing numerous hypodense nodules. The remaining cervical soft tissues are within normal limits. Multilevel cervical spondylosis. Ossification of the ligamentum flavum at C3-C4 and C4-C5 likely contributes to moderate to high-grade central spinal canal stenosis which is not well assessed by CT. CT Upper Chest: There are multiple small scattered centrilobular nodules in the bilateral lung apices Neck CTA: Aortic Arch: Normal contour and caliber. Classic 3 vessel branching pattern of the aortic arch. Great Vessel Origins: There is moderate stenosis of the left subclavian artery origin related to calcified atherosclerotic disease. Calcified atherosclerotic disease also involves the origin of the brachiocephalic and left common carotid arteries without significant luminal narrowing. Right Common Carotid Artery: No focal stenosis or occlusion. Cervical Right Internal Carotid Artery: Normal opacification without focal stenosis or occlusion. Left Common Carotid Artery: No focal stenosis or occlusion. Cervical Left Internal Carotid Artery: Heavy burden of calcified and soft atherosclerotic plaque involving the carotid bifurcation and proximal left ICA results in severe, approximately 75% stenosis of the proximal left ICA. Cervical Right Vertebral Artery: No focal stenosis or occlusion. Cervical Left Vertebral Artery: Moderate calcified atherosclerotic narrowing of the vessel origin. No other focal stenosis or occlusion. Brain CTA: Intracranial Internal Carotid Arteries: Calcific atherosclerotic disease of the intracranial internal carotid arteries without occlusion or flow-limiting stenosis. Right Anterior Cerebral Artery: Normal A1 segment. Normal opacification of the distal ALIX segments. Left Anterior Cerebral Artery: The left A1 segment is congenitally diminutive or absent. Normal opacification of the distal ALIX segments. Anterior Communicating Artery: Normal. Right Middle Cerebral Artery: Normal M1 segment of the MCA without focal stenosis or occlusion. Normal arborization of the distal segments. Left Middle Cerebral Artery: Normal M1 segment of the MCA without focal stenosis or occlusion. Normal arborization of the distal segments. Right Vertebral Artery: Normal V4 segment. Left Vertebral Artery: Normal V4 segment. Basilar Artery: Normal without focal stenosis or occlusion. Normal appearance of the proximal superior cerebellar arteries. Right Posterior Cerebral Artery: Normal P1 segment. Normal opacification of the distal STRIPPER COLOR segments. Left Posterior Cerebral Artery: Normal P1 segment. Normal opacification of the distal STRIPPER COLOR segments. Normal opacification of the superior sagittal, straight, transverse, and sigmoid sinuses. CT/CT angio head neck stroke IMPRESSION: 1. Redemonstration of persistent but significantly decreased hyperdensity in the left parietal lobe corresponding to region of acute intraparenchymal hematoma as demonstrated on CT from 10/15/2023, most suggestive of recurrent acute hemorrhage. 2. There is severe (approximately 75%) atherosclerotic narrowing of the proximal left cervical ICA. No other arterial high-grade stenosis or large vessel occlusion in the head or neck is identified 3. Scattered small centrilobular nodules involving the lung apices, likely reflecting small airways infection. 4. Left hemithyroid multinodular goiter. Recommend further assessment with thyroid ultrasound. Impression #1 and [address] Troncoso on 01/03/2024 7:11 PM
--- NOTE | 2024-01-03 18:21 | ECG_ITS ---
Test Reason : STROKE Blood Pressure : / mmHG Vent. Rate : 070 BPM Atrial Rate : 070 BPM P-R Int : 144 ms QRS Dur : 080 ms QT Int : 406 ms P-R-T Axes : 040 -15 018 degrees QTc Int : 438 ms Normal sinus rhythm ST & T wave abnormality, consider anterior ischemia Abnormal ECG When compared with ECG of 15-OCT-2023 19:02, Premature atrial complexes are no longer Present Non-specific change in ST segment in Inferior leads Nonspecific T wave abnormality now evident in Inferior leads QT has shortened Referred By: Trell Liriano Electronically Signed By:ZEE PIERCE MD
[2024-01-03 18:30] VITALS: BP 168/100; PULSE 80; O2SAT 100
[2024-01-03 18:35] LABS: MANUAL DIFF FLAG NO
[2024-01-03] MEDS: iohexoL 350 MG/ML 100 ML INFUS..BTL IV (18:40)
[2024-01-03 18:43] LABS: INTERNATIONAL NORM RATIO 0.9 (0.9-1.1)
[2024-01-03 18:45] VITALS: BP 200/77; PULSE 81; RESP 16; O2SAT 100; BMI 22.8
[2024-01-03 18:46] LABS: Partial Thromboplastin Time 27.1 SEC (26.0-36.8)
[2024-01-03 18:51] LABS: Basophils Percent Auto 0.2 % (0-2); Eosinophils Absolute Auto 0.1 X10*3/uL (0.0-0.4); Eosinophils Percent Auto 0.9 % (0-4); Hematocrit 39.8 % (37.0-47.0); Hemoglobin 13.2 g/dl (12.0-16.0); Imm Gran Abs Auto 0.03 X10*3/uL (0.00-0.03); Imm Gran Pct Auto 0.3 % (0.0-0.4); Lymphocytes Absolute Auto 2.2 X10*3/uL (1.2-4.9); Lymphocytes Percent Auto 21.8 % (20-40); Mean Corpuscular HGB Conc 33.2 g/dl (31.0-35.0); Mean Corpuscular Hemoglobin 27.3 pg (27.0-33.0); Mean Corpuscular Volume 82.2 fL (80.0-98.0); Mean Platelet Volume 11.9 fL (9.4-12.3); Monocytes Absolute Auto 0.8 X10*3/uL (0.1-1.2); Monocytes Percent Auto 8.4 % (2-11); Neutrophils Absolute Auto 6.9 x10*3/uL (2.0-8.3); Neutrophils Percent Auto 68.4 % (45-73); Platelet Count 257 X10*3/uL (160-400); Red Blood Count 4.84 X10*6/uL (4.20-5.50); Red Cell Distribution Width 14.2 % (11.0-16.0)
[2024-01-03 18:53] LABS: Alanine Aminotransferase 9 U/L (0-31); Albumin Level 3.6 g/dL (3.5-5.0); Alkaline Phosphatase 59 U/L (39-117); Anion Gap 15 (12-20); Aspartate Amino Transferase 17 U/L (5-31); Bilirubin Total 0.3 mg/dL (0.0-1.0); Blood Urea Nitrogen 25 mg/dL (9-16); Calcium 9.9 mg/dL (8.4-10.2); Carbon Dioxide 29 mmol/L (22-29); Chloride 103 mmol/L (96-108); Estimated Glomerular Filt Rate > 60; Glucose Random 145 mg/dL (60-115); Lipase 8 U/L (8-78); Potassium 4.9 mmol/L (3.3-5.1); Sodium 142 mmol/L (135-145); Total Protein 7.3 g/dL (6.5-8.0)
--- NOTE | 2024-01-03 19:12 | ED.NEUROSD ---
HPI - Neuro Symptoms/Deficit General Chief Complaint: Stroke Stated Complaint: slurred speech, inapp language, LKWT 0600, hx stro Time Seen by Provider: 01/03/24 18:20 Source: patient, family, RN notes reviewed and awake overnight monitor Mode of arrival: EMS Limitations: language barrier and altered mental status History of Present Illness HPI Narrative: 78-year-old female with past medical history significant for hemorrhagic CVA 2 months ago, diabetes, hypertension, hyperlipidemia presents for evaluation of headache and altered mental status. Patient presents by EMS with reports of slurred speech, inappropriate speech, increased weakness. She has a poor historian but does complain of a headache On arrival to the ED, she had no slurred speech, no facial asymmetry, she would equal strength to all extremities. However given her recent hemorrhagic stroke complain of a headache and reported neuro deficits prior to arrival a stroke protocol was ordered. The patient's grandson presented and states the patient has not been herself since yesterday. He states that this morning when he went to her house to make her breakfast and do her medications she seemed confused, did not want to eat or drink anything and was not making sense He states this happens on off She has a history of cerebral amyloid angiopathy Denies any fevers or chills He states her symptoms today reminded him of when she had her hemorrhagic stroke in October of last year which is why he called the ambulance Her last known well time was 12:00 p.m. ago Related Data Home Medications Medication Instructions Recorded Confirmed aspirin 81 mg chewable tablet 1 tab PO DAILY 04/18/21 12/15/22 chlorthalidone 50 mg tablet 50 mg PO DAILY 04/18/21 12/15/22 cholecalciferol (vitamin D3) 50 50 mcg PO DAILY 04/18/21 12/15/22 mcg (2,000 unit) capsule gabapentin 300 mg capsule 300 mg PO TID 04/18/21 12/15/22 hydralazine 10 mg tablet 10 mg PO TID 04/18/21 12/15/22 pantoprazole 20 mg tablet,delayed 20 mg PO BID 04/18/21 12/15/22 release pioglitazone 15 mg tablet 15 mg PO BEDTIME 04/18/21 12/15/22 simvastatin 20 mg tablet 20 mg PO BEDTIME 04/18/21 12/15/22 trazodone 50 mg tablet 50 mg PO BEDTIME 04/18/21 12/15/22 verapamil 120 mg 24 hr 120 mg PO DAILY 04/18/21 12/15/22 capsule,extended release losartan 100 mg tablet 1 tab PO DAILY 06/01/21 12/15/22 metformin 1,000 mg tablet 1 tab PO BID 06/01/21 12/15/22 lancets 33 gauge (TRUEplus Lancets) #100 ea 04/23/22 12/15/22 multivitamin 1 tab PO DAILY 04/23/22 12/15/22 amlodipine 10 mg tablet 1 tab PO DAILY 12/14/22 12/15/22 dapagliflozin propanediol 5 mg 1 tab PO DAILY 12/14/22 12/15/22 tablet (Farxiga) docusate sodium 100 mg capsule 1 cap PO BID 12/14/22 12/15/22 insulin glargine 100 unit/mL (3 20 unit subcut DAILY 12/14/22 12/15/22 mL) subcutaneous pen (Lantus Solostar U-100 Insulin) sitagliptin phosphate 50 mg tablet 1 tab PO DAILY 12/14/22 12/15/22 (Januvia) Previous Rx's Medication Instructions Recorded metoprolol tartrate 25 mg tablet 25 mg PO BID #60 tabs 06/07/21 oxycodone 5 mg tablet 5 mg PO Q4H PRN Pain, Moderate 12/19/22 (Pain Scale 4-6 #18 tabs Allergies Allergy/AdvReac Type Severity Reaction Status Date / Time No Known Allergies Allergy Verified 01/03/24 22:00 Review of Systems Constitutional: Constitutional: Denies chills, Denies fever(s), Reports headache(s) and Reports weakness Eyes: Eyes: Reports change in vision and Denies seeing flashes ENT: Reports headache(s) Cardiovascular: Cardiovascular: Denies chest pain and Denies dyspnea Respiratory: Respiratory: Denies cough and Denies dyspnea Gastrointestinal: Gastrointestinal: Denies abdominal pain Integumentary/Breasts: Skin/Breast: Denies rash Neurologic: Reports Neuro-related abnormal movements, Reports Abnormal speech present, Reports headache(s) and Reports weakness PMFSH Past Medical History Medical History Diabetes GERD (gastroesophageal reflux disease) Elevated cholesterol History of femoral angiogram Peripheral vascular disease PAD (peripheral artery disease) HTN (hypertension) Hyperlipemia Osteoporosis Surgical History H/O colonoscopy Hx of angioplasty Hx of hand surgery Family History Family History Father No problems noted. Mother No problems noted. Daughter No problems noted. Son No problems noted. Son No problems noted. Son No problems noted. Social History Social History Household Members: None Housing: Apartment Are you a primary home health care worker to a significant other at home: No Do you presently have visiting nurse or other home services: Yes Alcohol intake: never Patient Tobacco Use Status: Former Tobacco user Quit Date: > 50 yrs Tobacco use type: Cigarette Smoked in Last 30 Days: No Use of substances other than those prescribed or required for medical reasons: No Advance Directives: Yes Advance Directives on File: Yes Advance Directives Date on File: 12/20/22 service: No Current occupational status: disabled Physical Exam Vital Signs: Vital Signs: Last Vital Signs Temp 98.3 F 01/03/24 21:58 Pulse 75 01/03/24 23:26 Resp 20 01/03/24 23:26 BP 187/67 H 01/03/24 23:26 Pulse Ox 100 01/03/24 21:58 O2 Del Method Room Air 01/03/24 23:26 BMI result Body Mass Index 22.8 Const: General: healthy appearing, comfortable, no acute distress, alert and awake Nutritional Appearance: well nourished Orientation/consciousness: oriented to person HEENT: Head: Yes normocephalic and Yes atraumatic Eyes: Eyelids: Yes eyelids normal Conjunctivae: conjunctivae normal Sclerae: sclerae normal Corneas: corneas normal Pupils: Equal, round and reactive pupils present EOM: EOMs intact bilaterally Neck: Neck: Yes full ROM Resp: Effort & Inspection: normal respiratory effort, able to speak in complete sentences, no audible wheezes and not labored Auscultation: clear to auscultation bilaterally Cardio: Rate: regular rate Rhythm: regular rhythm GI: Inspection: No distended Palpation (GI): Soft to palpation, not firm, nontender, no guarding and not rigid Auscultation: normoactive bowel sounds Skin: General skin exam: no rashes or lesions noted and elasticity normal Neuro: General: oriented to person Cranial nerves: Yes CN's II-XII intact bilaterally, Yes Equal, round and reactive pupils present and Yes Bilaterally intact EOM present Speech: Abnormal speech present Course Reevaluation(s) Reevaluation #1: Patient evaluated immediately on arrival. It was difficult to assess the patient as she is Egyptian-speaking only. However it did not appear that she had any slurred speech. Her strength is equal in all extremities. There was no facial asymmetry. Given the history a CT brain and CT angiography was still ordered to evaluate for acute CVA. The patient does have a history of intraparenchymal hemorrhage in October of last year Time: 18:20 Reevaluation #2: I discussed with [facility], Dr. Mendes who recommends transfer to [facility] on that ?AMBER. I also spoke to hospitalist Service Edward who will accept transfer of care. He agrees with current recommendations Time: 23:11 Medications Administered Discontinued Medications Generic Name Dose Route Start Last Admin Trade Name Freq PRN Reason Stop Dose Admin Ceftriaxone Sodium 1 gm/ 50 mls @ 100 mls/hr 01/03/24 22:58 01/03/24 23:31 Sodium Chloride IV 01/03/24 23:27 100 mls/hr ONCE ONE Administration Iohexol 100 ml 01/03/24 18:39 01/03/24 18:40 Iohexol 350 Mg/Ml 100 Ml Infus..Btl IV 01/03/24 18:40 70 ml ONCE ONE Administration Labetalol HCl 5 mg 01/03/24 18:54 01/03/24 19:59 Labetalol Hcl 100 Mg/20 Ml Vial IVPUSH 01/03/24 18:55 Not Given ONCE ONE Labetalol HCl 5 mg 01/03/24 22:58 01/03/24 23:27 Labetalol Hcl 100 Mg/20 Ml Vial IVPUSH 01/03/24 22:59 5 mg ONCE ONE Administration Medical Decision Making Medical Decision Making MDM Narrative: Patient presented as a stroke alert due to increased confusion reported slurred speech. I spoke with her grandson, when he arrives the ED, the patient appears back to her baseline. She seems more active, she is answering questions appropriately which she was apparently not doing earlier today. CT scan shows continued bleed in the left parietal region in the area of her recent intraparenchymal hemorrhage. The patient is not anticoagulated but resumed baby aspirin in November. She has no acute neuro deficits during my exam or re-evaluation. Her NIH stroke score is 0 Differential Diagnosis Differential Diagnoses: The differential diagnosis associated with the presentation includes Intracranial hemorrhage CVA TIA Acute headache Admission/Observation Consideration of admission/observation: Escalation of care including admission/observation considered Lab Data MDM Lab Attestation statement: I reviewed the patient's lab results. No leukocytosis or significant anemia. No significant electrolyte abnormalities. Patient's BUN is elevated 25 but has a normal creatinine of 0.79. Her glucose is elevated to 145 with no evidence of DKA 01/03/24 18:25 01/03/24 18:25 Labs: Lab Results 01/03/24 01/03/24 01/03/24 Range/Units 18:25 20:07 20:46 WBC 10.0 (4.8-10.8) X10*3/uL RBC 4.84 (4.20-5.50) X10*6/uL Hgb 13.2 D (12.0-16.0) g/dl Hct 39.8 (37.0-47.0) % MCV 82.2 (80.0-98.0) fL MCH 27.3 (27.0-33.0) pg MCHC 33.2 (31.0-35.0) g/dl RDW 14.2 (11.0-16.0) % Plt Count 257 D (160-400) X10*3/uL MPV 11.9 (9.4-12.3) fL Immature Gran % (Auto) 0.3 (0.0-0.4) % Neut % (Auto) 68.4 (45-73) % Lymph % (Auto) 21.8 (20-40) % Taney % (Auto) 8.4 (2-11) % Eos % (Auto) 0.9 (0-4) % Baso % (Auto) 0.2 (0-2) % Lymph # (Auto) 2.2 (1.2-4.9) X10*3/uL Taney # (Auto) 0.8 (0.1-1.2) X10*3/uL Eos # (Auto) 0.1 (0.0-0.4) X10*3/uL Baso # (Auto) 0.0 (0.0-0.2) X10*3/uL Abs Immat Gran (auto) 0.03 (0.00-0.03) X10*3/uL Absolute Neuts (auto) 6.9 (2.0-8.3) x10*3/uL Absolute Nucleated RBC 0.000 (0.0-0.012) X10*3/uL Nucleated RBC % (auto) 0.0 (0.0-0.2) /100WBC PT 11.0 L (11.1-13.3) SEC INR 0.9 (0.9-1.1) APTT 27.1 (26.0-36.8) SEC Sodium 142 (135-145) mmol/L Potassium 4.9 (3.3-5.1) mmol/L Chloride 103 (96-108) mmol/L Carbon Dioxide 29 (22-29) mmol/L Anion Gap 15 (12-20) BUN 25 H (9-16) mg/dL Creatinine 0.79 (0.5-1.4) mg/dL Estim Creat Clear Calc TNP Estimated GFR > 60 Random Glucose 145 H (60-115) mg/dL Calcium 9.9 D (8.4-10.2) mg/dL Total Bilirubin 0.3 (0.0-1.0) mg/dL AST 17 (5-31) U/L ALT 9 (0-31) U/L Alkaline Phosphatase 59 (39-117) U/L Total Protein 7.3 (6.5-8.0) g/dL Albumin 3.6 (3.5-5.0) g/dL Lipase 8 (8-78) U/L Urine Color Yellow Urine Appearance Clear Urine pH 6.5 (5.0-9.0) Ur Specific [place] >= 1.030 H (1.005-1.025) Urine Protein Negative (Neg-Trace) mg/dL Urine Glucose (UA) >=1000 H (Negative) mg/dL Urine Ketones 15 (Negative) mg/dL Urine Blood Negative (Negative) Urine Nitrite Negative (Negative) Ur Leukocyte Esterase Small (1+) H (Negative) Urine RBC 0-2 (0-2) /HPF Urine WBC >50 H (0-5) /HPF Ur Squamous Epith Cells 0-2 (0-2) /HPF Urine Bacteria 4+ (None Seen) Hyaline Casts 0-2 (0-2) /LPF COVID-19 (KELLY) Negative (Negative) COVID-19 Clin Com See Note Influenza Type A (JARAD) Negative (Negative) Influenza Type B (JARAD) Negative (Negative) Influenza A & B Note See Note Independent Interpretation I performed an independent interpretation of an: CT Scan (Chronic left parietal bleed) Radiology Impression Discussion of test interpretation with radiology: I discussed test interpretation with the radiologist and I have reviewed the radiologist's reading. Radiologist Impression: Re demonstration of persistent but significantly decreased hyperdensity in the left parietal lobe corresponding to region of acute intraparenchymal hematoma as demonstrated on CT 10/15/2023 most suggestive of recurrent acute hemorrhage. NIH Stroke Scale Internal: Initial- Upon Arrival Time: 18:20 Level of Consciousness: Alert Level of Consciousness Questions: Answers both questions correctly Level of Consciousness Commands: Performs both tasks correctly Best Gaze: Normal Visual: No visual loss Facial Palsy: Normal Motor Arm (Right): No drift Motor Arm (Left): No drift Motor Leg (Right): No drift Motor Leg (Left): No drift Limb Ataxia: Absent Sensory: Normal Best Language: No aphasia Dysarthia: Normal Extinction and Inattention: No abnormality Score: 0 Discharge Plan Discharge Clinical Impression: Altered mental status Patient Disposition: [facility] Hospital Transfer Details: [facility] Prescriptions: No Action metformin 1,000 mg tablet 1 tab PO BID losartan 100 mg tablet 1 tab PO DAILY metoprolol tartrate 25 mg Tablet 25 mg PO BID Qty: 60 0RF Protocol: Hold for SBP/HR < HOLD for SBP < : 90 HOLD for HR < : 60 amlodipine 10 mg tablet 1 tab PO DAILY docusate sodium 100 mg capsule 1 cap PO BID Januvia 50 mg tablet 1 tab PO DAILY Farxiga 5 mg tablet 1 tab PO DAILY insulin glargine [Lantus Solostar U-100 Insulin] 100 unit/mL (3 mL) insulin pen 20 unit subcut DAILY oxycodone 5 mg Tablet 5 mg PO Q4H PRN (Reason: Pain, Moderate (Pain Scale 4-6) Qty: 18 0RF Rx Instructions: Partial Fill upon patient request. gabapentin 300 mg capsule 300 mg PO TID simvastatin 20 mg tablet 20 mg PO BEDTIME trazodone 50 mg tablet 50 mg PO BEDTIME cholecalciferol (vitamin D3) 50 mcg (2,000 unit) capsule 50 mcg PO DAILY verapamil 120 mg capsule,ext rel. pellets 24 hr 120 mg PO DAILY chlorthalidone 50 mg tablet 50 mg PO DAILY hydralazine 10 mg tablet 10 mg PO TID pantoprazole 20 mg tablet,delayed release (DR/EC) 20 mg PO BID pioglitazone 15 mg tablet 15 mg PO BEDTIME aspirin 81 mg tablet,chewable 1 tab PO DAILY (DME) lancets [TRUEplus Lancets] 33 gauge misc See Rx Instructions topical .MEDSUPPLY Qty: 100 Rx Instructions: As directed multivitamin Tablet 1 tab PO DAILY
--- NOTE | 2024-01-03 19:30 | PC.NURSE ---
This manual writer assumed care of this Pt at 1900. Pt A&O to name, Malawian speaking, unable to follow some commands. Shaking of the arms noted. Pt able to move all extremities. Pt reaching out, stating she is falling, reassurance provided. Grandson at bedside, reports she was having slurred speech and gazed eyes, he also reports she is able to walk with a walker at baseline and hasn't been able to since this AM.
[2024-01-03 19:35] VITALS: BP 184/52; PULSE 70; RESP 14; O2SAT 100
[2024-01-03 20:33] LABS: COVID-19 Test Negative (Negative); IDNOW Serial# 08D9AD1C
[2024-01-03 20:39] LABS: IDNOW Serial# 152EDE1D; Influenza A Negative (Negative); Influenza B2 Negative (Negative)
[2024-01-03 20:54] LABS: Appearance Urine Clear; Color Urine Yellow; Glucose Urine UA >=1000 mg/dL (Negative); Leukocyte Esterase Urine Small (1+) (Negative); Nitrite Urine Negative (Negative); PH 6.5 (5.0-9.0); Specific Gravity - Urine >= 1.030 (1.005-1.025); UMIC TRIGGER UACC YES; Urine Blood Negative (Negative); Urine Ketones 15 mg/dL (Negative); Urine Protein Negative (Neg-Trace)
[2024-01-03 20:59] LABS: Bacteria Urine 4+ (None Seen); Hyaline Casts Urine 0-2 /LPF (0-2); RBC Urine 0-2 /HPF (0-2); Squamous Epithelial Cell Urine 0-2 /HPF (0-2); UACC Culture Trigger YES; WBC Urine >50 /HPF (0-5)
--- NOTE | 2024-01-03 21:06 | PC.NURSE ---
Grandson at bedside reports he thinks he lost her vision completely, states he is aware that from previous stroke Pt lost some vision. Pupils round, reactive to light, pt not able to follow object on command, stares, and reports it is dark in room. Provider Lb Liriano made aware.
[2024-01-03 21:58] VITALS: BP 187/73; PULSE 72; RESP 14; TEMP 36.8; O2SAT 100
[2024-01-03 23:26] VITALS: BP 187/67; PULSE 75; RESP 20
[2024-01-03] MEDS: Labetalol HCL 100 MG/20 ML VIAL IVPUSH (23:27)
[2024-01-03] MEDS: cefTRIAXone sodium 1 GM in 0.9 % Sodium Chloride 50 ML IV (23:31)
[2024-01-03 23:58] VITALS: BP 182/62; PULSE 63; RESP 14; TEMP 36.8; O2SAT 99
[2024-01-04] MEDS: Labetalol HCL 100 MG/20 ML VIAL 10 MG IVPUSH (00:39)
[2024-01-04 00:55] VITALS: BP 173/69; PULSE 65; RESP 20
--- NOTE | 2024-01-04 00:59 | PC.NURSE ---
Report given to Tri, Pt will be transported to [facility] room 18 by [facility]. Kirill at bedside aware of plan.
== END 2024-01-04 01:09 | disposition short-term general hospital (02) ==
PROVIDERS: Physician Assistant; Emergency Provider Emergency Medicine Emergency Medical Services
DX: R41.82 Altered mental status, unspecified (principal); R47.81 Slurred speech; R94.31 Abnormal electrocardiogram [ECG] [EKG]; R29.700 NIHSS score 0; Z86.73 Personal history of transient ischemic attack (TIA), and cerebral infarction without residual deficits; Z79.899 Other long term (current) drug therapy; Z87.891 Personal history of nicotine dependence; Z11.52 Encounter for screening for COVID-19; Z79.82 Long term (current) use of aspirin
CPT/HCPCS: 36415; 51701; 70450; 70496; 70498; 80053; 81001; 83690; 85025; 85610; 85730; 87086; 87502; 87635; 93005; 96365; 96375; 96376; 99285; J0696; J1920; Q9967

== ENCOUNTER → 2024-01-03 18:21 | Outpatient (BNV) | payer OTHER, SELFPAY | PROVIDERS: Emergency Provider Emergency Medicine Emergency Medical Services; Visit Provider Internal Medicine Cardiovascular Disease | DX: R94.31 Abnormal electrocardiogram [ECG] [EKG] (principal) | CPT/HCPCS: 93010 ==

== ENCOUNTER 2024-02-05 08:22 | Inpatient (IN) | payer OTHER, SELFPAY ==
--- NOTE | ~2024-02-05 | CT_ITS ---
EXAMINATION: CT HEAD WITHOUT CONTRAST CLINICAL INFORMATION: Acute on chronic SAH on previous CT COMPARISON: CT head dated 02/05/2024. CT head dated 01/03/2024. TECHNIQUE: Contiguous axial imaging was performed from the skull base to vertex without intravenous administration of contrast. This CT examination was performed using dose optimization techniques as appropriate, variously including the following: *Automated exposure control *Adjustment of mA and/or kV according to patient size (this includes techniques or standardized protocols for targeted exams where dose is matched to indication/reason for exam; i.e. extremities or head) *Use of iterative reconstruction technique DLP: 691 mGy-cm FINDINGS: Again seen is trace subarachnoid hemorrhage in medial left occipital. This finding is unchanged compared with CT head dated 02/05/2024. Low-density changes are noted in the high left parietal lobe posteriorly at the site of a prior parenchymal hemorrhage. There is a chronic left frontal infarct. There is no mass effect or midline shift. No extra-axial fluid collection. No evidence of acute/subacute cerebral or cerebellar infarction. The orbits are symmetric and within normal limits. The calvarium is intact. Mastoid air cells are well aerated. There is minimal left ethmoid air cell mucosal disease. Remaining visualized paranasal sinuses are clear. There is left supraorbital scalp soft tissue swelling. CT/CT head/brain wo IV con IMPRESSION: Stable exam. Again seen is trace subarachnoid hemorrhage in medial left occipital. This finding is unchanged compared with CT head dated 02/05/2024.
--- NOTE | ~2024-02-05 | XR_ITS ---
EXAMINATION: XR HIP, LEFT CLINICAL INFORMATION: Pain after fall COMPARISON: 06/03/2021 TECHNIQUE: AP pelvis. Two views of the left hip. FINDINGS: Diffuse demineralization. Bony pelvis appears intact. Bilateral femoral heads remain seated in the bony acetabula. Alignment is maintained. Degenerative changes lower lumbar spine. SI joints within normal limits. Fecal retention. Vascular calcifications. Left superficial femoral arterial stenting with mid section narrowing. XR/XR hip LT w PEL1V IMPRESSION: Demineralization. No acute bony pathology.
--- NOTE | ~2024-02-05 | CT_ITS ---
EXAMINATION: CT HEAD WITHOUT CONTRAST CT CERVICAL SPINE WITHOUT CONTRAST CLINICAL INFORMATION: Confusion. Pain. Fall. COMPARISON: CT dated 01/03/2024. Head CT dated 10/15/2023. TECHNIQUE: Contiguous axial imaging was performed from the skullbase to vertex without intravenous administration of contrast. Multidetector helical imaging was performed through the cervical spine. This CT examination was performed using dose optimization techniques as appropriate, variously including the following: *Automated exposure control *Adjustment of mA and/or kV according to patient size (this includes techniques or standardized protocols for targeted exams where dose is matched to indication/reason for exam; i.e. extremities or head) *Use of iterative reconstruction technique DLP: 287.4, 701.1 mGy-cm. FINDINGS: HEAD: There is trace subarachnoid hemorrhage in the medial left occipital sulci; this finding is in the vicinity of a previously described small acute parenchymal hemorrhage on the 01/03/2024 exam. Low-density changes noted in the high left parietal lobe posteriorly at the site of a prior parenchymal hemorrhage. There is encephalomalacia in the left frontal lobe, unchanged corresponding to a presumed chronic infarct. Partially empty sella again noted. Moderate diffuse brain parenchymal volume loss is stable with commensurate ex vacuo dilatation of the ventricles. No new extra-axial fluid collection is seen. There is no evidence of an acute territorial infarction. No abnormal mass effect or midline shift is seen. Mild supraorbital left frontal scalp soft tissue contusion visible. The osseous structures are normal. The mastoid air cells are well aerated. There is focal soft tissue opacification in a few posterior left ethmoid air cells with central calcification, unchanged. CERVICAL SPINE: No acute fracture or new subluxation is identified in the cervical spine. Multilevel spondylosis again noted with disc-osteophyte complexes. Dense midline focal ossification in the ligamentum flavum remains stable at the C3-C4 and C4-C5 levels where there is at least a moderate degree of central canal stenosis. The atlantoaxial articulation is normally maintained. Dense wall calcifications visible at the carotid bifurcations, worse on the left side, as on prior imaging. A large nodular left thyroid lobe is also unchanged with mild rightward tracheal deviation. The paraspinal soft tissues are normal. The lung apices are clear. CT/CT cervical spine wo IV con IMPRESSION: 1. Minimal amount of subarachnoid hemorrhage in the medial left occipital sulci adjacent to the site of prior residual hyperdense blood products on the 01/03/2024 exam. Findings suspected to represent new acute hemorrhage. Mild supraorbital left frontal scalp soft tissue contusion. 2. Moderate diffuse brain parenchymal volume loss. Encephalomalacia in the left parietal lobe and left frontal lobe, as on previous imaging. 3. No evidence of acute cervical spine traumatic injury. Multilevel spondylosis with at least a moderate degree of central canal stenosis at the C3-C4 and C4-C5 levels. 4. Left hemithyroid goiter, as on prior imaging. Recommend further evaluation with follow-up sonography. Imaging findings reported to FLORENCIA Mccollum at 10:00 AM on 02/05/2024.
--- NOTE | 2024-02-05 08:45 | ECG_ITS ---
Test Reason : FALL Blood Pressure : / mmHG Vent. Rate : 069 BPM Atrial Rate : 069 BPM P-R Int : 106 ms QRS Dur : 076 ms QT Int : 406 ms P-R-T Axes : -10 007 042 degrees QTc Int : 435 ms Sinus rhythm with short UT ST & T wave abnormality, consider anterior ischemia Abnormal ECG When compared with ECG of 03-JAN-2024 19:17, UT interval has decreased Referred By: Bassam Booker Electronically Signed By:Link Real
[2024-02-05 08:55] VITALS: BP 145/51; BP 86/58; PULSE 70; RESP 16; O2SAT 98; BMI 47.2
--- NOTE | 2024-02-05 09:24 | PC.NURSE ---
this nurse took report from [facility], took over patient care at 9am. pt had ekg performed and went to radiology, will insert iv and obtain labs upon her returning.
[2024-02-05] MEDS: 0.9 % Sodium Chloride 1,000 ML 250 ML IVCONT (09:48)
[2024-02-05 09:51] LABS: MANUAL DIFF FLAG NO
[2024-02-05 09:53] LABS: Basophils Percent Auto 0.2 % (0-2); Eosinophils Percent Auto 0.1 % (0-4); Hematocrit 41.1 % (37.0-47.0); Hemoglobin 13.3 g/dl (12.0-16.0); Imm Gran Abs Auto 0.06 X10*3/uL (0.00-0.03); Imm Gran Pct Auto 0.5 % (0.0-0.4); Lymphocytes Absolute Auto 1.2 X10*3/uL (1.2-4.9); Lymphocytes Percent Auto 10.9 % (20-40); Mean Corpuscular HGB Conc 32.4 g/dl (31.0-35.0); Mean Corpuscular Hemoglobin 27.4 pg (27.0-33.0); Mean Corpuscular Volume 84.7 fL (80.0-98.0); Mean Platelet Volume 11.2 fL (9.4-12.3); Monocytes Absolute Auto 1.2 X10*3/uL (0.1-1.2); Monocytes Percent Auto 10.5 % (2-11); Neutrophils Absolute Auto 8.9 x10*3/uL (2.0-8.3); Neutrophils Percent Auto 77.8 % (45-73); Platelet Count 219 X10*3/uL (160-400); Red Blood Count 4.85 X10*6/uL (4.20-5.50); Red Cell Distribution Width 14.6 % (11.0-16.0); White Blood Count 11.4 X10*3/uL (4.8-10.8)
--- NOTE | 2024-02-05 09:59 | PC.NURSE ---
pt alert to person, hx dementia, lungs diminished, lt forhead hematoma noted, iv inserted, labs drawn, ekg performed, pt ct scans performed, satellite specialist applied nsr 70s. ivf hung per order, call [facility] within reach, family at bedside, will continue to monitor
[2024-02-05 10:21] LABS: Appearance Urine Clear; Color Urine Yellow; Glucose Urine UA >=1000 mg/dL (Negative); Leukocyte Esterase Urine Negative (Negative); Nitrite Urine Negative (Negative); PH 6.5 (5.0-9.0); Specific Gravity - Urine >= 1.030 (1.005-1.025); UMIC TRIGGER UACC YES; Urine Blood Negative (Negative); Urine Ketones Trace mg/dL (Negative); Urine Protein Negative (Neg-Trace)
[2024-02-05 10:43] LABS: Troponin-I High Sensitivity 12.4 ng/L (<3.5-17.0)
[2024-02-05 10:48] LABS: Bacteria Urine Trace (None Seen); Hyaline Casts Urine 0-2 /LPF (0-2); RBC Urine 0-2 /HPF (0-2); Squamous Epithelial Cell Urine 0-2 /HPF (0-2); WBC Urine 0-5 /HPF (0-5)
--- NOTE | 2024-02-05 11:07 | ED.FALL ---
HPI - Fall General Chief Complaint: Fall Stated Complaint: FALL AT HOME HEAD PAIN Time Seen by Provider: 02/05/24 08:37 Source: EMS Mode of arrival: EMS Limitations: language barrier and altered mental status History of Present Illness HPI Narrative: History obtained mostly by EMS, twisting department end finder at bedside but patient with severe dementia. Patient fell and was found on the floor by her son, no other history as to the time and how long Onset (ago): hour(s) Prolonged down time: unclear Related Data Home Medications Medication Instructions Recorded Confirmed aspirin 81 mg chewable tablet 1 tab PO DAILY 04/18/21 12/15/22 chlorthalidone 50 mg tablet 50 mg PO DAILY 04/18/21 12/15/22 cholecalciferol (vitamin D3) 50 50 mcg PO DAILY 04/18/21 12/15/22 mcg (2,000 unit) capsule gabapentin 300 mg capsule 300 mg PO TID 04/18/21 12/15/22 hydralazine 10 mg tablet 10 mg PO TID 04/18/21 12/15/22 pantoprazole 20 mg tablet,delayed 20 mg PO BID 04/18/21 12/15/22 release pioglitazone 15 mg tablet 15 mg PO BEDTIME 04/18/21 12/15/22 simvastatin 20 mg tablet 20 mg PO BEDTIME 04/18/21 12/15/22 trazodone 50 mg tablet 50 mg PO BEDTIME 04/18/21 12/15/22 verapamil 120 mg 24 hr 120 mg PO DAILY 04/18/21 12/15/22 capsule,extended release losartan 100 mg tablet 1 tab PO DAILY 06/01/21 12/15/22 metformin 1,000 mg tablet 1 tab PO BID 06/01/21 12/15/22 lancets 33 gauge (TRUEplus Lancets) #100 ea 04/23/22 12/15/22 multivitamin 1 tab PO DAILY 04/23/22 12/15/22 amlodipine 10 mg tablet 1 tab PO DAILY 12/14/22 12/15/22 dapagliflozin propanediol 5 mg 1 tab PO DAILY 12/14/22 12/15/22 tablet (Farxiga) docusate sodium 100 mg capsule 1 cap PO BID 12/14/22 12/15/22 insulin glargine 100 unit/mL (3 20 unit subcut DAILY 12/14/22 12/15/22 mL) subcutaneous pen (Lantus Solostar U-100 Insulin) sitagliptin phosphate 50 mg tablet 1 tab PO DAILY 12/14/22 12/15/22 (Januvia) Previous Rx's Medication Instructions Recorded metoprolol tartrate 25 mg tablet 25 mg PO BID #60 tabs 06/07/21 oxycodone 5 mg tablet 5 mg PO Q4H PRN Pain, Moderate 12/19/22 (Pain Scale 4-6 #18 tabs Allergies Allergy/AdvReac Type Severity Reaction Status Date / Time No Known Allergies Allergy Verified 01/03/24 22:00 Review of Systems Review of Systems: Yes Unobtainable due to mental status Neurologic: Denies Sensory deficit (Neuro) [facility] Past Medical History Medical History Diabetes GERD (gastroesophageal reflux disease) Elevated cholesterol History of femoral angiogram Peripheral vascular disease PAD (peripheral artery disease) HTN (hypertension) Hyperlipemia Osteoporosis Surgical History H/O colonoscopy Hx of angioplasty Hx of hand surgery Family History Family History Father No problems noted. Mother No problems noted. Daughter No problems noted. Son No problems noted. Son No problems noted. Son No problems noted. Social History Social History Household Members: None Housing: Apartment Are you a primary eye care professional to a significant other at home: No Do you presently have visiting nurse or other home services: Yes Alcohol intake: never Patient Tobacco Use Status: Former Tobacco user Quit Date: > 50 yrs Tobacco use type: Cigarette Smoked in Last 30 Days: No Use of substances other than those prescribed or required for medical reasons: No Advance Directives: Yes Advance Directives on File: Yes Advance Directives Date on File: 12/20/22 service: No Current occupational status: disabled Physical Exam Vital Signs: Vital Signs: Last Vital Signs Temp 97.9 F 02/05/24 12:17 Pulse 63 02/05/24 12:17 Resp 18 02/05/24 12:17 BP 145/54 H 02/05/24 12:17 Pulse Ox 98 02/05/24 12:17 O2 Del Method Room Air 02/05/24 12:17 BMI result Body Mass Index 47.2 Const: Other: frail elderly female with frontal hematoma General: healthy appearing Limitations: altered mental status, behavioral limitations and language barrier HEENT: Other: frontal hematoma Ears: external ears normal General nose exam: Normal external nose present Mouth: Normal oral and palatal mucosa present and oropharynx normal Throat: Yes posterior oropharynx normal Eyes: General: appearance normal, both eyes and all related structures Neck: Other: nontender Neck: Yes normal visual inspection Chest: Chest palpation & inspection: normal inspection of the chest Resp: Auscultation: clear to auscultation bilaterally Cardio: Jugular venous distension: no JVD Rate: regular rate Rhythm: regular rhythm Heart sounds: S1 normal heart sound present and S2 normal heart sound present GI: Inspection: Yes normal to inspection Palpation (GI): Soft to palpation, nontender and No hepatosplenomegaly present Auscultation: normal bowel sounds : General: Yes no CVA tenderness Back/Spine/Pelvis: Back: no CVA tenderness Skin: General skin exam: no rashes or lesions noted Neuro: Motor exam (neuro): 5/5 motor strength present throughout Sensory Exam: No Sensory deficit (Neuro) Extrem: General: Yes normal to inspection Psych: Other: unable to assess secondary to aphasia Course Reevaluation(s) Reevaluation #1: discussed with son, patient at baseline, patient could have only been on the floor for a few hours Time: 11:23 Reevaluation #2: I spent 40 minutes of critical care, with interventions, assessments, speaking to patient, consultants, and family. Time: 11:27 Medications Administered Generic Name Dose Route Start Last Admin Trade Name Freq PRN Reason Stop Dose Admin Sodium Chloride 1,000 mls @ 250 mls/hr 02/05/24 08:45 02/05/24 09:48 Ns IVCONT 02/05/24 12:44 250 mls/hr .Q4H NERI Administration Medical Decision Making Differential Diagnosis Differential Diagnoses: The differential diagnosis associated with the presentation includes (subdural, subarachnoid, epidural, cerebral contusion were all considered) Admission/Observation Consideration of admission/observation: Escalation of care including admission/observation considered (upon arrival patient considered for admission) Consult Healthcare Provider Management of the patient was discussed with: Hospitalist and Swine Genetics Researcher Discussed with [place] agrees with repeat head Ct in 24 hours Lab Data 02/05/24 09:47 02/05/24 10:50 Labs: Lab Results 02/05/24 02/05/24 02/05/24 Range/Units 09:47 10:11 10:50 WBC 11.4 H (4.8-10.8) X10*3/uL RBC 4.85 (4.20-5.50) X10*6/uL Hgb 13.3 (12.0-16.0) g/dl Hct 41.1 (37.0-47.0) % MCV 84.7 (80.0-98.0) fL MCH 27.4 (27.0-33.0) pg MCHC 32.4 (31.0-35.0) g/dl RDW 14.6 (11.0-16.0) % Plt Count 219 (160-400) X10*3/uL MPV 11.2 (9.4-12.3) fL Immature Gran % (Auto) 0.5 H (0.0-0.4) % Neut % (Auto) 77.8 H (45-73) % Lymph % (Auto) 10.9 L (20-40) % [place] % (Auto) 10.5 (2-11) % Eos % (Auto) 0.1 (0-4) % Baso % (Auto) 0.2 (0-2) % Lymph # (Auto) 1.2 (1.2-4.9) X10*3/uL [place] # (Auto) 1.2 (0.1-1.2) X10*3/uL Eos # (Auto) 0.0 (0.0-0.4) X10*3/uL Baso # (Auto) 0.0 (0.0-0.2) X10*3/uL Abs Immat Gran (auto) 0.06 H (0.00-0.03) X10*3/uL Absolute Neuts (auto) 8.9 H (2.0-8.3) x10*3/uL Absolute Nucleated RBC 0.000 (0.0-0.012) X10*3/uL Nucleated RBC % (auto) 0.0 (0.0-0.2) /100WBC Sodium 140 (135-145) mmol/L Potassium 4.6 (3.3-5.1) mmol/L Chloride 107 (96-108) mmol/L Carbon Dioxide 26 (22-29) mmol/L Anion Gap 12 (12-20) BUN 33 H (9-16) mg/dL Creatinine 1.00 (0.5-1.4) mg/dL Estim Creat Clear Calc 59.5 Estimated GFR 53 Random Glucose 231 H (60-115) mg/dL Calcium 9.2 D (8.4-10.2) mg/dL Total Creatine Kinase 52 (26-140) U/L Troponin I High Sens 12.4 D (<3.5-17.0) ng/L Urine Color Yellow Urine Appearance Clear Urine pH 6.5 (5.0-9.0) Ur Specific [place] >= 1.030 H (1.005-1.025) Urine Protein Negative (Neg-Trace) mg/dL Urine Glucose (UA) >=1000 H (Negative) mg/dL Urine Ketones Trace (Negative) mg/dL Urine Blood Negative (Negative) Urine Nitrite Negative (Negative) Ur Leukocyte Esterase Negative (Negative) Urine RBC 0-2 (0-2) /HPF Urine WBC 0-5 (0-5) /HPF Ur Squamous Epith Cells 0-2 (0-2) /HPF Urine Bacteria Trace (None Seen) Hyaline Casts 0-2 (0-2) /LPF Independent Interpretation I performed an independent interpretation of an: EKG (sinus 70, non specific st or twave changs) and Plain X-Ray (pelvis and left hip no fracture) Radiology Impression Discussion of test interpretation with radiology: I discussed test interpretation with the radiologist (radiology feels that there is a new occipital subarachnoid small hemorrhage) Independent Historian Clinical information obtained from an independent historian. History obtained from or confirmed by: EMS and Other (son) Chronic Conditions Patient?s care impacted by: Diabetes, Hypertension and Other (CVA) Discharge Plan Discharge Clinical Impression: Acute head trauma, Subarachnoid hemorrhage Patient Disposition: Admitted As Inpatient
[2024-02-05 11:15] LABS: Anion Gap 12 (12-20); Blood Urea Nitrogen 33 mg/dL (9-16); Calcium 9.2 mg/dL (8.4-10.2); Carbon Dioxide 26 mmol/L (22-29); Chloride 107 mmol/L (96-108); Creatinine Clr Calc Pharmacy 59.5; Estimated Glomerular Filt Rate 53; Glucose Random 231 mg/dL (60-115); Potassium 4.6 mmol/L (3.3-5.1); Sodium 140 mmol/L (135-145)
--- NOTE | 2024-02-05 12:13 | PC.NURSE ---
pt currently sleeping, family at bedside, call lehman within reach, will conatinue to monitor
[2024-02-05 12:17] VITALS: BP 145/54; PULSE 63; RESP 18; TEMP 36.6; O2SAT 98
--- NOTE | 2024-02-05 12:57 | P.HPHOSP_ITS ---
History of Present Illness Date of Service: 02/05/24 Attending physician on admission: oRmario Wright Chief Complaint: Fall at home Pt is a 78-year-old Indian-speaking female with a PMH significant for?CVA, Alzheimer's dementia, previous subarachnoid hemorrhage on 10/15/2023, HLD, HTN, PAD, PVD, insulin-dependent diabetes type 2, and GERD, who presents to the ED after fall at home. Patient has advanced dementia and is alert and oriented to self only and mostly aphasic status post CVA, and incapable of providing accurate HPI which is instead obtained from phone call with patient's grandson/HCP. Earlier this morning patient apparently fell while getting out bed, and struck her head on nightstand. Patient lives alone?but has nearly 24 hour care from to box closing machine operator and family. Patient did not lose consciousness and apparently did not offer any acute musculoskeletal complaints. Factors precipitating fall unclear, though patient has long history of balance issues status post CVA and has history of falls at home. Uses walker at baseline. Of note, patient initially diagnosed here with acute subarachnoid hemorrhage on 10/15/2023. Was transferred to [facility] where she was hospitalized for 1 week and treated conservatively with no surgical intervention indicated due to age, comorbidities, and frailty. A few weeks later patient had UTI and repeat scan showed possible acute on chronic additional small bleed. Repeat imaging today found possibility for new small acute subarachnoid hemorrhage. ED physician contacted Neurology who suggested admission to telemetry, BP control, and repeat CT of head tomorrow. In the ED pt was mildly hypertensive at 145/54, vitals otherwise WNL. Labs were significant for WBC mildly elevated at 11.4, otherwise grossly unremarkable. Stable H&H. Head CT showed minimal amount of subarachnoid hemorrhage in medial left occipital sulci adjacent to site of prior residual hyperdense blood products, suspicious for new acute hemorrhage. Also found moderate diffuse brain parenchymal volume loss. CT of cervical spine found no acute traumatic injury but multilevel spondylolysis. Hip and pelvis x-ray found demineralization but no acute bony pathology. EKG demonstrated sinus rhythm with short [place] and T-wave inversions in V1, V2 and V3. Pt was treated with IVF. 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 Review of Systems 2 Review of Systems: Unable to obtain due to patient's mentation [facility] Medical History Diabetes GERD (gastroesophageal reflux disease) Elevated cholesterol History of femoral angiogram Peripheral vascular disease PAD (peripheral artery disease) HTN (hypertension) Hyperlipemia Osteoporosis Family History Father No problems noted. Mother No problems noted. Daughter No problems noted. Son No problems noted. Son No problems noted. Son No problems noted. Surgical History H/O colonoscopy Hx of angioplasty Hx of hand surgery Social History Household Members: None Housing: Apartment Are you a primary healthcare social worker to a significant other at home: No Do you presently have visiting nurse or other home services: Yes Alcohol intake: never Patient Tobacco Use Status: Former Tobacco user Quit Date: > 50 yrs Tobacco use type: Cigarette Smoked in Last 30 Days: No Use of substances other than those prescribed or required for medical reasons: No Advance Directives: Yes Advance Directives on File: Yes Advance Directives Date on File: 12/20/22 service: No Current occupational status: disabled Meds Allergies Allergy/AdvReac Type Severity Reaction Status Date / Time No Known Allergies Allergy Verified 01/03/24 22:00 Home Medications Medication Instructions Recorded Confirmed Last Taken Type aspirin 81 mg chewable tablet 1 tab PO DAILY 04/18/21 12/15/22 05/31/21 History chlorthalidone 50 mg tablet 50 mg PO DAILY 04/18/21 12/15/22 05/31/21 History cholecalciferol (vitamin D3) 50 50 mcg PO DAILY 04/18/21 12/15/22 05/31/21 History mcg (2,000 unit) capsule gabapentin 300 mg capsule 300 mg PO TID 04/18/21 12/15/22 05/31/21 History hydralazine 10 mg tablet 10 mg PO TID 04/18/21 12/15/22 05/31/21 History pantoprazole 20 mg tablet,delayed 20 mg PO BID 04/18/21 12/15/22 05/31/21 History release pioglitazone 15 mg tablet 15 mg PO BEDTIME 04/18/21 12/15/22 05/31/21 History simvastatin 20 mg tablet 20 mg PO BEDTIME 04/18/21 12/15/22 05/31/21 History trazodone 50 mg tablet 50 mg PO BEDTIME 04/18/21 12/15/22 05/31/21 History verapamil 120 mg 24 hr 120 mg PO DAILY 04/18/21 12/15/22 05/31/21 History capsule,extended release losartan 100 mg tablet 1 tab PO DAILY 06/01/21 12/15/22 05/31/21 History metformin 1,000 mg tablet 1 tab PO BID 06/01/21 12/15/22 05/31/21 History lancets 33 gauge (TRUEplus Lancets) #100 ea 04/23/22 12/15/22 Unknown History multivitamin 1 tab PO DAILY 04/23/22 12/15/22 Unknown History amlodipine 10 mg tablet 1 tab PO DAILY 12/14/22 12/15/22 Unknown History dapagliflozin propanediol 5 mg 1 tab PO DAILY 12/14/22 12/15/22 Unknown History tablet (ga) docusate sodium 100 mg capsule 1 cap PO BID 12/14/22 12/15/22 Unknown History insulin glargine 100 unit/mL (3 20 unit subcut DAILY 12/14/22 12/15/22 Unknown History mL) subcutaneous pen (Lantus Solostar U-100 Insulin) sitagliptin phosphate 50 mg tablet 1 tab PO DAILY 12/14/22 12/15/22 Unknown History (Chace) Physical Exam 2 Vital Signs and Narrative: Vital Signs: Last Vital Signs Temp 97.9 F 02/05/24 12:17 Pulse 63 02/05/24 12:17 Resp 18 02/05/24 12:17 BP 145/54 H 02/05/24 12:17 Pulse Ox 98 02/05/24 12:17 O2 Del Method Room Air 02/05/24 12:17 BMI result Body Mass Index 47.2 General: AOx1, capable of following commands, in no acute distress Head: Moderate hematoma above left eye with 4cm superficial skin tear. Resp: CTA bilaterally CVS: S1, S2, RRR GI: +BS, NT, no distention Skin: Warm, dry Neuro: Cranial nerves II-XII grossly intact bilaterally. Motor grossly intact bilaterally. Globalized weakness. moderate upper extremity tremors. Extremities: No edema Psych: Pleasantly confused. Results Labs 02/05/24 09:47 02/05/24 10:50 Labs: Laboratory Results - last 24 hr 02/05/24 02/05/24 02/05/24 09:47 10:11 10:50 MCV 84.7 MCH 27.4 MCHC 32.4 RDW 14.6 Plt Count 219 MPV 11.2 Immature Gran % (Auto) 0.5 H Neut % (Auto) 77.8 H Lymph % (Auto) 10.9 L [place] % (Auto) 10.5 Eos % (Auto) 0.1 Baso % (Auto) 0.2 Lymph # (Auto) 1.2 [place] # (Auto) 1.2 Eos # (Auto) 0.0 Baso # (Auto) 0.0 Abs Immat Gran (auto) 0.06 H Absolute Neuts (auto) 8.9 H Absolute Nucleated RBC 0.000 Nucleated RBC % (auto) 0.0 Anion Gap 12 Estim Creat Clear Calc 59.5 Estimated GFR 53 Random Glucose 231 H Calcium 9.2 D Total Creatine Kinase 52 Troponin I High Sens 12.4 D Urine Color Yellow Urine Appearance Clear Urine pH 6.5 Ur Specific [place] >= 1.030 H Urine Protein Negative Urine Glucose (UA) >=1000 H Urine Ketones Trace Urine Blood Negative Urine Nitrite Negative Ur Leukocyte Esterase Negative Urine RBC 0-2 Urine WBC 0-5 Ur Squamous Epith Cells 0-2 Urine Bacteria Trace Hyaline Casts 0-2 Imaging Radiologist's Impressions: Impressions Hip/Pelvis X-Ray 02/05/24 09:37 IMPRESSION: Demineralization. No acute bony pathology. Cervical Spine CT 02/05/24 09:42 IMPRESSION: 1. Minimal amount of subarachnoid hemorrhage in the medial left occipital sulci adjacent to the site of prior residual hyperdense blood products on the 01/03/2024 exam. Findings suspected to represent new acute hemorrhage. Mild supraorbital left frontal scalp soft tissue contusion. 2. Moderate diffuse brain parenchymal volume loss. Encephalomalacia in the left parietal lobe and left frontal lobe, as on previous imaging. 3. No evidence of acute cervical spine traumatic injury. Multilevel spondylosis with at least a moderate degree of central canal stenosis at the C3-C4 and C4-C5 levels. 4. Left hemithyroid goiter, as on prior imaging. Recommend further evaluation with follow-up sonography. Imaging findings reported to FLORENCIA Mccollum at 10:00 AM on 02/05/2024. Head CT 02/05/24 09:42 IMPRESSION: 1. Minimal amount of subarachnoid hemorrhage in the medial left occipital sulci adjacent to the site of prior residual hyperdense blood products on the 01/03/2024 exam. Findings suspected to represent new acute hemorrhage. Mild supraorbital left frontal scalp soft tissue contusion. 2. Moderate diffuse brain parenchymal volume loss. Encephalomalacia in the left parietal lobe and left frontal lobe, as on previous imaging. 3. No evidence of acute cervical spine traumatic injury. Multilevel spondylosis with at least a moderate degree of central canal stenosis at the C3-C4 and C4-C5 levels. 4. Left hemithyroid goiter, as on prior imaging. Recommend further evaluation with follow-up sonography. Imaging findings reported to FLORENCIA Mccollum at 10:00 AM on 02/05/2024. Assessment and Plan (1) Subarachnoid hemorrhage: Status: Acute Plan Pt is a 78-year-old Indian-speaking female with a PMH significant for?CVA, Alzheimer's dementia, previous subarachnoid hemorrhage on 10/15/2023, HLD, HTN, PAD, PVD, insulin-dependent diabetes type 2, and GERD, who presents to the ED after fall at home. 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 findings suspicious for acute hemorrhage Initial SAH on 10/15/2023, then possibly another small bleed a few weeks later Will control BP with goal of SBP <160 WIll hold aspirin Repeat CT of head tomorrow Neuro checks q4hr Neurology consult PT consult Monitor on telemetry Mechanical fall at home Pt tripped while getting out of bed Uses walker at baseline PT evaluation HTN Continue amlodipine, hydralazine, losartan, verapamil Closely monitor BP with goal of SBP <160 HLD Continue statin Insulin-dependent diabetes type [address] on sliding scale insulin Lantus Diabetic Full Code, though pt's HCP and family are discussing change to DNR/DNI due to pt's poor long-term prognosis Attending:?Dr. Wright DVT Prophylaxis: Pneumatic boots due to acute on chronic subarachnoid hemorrhage Pt will require a hospitalization of at least two nights for treatment of?acute on chronic subarachnoid hemorrhage. Given patient's significant comorbidities patient require specialist consultation, repeat imaging, close monitoring and control of BP, and close monitoring cardiac function. Quality Stroke Does the patient have a stroke diagnosis?: No VTE Prior VTE?: No VTE Risk Level:: Medical - moderate - high VTE Device Contraindication: N/A - Device Ordered VTE Drug Contraindication: Treatment Not Indicated
[2024-02-05 14:43] VITALS: BP 145/54; PULSE 63; O2SAT 98
--- NOTE | 2024-02-05 16:11 | PHA.MEDREC ---
Pharmacy Consult ? Medication Reconciliation Pharmacy has completed the medication reconciliation. Patient use medboxes from [facility]. Called pharmacy to confirm medications in the box. They reports the the following medications were discontinued; amlodipine and pioglitazaone on 11/07/23 by PCP and then chlorthialidine, hydralazine, losartan, metformin, and verapamil on 10/30/23 due to a hospital discharge. Tahmina Rodríguez, NawafD
--- NOTE | 2024-02-05 16:52 | P.CNNE_ITS ---
History of Present Illness Data of Consult Service Date: 02/05/24 Primary Care Provider: Unknown Physician HPI Reason for consult: ? SAH This is a 78-year-old Moldovan-speaking female with a PMH significant for?CVA, Alzheimer's dementia, previous subarachnoid hemorrhage on 10/15/2023, HLD, HTN, PAD, PVD, insulin-dependent diabetes type 2, and GERD, who presents to the ED after fall at home. Patient has advanced dementia and is oriented to self only and aphasic status post CVA, and incapable of providing any information. Earlier this morning patient apparently fell while getting out bed, and struck her head on nightstand. Patient lives alone?but has nearly 24 hour care from to synthetic resin operator and family. Patient did not lose consciousness and apparently did not offer any acute musculoskeletal complaints. Factors precipitating fall unclear, though patient has long history of balance issues status post CVA and has history of falls at home. Uses walker at baseline. Of note, patient initially diagnosed here with acute subarachnoid hemorrhage on 10/15/2023. Was transferred to [facility] where she was hospitalized for 1 week and treated conservatively with no surgical intervention indicated due to age, comorbidities, and frailty. A few weeks later patient had UTI and repeat scan showed possible acute on chronic additional small bleed. Repeat imaging today found possibility for new small acute subarachnoid hemorrhage. Review of Systems 2 Review of Systems: Unable to obtain due to patient's mentation Yes Unobtainable due to mental status Neurologic: Denies Sensory deficit (Neuro) PMFSH Past Medical History Medical History Diabetes GERD (gastroesophageal reflux disease) Elevated cholesterol History of femoral angiogram Peripheral vascular disease PAD (peripheral artery disease) HTN (hypertension) Hyperlipemia Osteoporosis Family History Family History Father No problems noted. Mother No problems noted. Daughter No problems noted. Son No problems noted. Son No problems noted. Son No problems noted. Surgical History Surgical History H/O colonoscopy Hx of angioplasty Hx of hand surgery Social History Social History Household Members: None Housing: Apartment Are you a primary healthcare science specialist to a significant other at home: No Do you presently have visiting nurse or other home services: Yes Alcohol intake: never Patient Tobacco Use Status: Former Tobacco user Quit Date: > 50 yrs Tobacco use type: Cigarette Smoked in Last 30 Days: No Use of substances other than those prescribed or required for medical reasons: No Advance Directives: Yes Advance Directives on File: Yes Advance Directives Date on File: 12/20/22 service: No Current occupational status: disabled Meds Allergies Allergy/AdvReac Type Severity Reaction Status Date / Time No Known Allergies Allergy Verified 01/03/24 22:00 Active Medications: Current Medications Acetaminophen (Acetaminophen 325 Mg Tablet) 650 mg PO Q6H PRN PRN Reason: Pain, Mild (Pain Scale 1-3) Atorvastatin Calcium (Atorvastatin Calcium 10 Mg Tablet) 10 mg PO BEDTIME [facility] Benzonatate (Benzonatate 100 Mg Capsule) 100 mg PO TID PRN PRN Reason: Cough Dextrose (Dextrose 50 % 25 Gm/50 Ml Syringe) 25 gm IVPUSH Q15M PRN; Protocol PRN Reason: per Hypoglycemia Standing Ord. Divalproex Sodium (Divalproex Sodium 500 Mg Tablet.) 500 mg PO TID [facility] Docusate Sodium (Docusate Sodium 100 Mg Capsule) 100 mg PO BID [facility] Ferrous Sulfate (Ferrous Sulfate 324 Mg Tablet.) 324 mg PO Q48H [facility] Gabapentin (Gabapentin 300 Mg Capsule) 300 mg PO TID [facility] Glucose (Glucose Gel 15 Gm Gel..Gram.) 15 gm PO Q15M PRN; Protocol PRN Reason: per Hypoglycemia Standing Ord. Insulin Human Lispro (Insulin Lispro 100 Unit/Ml 3 Ml Vial) 0 unit SUBCUT QIDACHS [facility]; Protocol Metoprolol Tartrate (Metoprolol Tartrate 25 Mg Tablet) 25 mg PO BID [facility]; Protocol Multivitamins/Vitamin C (Multivitamin Tablet) 1 tab PO DAILY [facility] Omeprazole (Omeprazole 20 Mg Capsule.) 20 mg PO BID@0630,1630 [facility] Ondansetron HCl (Ondansetron Hcl 4 Mg/2 Ml Vial) 4 mg IVPUSH Q8H PRN PRN Reason: Nausea and Vomiting Quetiapine Fumarate (Quetiapine Fumarate 25 Mg Tablet) 25 mg PO BEDTIME PRN PRN Reason: sundowning Sitagliptin Phosphate (Sitagliptin Phosphate 50 Mg Tablet) 50 mg PO DAILY [facility] Sodium Chloride (0.9 % Sodium Chloride Flush 3 Ml Syringe) 3 ml IVFLUSH QSHIFT [facility] Last Admin: 02/05/24 15:53 Dose: Not Given Trazodone HCl (Trazodone Hcl 50 Mg Tablet) 50 mg PO BEDTIME [facility] Vitamin D (Cholecalciferol (Vitamin D3) 25 Mcg Tablet) 50 mcg PO DAILY [facility] Home Medications Medication Instructions Recorded Confirmed Last Taken Type aspirin 81 mg chewable tablet 1 tab PO DAILY 04/18/21 02/05/24 05/31/21 History cholecalciferol (vitamin D3) 50 50 mcg PO DAILY 04/18/21 02/05/24 05/31/21 History mcg (2,000 unit) capsule gabapentin 300 mg capsule 300 mg PO TID 04/18/21 02/05/24 05/31/21 History pantoprazole 20 mg tablet,delayed 20 mg PO BID 04/18/21 02/05/24 05/31/21 History release simvastatin 20 mg tablet 20 mg PO BEDTIME 04/18/21 02/05/24 05/31/21 History trazodone 50 mg tablet 50 mg PO BEDTIME 04/18/21 02/05/24 05/31/21 History lancets 33 gauge (TRUEplus Lancets) #100 ea 04/23/22 12/15/22 Unknown History multivitamin 1 tab PO DAILY 04/23/22 02/05/24 Unknown History dapagliflozin propanediol 5 mg 1 tab PO DAILY 12/14/22 02/05/24 Unknown History tablet (Farxiga) docusate sodium 100 mg capsule 1 cap PO BID 12/14/22 02/05/24 Unknown History insulin glargine 100 unit/mL (3 5 unit subcut DAILY 12/14/22 02/05/24 Unknown History mL) subcutaneous pen (Lantus Solostar U-100 Insulin) sitagliptin phosphate 50 mg tablet 1 tab PO DAILY 12/14/22 02/05/24 Unknown History (Januvia) divalproex 500 mg tablet,delayed 500 mg PO TID 02/05/24 02/05/24 Unknown History release ferrous sulfate 325 mg (65 mg 325 mg PO Q OTHER DAY 02/05/24 02/05/24 Unknown History iron) tablet,delayed release quetiapine 25 mg tablet 25 mg PO BEDTIME PRN 02/05/24/06/24 Unknown History Physical Exam 2 Vital Signs: Vital Signs: Last Vital Signs Temp 97.9 F 02/05/24 12:17 Pulse 63 02/05/24 14:43 Resp 18 02/05/24 12:17 BP 145/54 H 02/05/24 14:43 Pulse Ox 98 02/05/24 14:43 O2 Del Method Room Air 02/05/24 12:17 BMI result Body Mass Index 47.2 Const: Other: frail elderly female with frontal hematoma General: healthy appearing Limitations: altered mental status, behavioral limitations and language barrier HEENT: Other: frontal hematoma Ears: external ears normal General nose exam: Normal external nose present Mouth: Normal oral and palatal mucosa present and oropharynx normal Throat: Yes posterior oropharynx normal Eyes: General: appearance normal, both eyes and all related structures Neck: Other: nontender Neck: Yes normal visual inspection Chest: Chest palpation & inspection: normal inspection of the chest Resp: Auscultation: clear to auscultation bilaterally Cardio: Jugular venous distension: no JVD Rate: regular rate Rhythm: r egular rhythm Heart sounds: S1 normal heart sound present and S2 normal heart sound present GI: Inspection: Yes normal to inspection Palpation (GI): Soft to palpation, nontender and No hepatosplenomegaly present Auscultation: normal bowel sounds : General: Yes no CVA tenderness Back/Spine/Pelvis: Back: no CVA tenderness Skin: General skin exam: no rashes or lesions noted Neuro: Other: Severe dementia and aphasia. Does not follow commands. Motor exam (neuro): 5/5 motor strength present throughout Sensory Exam: No Sensory deficit (Neuro) Extrem: General: Yes normal to inspection Psych: Other: unable to assess secondary to aphasia Results Labs 02/05/24 09:47 02/05/24 10:50 Labs: Short CBC 02/05/24 Range/Units 09:47 WBC 11.4 H (4.8-10.8) X10*3/uL Hgb 13.3 (12.0-16.0) g/dl Hct 41.1 (37.0-47.0) % Plt Count 219 (160-400) X10*3/uL BMP 02/05/24 10:50 Sodium 140 Potassium 4.6 Chloride 107 Carbon Dioxide 26 BUN 33 H Creatinine 1.00 Calcium 9.2 D Cardiac Enzymes 02/05/24 Range/Units 10:50 Total Creatine Kinase 52 (26-140) U/L Urine 02/05/24 Range/Units 10:11 Urine Color Yellow Urine Appearance Clear Urine pH 6.5 (5.0-9.0) Ur Specific [place] >= 1.030 H (1.005-1.025) Urine Protein Negative (Neg-Trace) mg/dL Urine Glucose (UA) >=1000 H (Negative) mg/dL Assessment and Plan (1) Subarachnoid hemorrhage: Status: Acute The could be a small traumatic subarachnoid hemorrhage in the occipital region however, it appears more like cerebral contusions to me. There is no mass effect. There is no fluid in the sulci but only on the surface of the gyrus. Remainder. The findings are from the old stroke in the left middle cerebral territory. I personally reviewed the CT scans Recommendation: Followup CT scan in 24 hours. If it is stable the patient can be discharged (2) Aphasia: Status: Acute (3) Alzheimers disease: Status: Acute (4) Acute head trauma: Status: Acute Plan Pt is a 78-year-old Moldovan-speaking female with a PMH significant for?CVA, Alzheimer's dementia, previous subarachnoid hemorrhage on 10/15/2023, HLD, HTN, PAD, PVD, insulin-dependent diabetes type 2, and GERD, who presents to the ED after fall at home. 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 findings suspicious for acute hemorrhage Initial SAH on 10/15/2023, then possibly another small bleed a few weeks later Will control BP with goal of SBP <160 WIll hold aspirin Repeat CT of head tomorrow Neuro checks q4hr Neurology consult PT consult Monitor on telemetry Mechanical fall at home Pt tripped while getting out of bed Uses walker at baseline PT evaluation HTN Continue amlodipine, hydralazine, losartan, verapamil Closely monitor BP with goal of SBP <160 HLD Continue statin Insulin-dependent diabetes type [address] on sliding scale insulin Lantus Diabetic Full Code, though pt's HCP and family are discussing change to DNR/DNI due to pt's poor long-term prognosis Attending:?Dr. Wright DVT Prophylaxis: Pneumatic boots due to acute on chronic subarachnoid hemorrhage Pt will require a hospitalization of at least two nights for treatment of?acute on chronic subarachnoid hemorrhage. Given patient's significant comorbidities patient require specialist consultation, repeat imaging, close monitoring and control of BP, and close monitoring cardiac function. Procedures Date of Service Date of Service: 02/05/24
[2024-02-05 17:02] LABS: Troponin-I High Sensitivity 16.4 ng/L (<3.5-17.0)
[2024-02-05 17:10] VITALS: BP 177/58; PULSE 66; RESP 16; TEMP 37.1; O2SAT 100
--- NOTE | 2024-02-05 17:15 | PC.NURSE ---
pt awake/alert to person, vss, family at bedside, pt requesting po- son was told dinner would be brought soon. pt denies pain/discomfort at this time, call lehman within reach, will continue to monitor
[2024-02-05 17:20] LABS: Glucose, Whole Blood 104 mg/dL (60-115)
--- NOTE | 2024-02-05 17:23 | MHC.EDTECH ---
This factory maintenance technician provided patient care, changing bed sheet, jennifer, and blankets. Martinez helped this factory maintenance technician boost patient up in bed. Placed a purewick and turned on the television for patient.
[2024-02-05] MEDS: SITagliptin Phosphate 50 MG TABLET PO (17:48)
[2024-02-05] MEDS: Gabapentin 300 MG CAPSULE PO ×2 (17:49→22:03)
[2024-02-05] MEDS: Omeprazole 20 MG CAPSULE.DR PO (17:49)
[2024-02-05] MEDS: Divalproex Sodium 500 MG TABLET.DR PO ×2 (17:49→22:04)
--- NOTE | 2024-02-05 17:55 | PC.NURSE ---
pt medicated per order
--- NOTE | 2024-02-05 19:30 | PC.NURSE ---
This software writer assumed care of this Pt at 1900. Pt A&O to self, primarily [place] Island[place] speaking, denies any pain. Left eye bruising noted, and hematoma with abrasion to left upper forehead. Purewick in place, skin intact.
[2024-02-05 20:12] VITALS: BP 159/57; PULSE 87; RESP 12; TEMP 37; O2SAT 93
[2024-02-05 21:34] LABS: Glucose, Whole Blood 210 mg/dL (60-115)
[2024-02-05] MEDS: Insulin Lispro 100 UNIT/ML 3 ML VIAL SUBCUT (21:54)
[2024-02-05 22:02] VITALS: BP 157/58; PULSE 70; RESP 18
[2024-02-05] MEDS: Docusate Sodium 100 MG CAPSULE PO (22:03)
[2024-02-05] MEDS: traZODone HCL 50 MG TABLET PO (22:03)
[2024-02-05] MEDS: Metoprolol Tartrate 25 MG TABLET PO (22:03)
[2024-02-05] MEDS: Atorvastatin Calcium 10 MG TABLET PO (22:04)
--- NOTE | 2024-02-05 23:05 | PC.NURSE ---
Pt anxious, forgetful and attempting to get OOB, Pt moved over to a hospital bed for more comfort.
[2024-02-06] VITALS (12 sets, daily range): BP systolic 136–192; BP diastolic 54–91; PULSE 59–86; RESP 15–20; TEMP 36.4–36.8; O2SAT 94–100
[2024-02-06] MEDS: 0.9 % Sodium Chloride Flush 3 ML SYRINGE IVFLUSH ×3 (00:30→21:34)
--- NOTE | 2024-02-06 03:23 | PC.NURSE ---
Pt hypertensive 180s/60s, Dr. Eyad Marte made aware. No new orders at this time.
[2024-02-06] MEDS: QUEtiapine Fumarate 25 MG TABLET PO (03:51)
[2024-02-06] MEDS: amLODIPine Besylate 5 MG TABLET PO (04:26)
[2024-02-06 05:10] LABS: Hematocrit 37.6 % (37.0-47.0); Hemoglobin 12.2 g/dl (12.0-16.0); Mean Corpuscular HGB Conc 32.4 g/dl (31.0-35.0); Mean Corpuscular Hemoglobin 27.1 pg (27.0-33.0); Mean Corpuscular Volume 83.6 fL (80.0-98.0); Mean Platelet Volume 11.1 fL (9.4-12.3); Platelet Count 187 X10*3/uL (160-400); Red Cell Distribution Width 14.9 % (11.0-16.0); White Blood Count 8.8 X10*3/uL (4.8-10.8)
[2024-02-06 05:26] LABS: Anion Gap 13 (12-20); Blood Urea Nitrogen 27 mg/dL (9-16); Carbon Dioxide 25 mmol/L (22-29); Chloride 103 mmol/L (96-108); Creatinine Clr Calc Pharmacy 75.4; Estimated Glomerular Filt Rate > 60; Glucose Random 218 mg/dL (60-115); Potassium 4.4 mmol/L (3.3-5.1); Sodium 137 mmol/L (135-145)
[2024-02-06] MEDS: Omeprazole 20 MG CAPSULE.DR PO ×2 (06:07→16:50)
--- NOTE | 2024-02-06 06:56 | MHC.EDTECH ---
pt found to be incontinent of urine. Bedding change done with another tech. Pt repositioned
[2024-02-06 07:09] LABS: Glucose, Whole Blood 221 mg/dL (60-115)
--- NOTE | 2024-02-06 08:00 | PC.NURSE ---
PT'S BREAKFAST TRAY AT BEDSIDE, PT ATE A COUPLE SPOONFUL OF EGG WHEN TRAY WAS PUT ON HOLD. PT'S [id number] (JEREMIAH'S ) AT BEDSIDE AND PT WAS GIVEN/ATE A HASH BROWN. THIS OUTSIDE FOOD FROM HOME WAS ALSO PUT ON HOLD. PT TO HAVE CT SCAN AT 0900. FAMILY AWARE OF PLAN OF CARE WHEN [id number] WAS AT BEDSIDE. WILL CONTINUE TO MONITOR. BED ALARM IS ON.
[2024-02-06] MEDS: Insulin Lispro 100 UNIT/ML 3 ML VIAL SUBCUT (08:47)
--- NOTE | 2024-02-06 09:28 | PC.NURSE ---
report from anshul kim. pt placed on tele. 157/62. attempted to text md listed for orders today but on do not disturb. looking for new md signed on to notify bp 157/62. no distress. hr 70s. texted transport to check in as previous rn called transport to bring up
--- NOTE | 2024-02-06 09:33 | PC.NURSE ---
md hester texted to notify re: elevated bp.
--- NOTE | 2024-02-06 09:35 | PC.NURSE ---
pt heading up w transport- attempted to give am meds, pulled out of pyxis, but returned meds in pyxis as transporter haydee in middle of taking pt. on tele monitor en route
[2024-02-06] MEDS: Ferrous Sulfate 324 MG TABLET.DR PO (10:51)
[2024-02-06] MEDS: Divalproex Sodium 500 MG TABLET.DR PO ×3 (10:51→21:34)
[2024-02-06] MEDS: Gabapentin 300 MG CAPSULE PO ×3 (10:51→21:34)
[2024-02-06] MEDS: Metoprolol Tartrate 25 MG TABLET PO ×2 (10:51→21:34)
[2024-02-06] MEDS: Docusate Sodium 100 MG CAPSULE PO ×2 (10:51→21:34)
[2024-02-06] MEDS: Multivitamin TABLET 1 TAB PO (10:51)
[2024-02-06] MEDS: SITagliptin Phosphate 50 MG TABLET PO (10:52)
[2024-02-06 11:26] LABS: Glucose, Whole Blood 89 mg/dL (60-115)
--- NOTE | 2024-02-06 11:30 | MHC.CM.PN ---
Addendum entered by Araceli Sargent RN 02/06/24 11:34: CM RECEIVED A CALL [facility] PT IS ACTIVE W/SN/OT/PT AND WILL FOLLOW FOR RESUMPTION OF CARE, REFERRAL PLACED. Original Note: CM MET W/PT/ DTR GERONIMO AT BEDSIDE AND HCP/GSON JEREMIAH ON SPEAKER PHONE, JEREMIAH REPORTS PT LIVES ALONE HOWEVER HAS FAMILY PROVIDING 24HR CARE W/[employer]UCK[employer] CHECKER 2 NOC HRS AND 4 DAY HRS, PT USES A WALKER INSIDE AND HAS A TRAVEL WC FOR OUTINGS AND A BEDSIDE COMMODE, TOILET RISER AND GRAB BARS IN BR. JEREMIAH VERIFIES PCP IS DR. JON, COVID VACC X5 AND COPY OF HCP ON FILE FROM PREVIOUS ADMISSION. JEREMIAH ASKING IF PT COULD HAVE BRAIN MRI HERE SHE MISSED HER APPT YESTERDAY AFTERNOON, HOSPITALIST WILL CONSULT W/NEURO.
--- NOTE | 2024-02-06 15:05 | P.PNIM_ITS ---
Subjective Subjective Date of Service: 02/06/24 Interval History: Alzheimer's dementia, possible mild subarachnoid hemorrhage Review of Systems patient condition similar to yesterday seems near her baseline as per family Physical Exam 2 Vital Signs: Vital Signs: Last Vital Signs Temp 97.6 F 02/06/24 10:10 Pulse 71 02/06/24 10:10 Resp 20 02/06/24 10:10 BP 154/66 H 02/06/24 10:10 Pulse Ox 100 02/06/24 10:10 O2 Del Method Room Air 02/06/24 10:10 BMI result Body Mass Index 47.2 Appearance:awake ,near baseline? cvs: rrr, [id number] . res: clear to auscultation ,no rhonchii or wheezing abd: no rebound or guarding ,nt, bs present. ext pulses present , no cyanosis . neuro: axo3 , nonfocal. Objective Data Active Medications Acetaminophen (Acetaminophen 325 Mg Tablet) 650 mg PO Q6H PRN PRN Reason: Pain, Mild (Pain Scale 1-3) Amlodipine Besylate (Amlodipine Besylate 5 Mg Tablet) 5 mg PO DAILY [facility]; Protocol Last Admin: 02/06/24 04:26 Dose: 5 mg Documented By: FLORENTINO Atorvastatin Calcium (Atorvastatin Calcium 10 Mg Tablet) 10 mg PO BEDTIME [facility] Last Admin: 02/05/24 22:04 Dose: 10 mg Documented By: FLORENTINO Benzonatate (Benzonatate 100 Mg Capsule) 100 mg PO TID PRN PRN Reason: Cough Dextrose (Dextrose 50 % 25 Gm/50 Ml Syringe) 25 gm IVPUSH Q15M PRN; Protocol PRN Reason: per Hypoglycemia Standing Ord. Divalproex Sodium (Divalproex Sodium 500 Mg Tablet.) 500 mg PO TID [facility] Last Admin: 02/06/24 14:36 Dose: 500 mg Documented By: ADONIS Docusate Sodium (Docusate Sodium 100 Mg Capsule) 100 mg PO BID [facility] Last Admin: 02/06/24 10:51 Dose: 100 mg Documented By: ADONIS Ferrous Sulfate (Ferrous Sulfate 324 Mg Tablet.) 324 mg PO Q48H [facility] Last Admin: 02/06/24 10:51 Dose: 324 mg Documented By: ADONIS Gabapentin (Gabapentin 300 Mg Capsule) 300 mg PO TID [facility] Last Admin: 02/06/24 14:36 Dose: 300 mg Documented By: ADONIS Glucose (Glucose Gel 15 Gm Gel..Gram.) 15 gm PO Q15M PRN; Protocol PRN Reason: per Hypoglycemia Standing Ord. Insulin Human Lispro (Insulin Lispro 100 Unit/Ml 3 Ml Vial) 0 unit SUBCUT QIDACHS [facility]; Protocol Last Admin: 02/06/24 12:16 Dose: Not Given Documented By: ADONIS Non-Admin Reason: No Insulin Coverage Metoprolol Tartrate (Metoprolol Tartrate 25 Mg Tablet) 25 mg PO BID [facility]; Protocol Last Admin: 02/06/24 10:51 Dose: 25 mg Documented By: ADONIS Multivitamins/Vitamin C (Multivitamin Tablet) 1 tab PO DAILY [facility] Last Admin: 02/06/24 10:51 Dose: 1 tab Documented By: ADONIS Omeprazole (Omeprazole 20 Mg Capsule.Dr) 20 mg PO BID@0630,1630 [facility] Last Admin: 02/06/24 06:07 Dose: 20 mg Documented By: FLORENTINO Ondansetron HCl (Ondansetron Hcl 4 Mg/2 Ml Vial) 4 mg IVPUSH Q8H PRN PRN Reason: Nausea and Vomiting Quetiapine Fumarate (Quetiapine Fumarate 25 Mg Tablet) 25 mg PO BEDTIME PRN PRN Reason: sundowning Last Admin: 02/06/24 03:51 Dose: 25 mg Documented By: FLORENTINO Sitagliptin Phosphate (Sitagliptin Phosphate 50 Mg Tablet) 50 mg PO DAILY [facility] Last Admin: 02/06/24 10:52 Dose: 50 mg Documented By: ADONIS Sodium Chloride (0.9 % Sodium Chloride Flush 3 Ml Syringe) 3 ml IVFLUSH QSHIFT [facility] Last Admin: 02/06/24 14:36 Dose: 3 ml Documented By: ADONIS Trazodone HCl (Trazodone Hcl 50 Mg Tablet) 50 mg PO BEDTIME [facility] Last Admin: 02/05/24 22:03 Dose: 50 mg Documented By: FLORENTINO Vitamin D (Cholecalciferol (Vitamin D3) 25 Mcg Tablet) 50 mcg PO DAILY [facility] Last Admin: 02/06/24 10:57 Dose: Not Given Documented By: ADONIS Non-Admin Reason: Med pulled in ED Labs 02/06/24 05:04 02/06/24 05:04 Labs: Laboratory Results - last 24 hr 02/05/24 02/05/24 02/05/24 16:37 17:15 21:28 MCV MCH MCHC RDW Plt Count MPV Absolute Nucleated RBC Nucleated RBC % (auto) Anion Gap Estim Creat Clear Calc Estimated GFR POC Glucose 104 210 H Random Glucose Calcium Troponin I High Sens 16.4 02/06/24 02/06/24 02/06/24 05:04 07:05 11:23 MCV 83.6 MCH 27.1 MCHC 32.4 RDW 14.9 Plt Count 187 MPV 11.1 Absolute Nucleated RBC 0.000 Nucleated RBC % (auto) 0.0 Anion Gap 13 Estim Creat Clear Calc 75.4 Estimated GFR > 60 POC Glucose 221 H 89 Random Glucose 218 H Calcium 9.0 Troponin I High Sens Assessment and Plan (1) Alzheimers disease: Status: Acute (2) Subarachnoid hemorrhage: Status: Acute Assessment and Plan: 78-year-old Turkmen-speaking female with a PMH significant for?CVA, Alzheimer's dementia, previous subarachnoid hemorrhage on 10/15/2023, HLD, HTN, PAD, PVD, insulin-dependent diabetes type 2, and GERD, who presents to the ED after fall at home. 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 findings suspicious for acute hemorrhage Initial SAH on 10/15/2023, then possibly another small bleed a few weeks later control BP with goal of SBP <[address] of head -Stable exam. Again seen is trace subarachnoid hemorrhage in medial left occipital. This finding is unchanged compared with CT head dated 02/05/2024. Neuro checks q4hr Neurology consult-noted ,repeat ct neg ,no new recomendations , pt/ot consult Monitor on telemetry Mechanical fall at home Pt tripped while getting out of bed Uses walker at baseline PT evaluation HTN Continue amlodipine, hydralazine, losartan, verapamil Closely monitor BP with goal of SBP <160 HLD Continue statin Insulin-dependent diabetes type 2: fs flacuating hold lantus Continue home meds Place on sliding scale insulin,avoid coverage below 200 mg/dl. Diabetic DVT Prophylaxis: Pneumatic boots due to acute on chronic subarachnoid hemorrhage hospitalization of 48-72 at for treatment of?acute on chronic subarachnoid hemorrhage. Given patient's significant comorbidities patient require specialist consultation, repeat imaging, close monitoring and control of BP, and close monitoring cardiac function, also pt eval pending for dispo. Family updated in detail, they understand and in agreement with the above plan. Quality Stroke Does the patient have a stroke diagnosis?: No VTE Prior VTE?: No VTE Risk Level:: Medical - moderate - high VTE Device Contraindication: N/A - Device Ordered VTE Drug Contraindication: Treatment Not Indicated
[2024-02-06 16:27] LABS: Glucose, Whole Blood 125 mg/dL (60-115)
[2024-02-06 21:23] LABS: Glucose, Whole Blood 159 mg/dL (60-115)
[2024-02-06] MEDS: traZODone HCL 50 MG TABLET PO (21:34)
[2024-02-06] MEDS: Atorvastatin Calcium 10 MG TABLET PO (21:34)
[2024-02-07 03:26] VITALS: BP 129/65; PULSE 62; RESP 20; TEMP 36.4; O2SAT 99
[2024-02-07] MEDS: Omeprazole 20 MG CAPSULE.DR PO ×2 (05:22→15:12)
[2024-02-07 08:00] VITALS: BP 136/70; PULSE 80; RESP 16; TEMP 36.7; O2SAT 97
[2024-02-07 08:21] LABS: Glucose, Whole Blood 113 mg/dL (60-115)
[2024-02-07] MEDS: Gabapentin 300 MG CAPSULE PO ×2 (09:45→15:12)
[2024-02-07] MEDS: Cholecalciferol (Vitamin D3) 25 MCG TABLET 50 MCG PO (09:46)
[2024-02-07] MEDS: SITagliptin Phosphate 50 MG TABLET PO (09:46)
[2024-02-07] MEDS: amLODIPine Besylate 5 MG TABLET PO (09:46)
[2024-02-07] MEDS: Metoprolol Tartrate 25 MG TABLET PO (09:46)
[2024-02-07] MEDS: Multivitamin TABLET 1 TAB PO (09:46)
[2024-02-07] MEDS: 0.9 % Sodium Chloride Flush 3 ML SYRINGE IVFLUSH ×2 (09:46→15:12)
[2024-02-07] MEDS: Docusate Sodium 100 MG CAPSULE PO (09:46)
[2024-02-07] MEDS: Divalproex Sodium 500 MG TABLET.DR PO ×2 (09:48→15:12)
--- NOTE | 2024-02-07 10:43 | MHC.CM.PN ---
PER HOSPITALIST PT TO BE MEDICALLY CLEARED FOR DC HOME W/RESUMP OF [employer]ATCH [employer]PERATOR, [facility] FOR SN/OT/PT AND 24HR CARE BY FAMILY, FAMILY AT BEDSIDE AND WILL TRANSPORT
[2024-02-07 11:01] VITALS: BP 118/62; PULSE 71; RESP 20; TEMP 36.8; O2SAT 98
[2024-02-07 11:46] LABS: Glucose, Whole Blood 145 mg/dL (60-115)
--- NOTE | 2024-02-07 13:35 | P.DS_ITS ---
DS: Providers Provider Date of Service: 02/07/24 Date of admission: 02/05/24 14:05 Date of discharge: 02/07/24 Primary care physician: Unknown Physician Consults: 02/05/24 14:08 Consult to Neurology Routine Consulting Provider: [facility] Reason for consultation: Acute on chronic SAH Attending physician on discharge: Romario Wright Discharging clinician: Romario Wright DS: Diagnosis Discharge Diagnosis (1) Alzheimers disease: Status: Acute (2) Subarachnoid hemorrhage: Status: Acute DS: Summary Hospital Course Hospital Course: 78-year-old Comoran-speaking female with a PMH significant for?CVA, Alzheimer's dementia, previous subarachnoid hemorrhage on 10/15/2023, HLD, HTN, PAD, PVD, insulin-dependent diabetes type 2, and GERD, who presents to the ED after fall at home. Patient has advanced dementia and is alert and oriented to self only and mostly aphasic status post CVA, and incapable of providing accurate HPI which is instead obtained from phone call with patient's grandson/HCP. Earlier this morning patient apparently fell while getting out bed, and struck her head on nightstand. Patient lives alone?but has nearly 24 hour care from to pomology teacher and family. Patient did not lose consciousness and apparently did not offer any acute musculoskeletal complaints. Factors precipitating fall unclear, though patient has long history of balance issues status post CVA and has history of falls at home. Uses walker at baseline. Of note, patient initially diagnosed here with acute subarachnoid hemorrhage on 10/15/2023. Was transferred to [facility] where she was hospitalized for 1 week and treated conservatively with no surgical intervention indicated due to age, comorbidities, and frailty. A few weeks later patient had UTI and repeat scan showed possible acute on chronic additional small bleed. Repeat imaging today found possibility for new small acute subarachnoid hemorrhage. ED physician contacted Neurology who suggested admission to telemetry, BP control, and repeat CT of head tomorrow. In the ED pt was mildly hypertensive at 145/54, vitals otherwise WNL. Labs were significant for WBC mildly elevated at 11.4, otherwise grossly unremarkable. Stable H&H. Head CT showed minimal amount of subarachnoid hemorrhage in medial left occipital sulci adjacent to site of prior residual hyperdense blood products, suspicious for new acute hemorrhage. Also found moderate diffuse brain parenchymal volume loss. CT of cervical spine found no acute traumatic injury but multilevel spondylolysis. Hip and pelvis x-ray found demineralization but no acute bony pathology. EKG demonstrated sinus rhythm with short MS and T-wave inversions in V1, V2 and V3. Pt was treated with IVF. 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 Hospital course: Acute on chronic subarachnoid hemorrhage: Patient was admitted post fall, CT head was done and seen by Neurology, CT scan had reviewed by Neurology: small traumatic subarachnoid hemorrhage in the occipital region however, it appears more like cerebral contusions : Repeat CT seems similar. As per daughter at bedside patient seems at her baseline. Hold aspirin for 1 week . blood pressure control seems adequate. PT recomended homewith family support ,d/w case management-patient will resume care with [employer] litigation attorney associate,[facility] sn/pt/ot&[address] head incidental finding:Left hemithyroid goiter, as on prior imaging. Recommend further evaluation with follow-up sonography. Discussed with the patient family in detail length plan: hold asa for 1 week. follow up with pcp outpatient. ct head incidental finding:Left hemithyroid goiter, as on prior imaging. Recommend further evaluation with follow-up sonography. Above management discussed with the patient daughter at bedside in detail length she understand and agreement with the above plan, time spent 45 minute. Time Attestation Total time managing care of this patient today: 45 mintues. Discharge Coordination Time (in mins): 45 min Quality: Safe Use of Opioids Does Pt have an Active Cancer Diagnosis on the Problem List?: No Quality: Stroke Does the patient have a stroke diagnosis?: No Physical Exam Vital Signs: Vital Signs: Last Vital Signs Temp 98.2 F 02/07/24 11:01 Pulse 71 02/07/24 11:01 Resp 20 02/07/24 11:01 BP 118/62 02/07/24 11:01 Pulse Ox 98 02/07/24 11:01 O2 Del Method Room Air 02/07/24 11:01 BMI result Body Mass Index 47.2 Appearance:awake ,near baseline? cvs: rrr, [id number] . res: clear to auscultation ,no rhonchii or wheezing abd: no rebound or guarding ,nt, bs present. ext pulses present , no cyanosis . neuro: axo3 , nonfocal. DS: Data Data Completed and Pending Labs on day of discharge: Laboratory Results - last 24 hr 02/06/24 02/06/24 02/07/24 16:23 21:18 08:16 POC Glucose 125 H 159 H 113 02/07/24 11:07 POC Glucose 145 H Imaging Chest x-ray: Radiologist's impression: ITS Impressions Hip/Pelvis X-Ray 02/05/24 09:37 IMPRESSION: Demineralization. No acute bony pathology. Cervical Spine CT 02/05/24 09:42 IMPRESSION: 1. Minimal amount of subarachnoid hemorrhage in the medial left occipital sulci adjacent to the site of prior residual hyperdense blood products on the 01/03/2024 exam. Findings suspected to represent new acute hemorrhage. Mild supraorbital left frontal scalp soft tissue contusion. 2. Moderate diffuse brain parenchymal volume loss. Encephalomalacia in the left parietal lobe and left frontal lobe, as on previous imaging. 3. No evidence of acute cervical spine traumatic injury. Multilevel spondylosis with at least a moderate degree of central canal stenosis at the C3-C4 and C4-C5 levels. 4. Left hemithyroid goiter, as on prior imaging. Recommend further evaluation with follow-up sonography. Imaging findings reported to FLORENCIA Mccollum at 10:00 AM on 02/05/2024. Head CT 02/05/24 09:42 IMPRESSION: 1. Minimal amount of subarachnoid hemorrhage in the medial left occipital sulci adjacent to the site of prior residual hyperdense blood products on the 01/03/2024 exam. Findings suspected to represent new acute hemorrhage. Mild supraorbital left frontal scalp soft tissue contusion. 2. Moderate diffuse brain parenchymal volume loss. Encephalomalacia in the left parietal lobe and left frontal lobe, as on previous imaging. 3. No evidence of acute cervical spine traumatic injury. Multilevel spondylosis with at least a moderate degree of central canal stenosis at the C3-C4 and C4-C5 levels. 4. Left hemithyroid goiter, as on prior imaging. Recommend further evaluation with follow-up sonography. Imaging findings reported to FLORENCIA Mccollum at 10:00 AM on 02/05/2024. Head CT 02/06/24 09:24 IMPRESSION: Stable exam. Again seen is trace subarachnoid hemorrhage in medial left occipital. This finding is unchanged compared with CT head dated 02/05/2024. Discharge Plan Discharge Anticipated Discharge Date/Time: 02/07/24 13:18 Patient Disposition: Home Health Service Discharge Diagnosis: SAH Referrals: [facility] [Outside] - 1 Week (RESUMPTION OF NURSING, HOME OT/PT) Physician,Unknown J [Primary Care Provider] - 1 Week Discharge Medications: Continued metoprolol tartrate 25 mg Tablet 25 mg PO BID Qty: 60 0RF Protocol: Hold for SBP/HR < HOLD for SBP < : 90 HOLD for HR < : 60 docusate sodium 100 mg capsule 1 cap PO BID Januvia 50 mg tablet 1 tab PO DAILY dapagliflozin propanediol [Farxiga] 5 mg tablet 1 tab PO DAILY insulin glargine [Lantus Solostar U-100 Insulin] 100 unit/mL (3 mL) insulin pen 5 unit subcut DAILY quetiapine 25 mg tablet 25 mg PO BEDTIME PRN (Reason: ) divalproex 500 mg tablet,delayed release (DR/EC) 500 mg PO TID ferrous sulfate 325 mg (65 mg iron) tablet,delayed release (DR/EC) 325 mg PO Q OTHER DAY gabapentin 300 mg capsule 300 mg PO TID simvastatin 20 mg tablet 20 mg PO BEDTIME trazodone 50 mg tablet 50 mg PO BEDTIME cholecalciferol (vitamin D3) 50 mcg (2,000 unit) capsule 50 mcg PO DAILY pantoprazole 20 mg tablet,delayed release (DR/EC) 20 mg PO BID (DME) lancets [TRUEplus Lancets] 33 gauge misc See Rx Instructions topical .MEDSUPPLY Qty: 100 Rx Instructions: As directed multivitamin Tablet 1 tab PO DAILY Held aspirin 81 mg tablet,chewable 1 tab PO DAILY Hold Instructions: Resume on 02/12/24. Discharge Orders: Discharge Order (Routine); Ordered 02/07/24 Ordered By: Romario Wright Diet: Advance to usual diet Activity on Discharge: As tolerated Stand Alone Forms: Patient Portal Discharge page Care Plan Goals: Acute on chronic subarachnoid hemorrhage: Patient was admitted post fall, CT head was done and seen by Neurology, CT scan had reviewed by Neurology: small traumatic subarachnoid hemorrhage in the occipital region however, it appears more like cerebral contusions : Repeat CT seems similar. As per daughter at bedside patient seems at her baseline. Hold aspirin for 1 week . blood pressure control seems adequate. PT recomended homewith family support ,d/w case manageme nt-patient will resume care with [employer] litigation attorney associate,[facility] sn/pt/ot&24 hour family care. Discussed with the patient family in detail length follow up with pcp outpatient. Health Concerns: as above. Plan of Treatment: as above. Assessment: as above.
[2024-02-07 14:57] VITALS: BP 114/52; PULSE 72; RESP 20; TEMP 37.4; O2SAT 95
[2024-02-07 16:39] LABS: Glucose, Whole Blood 179 mg/dL (60-115)
== END 2024-02-07 17:24 | disposition home health service (06) | DRG 87 ==
LOC: HO.ED 11:48 → HO.EDOVER 14:12 → HO.IMC 02-06 07:54
PROVIDERS: Admitting Provider Student in an Organized Health Care Education/Training Program; Emergency Provider Emergency Medicine; PCP Internal Medicine; Visit Provider Internal Medicine
DX: S06.6X0A Traumatic subarachnoid hemorrhage without loss of consciousness, initial encounter (principal); W19.XXXA Unspecified fall, initial encounter; I10 Essential (primary) hypertension; G30.9 Alzheimer's disease, unspecified; F02.C0 Dementia in other diseases classified elsewhere, severe, without behavioral disturbance, psychotic disturbance, mood disturbance, and anxiety; E11.51 Type 2 diabetes mellitus with diabetic peripheral angiopathy without gangrene; I69.320 Aphasia following cerebral infarction; K21.9 Gastro-esophageal reflux disease without esophagitis; E78.5 Hyperlipidemia, unspecified; Z79.4 Long term (current) use of insulin; Z79.82 Long term (current) use of aspirin; Z79.899 Other long term (current) drug therapy
CPT/HCPCS: 36415; 70450; 72125; 73502; 80048; 81001; 82550; 82947; 84484; 85025; 85027; 93005; 97162; 99285

== ENCOUNTER → 2024-02-05 08:45 | Outpatient (BNV) | payer OTHER, SELFPAY | PROVIDERS: Admitting Provider Student in an Organized Health Care Education/Training Program; Emergency Provider Emergency Medicine; Visit Provider Internal Medicine Cardiovascular Disease | DX: R94.31 Abnormal electrocardiogram [ECG] [EKG] (principal) | CPT/HCPCS: 93010 ==

== ENCOUNTER → 2024-02-05 14:05 | Outpatient (BNV) | payer OTHER, SELFPAY | PROVIDERS: Admitting Provider Student in an Organized Health Care Education/Training Program; Emergency Provider Emergency Medicine; Visit Provider Psychiatry & Neurology Neurology | DX: I60.9 Nontraumatic subarachnoid hemorrhage, unspecified (principal); R47.01 Aphasia; G30.9 Alzheimer's disease, unspecified; F02.80 Dementia in other diseases classified elsewhere, unspecified severity, without behavioral disturbance, psychotic disturbance, mood disturbance, and anxiety; S09.90XA Unspecified injury of head, initial encounter | CPT/HCPCS: 99222 ==

== ENCOUNTER → 2024-02-05 14:05 | Outpatient (BNV) | payer OTHER, SELFPAY | PROVIDERS: Admitting Provider Student in an Organized Health Care Education/Training Program; Emergency Provider Emergency Medicine; Visit Provider Student in an Organized Health Care Education/Training Program | DX: I60.9 Nontraumatic subarachnoid hemorrhage, unspecified (principal); G30.9 Alzheimer's disease, unspecified; F02.80 Dementia in other diseases classified elsewhere, unspecified severity, without behavioral disturbance, psychotic disturbance, mood disturbance, and anxiety | CPT/HCPCS: 99223; 99231; 99239 ==

== ENCOUNTER 2024-02-21 15:47 | Outpatient (REF) | payer OTHER, SELFPAY ==
--- NOTE | ~2024-02-21 | US_ITS ---
EXAMINATION: US THYROID CLINICAL INFORMATION: 3.6 cm thyroid nodule seen on October 2023 CT scan. No history of biopsy/surgery. COMPARISON: Thyroid ultrasound of 12/15/2022. TECHNIQUE: Linear transducer grayscale and color Doppler examination with attention to the region of the thyroid. Technically limited exam due to the low-lying location of the thyroid and limited ability of patient to tilt head back for positioning per pastry finisher's statement. FINDINGS: SIZE: Measurements of the thyroid lobes and nodules are given in sagittal, anteroposterior and transverse dimensions respectively. Right Thyroid Lobe: 4.2 x 1.8 x 1.1 cm, volume 43 mL. Parenchyma: The gland echotexture is heterogeneous. Thyroid vascularity is normal. Left Thyroid Lobe: 5.0 x 3.0 x 3.6 cm, volume 28.2 mL. Parenchyma: The gland echotexture is heterogeneous. Thyroid vascularity is normal. Isthmus: 0.2 cm in maximum AP dimension. Estimated total number of nodules greater than or equal to 1 cm: 2. Tracing Lathe Set Up Operator nodules are described as follows: The nodule identified along the isthmus on the right on the prior exam is not clearly visualized today. 1. Location: Right upper pole. Size: 0.6 x 0.5 x 0.6 cm, volume 0.1 mL. Previously 1.0 x 0.6 x 0.8 cm, volume 0.3 mL. Nodule characteristics: Composition: Solid/almost completely solid (2). Echogenicity: Isoechoic (1). Shape: Not taller than wide (0). Margins: Ill-defined (0). Echogenic Foci: Punctate echogenic foci (3). ACR TI-RADS total points: 6. ACR TI-RADS category: 4. 2. Location: Upper/midpole. Size: 0.4 x 0.3 x 0.4 cm, volume 0.03 mL. Previously: 0.5 x 0.3 x 0.4 cm, volume 0.30 mL. Nodule characteristics: Composition: Solid/almost completely solid (2). Echogenicity: Hypoechoic Shape: Not taller than wide (0). Margins: Ill-defined (0). Echogenic Foci: ACR TI-RADS total points: 4. ACR TI-RADS category: 4. 3. Location: Lower pole. Size: 1.2 x 0.8 x 0.9 cm, volume 0.41 mL. Previously: 0.8 x 0.5 x 0.7 cm, volume 0.1 mL. Nodule characteristics: Composition: Solid/almost completely solid (2). Echogenicity: Hypoechoic Shape: Not taller than wide (0). Margins: Smooth (0). Echogenic Foci: None. ACR TI-RADS total points: 4. ACR TI-RADS category: 4. 4. Location: Left midpole. Size: 4.0 x 3.0 x 3.4 cm, volume 21.5 mL. Previously: 3.1 x 2.4 x 3.0 cm, volume 11.8 mL Nodule characteristics: Composition: Solid (2). Echogenicity: Hypoechoic (2). Shape: Not taller than wide (0). Margins: Ill-defined (0). Echogenic Foci: None (0). ACR TI-RADS total points: 4. ACR TI-RADS category: 4. NODES: No lymphadenopathy is seen in the tissue surrounding the thyroid gland. US/US thyroid IMPRESSION: 4.0 cm left midpole TR4 nodule meets criteria for biopsy. Fine-needle aspiration. This study was presented today 03/03/2024 for interpretation. Prompt inpatient results provided at this time as requested by referring provider. ACR TI-RADS RECOMMENDATION REFERENCE: Ultrasound-guided fine-needle aspiration, followup ultrasound, no further follow up. * TR1 (0 point) and TR2 (2 points): No FNA or follow up. * TR3 (3 points): FNA if more than or equal to 2.5 cm in maximum dimension, followup ultrasound in 1, 3 and 5 years if 1.5 to 2.4 cm in maximum dimension. * TR4 (4-6 points): FNA if more than or equal to 1.5 cm in maximum dimension, followup ultrasound in 1, 2, 3 and 5 years if 1 to 1.4 cm in maximum dimension. * TR5 (more than or equal to 7 points): FNA if more than or equal to 1 cm in maximum dimension, followup ultrasound every year for 5 years if 0.5 to 0.9 cm in maximum dimension. * TR3, TR4 or TR5 nodules that are below the size threshold for followup receive no follow up.
== END 2024-02-21 15:48 | disposition home or self-care (01) ==
LOC: HO.US 15:47
PROVIDERS: PCP Internal Medicine; Visit Provider Nurse Practitioner Family
DX: E04.1 Nontoxic single thyroid nodule (principal)
CPT/HCPCS: 76536

== ENCOUNTER 2024-04-07 18:24 | Emergency (ER) | payer OTHER, SELFPAY ==
--- NOTE | ~2024-04-07 | XR_ITS ---
EXAMINATION: XR ABDOMEN KUB CLINICAL INDICATION: Constipation. COMPARISON: CT abdomen/pelvis 06/03/2021. TECHNIQUE: AP view of the abdomen. FINDINGS: Nonobstructive bowel gas pattern. Large amount of stool in the colon. No acute osseous findings. Severe atherosclerotic disease. Included portions of the lung bases are clear. XR/XR KUB IMPRESSION: Nonobstructive bowel gas pattern. Large amount of stool in the colon.
--- NOTE | 2024-04-07 18:45 | ECG_ITS ---
Test Reason : ABD PAIN Blood Pressure : / mmHG Vent. Rate : 051 BPM Atrial Rate : 051 BPM P-R Int : 140 ms QRS Dur : 088 ms QT Int : 486 ms P-R-T Axes : 032 -10 074 degrees QTc Int : 447 ms Sinus bradycardia T wave abnormality, consider anterior ischemia Abnormal ECG When compared with ECG of 05-FEB-2024 09:09, MA interval has increased Referred By: Tami Flores Electronically Signed By:Link Real
--- NOTE | 2024-04-07 18:46 | ED_ITS ---
HPI - General Adult General Chief complaint: Abdominal Pain Stated complaint: ABD PAIN X3DAYS,WEAKNESS Source: patient and EMS Mode of arrival: EMS Limitations: other (Dementia) History of Present Illness HPI narrative: Patient comes to the emergency room by ambulance. According to EMS, the family reported that the patient had been complaining of abdominal pain and weakness. Patient has history of dementia and her history is not reliable. Here in the emergency room, patient states that she feels well, has no abdominal pain, no chest pain, no shortness of breath. States that she does not know why she is here, feels well and would like to go home. Related Data Home Medications ?Medication ?Instructions ?Recorded ?Confirmed aspirin 81 mg chewable tablet 1 tab PO DAILY 04/18/21 02/05/24 cholecalciferol (vitamin D3) 50 50 mcg PO DAILY 04/18/21 02/05/24 mcg (2,000 unit) capsule gabapentin 300 mg capsule 300 mg PO TID 04/18/21 02/05/24 pantoprazole 20 mg tablet,delayed 20 mg PO BID 04/18/21 02/05/24 release simvastatin 20 mg tablet 20 mg PO BEDTIME 04/18/21 02/05/24 trazodone 50 mg tablet 50 mg PO BEDTIME 04/18/21 02/05/24 lancets 33 gauge (TRUEplus Lancets) #100 ea 04/23/22 12/15/22 multivitamin 1 tab PO DAILY 04/23/22 02/05/24 dapagliflozin propanediol 5 mg 1 tab PO DAILY 12/14/22 02/05/24 tablet (Farxiga) docusate sodium 100 mg capsule 1 cap PO BID 12/14/22 02/05/24 insulin glargine 100 unit/mL (3 5 unit subcut DAILY 12/14/22 02/05/24 mL) subcutaneous pen (Lantus Solostar U-100 Insulin) sitagliptin phosphate 50 mg tablet 1 tab PO DAILY 12/14/22 02/05/24 (Januvia) divalproex 500 mg tablet,delayed 500 mg PO TID 02/05/24 02/05/24 release ferrous sulfate 325 mg (65 mg 325 mg PO Q OTHER DAY 02/05/24 02/05/24 iron) tablet,delayed release quetiapine 25 mg tablet 25 mg PO BEDTIME PRN 02/05/24/06/24 Previous Rx's ?Medication ?Instructions ?Recorded metoprolol tartrate 25 mg tablet 25 mg PO BID #60 tabs 06/07/21 Allergies Allergy/AdvReac Type Severity Reaction Status Date / Time No Known Allergies Allergy Verified 04/07/24 18:53 Review of Systems 2 Review of Systems: Yes Other [facility] Past Medical History Medical History Diabetes GERD (gastroesophageal reflux disease) Elevated cholesterol History of femoral angiogram Peripheral vascular disease PAD (peripheral artery disease) HTN (hypertension) Hyperlipemia Osteoporosis Surgical History H/O colonoscopy Hx of angioplasty Hx of hand surgery Family History Family History Father No problems noted. Mother No problems noted. Daughter No problems noted. Son No problems noted. Son No problems noted. Son No problems noted. Social History Social History Household Members: Family Housing: Apartment Are you a primary critical care nurse practitioner to a significant other at home: No Do you presently have visiting nurse or other home services: Yes Alcohol intake: never Patient Tobacco Use Status: Former Tobacco user Quit Date: > 50 yrs Tobacco use type: Cigarette Second Hand Smoke Exposure: No Advance Directives: Yes Advance Directives on File: Yes Advance Directives Date on File: 12/20/22 Do you have a plan to hurt others: No Plan service: No Current occupational status: disabled Physical Exam ED Vital Signs: Vital Signs - 24 hr 04/07/24 18:51 04/07/24 20:53 Temperature 97.9 F Pulse Rate 50 48 L Respiratory Rate 14 15 Blood Pressure 116/51 L 133/48 L Pulse Oximetry 98 95 Oxygen Delivery Method Room Air Room Air BMI result Body Mass Index 17.7 Const Other: Appearance: Alert. Oriented X1. No acute distress. Eyes: Pupils equal, round and reactive to light. ENT: Pharynx normal. Neck: Normal inspection. Neck supple. No lymph nodes noted. No crepitus CVS: Normal heart rate and rhythm. Pulses normal. Normal S1 and S2 Respiratory: No respiratory distress. Breath sounds normal. No Wheezing. No rales Abdomen: Soft and nontender. No rigidity. No distention. Skin: Skin warm and dry. Normal skin color. Normal skin turgor. Extremities: No lower extremity edema. No Lacerations. No Rash Neuro: Oriented X 1 No motor deficit. 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 -case management consult and physical therapy consult pending. -patient keeps saying that she feels well, has no abdominal pain and no symptoms. -urinalysis pending Differential Diagnosis Differential Diagnoses: The differential diagnosis associated with the presentation includes (Dementia, constipation, UTI) Admission/Observation Consideration of admission/observation: Escalation of care including admission/observation considered (Patient is under physician observation, patient needs to be evaluated by Case Management and Physical therapy.) Lab Data [facility] Lab Attestation statement: I reviewed the patient's lab results. 04/07/24 19:26 04/07/24 19:26 Labs: Lab Results 04/07/24 Range/Units 19:26 WBC 7.6 (4.8-10.8) X10*3/uL RBC 4.05 L (4.20-5.50) X10*6/uL Hgb 11.7 L (12.0-16.0) g/dl Hct 35.7 L (37.0-47.0) % MCV 88.1 (80.0-98.0) fL MCH 28.9 (27.0-33.0) pg MCHC 32.8 (31.0-35.0) g/dl RDW 15.2 (11.0-16.0) % Plt Count 198 (160-400) X10*3/uL MPV 11.1 (9.4-12.3) fL Immature Gran % (Auto) 0.3 (0.0-0.4) % Neut % (Auto) 36.8 L (45-73) % Lymph % (Auto) 51.9 H (20-40) % Lee % (Auto) 7.2 (2-11) % Eos % (Auto) 3.4 (0-4) % Baso % (Auto) 0.4 (0-2) % Lymph # (Auto) 3.9 (1.2-4.9) X10*3/uL Lee # (Auto) 0.6 (0.1-1.2) X10*3/uL Eos # (Auto) 0.3 (0.0-0.4) X10*3/uL Baso # (Auto) 0.0 (0.0-0.2) X10*3/uL Abs Immat Gran (auto) 0.02 (0.00-0.03) X10*3/uL Absolute Neuts (auto) 2.8 (2.0-8.3) x10*3/uL Absolute Nucleated RBC 0.000 (0.0-0.012) X10*3/uL Nucleated RBC % (auto) 0.0 (0.0-0.2) /100WBC Sodium 144 (135-145) mmol/L Potassium 4.8 (3.3-5.1) mmol/L Chloride 107 (96-108) mmol/L Carbon Dioxide 27 (22-29) mmol/L Anion Gap 15 (12-20) BUN 32 H (9-16) mg/dL Creatinine 1.05 (0.5-1.4) mg/dL Estim Creat Clear Calc 31.0 Estimated GFR 51 Random Glucose 153 H (60-115) mg/dL Calcium 8.8 (8.4-10.2) mg/dL Magnesium 1.5 L (1.6-2.6) mg/dL Total Bilirubin 0.2 (0.0-1.0) mg/dL Direct Bilirubin < 0.2 (0.0-0.5) mg/dL AST 18 (5-31) U/L ALT 8 (0-31) U/L Alkaline Phosphatase 53 (39-117) U/L Troponin I High Sens 5.4 D (<3.5-17.0) ng/L Total Protein 6.3 L (6.5-8.0) g/dL Albumin 3.2 L (3.5-5.0) g/dL Lipase 11 (8-78) U/L Independent Interpretation I performed an independent interpretation of an: Plain X-Ray (My interpretation of KUB, no SBO pattern) Critical Care Time Critical Care Time Critical Care Time: Yes Total Critical Care Time: 40 Attestation: I have personally provided critical care time. Time includes review of lab data, radiology results, discussion with consultants, and monitoring for potential decompensation. Intervention performed as documented. Discharge Plan Discharge Clinical Impression: Dementia, Constipation Patient Disposition: Still a Patient Instructions: Dementia (ED) Additional Instructions: Please follow-up with your primary care physician tomorrow. If you have any worsening or new symptoms, please return to the emergency room or call 911 Prescriptions: No Action metoprolol tartrate 25 mg Tablet 25 mg PO BID Qty: 60 0RF Protocol: Hold for SBP/HR < HOLD for SBP < : 90 HOLD for HR < : 60 docusate sodium 100 mg capsule 1 cap PO BID Januvia 50 mg tablet 1 tab PO DAILY dapagliflozin propanediol [Farxiga] 5 mg tablet 1 tab PO DAILY insulin glargine [Lantus Solostar U-100 Insulin] 100 unit/mL (3 mL) insulin pen 5 unit subcut DAILY quetiapine 25 mg tablet 25 mg PO BEDTIME PRN (Reason: ) divalproex 500 mg tablet,delayed release (DR/EC) 500 mg PO TID ferrous sulfate 325 mg (65 mg iron) tablet,delayed release (DR/EC) 325 mg PO Q OTHER DAY gabapentin 300 mg capsule 300 mg PO TID simvastatin 20 mg tablet 20 mg PO BEDTIME trazodone 50 mg tablet 50 mg PO BEDTIME cholecalciferol (vitamin D3) 50 mcg (2,000 unit) capsule 50 mcg PO DAILY pantoprazole 20 mg tablet,delayed release (DR/EC) 20 mg PO BID aspirin 81 mg tablet,chewable 1 tab PO DAILY Hold Instructions: Resume on 02/12/24. (DME) lancets [TRUEplus Lancets] 33 gauge misc See Rx Instructions topical .MEDSUPPLY Qty: 100 Rx Instructions: As directed multivitamin Tablet 1 tab PO DAILY Print Language: Romansh
[2024-04-07 18:51] VITALS: BP 116/51; BP 128/68; PULSE 50; PULSE 56; RESP 14; TEMP 36.6; O2SAT 98; O2SAT 99; BMI 17.7
[2024-04-07 19:31] LABS: MANUAL DIFF FLAG NO
[2024-04-07 19:33] LABS: Basophils Percent Auto 0.4 % (0-2); Eosinophils Absolute Auto 0.3 X10*3/uL (0.0-0.4); Eosinophils Percent Auto 3.4 % (0-4); Hematocrit 35.7 % (37.0-47.0); Hemoglobin 11.7 g/dl (12.0-16.0); Imm Gran Abs Auto 0.02 X10*3/uL (0.00-0.03); Imm Gran Pct Auto 0.3 % (0.0-0.4); Lymphocytes Absolute Auto 3.9 X10*3/uL (1.2-4.9); Lymphocytes Percent Auto 51.9 % (20-40); Mean Corpuscular HGB Conc 32.8 g/dl (31.0-35.0); Mean Corpuscular Hemoglobin 28.9 pg (27.0-33.0); Mean Corpuscular Volume 88.1 fL (80.0-98.0); Mean Platelet Volume 11.1 fL (9.4-12.3); Monocytes Absolute Auto 0.6 X10*3/uL (0.1-1.2); Monocytes Percent Auto 7.2 % (2-11); Neutrophils Absolute Auto 2.8 x10*3/uL (2.0-8.3); Neutrophils Percent Auto 36.8 % (45-73); Platelet Count 198 X10*3/uL (160-400); Red Blood Count 4.05 X10*6/uL (4.20-5.50); Red Cell Distribution Width 15.2 % (11.0-16.0); White Blood Count 7.6 X10*3/uL (4.8-10.8)
[2024-04-07 19:49] LABS: Alanine Aminotransferase 8 U/L (0-31); Albumin Level 3.2 g/dL (3.5-5.0); Alkaline Phosphatase 53 U/L (39-117); Anion Gap 15 (12-20); Aspartate Amino Transferase 18 U/L (5-31); Bilirubin Direct < 0.2 mg/dL (0.0-0.5); Bilirubin Total 0.2 mg/dL (0.0-1.0); Blood Urea Nitrogen 32 mg/dL (9-16); Calcium 8.8 mg/dL (8.4-10.2); Carbon Dioxide 27 mmol/L (22-29); Chloride 107 mmol/L (96-108); Estimated Glomerular Filt Rate 51; Glucose Random 153 mg/dL (60-115); Lipase 11 U/L (8-78); Magnesium 1.5 mg/dL (1.6-2.6); Potassium 4.8 mmol/L (3.3-5.1); Sodium 144 mmol/L (135-145); Total Protein 6.3 g/dL (6.5-8.0)
[2024-04-07 19:56] LABS: Troponin-I High Sensitivity 5.4 ng/L (<3.5-17.0)
[2024-04-07 20:53] VITALS: BP 133/48; PULSE 48; RESP 15; O2SAT 95
--- NOTE | 2024-04-07 22:08 | MHC.CM.ED ---
CM received consult from Dr. Flores with work-up still pending. Awaiting KUB results. Pt is very poor historian. Has hx dementia, CVA, 3 SAH, aphasia, falls, GERD, DM, PVD, PAD. Lives alone with 24/7 family care, [employer] [facility] from [facility], and [facility]. Has PT/OT and longterm. Pt cannot be alone. Pt uses a walker and a wheelchair. Has a commode. PCP is Dr. Topete. HCP on file. HCP/grandson Kevin Winkler([phone]). HCP is on file. Kevin is Khmer speaking. Kevin tells CM that the family can no longer provide 24/7 care and he feels the patient needs LTC.He tells CM that they have tried to keep her home, but she just needs too much care. States the patient as had trouble ambulating lately. PT assessment is pending. HC{P is aware that CM will place referrals to facilities that are contracted with [facility]. Kevin is aware that LTC beds are short and that they may be farther in distance. Kevin is aware that referrals for STR can be placed first, with a transition to LTC. He is agreeable to plan.
[2024-04-08 00:15] VITALS: BP 157/40; PULSE 57; RESP 17; O2SAT 95
--- NOTE | 2024-04-08 01:48 | PC.NURSE ---
pt placed into hospital bed.
[2024-04-08 06:35] VITALS: BP 153/66; PULSE 74; RESP 19; TEMP 36.7; O2SAT 97
[2024-04-08 09:35] LABS: Appearance Urine Clear; Color Urine Yellow; Glucose Urine UA >=1000 mg/dL (Negative); Leukocyte Esterase Urine Negative (Negative); Nitrite Urine Negative (Negative); PH 7.5 (5.0-9.0); Specific Gravity - Urine >= 1.030 (1.005-1.025); UMIC TRIGGER UACC YES; Urine Blood Negative (Negative); Urine Ketones Negative (Negative); Urine Protein Negative (Neg-Trace)
[2024-04-08 09:44] LABS: Bacteria Urine None Seen (None Seen); Hyaline Casts Urine 0-2 /LPF (0-2); RBC Urine 0-2 /HPF (0-2); Squamous Epithelial Cell Urine 0-2 /HPF (0-2); WBC Urine 0-5 /HPF (0-5)
[2024-04-08 09:48] LABS: COVID-19 Test Negative (Negative); IDNOW Serial# 08D9AD1C
--- NOTE | 2024-04-08 10:05 | PC.NURSE ---
Pharmacy called for med rec assistance, will complete when able
--- NOTE | 2024-04-08 10:40 | PHA.MEDREC ---
Addendum entered by Vivi Hernandez, [facility] 04/09/24 09:19: Called [facility] to confirm that patient is on both Farxiga and Januvia. Original Note: Pharmacy Consult ? Medication Reconciliation Pharmacy has completed the medication reconciliation, list sent from [facility], last medbox picked up was 03/26/24. Also utilized claims hx and medrec from last visit, pt's aspirin was put on hold, so it was left unconfirmed as she is an unreliable historian.
--- NOTE | 2024-04-08 10:43 | MHC.CM.ED ---
Addendum entered by Clarisse Erickson 04/08/24 15:50: [facility] is able to offer a bed. T/W spoke with Kevin via telephone at [phone]. [facility] is 1st choice. Still waiting to hear from facility. Original Note: Patient remains in ER. Physical therapy eval completed. prison care is recommended. Clinical updates [facility], [facility] [place], [facility], [facility], [facility], [facility] and [facility]. Continue to monitor for d/c needs.
--- NOTE | 2024-04-08 11:24 | PC.NURSE ---
report given to overflow TEA Cisneros
[2024-04-08 13:48] VITALS: BP 159/48; PULSE 77; RESP 18; TEMP 36.8; O2SAT 100
--- NOTE | 2024-04-08 15:12 | PC.NURSE ---
Patient restless, assisted to commode, ambulated on unit, moved to bed with T.V.
[2024-04-08 18:38] VITALS: TEMP 37.3
--- NOTE | 2024-04-08 18:38 | PC.NURSE ---
Patient with an increasing in shaking, rectal temp 99.2, provider aware
[2024-04-08 20:41] VITALS: BP 149/73; PULSE 85; RESP 16; TEMP 36.3; O2SAT 96
[2024-04-08 22:07] LABS: Glucose, Whole Blood 152 mg/dL (60-115)
[2024-04-08] MEDS: Gabapentin 300 MG CAPSULE PO (22:25)
[2024-04-08] MEDS: QUEtiapine Fumarate 25 MG TABLET PO (22:25)
[2024-04-08] MEDS: traZODone HCL 50 MG TABLET PO (22:25)
[2024-04-08] MEDS: Docusate Sodium 100 MG CAPSULE PO (22:25)
[2024-04-08 22:29] VITALS: BP 149/73; PULSE 83
[2024-04-08] MEDS: Metoprolol Tartrate 25 MG TABLET PO (22:29)
[2024-04-08] MEDS: Divalproex Sodium 500 MG TABLET.DR PO (22:30)
[2024-04-09 05:55] VITALS: BP 133/57; PULSE 64; RESP 20; TEMP 37.1; O2SAT 97
[2024-04-09] MEDS: Omeprazole 20 MG CAPSULE.DR PO ×2 (05:57→15:58)
[2024-04-09 07:31] LABS: Glucose, Whole Blood 149 mg/dL (60-115)
--- NOTE | 2024-04-09 08:00 | PC.NURSE ---
This RN fed pt hash brown that was brought in by her daughter. She ate 50% of it and drank apple juice.
[2024-04-09] MEDS: Cholecalciferol (Vitamin D3) 25 MCG TABLET 50 MCG PO (08:31)
[2024-04-09] MEDS: Empagliflozin 10 MG TABLET PO (08:31)
[2024-04-09] MEDS: Multivitamin TABLET 1 TAB PO (08:31)
[2024-04-09] MEDS: Gabapentin 300 MG CAPSULE PO ×3 (08:31→21:44)
[2024-04-09] MEDS: Metoprolol Tartrate 25 MG TABLET PO ×2 (08:31→21:44)
[2024-04-09] MEDS: Docusate Sodium 100 MG CAPSULE PO ×2 (08:31→21:44)
[2024-04-09] MEDS: SITagliptin Phosphate 50 MG TABLET PO (08:31)
[2024-04-09] MEDS: Divalproex Sodium 500 MG TABLET.DR PO ×3 (08:31→21:45)
[2024-04-09] MEDS: Insulin Glargine,Hum.rec.anlog 100 UNIT/ML 10 ML VIAL SUBCUT (08:31)
[2024-04-09] MEDS: Ferrous Sulfate 324 MG TABLET.DR PO (08:44)
--- NOTE | 2024-04-09 08:52 | MHC.EDTECH ---
This tech completed a bed bath. PT was incontinent of urine. Purewick in place and working. Will keep monitoring. Call lehman in place.
--- NOTE | 2024-04-09 09:05 | PC.NURSE ---
Assumed care of patient at 0700, morning meds given per mar, patient unable to tolerate pills whole in pudding, pills crushed and given in pudding, unable to assess pain as patient is not verbally responding.
--- NOTE | 2024-04-09 09:53 | MHC.CM.ED ---
Addendum entered by Clarisse Erickson 04/09/24 13:14: [facility] is able to offer a bed. [facility] liaison will be on-site to visit patient today. Original Note: Patient remains in ER overflow. [facility] choice. Still waiting to hear if they can offer patient a bed. [facility] lunch wagon operator will be on-site to meet patient today. Continue to monitor for d/c needs.
--- NOTE | 2024-04-09 10:45 | PC.NURSE ---
PT ASKED TO GO TO THE BATHROOM, SHE WAS TRANSFERRED TO THE BEDSIDE COMMODE W 2 ASSIST. PT VOIDED LG AMOUNT OF URINE, BACK TO BED, CALL GONZALEZ IN REACH. DENIES PAIN AT THIS TIME.
[2024-04-09 11:12] LABS: Glucose, Whole Blood 221 mg/dL (60-115)
--- NOTE | 2024-04-09 11:23 | MHC.EDTECH ---
poc @11:30a = [id number]
[2024-04-09 14:00] VITALS: BP 120/25; PULSE 76; RESP 17; TEMP 36.6; O2SAT 97
--- NOTE | 2024-04-09 14:51 | MHC.EDTECH ---
Pt was incontinent of urine, pt is cleaned up with new linen. Purewick in place, call lehman in place.
[2024-04-09 16:57] LABS: Glucose, Whole Blood 219 mg/dL (60-115)
--- NOTE | 2024-04-09 18:35 | MHC.CM.ED ---
Lianancy Garcia, from [facility] on site. Met with patient, CM and primary RN. Will report to her team in the morning and will communicate through [facility] with possible bed offer. Aware that [facility] is families first choice.
[2024-04-09 18:58] VITALS: BP 156/51; PULSE 78; RESP 18; TEMP 37.1; O2SAT 96
[2024-04-09 19:01] VITALS: BP 136/30; PULSE 76; RESP 17; TEMP 37.1; O2SAT 98
--- NOTE | 2024-04-09 19:21 | PC.NURSE ---
pt refused to use the commode
[2024-04-09] MEDS: traZODone HCL 50 MG TABLET PO (21:44)
[2024-04-09] MEDS: Atorvastatin Calcium 10 MG TABLET PO (21:53)
--- NOTE | 2024-04-09 23:51 | PC.NURSE ---
Pt assessed, confused at baseline, medicated per MAR, bedalarmed for safety
--- NOTE | 2024-04-10 02:52 | PC.NURSE ---
pt continue to climb oob, unable to follow directions, disrespectful toward toward staff, sitter present
[2024-04-10 03:34] VITALS: BP 151/42; PULSE 65; RESP 18; TEMP 37; O2SAT 98
[2024-04-10] MEDS: Omeprazole 20 MG CAPSULE.DR PO ×2 (05:53→17:56)
[2024-04-10 07:41] LABS: Glucose, Whole Blood 146 mg/dL (60-115)
[2024-04-10 08:00] VITALS: BP 159/56; PULSE 81; RESP 18; TEMP 37.2; O2SAT 99
[2024-04-10] MEDS: Insulin Glargine,Hum.rec.anlog 100 UNIT/ML 10 ML VIAL SUBCUT (08:13)
[2024-04-10 08:14] VITALS: BP 159/56; PULSE 78
[2024-04-10] MEDS: Metoprolol Tartrate 25 MG TABLET PO ×2 (08:14→20:56)
[2024-04-10] MEDS: Docusate Sodium 100 MG CAPSULE PO ×2 (08:14→20:56)
[2024-04-10] MEDS: Empagliflozin 10 MG TABLET PO (08:14)
[2024-04-10] MEDS: Multivitamin TABLET 1 TAB PO (08:19)
[2024-04-10] MEDS: SITagliptin Phosphate 50 MG TABLET PO (08:19)
[2024-04-10] MEDS: Cholecalciferol (Vitamin D3) 25 MCG TABLET 50 MCG PO (08:19)
[2024-04-10] MEDS: Gabapentin 300 MG CAPSULE PO ×3 (08:20→20:56)
[2024-04-10] MEDS: Divalproex Sodium 500 MG TABLET.DR PO ×3 (08:20→20:56)
--- NOTE | 2024-04-10 09:00 | PC.NURSE ---
MEDS GIVEN ORDERED AND DOCUMENTED, VSS. SON AT BEDSIDE.
--- NOTE | 2024-04-10 09:23 | MHC.EDTECH ---
patient was assisted to the commode and was washed up and mouth care was done and was assisted to the recliner with fresh clean linen.
--- NOTE | 2024-04-10 09:28 | MHC.EDTECH ---
pt ate 100 breakfast
--- NOTE | 2024-04-10 09:32 | MHC.EDTECH ---
pt wash washed up with teeth brushed and complete bed change.
[2024-04-10 11:27] LABS: Glucose, Whole Blood 229 mg/dL (60-115)
--- NOTE | 2024-04-10 12:18 | MHC.CM.ED ---
Patient remains in ER overflow. [facility]. Per Kevin, [facility] is 1st choice. [facility] has been asked to obtain insurance auth. Continue to monitor for d/c needs.
--- NOTE | 2024-04-10 13:00 | PC.NURSE ---
PT'S DAUGHTER HERE WITH HOME MED LIST, REQUESTED TO HAVE MEDS CHECKED FOR ACCURACY. MEDS CHECKED BY THIS RN REQUESTED. NO COMPLAINTS.
--- NOTE | 2024-04-10 13:14 | MHC.EDTECH ---
pt ate her lunch 100%
[2024-04-10 14:00] VITALS: BP 147/50; PULSE 74; RESP 20; TEMP 36.6; O2SAT 96
[2024-04-10] MEDS: Acetaminophen 325 MG TABLET 650 MG PO (15:01)
[2024-04-10 17:14] LABS: Glucose, Whole Blood 294 mg/dL (60-115)
--- NOTE | 2024-04-10 19:46 | PC.NURSE ---
Pt resting in bed, no signs of distress. Plan of care ongoing.
[2024-04-10 20:40] LABS: Glucose, Whole Blood 313 mg/dL (60-115)
[2024-04-10] MEDS: Atorvastatin Calcium 10 MG TABLET PO (20:56)
[2024-04-10] MEDS: traZODone HCL 50 MG TABLET PO (20:56)
--- NOTE | 2024-04-10 21:08 | PC.NURSE ---
Pt medicated per jan. Plan of care ongoing.
[2024-04-10 21:46] VITALS: BP 121/91; PULSE 88; RESP 14; TEMP 37.2; O2SAT 96
[2024-04-11 05:07] VITALS: BP 127/57; PULSE 62; RESP 16; TEMP 36.3; O2SAT 96
--- NOTE | 2024-04-11 05:13 | MHC.EDTECH ---
Patient was incontinent of urine ,care given and bedding change ,vitals taken .
[2024-04-11] MEDS: Omeprazole 20 MG CAPSULE.DR PO (06:33)
[2024-04-11 07:03] VITALS: BP 120/36; PULSE 87; RESP 14; TEMP 36.7; O2SAT 95
--- NOTE | 2024-04-11 10:46 | MHC.CM.ED ---
[facility] has given [facility] authorization to transfer: Ruma ALAN arranged for 12pm transfer time. [facility] called to obtain transportation auth Pt's HCP/Grandson called to inform pt's transfer. Pt and ED care team aware and in agreement of d/c plan.
[2024-04-11 10:52] VITALS: BP 136/51; PULSE 86; RESP 18; TEMP 36.4; O2SAT 98
[2024-04-11 10:55] VITALS: BP 136/51; PULSE 85
[2024-04-11] MEDS: Docusate Sodium 100 MG CAPSULE PO (10:55)
[2024-04-11] MEDS: Divalproex Sodium 500 MG TABLET.DR PO (10:55)
[2024-04-11] MEDS: Multivitamin TABLET 1 TAB PO (10:55)
[2024-04-11] MEDS: Insulin Glargine,Hum.rec.anlog 100 UNIT/ML 10 ML VIAL SUBCUT (10:55)
[2024-04-11] MEDS: Cholecalciferol (Vitamin D3) 25 MCG TABLET 50 MCG PO (10:55)
[2024-04-11] MEDS: Gabapentin 300 MG CAPSULE PO (10:55)
[2024-04-11] MEDS: Metoprolol Tartrate 25 MG TABLET PO (10:55)
[2024-04-11] MEDS: SITagliptin Phosphate 50 MG TABLET PO (10:56)
[2024-04-11] MEDS: Empagliflozin 10 MG TABLET PO (10:56)
--- NOTE | 2024-04-11 11:01 | PC.NURSE ---
incontinent of urine, linen change provided. medicated per the MAR- medications given crushed in pudding. 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 plan for discharge to SNF at approx 1200 today, ambulance booked.
[2024-04-11 12:30] VITALS: BP 136/51; PULSE 86; RESP 18; TEMP 36.4; O2SAT 98
== END 2024-04-11 14:47 | disposition home or self-care (01) ==
PROVIDERS: Physician Assistant; Emergency Provider Emergency Medicine
DX: F03.90 Unspecified dementia, unspecified severity, without behavioral disturbance, psychotic disturbance, mood disturbance, and anxiety (principal); K59.00 Constipation, unspecified; E11.9 Type 2 diabetes mellitus without complications; I10 Essential (primary) hypertension; Z11.52 Encounter for screening for COVID-19
CPT/HCPCS: 36415; 74018; 80048; 80076; 81001; 82947; 83690; 83735; 84484; 85025; 87635; 93005; 97162; 99285

== ENCOUNTER → 2024-04-07 18:45 | Outpatient (BNV) | payer OTHER, SELFPAY | PROVIDERS: Emergency Provider Emergency Medicine; Visit Provider Internal Medicine Cardiovascular Disease | DX: R00.1 Bradycardia, unspecified (principal); R94.31 Abnormal electrocardiogram [ECG] [EKG] | CPT/HCPCS: 93010 ==

== ENCOUNTER 2024-04-11 14:13 | Inpatient (IN) | payer OTHER, SELFPAY ==
--- NOTE | ~2024-04-11 | CT_ITS ---
EXAMINATION: CT ABDOMEN AND PELVIS WITHOUT CONTRAST CLINICAL INFORMATION: Left lower quadrant tenderness to palpation, encephalopathy COMPARISON: CT abdomen pelvis 10/04/2021 TECHNIQUE: Multidetector volumetric imaging was performed from the superior aspect of the liver through the pubic symphysis. Sagittal and coronal reformatted images were obtained on the technologist's workstation. This CT examination was performed using dose optimization techniques as appropriate, variously including the following: *Automated exposure control *Adjustment of mA and/or kV according to patient size (this includes techniques or standardized protocols for targeted exams where dose is matched to indication/reason for exam; i.e. extremities or head) *Use of iterative reconstruction technique DLP: 390 mGy-cm FINDINGS: Evaluation of solid organs, vascular structures, and bowel wall limited in the absence of intravenous contrast. Motion artifact moderately limits assessment of the mid abdomen. LUNG BASES: Elevated right hemidiaphragm with right greater than left basilar streaky opacities, likely atelectasis. Multivessel coronary artery calcifications present. LIVER AND BILIARY TREE: Unremarkable. GALLBLADDER: Status post cholecystectomy. PANCREAS: Marked pancreatic parenchymal atrophy. SPLEEN: Unremarkable. ADRENAL GLANDS: Unremarkable. KIDNEYS AND URETERS: Scattered nonobstructing right renal calculi measuring up to 3 mm. GASTROINTESTINAL TRACT: Small esophageal hiatal hernia. Mild colonic diverticulosis without evidence of acute diverticulitis. Large colonic stool burden with a 8.5 cm rectal stool ball (series 8, image 46). Normal appendix. VASCULAR: Severe aortoiliac calcific atherosclerosis again seen. LYMPH NODES: No lymphadenopathy. PERITONEUM: No ascites. BLADDER: Excreted contrast within the urinary bladder, likely relates to recent contrast administration.. PELVIC VISCERA: Status post hysterectomy. ABDOMINAL AND PELVIC WALL: Unremarkable. OSSEOUS STRUCTURES: Mild central compression deformities of the T11 and T12 vertebral bodies, age-indeterminate but new from 06/03/2021. Generalized osteopenia. CT/CT abdomen pelvis wo IV con IMPRESSION: Motion artifact moderately limits assessment of the mid abdomen. 1. Mild central compression deformities of the T11 and T12 vertebral bodies, age-indeterminate but new from 06/03/2021. Correlate with point tenderness. 2. Otherwise, no acute abnormality of the abdomen or pelvis, within the limitations of noncontrast technique. Large colonic stool burden with a 8.5 cm rectal stool ball.
--- NOTE | ~2024-04-11 | XR_ITS ---
EXAMINATION: XR CHEST CLINICAL INFORMATION: Cough, shortness of breath COMPARISON: Chest radiograph 10/15/2023 . TECHNIQUE: Frontal view of the chest was obtained. FINDINGS: Clear lungs. No pleural effusion or pneumothorax. Cardiomediastinal silhouette is unchanged. Redemonstrated remote, healed left lateral mid rib fractures. Redemonstrated chronic, impacted fracture deformity of the left humeral neck XR/XR chest 1V IMPRESSION: No acute cardiopulmonary abnormality.
--- NOTE | ~2024-04-11 | CT_ITS ---
EXAMINATION: CT HEAD WITHOUT CONTRAST (STROKE PROTOCOL) CLINICAL INFORMATION: Stroke protocol. Altered mental status for 8 hours. COMPARISON: Prior noncontrast head CT exams including 10/15/2023, 0 01/03/2024 and 02/05/2024. TECHNIQUE: Contiguous axial imaging was performed from the skull base to vertex without intravenous administration of contrast. This CT examination was performed using dose optimization techniques as appropriate, variously including the following: *Automated exposure control *Adjustment of mA and/or kV according to patient size (this includes techniques or standardized protocols for targeted exams where dose is matched to indication/reason for exam; i.e. extremities or head) *Use of iterative reconstruction technique DLP: 691 mGy-cm FINDINGS: There is atherosclerotic calcification of vertebral and cavernous carotid arteries. No evidence of a hyperdense cerebral artery sign. 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 Chronic patchy hypoattenuation within supratentorial white matter is compatible with sequela of microangiopathy. No acute loss of barrios-white differentiation. No extra-axial fluid collections. An area of chronic hypoattenuation is present in the high left parietal lobe at site of the intraparenchymal hematoma seen on 10/15/2023. There has been resorption of the hyperdense hemorrhage previously seen in the inferomedial left parietal lobe on 01/03/2024. No acute intracranial hemorrhage. Moderate parenchymal volume loss with commensurate prominence of ventricles and sulci. No hydrocephalus. No acute findings within the brainstem or cerebellum. The cerebellar hemispheres are in normal position. The calvarium is intact. There is chronic opacification of a left posterior ethmoid air cell. The mastoid air cells are well aerated. Prior lens replacements. Temporomandibular joints are normal. CT/CT head for stroke IMPRESSION: There are several chronic abnormalities. However, no new intracranial hemorrhage or acute major vascular territory infarction. No acute intracranial pathology compared to 02/06/2024. This critical result was discussed with Heladio Black at 2:34 PM on 04/11/2024. It was ascertained that the content and urgency of the report was understood at the time of direct communication.
--- NOTE | ~2024-04-11 | CT_ITS ---
EXAMINATION: CT ANGIOGRAM HEAD CT ANGIOGRAM NECK CLINICAL INFORMATION: Reason for Exam altered mental status > 8 hours COMPARISON: Same-day CT head, CT angiogram of head and neck 01/03/24 TECHNIQUE: Initial noncontrast stitchdowns toe former imaging of the head and neck was performed. Comparison is made with noncontrast head CT from earlier today. Test bolus sequences followed by intravenous administration 70 mL of Omnipaque 350. Helical imaging was performed in the axial plane from the aortic arch to the skull vertex. Delayed postcontrast imaging of the head was also performed. The data was processed at the blood bank technologist's workstation for generation of MIP sequences. Angled MIPs and volume rendered reformatted images were also generated at an offline 3D workstation. Stenoses are assessed in accordance with Nair et al. Quantification of Carotid Stenosis on CT Angiography. AJR 2006. 27(1):13-19. [address] CT examination was performed using dose optimization techniques as appropriate, variously including the following: *Automated exposure control *Adjustment of mA and/or kV according to patient size (this includes techniques or standardized protocols for targeted exams where dose is matched to indication/reason for exam; i.e. extremities or head) *Use of iterative reconstruction technique DLP: 1489.92 mGy-cm mGy-cm FINDINGS: CT HEAD: Curvilinear subcortical enhancement in the left parietal lobe is likely related to evolution of prior parenchymal hemorrhage. Please see separately dictated head CT for additional findings.. CTA HEAD: Anterior circulation: Right internal carotid artery: Atherosclerosis with [id number] luminal narrowing. Right middle cerebral artery: No hemodynamically significant stenosis. Right anterior cerebral artery: No hemodynamically significant stenosis. Left internal carotid artery: Atherosclerosis with moderate luminal narrowing. Severe narrowing of the supraclinoid segment. Left middle cerebral artery: No hemodynamically significant stenosis. Left anterior cerebral artery: Stable severe stenosis/short segment occlusion at the origin of the A1 segment with diffusely stenotic/hypoplastic remaining A1 segment. Posterior circulation: Right vertebral artery: No hemodynamically significant stenosis. Left vertebral artery: No hemodynamically significant stenosis. Basilar artery: No hemodynamically significant stenosis. Right posterior cerebral artery: No hemodynamically significant stenosis. Left posterior cerebral artery: No hemodynamically significant stenosis. No high flow vascular malformation or significant aneurysmal dilatation is visualized. The major dural venous sinuses are grossly within normal limits given arterial technique. CTA NECK: Aortic arch: The great vessel origins are partially obscured by motion. Normal anatomy. Atherosclerosis of the thoracic aorta and proximal great vessels. Likely severe stenosis at the left subclavian artery origin which is suboptimally assessed. Right common carotid artery: No hemodynamically significant stenosis. Right proximal internal carotid artery: Atherosclerosis without flow-limiting stenosis. Right mid/distal internal carotid artery: No hemodynamically significant stenosis. Left common carotid artery: The origin is obscured by motion and underlying at least moderate stenosis is suspected. Left proximal internal carotid artery: Extensive calcified and noncalcified atherosclerotic plaque with greater than 75% luminal narrowing. Short segment near complete occlusion. Finding appears comparable to the prior examination. There is reconstitution superior to this. Moderate narrowing at the external carotid artery origin Left mid/distal internal carotid artery: No hemodynamically significant stenosis. Right vertebral artery: Moderate stenosis at the origin. Left vertebral artery: Moderate to high-grade stenosis at the origin which may be partially exaggerated by motion. Otherwise patent. CT NECK: Scattered pulmonary micronodules Per the 2017 revised Fleischner Society guidelines, in low-risk patients no routine follow-up is necessarily required. In patients at high-risk for pulmonary neoplasm, recommend consideration of follow-up CT at 12 months to demonstrate nodule stability. Again seen is a diffusely enlarged, heterogeneous left thyroid lobe with numerous nodules, the largest of which measures greater than 1.5 cm. Tracheal secretions. Bilateral intraocular lens placement. Advanced multilevel degenerative changes of the cervical spine with severe spinal canal stenosis at C3-C4 and C4-C5. Probable ossification of the posterior longitudinal ligament. CT/CT angio head neck stroke IMPRESSION: CT HEAD: Curvilinear subcortical enhancement in the left parietal lobe is likely related to evolution of prior parenchymal hemorrhage. Please see separately dictated head CT for additional findings. CTA NECK: Again seen is calcified and noncalcified atherosclerosis at the left carotid bulb and proximal internal carotid artery with greater than 75% luminal narrowing/short segment near complete occlusion. The artery reconstitutes superior to this. Suboptimal evaluation of the great vessel origins, but there is suspected high-grade stenosis at the left subclavian artery origin with probable moderate stenosis at the left common carotid artery origin. Suspected moderate stenosis of the bilateral vertebral artery origins. Redemonstrated severe spinal canal stenosis at C3-C4 and C4-C5. Correlation with MRI cervical spine is recommended if there is symptomatology referrable to this region. Left thyroid multinodular goiter with nodules measuring greater than 1.5 cm. Correlation with dedicated thyroid ultrasound is recommended if not already performed. CTA HEAD: Stable atherosclerosis of the carotid siphons with moderate to high-grade stenosis of the left supraclinoid internal carotid artery. Stable severe stenosis/short segment occlusion of the left A1 segment origin. No new proximal vessel occlusion.
--- NOTE | ~2024-04-11 | FL_ITS ---
Fluoroscopic lumbar puncture Indication: Altered mental status, fever Risks and benefits and possible complications were discussed with the patient's daughter and informed consent was obtained. Patient was placed prone on the fluoroscopy table. The back was prepped and draped in routine sterile fashion. Betadine was used as a skin antiseptic. Utilizing fluoroscopic guidance, the L4-5 interlaminar space was accessed with a 22 gague quinkie spinal needle and clear CSF fluid obtained. Opening pressure was 10 cm. 8 cc of fluid was sent for analysis. The needle was removed without immediate complications. Total fluoroscopy time: 0.9 minutes FL/FL guided lumbar puncture LP Impression: Successful fluoroscopic lumbar puncture This procedure was performed by Trell Skaggs PA-C and supervised by Dr. Strong.
--- NOTE | 2024-04-11 14:19 | ECG_ITS ---
Test Reason : AMS Blood Pressure : / mmHG Vent. Rate : 072 BPM Atrial Rate : 072 BPM P-R Int : 148 ms QRS Dur : 076 ms QT Int : 396 ms P-R-T Axes : 047 002 057 degrees QTc Int : 433 ms Normal sinus rhythm ST & T wave abnormality, consider anterior ischemia Abnormal ECG When compared with ECG of 07-APR-2024 19:20, ST now depressed in Lateral leads Referred By: Allison Black Electronically Signed By:Link Real
--- NOTE | 2024-04-11 14:20 | ED_ITS ---
HPI - Altered Mental Status General Chief Complaint: Altered Mental Status Stated Complaint: NOT ACTING RIGHT Time Seen by Provider: 04/11/24 14:47 Source: family Mode of arrival: EMS History of Present Illness HPI narrative: 78-year-old female who arrives via EMS after being discharged, patient has baseline dementia, daughter saw the patient and stated that she needed to be brought back to the hospital as this was a significant change from her baseline. Patient does have history of stroke and last known well was prior to 0700. Related Data Home Medications ?Medication ?Instructions ?Recorded ?Confirmed aspirin 81 mg chewable tablet 1 tab PO DAILY 04/18/21 02/05/24 cholecalciferol (vitamin D3) 50 50 mcg PO DAILY 04/18/21 04/08/24 mcg (2,000 unit) capsule gabapentin 300 mg capsule 300 mg PO TID 04/18/21 04/08/24 pantoprazole 20 mg tablet,delayed 20 mg PO BID 04/18/21 04/08/24 release simvastatin 20 mg tablet 20 mg PO BEDTIME 04/18/21 04/08/24 trazodone 50 mg tablet 50 mg PO BEDTIME 04/18/21 04/08/24 lancets 33 gauge (TRUEplus Lancets) #100 ea 04/23/22 12/15/22 multivitamin 1 tab PO DAILY 04/23/22 04/08/24 dapagliflozin propanediol 5 mg 1 tab PO DAILY 12/14/22 04/08/24 tablet (Farxiga) docusate sodium 100 mg capsule 1 cap PO BID 12/14/22 04/08/24 insulin glargine 100 unit/mL (3 5 unit subcut DAILY 12/14/22 04/08/24 mL) subcutaneous pen (Lantus Solostar U-100 Insulin) sitagliptin phosphate 50 mg tablet 1 tab PO DAILY 12/14/22 04/08/24 (Januvia) divalproex 500 mg tablet,delayed 500 mg PO TID 02/05/24 04/08/24 release ferrous sulfate 325 mg (65 mg 325 mg PO Q OTHER DAY 02/05/24 04/08/24 iron) tablet,delayed release quetiapine 25 mg tablet 25 mg PO BEDTIME PRN 02/05/24 04/08/24 Previous Rx's ?Medication ?Instructions ?Recorded metoprolol tartrate 25 mg tablet 25 mg PO BID #60 tabs 06/07/21 Allergies Allergy/AdvReac Type Severity Reaction Status Date / Time No Known Allergies Allergy Verified 04/11/24 15:06 Review of Systems 2 Review of Systems: Pertinent positives and negatives as stated in [facility] Past Medical History Source: nursing notes reviewed Medical History Diabetes GERD (gastroesophageal reflux disease) Elevated cholesterol History of femoral angiogram Peripheral vascular disease PAD (peripheral artery disease) HTN (hypertension) Hyperlipemia Osteoporosis Surgical History H/O colonoscopy Hx of angioplasty Hx of hand surgery Family History Family History Father No problems noted. Mother No problems noted. Daughter No problems noted. Son No problems noted. Son No problems noted. Son No problems noted. Social History Social History Household Members: Family Housing: Apartment Are you a primary healthcare administrator to a significant other at home: No Do you presently have visiting nurse or other home services: Yes Alcohol intake: never Patient Tobacco Use Status: Former Tobacco user Quit Date: > 50 yrs Tobacco use type: Cigarette Second Hand Smoke Exposure: No Advance Directives: Yes Advance Directives on File: Yes Advance Directives Date on File: 12/20/22 Do you have a plan to hurt others: No Plan service: No Current occupational status: disabled Physical Exam ED Vital Signs: Vital Signs - 24 hr 04/11/24 15:05 Temperature 102.1 F H Pulse Rate 80 Respiratory Rate 20 Blood Pressure 181/48 H Pulse Oximetry 93 Oxygen Delivery Method Room Air BMI result Body Mass Index 21.6 VITAL SIGNS: Reviewed. GENERAL: Well developed, well nourished, in no acute distress. HEAD: Normocephalic/atraumatic EYES: PERRLA, EOMI EARS: Ext canals without abnormality NOSE: Nares patent bilateral OROPHARYNX: no oral lesions noted, posterior pharynx clear, dry mucosa NECK: Supple, no adenopathy LUNGS: Normal breath sounds. No adventitious sounds or accessory muscle use. SpO2<93> CARDIOVASCULAR: Regular rate and rhythm without noted murmurs, no JVD or lower extremity edema. ABDOMEN: Soft, non-tender, non-distended with bowel sounds. MUSCULOSKELETAL: No tenderness, deformities, or effusions noted on gross inspection. EXTREMITIES: No cyanosis, clubbing or edema. SKIN: Inspection of the skin reveals no rashes, ulcerations, jaundice, pallor, or petechiae. NEUROLOGIC: Drowsy and Strength and sensation to light touch were grossly intact x 4, no facial asymmetry. Course Course Course Narrative: This is a rapid medical exam completed by Yina BAIGN: Additional HPI, ROS, PE not included below will be deferred to primary provider. Concerns for altered mental status greater than 8 hours. Was discharged earlier today to [facility] facility and when the daughter saw her became concerned that the mother and altered mental status. RN who cared for her earlier today states that patient's mental status is consistent with what she saw earlier today. Patient turns head when you state her name. Patient's daughter reports concern that she has not speaking or answering questions in that she has had a stroke in the past with similar symptoms Plan: CT head, CTA head, blood work, UA, BCx2 Medications Administered Discontinued Medications Generic Name Dose Route Start Last Admin Trade Name Freq PRN Reason Stop Dose Admin Acetaminophen 650 mg 04/11/24 15:24 04/11/24 16:06 Acetaminophen Supp 650 Mg Supp.Rect AL 04/11/24 15:25 650 mg ONCE ONE Administration Iohexol 100 ml 04/11/24 14:45 04/11/24 14:45 Iohexol 350 Mg/Ml 100 Ml Infus..Btl IV 04/11/24 14:46 70 ml ONCE ONE Administration Medical Decision Making Medical Decision Making MDM Narrative: 78-year-old female with history and clinical presentation not suspicious for stroke. In my opinion this patient's condition is most consistent with underlying infection, patient has a tactile fever. CT results were called to the PIT provider, I reviewed the results myself there is no evidence of acute changes and otherwise my interpretation is in agreement with radiology's impression. Signed out to Dr Doe - labs, sepsis, UA, CXR Differential Diagnosis Differential Diagnoses: The differential diagnosis associated with the presentation includes Please see the discussion above Admission/Observation Consideration of admission/observation: Escalation of care including admission/observation considered Please see the discussion above Lab Data 04/11/24 15:58 04/11/24 15:58 Labs: Lab Results 04/11/24 04/11/24 04/11/24 Range/Units 14:35 14:45 15:58 WBC 9.0 (4.8-10.8) X10*3/uL RBC 4.55 (4.20-5.50) X10*6/uL Hgb 13.0 (12.0-16.0) g/dl Hct 40.5 (37.0-47.0) % MCV 89.0 (80.0-98.0) fL MCH 28.6 (27.0-33.0) pg MCHC 32.1 (31.0-35.0) g/dl RDW 15.0 (11.0-16.0) % Plt Count 245 (160-400) X10*3/uL MPV 11.6 (9.4-12.3) fL Immature Gran % (Auto) 0.6 H (0.0-0.4) % Neut % (Auto) 78.3 H (45-73) % Lymph % (Auto) 10.0 L (20-40) % [place] % (Auto) 10.9 (2-11) % Eos % (Auto) 0.0 (0-4) % Baso % (Auto) 0.2 (0-2) % Lymph # (Auto) 0.9 L (1.2-4.9) X10*3/uL [place] # (Auto) 1.0 (0.1-1.2) X10*3/uL Eos # (Auto) 0.0 (0.0-0.4) X10*3/uL Baso # (Auto) 0.0 (0.0-0.2) X10*3/uL Abs Immat Gran (auto) 0.05 H (0.00-0.03) X10*3/uL Absolute Neuts (auto) 7.1 (2.0-8.3) x10*3/uL Absolute Nucleated RBC 0.000 (0.0-0.012) X10*3/uL Nucleated RBC % (auto) 0.0 (0.0-0.2) /100WBC Whole Blood PT 12.7 (11.1-13.5) sec Whole Blood INR 1.1 (0.9-1.1) POC Glucose 253 H (60-115) mg/dL Critical Care Time Critical Care Time Critical Care Time: Yes Total Critical Care Time: 60 Attestation: I personally attest to this time spent taking care of the patient. Discharge Plan Discharge Clinical Impression: Sepsis, Altered mental status Patient Disposition: Still a Patient Prescriptions: No Action metoprolol tartrate 25 mg Tablet 25 mg PO BID Qty: 60 0RF Protocol: Hold for SBP/HR < HOLD for SBP < : 90 HOLD for HR < : 60 docusate sodium 100 mg capsule 1 cap PO BID Januvia 50 mg tablet 1 tab PO DAILY dapagliflozin propanediol [Farxiga] 5 mg tablet 1 tab PO DAILY insulin glargine [Lantus Solostar U-100 Insulin] 100 unit/mL (3 mL) insulin pen 5 unit subcut DAILY quetiapine 25 mg tablet 25 mg PO BEDTIME PRN (Reason: ) divalproex 500 mg tablet,delayed release (DR/EC) 500 mg PO TID ferrous sulfate 325 mg (65 mg iron) tablet,delayed release (DR/EC) 325 mg PO Q OTHER DAY gabapentin 300 mg capsule 300 mg PO TID simvastatin 20 mg tablet 20 mg PO BEDTIME trazodone 50 mg tablet 50 mg PO BEDTIME cholecalciferol (vitamin D3) 50 mcg (2,000 unit) capsule 50 mcg PO DAILY pantoprazole 20 mg tablet,delayed release (DR/EC) 20 mg PO BID aspirin 81 mg tablet,chewable 1 tab PO DAILY Hold Instructions: Resume on 02/12/24. (DME) lancets [TRUEplus Lancets] 33 gauge misc See Rx Instructions topical .MEDSUPPLY Qty: 100 Rx Instructions: As directed multivitamin Tablet 1 tab PO DAILY Print Language: Nepali
[2024-04-11 14:23] VITALS: BP 134/78; PULSE 89
--- NOTE | 2024-04-11 14:36 | MHC.CM.ED ---
Received call from ED provider re: pt: pt had d/c'd to [facility] at 12pm. Per provider, dtr was at facility to sign pt in but had concerns about her mental status and asked that she be brought back to [facility] for an eval. ED nursing staff state pt is responsive to name and ate breakfast with incident. Pt to have CT of head (past hx of CVA) and other work up. Pt will need a new CM consult should the work up not lead to admission.
[2024-04-11] MEDS: iohexoL 350 MG/ML 100 ML INFUS..BTL IV (14:45)
[2024-04-11 14:50] LABS: Prothrombin Time Whole Bld POC 12.7 sec (11.1-13.5); ~PT, ~INR - Anti Coag Clinic 1.1 (0.9-1.1)
[2024-04-11 14:51] LABS: Glucose, Whole Blood 253 mg/dL (60-115)
[2024-04-11 15:05] VITALS: BP 181/48; PULSE 80; RESP 20; TEMP 38.9; O2SAT 93; BMI 21.6
--- NOTE | 2024-04-11 15:32 | PC.NURSE ---
attempted to straight cath patient upon arrival to bed 4, patient was incontinent of urine. bed change completed.
[2024-04-11 16:03] LABS: MANUAL DIFF FLAG NO
[2024-04-11 16:05] LABS: Basophils Percent Auto 0.2 % (0-2); Hematocrit 40.5 % (37.0-47.0); Imm Gran Abs Auto 0.05 X10*3/uL (0.00-0.03); Imm Gran Pct Auto 0.6 % (0.0-0.4); Lymphocytes Absolute Auto 0.9 X10*3/uL (1.2-4.9); Mean Corpuscular HGB Conc 32.1 g/dl (31.0-35.0); Mean Corpuscular Hemoglobin 28.6 pg (27.0-33.0); Mean Platelet Volume 11.6 fL (9.4-12.3); Monocytes Percent Auto 10.9 % (2-11); Neutrophils Absolute Auto 7.1 x10*3/uL (2.0-8.3); Neutrophils Percent Auto 78.3 % (45-73); Platelet Count 245 X10*3/uL (160-400); Red Blood Count 4.55 X10*6/uL (4.20-5.50)
[2024-04-11] MEDS: Acetaminophen Supp 650 MG SUPP.RECT PR (16:06)
[2024-04-11] MEDS: cefTRIAXone sodium 1 GM in 0.9 % Sodium Chloride 50 ML IV (16:26)
[2024-04-11 16:30] VITALS: BP 123/34; PULSE 72; RESP 24; O2SAT 97
[2024-04-11 16:37] LABS: Troponin-I High Sensitivity 12.9 ng/L (<3.5-17.0)
[2024-04-11 16:40] LABS: Appearance Urine Clear; Color Urine Yellow; Glucose Urine UA >=1000 mg/dL (Negative); Leukocyte Esterase Urine Negative (Negative); Nitrite Urine Negative (Negative); PH 5.5 (5.0-9.0); Specific Gravity - Urine >= 1.030 (1.005-1.025); UMIC TRIGGER UACC YES; Urine Blood Small (1+) (Negative); Urine Ketones 15 mg/dL (Negative); Urine Protein Negative (Neg-Trace)
[2024-04-11 16:42] LABS: Alanine Aminotransferase 7 U/L (0-31); Alkaline Phosphatase 69 U/L (39-117); Anion Gap 24 (12-20); Aspartate Amino Transferase 13 U/L (5-31); Bilirubin Total 0.3 mg/dL (0.0-1.0); Blood Urea Nitrogen 27 mg/dL (9-16); Calcium 9.9 mg/dL (8.4-10.2); Carbon Dioxide 21 mmol/L (22-29); Chloride 98 mmol/L (96-108); Creatinine Clr Calc Pharmacy 32.8; Estimated Glomerular Filt Rate 41; Glucose Random 290 mg/dL (60-115); Potassium 4.7 mmol/L (3.3-5.1); Sodium 138 mmol/L (135-145); Total Protein 8.6 g/dL (6.5-8.0)
[2024-04-11 17:12] VITALS: BP 118/37; PULSE 70; RESP 20; TEMP 38.9; O2SAT 96
[2024-04-11 17:43] LABS: Influenza A PCR NEGATIVE (Negative); Influenza B PCR NEGATIVE (Negative); Resp Syncy Virus RNA Qual PCR NEGATIVE (Negative); SARS COV2 PCR INHOUSE NEGATIVE (Negative)
[2024-04-11 17:52] LABS: Lactic Acid 1.7 mmol/L (0.5-2.0)
[2024-04-11 18:09] LABS: Bacteria Urine None Seen (None Seen); Hyaline Casts Urine 0-2 /LPF (0-2); RBC Urine 0-2 /HPF (0-2); WBC Urine 0-5 /HPF (0-5)
[2024-04-11] MEDS: Ibuprofen 600 MG TABLET PO (18:12)
[2024-04-11 18:45] VITALS: BP 145/72; PULSE 82; RESP 21; TEMP 37.7; O2SAT 97
--- NOTE | 2024-04-11 19:42 | P.HPHOSP_ITS ---
History of Present Illness Date of Service: 04/11/24 Chief Complaint: Altered mentation This is a 78-year-old female with pertinent history of subarachnoid hemorrhage, history of CVA, Alzheimer's dementia, mixed hyperlipidemia, hypertension, insulin-dependent diabetes mellitus, peripheral vascular disease, mood disorder who was sent to the emergency department for evaluation of fevers and altered mentation. Unable to obtain history from the patient due to altered mentation. History obtained from ER provider, chart review and talk to patient's healthcare proxy on phone. Patient was seen in the ER on 04/07 and kept for physician observation. Patient was discharged on 04/11 from the ER to a detention facility. She was found to be febrile at detention and sent to the ER for further evaluation. Patient's grandson also stated that patient has had difficulty moving her neck and did complain of neck pain. Unable to obtain review of systems. In the emergency department, patient with temp 102 degrees F. UA, CT head and chest x-ray without any acute abnormalities. Review of Systems 2 Review of Systems: Yes Unobtainable due to mental status PMFSH Medical History Diabetes GERD (gastroesophageal reflux disease) Elevated cholesterol History of femoral angiogram Peripheral vascular disease PAD (peripheral artery disease) HTN (hypertension) Hyperlipemia Osteoporosis Family History Father No problems noted. Mother No problems noted. Daughter No problems noted. Son No problems noted. Son No problems noted. Son No problems noted. Surgical History H/O colonoscopy Hx of angioplasty Hx of hand surgery Social History Household Members: Family Housing: Apartment Are you a primary district manager primary care sales to a significant other at home: No Do you presently have visiting nurse or other home services: Yes Alcohol intake: never Patient Tobacco Use Status: Former Tobacco user Quit Date: > 50 yrs Tobacco use type: Cigarette Second Hand Smoke Exposure: No Advance Directives: Yes Advance Directives on File: Yes Advance Directives Date on File: 12/20/22 Do you have a plan to hurt others: No Plan service: No Current occupational status: disabled Meds Allergies Allergy/AdvReac Type Severity Reaction Status Date / Time No Known Allergies Allergy Verified 04/11/24 15:06 Home Medications ?Medication ?Instructions ?Recorded ?Confirmed ?Last Taken ?Type aspirin 81 mg chewable tablet 1 tab PO DAILY 04/18/21 02/05/24 05/31/21 History cholecalciferol (vitamin D3) 50 50 mcg PO DAILY 04/18/21 04/08/24 05/31/21 History mcg (2,000 unit) capsule gabapentin 300 mg capsule 300 mg PO TID 04/18/21 04/08/24 05/31/21 History pantoprazole 20 mg tablet,delayed 20 mg PO BID 04/18/21 04/08/24 05/31/21 History release simvastatin 20 mg tablet 20 mg PO BEDTIME 04/18/21 04/08/24 05/31/21 History trazodone 50 mg tablet 50 mg PO BEDTIME 04/18/21 04/08/24 05/31/21 History lancets 33 gauge (TRUEplus Lancets) #100 ea 04/23/22 12/15/22 Unknown History multivitamin 1 tab PO DAILY 04/23/22 04/08/24 Unknown History dapagliflozin propanediol 5 mg 1 tab PO DAILY 12/14/22 04/08/24 Unknown History tablet (Farxiga) docusate sodium 100 mg capsule 1 cap PO BID 12/14/22 04/08/24 Unknown History insulin glargine 100 unit/mL (3 5 unit subcut DAILY 12/14/22 04/08/24 Unknown History mL) subcutaneous pen (Lantus Solostar U-100 Insulin) sitagliptin phosphate 50 mg tablet 1 tab PO DAILY 12/14/22 04/08/24 Unknown History (Januvia) divalproex 500 mg tablet,delayed 500 mg PO TID 02/05/24 04/08/24 Unknown History release ferrous sulfate 325 mg (65 mg 325 mg PO Q OTHER DAY 02/05/24 04/08/24 Unknown History iron) tablet,delayed release quetiapine 25 mg tablet 25 mg PO BEDTIME PRN 02/05/24 04/08/24 Unknown History Physical Exam 2 Vital Signs and Narrative: Vital Signs: Last Vital Signs Temp 99.9 F 04/11/24 18:45 Pulse 82 04/11/24 18:45 Resp 21 H 04/11/24 18:45 BP 145/72 H 04/11/24 18:45 Pulse Ox 97 04/11/24 18:45 O2 Del Method Room Air 04/11/24 18:45 BMI result Body Mass Index 21.6 Elderly female lying in bed in no distress Regular rate and rhythm, S1-S2 heard Regular breath sounds bilaterally, no wheezing or crackles appreciated Abdomen soft nontender, no guarding, no rigidity Patient is awake but not responding to verbal stimulus, not answering questions, not following commands, unable to assess orientation No pedal edema Results Labs 04/11/24 15:58 04/11/24 15:58 Labs: Laboratory Results - last 24 hr 04/11/24 04/11/24 04/11/24 14:35 14:45 15:58 MCV 89.0 MCH 28.6 MCHC 32.1 RDW 15.0 Plt Count 245 MPV 11.6 Immature Gran % (Auto) 0.6 H Neut % (Auto) 78.3 H Lymph % (Auto) 10.0 L [place] % (Auto) 10.9 Eos % (Auto) 0.0 Baso % (Auto) 0.2 Lymph # (Auto) 0.9 L [place] # (Auto) 1.0 Eos # (Auto) 0.0 Baso # (Auto) 0.0 Abs Immat Gran (auto) 0.05 H Absolute Neuts (auto) 7.1 Absolute Nucleated RBC 0.000 Nucleated RBC % (auto) 0.0 Whole Blood PT 12.7 Whole Blood INR 1.1 Anion Gap 24 H Estim Creat Clear Calc 32.8 Estimated GFR 41 POC Glucose 253 H Random Glucose 290 H Lactic Acid Calcium 9.9 D Total Bilirubin 0.3 AST 13 ALT 7 Alkaline Phosphatase 69 Troponin I High Sens 12.9 D Total Protein 8.6 H Albumin 4.0 Urine Color Urine Appearance Urine pH Ur Specific [place] Urine Protein Urine Glucose (UA) Urine Ketones Urine Blood Urine Nitrite Ur Leukocyte Esterase Urine RBC Urine WBC Ur Squamous Epith Cells Urine Bacteria Hyaline Casts Influenza Type A (PCR) Influenza Type B (PCR) RSV RNA Qual (PCR) SARS-CoV-2 RNA (RT-PCR) 04/11/24 04/11/24 16:26 16:48 MCV MCH MCHC RDW Plt Count MPV Immature Gran % (Auto) Neut % (Auto) Lymph % (Auto) [place] % (Auto) Eos % (Auto) Baso % (Auto) Lymph # (Auto) [place] # (Auto) Eos # (Auto) Baso # (Auto) Abs Immat Gran (auto) Absolute Neuts (auto) Absolute Nucleated RBC Nucleated RBC % (auto) Whole Blood PT Whole Blood INR Anion Gap Estim Creat Clear Calc Estimated GFR POC Glucose Random Glucose Lactic Acid 1.7 Calcium Total Bilirubin AST ALT Alkaline Phosphatase Troponin I High Sens Total Protein Albumin Urine Color Yellow Urine Appearance Clear Urine pH 5.5 Ur Specific [place] >= 1.030 H Urine Protein Negative Urine Glucose (UA) >=1000 H Urine Ketones 15 Urine Blood Small (1+) H Urine Nitrite Negative Ur Leukocyte Esterase Negative Urine RBC 0-2 Urine WBC 0-5 Ur Squamous Epith Cells 6-10 Urine Bacteria None Seen Hyaline Casts 0-2 Influenza Type A (PCR) NEGATIVE Influenza Type B (PCR) NEGATIVE RSV RNA Qual (PCR) NEGATIVE SARS-CoV-2 RNA (RT-PCR) NEGATIVE Imaging Radiologist's Impressions: Impressions Head CT 04/11/24 14:23 IMPRESSION: There are several chronic abnormalities. However, no new intracranial hemorrhage or acute major vascular territory infarction. No acute intracranial pathology compared to 02/06/2024. This critical result was discussed with Heladio Black at 2:34 PM on 04/11/2024. It was ascertained that the content and urgency of the report was understood at the time of direct communication. Head/Neck CTA 04/11/24 14:45 IMPRESSION: CT HEAD: Curvilinear subcortical enhancement in the left parietal lobe is likely related to evolution of prior parenchymal hemorrhage. Please see separately dictated head CT for additional findings. CTA NECK: Again seen is calcified and noncalcified atherosclerosis at the left carotid bulb and proximal internal carotid artery with greater than 75% luminal narrowing/short segment near complete occlusion. The artery reconstitutes superior to this. Suboptimal evaluation of the great vessel origins, but there is suspected high-grade stenosis at the left subclavian artery origin with probable moderate stenosis at the left common carotid artery origin. Suspected moderate stenosis of the bilateral vertebral artery origins. Redemonstrated severe spinal canal stenosis at C3-C4 and C4-C5. Correlation with MRI cervical spine is recommended if there is symptomatology referrable to this region. Left thyroid multinodular goiter with nodules measuring greater than 1.5 cm. Correlation with dedicated thyroid ultrasound is recommended if not already performed. CTA HEAD: Stable atherosclerosis of the carotid siphons with moderate to high-grade stenosis of the left supraclinoid internal carotid artery. Stable severe stenosis/short segment occlusion of the left A1 segment origin. No new proximal vessel occlusion. Chest X-Ray 04/11/24 17:02 IMPRESSION: No acute cardiopulmonary abnormality. Assessment and Plan (1) Altered mental status: Status: Acute (2) Sepsis: Status: Acute Plan This is a 78-year-old female with pertinent history of subarachnoid hemorrhage, history of CVA, Alzheimer's dementia, mixed hyperlipidemia, hypertension, insulin-dependent diabetes mellitus, peripheral vascular disease, mood disorder who was sent to the emergency department for evaluation of fevers and altered mentation. #. SIRS: Resuscitated with IV crystalloids. Lactic acid and blood culture obtained. Initiating empiric IV antibiotics including for bacterial meningitis in this patient with fever, altered mentation and neck pain. IR guided LP and CSF studies pending. NPO until mentation improves #. Acute metabolic encephalopathy in the setting of above in a patient with Alzheimer's dementia #. Insulin-dependent diabetes mellitus with hyperglycemia: Initiating Accu- Cheks with sliding scale insulin every 6 hours #. Hypertension: Continue home antihypertensives once able to take p.o. #. History of CVA: On aspirin and statin Med rec pending DVT prophylaxis: Mechanical Full code. Discussed with grandson on phone Admit as inpatient and will require two night minimum hospital stay for IV antibiotics (as above), which is not possible in a lesser acute setting. Quality Stroke Does the patient have a stroke diagnosis?: No VTE Prior VTE?: No VTE Risk Level:: Medical - moderate - high VTE Device Contraindication: N/A - Device Ordered VTE Drug Contraindication: Treatment Not Indicated
--- NOTE | 2024-04-11 19:45 | PC.NURSE ---
Pt resting in bed comfortably, no signs of distress. Pts family at bedside. Plan of care ongoing.
[2024-04-11] MEDS: dexAMETHasone sod phosphate 10 MG/ML VIAL IVPUSH (20:20)
[2024-04-11] MEDS: cefTRIAXone sodium 2 GM in 0.9 % Sodium Chloride 50 ML IV (20:22)
--- NOTE | 2024-04-11 20:27 | PC.NURSE ---
Pt medicated per jan. Plan of care ongoing.
[2024-04-11] MEDS: Ampicillin Sodium 2 GM in 0.9 % Sodium Chloride 100 ML IV (21:08)
[2024-04-11] MEDS: 0.9 % Sodium Chloride 1,000 ML 999 ML IV ×2 (21:09→23:30)
--- NOTE | 2024-04-11 21:12 | PC.NURSE ---
Pt medicated per jan. Pt resting comfortably in bed, no signs of distress Family remains at bedside. Plan of care ongoing.
[2024-04-11 22:19] VITALS: BP 118/31; PULSE 79; RESP 19; TEMP 37.9; O2SAT 95
[2024-04-11] MEDS: vancomycin HCL 1,500 MG in 0.9 % Sodium Chloride 500 ML 333.33 MG IV (22:31)
[2024-04-11 22:51] LABS: Glucose, Whole Blood 217 mg/dL (60-115)
[2024-04-12] VITALS (7 sets, daily range): BP systolic 137–169; BP diastolic 63–80; PULSE 65–84; RESP 16–20; TEMP 35.9–36.9; O2SAT 91–98; BMI 22.0
--- NOTE | 2024-04-12 | EEG_ITS ---
FINDINGS: Waking background activity consists of moderate voltage, 4 to 5 hertz diffuse theta. Photic stimulation is without activation. Hyperventilation was omitted. No paroxysmal discharges seen. IMPRESSION: This is an abnormal EEG due to diffuse background slowing consistent with diffuse encephalopathic process and possible postictal state. No paroxysmal seizure discharges are seen. MD VINCENT Monroy/YONAS / [id number]
[2024-04-12] MEDS: dexAMETHasone sod phosphate 10 MG/ML VIAL IVPUSH ×3 (03:15→20:22)
[2024-04-12] MEDS: Ampicillin Sodium 2 GM in 0.9 % Sodium Chloride 100 ML IV ×3 (03:15→20:22)
[2024-04-12 06:40] LABS: MANUAL DIFF FLAG NO
[2024-04-12 06:50] LABS: Basophils Percent Auto 0.3 % (0-2); Hematocrit 36.4 % (37.0-47.0); Hemoglobin 11.9 g/dl (12.0-16.0); Imm Gran Abs Auto 0.03 X10*3/uL (0.00-0.03); Imm Gran Pct Auto 0.3 % (0.0-0.4); Lymphocytes Absolute Auto 0.9 X10*3/uL (1.2-4.9); Mean Corpuscular HGB Conc 32.7 g/dl (31.0-35.0); Mean Corpuscular Hemoglobin 28.7 pg (27.0-33.0); Mean Corpuscular Volume 87.9 fL (80.0-98.0); Mean Platelet Volume 11.7 fL (9.4-12.3); Monocytes Absolute Auto 0.6 X10*3/uL (0.1-1.2); Neutrophils Absolute Auto 7.6 x10*3/uL (2.0-8.3); Neutrophils Percent Auto 83.4 % (45-73); Platelet Count 209 X10*3/uL (160-400); Red Blood Count 4.14 X10*6/uL (4.20-5.50); Red Cell Distribution Width 15.1 % (11.0-16.0); White Blood Count 9.1 X10*3/uL (4.8-10.8)
[2024-04-12 07:04] LABS: Creatinine Clr Calc Pharmacy 40.6; Estimated Glomerular Filt Rate 53
[2024-04-12 07:05] LABS: Anion Gap 19 (12-20); Blood Urea Nitrogen 35 mg/dL (9-16); Calcium 8.5 mg/dL (8.4-10.2); Carbon Dioxide 19 mmol/L (22-29); Chloride 108 mmol/L (96-108); Creatinine Clr Calc Pharmacy 41.8; Estimated Glomerular Filt Rate 55; Glucose Random 226 mg/dL (60-115); Potassium 4.6 mmol/L (3.3-5.1); Sodium 141 mmol/L (135-145)
[2024-04-12 07:15] LABS: Glucose, Whole Blood 179 mg/dL (60-115)
--- NOTE | 2024-04-12 07:24 | PHA.PROG ---
Admission Date/Time: April 11, 2024 19:42 Indication: SEPSIS Weight in k kg Adjusted body weight in Kg: [place] body weight in Kg: Obesity Dosing Indication % IBW: Serum Creatinine - Last 168 Hours 04/11/24 04/12/24 04/12/24 15:58 06:08 06:08 Creatinine 1.25 0.98 1.01 Estimated CrCl and GFR - Last 168 Hours 04/11/24 04/12/24 04/12/24 15:58 06:08 06:08 Estim Creat Clear Calc 32.8 41.8 40.6 Estimated GFR 41 55 04/12/24 06:08 Estim Creat Clear Calc Estimated GFR 53 Vancomycin Loading Dose: 1500 MG Current Vancomycin Dosing Regimen: 1000 MG Q24H Vancomycin Monitoring using AUC goal of 400 - 600 range with trough as surrogate marker: KXV=367 TROUGH=14.9 Date and Time for next Vancomycin Level to be drawn: 04/13/24 @2100 Pharmacist Comments on Vancomycin Plan: Vancomycin dosing will take advantage of [employer] as a clinical decision support tool that uses Bayesian modeling to calculate individual patient's pharmacokinetic parameters and forecast the patient's drug concentration time course with the target goal AUC 24 range of 400 - 600 mg/L/hr.
--- NOTE | 2024-04-12 07:44 | PHA.MEDREC ---
Pharmacy Consult ? Medication Reconciliation Pharmacy has completed the medication reconciliation. used discharge from previous visit and pharmacy claims.
[2024-04-12] MEDS: cefTRIAXone sodium 2 GM in 0.9 % Sodium Chloride 50 ML IV ×2 (07:48→20:22)
[2024-04-12 09:00] LABS: Venous Blood Gas Refer to POC result
[2024-04-12 09:00] LABS: VBG Base Excess -3.2 mmol/L; VBG HCO3 22 mmol/L (22-26); VBG pCO2 39 mmHg; VBG pH 7.35 (7.32-7.43); VBG pO2 41 mmHg
[2024-04-12 09:03] LABS: Ammonia 19 umol/L (13-55)
[2024-04-12 09:09] LABS: Valproate 22.4 mcg/mL (50.0-100.0)
[2024-04-12] MEDS: Insulin Glargine,Hum.rec.anlog 100 UNIT/ML 10 ML VIAL SUBCUT (10:33)
[2024-04-12 12:01] LABS: Glucose, Whole Blood 189 mg/dL (60-115)
--- NOTE | 2024-04-12 12:39 | P.PNIM_ITS ---
Subjective Subjective Date of Service: 04/12/24 Interval History: Seen in follow up for AMS INterval history: Remains encephalopathic, minimally verbal. Does open eyes on exam and responds to questions about her children, but not about ROS Review of Systems Review of Systems: Yes Unobtainable due to mental status Physical Exam 2 Vital Signs: Vital Signs: Last Vital Signs Temp 98.5 F 04/12/24 07:03 Pulse 72 04/12/24 07:03 Resp 18 04/12/24 07:03 BP 137/63 04/12/24 07:03 Pulse Ox 98 04/12/24 07:03 O2 Del Method Room Air 04/12/24 07:03 BMI result Body Mass Index 22.0 Constitutional - Awake and Alert, No apparent distress Eyes - PERRLA, EOMI Cardiovascular - S1S2, RRR, No edema Respiratory - Normal lung expansion, Normal respiratory effort, No respiratory distress, CTA bilaterally Gastrointestinal - LLQ ttp with guarding, no rebound. ND; +BS Extremities - no calf tenderness bilaterally, no swelling Skin - Warm/Dry Neurological - Alert & disoriented, minimally verbal, unable to follow commands. PERRLA, no facial droop or slurred speech, equal strength upper and lower extremities Psychological - Appropriate affect Objective Data Active Medications Acetaminophen (Acetaminophen Supp 650 Mg Supp.Rect) 650 mg TN Q6H PRN PRN Reason: Pain, Mild (Pain Scale 1-3) Acetaminophen (Acetaminophen 325 Mg Tablet) 650 mg PO Q6H PRN PRN Reason: Pain, Mild (Pain Scale 1-3) Aspirin (Aspirin 81 Mg Tab.Chew) 81 mg PO DAILY [facility] Last Admin: 04/12/24 10:18 Dose: Not Given Documented By: LINDSAY Non-Admin Reason: NPO Atorvastatin Calcium (Atorvastatin Calcium 10 Mg Tablet) 10 mg PO BEDTIME [facility] Dexamethasone Sodium Phosphate (Dexamethasone Sod Phosphate 10 Mg/Ml Vial) 10 mg IVPUSH Q6H [facility] Last Admin: 04/12/24 12:33 Dose: Not Given Documented By: LINDSAY Non-Admin Reason: No Access Docusate Sodium (Docusate Sodium 100 Mg Capsule) 100 mg PO BID [facility] Last Admin: 04/12/24 10:18 Dose: Not Given Documented By: LINDSAY Non-Admin Reason: NPO Empagliflozin (Empagliflozin 10 Mg Tablet) 10 mg PO DAILY [facility] Last Admin: 04/12/24 10:18 Dose: Not Given Documented By: LINDSAY Non-Admin Reason: NPO Ferrous Sulfate (Ferrous Sulfate 324 Mg Tablet.Dr) 324 mg PO Q48H [facility] Last Admin: 04/12/24 10:18 Dose: Not Given Documented By: LINDSAY Non-Admin Reason: NPO Gabapentin (Gabapentin 300 Mg Capsule) 300 mg PO TID [facility] Last Admin: 04/12/24 10:18 Dose: Not Given Documented By: LINDSAY Non-Admin Reason: NPO Glucose (Glucose Gel 15 Gm Gel..Gram.) 15 gm PO Q15M PRN; Protocol PRN Reason: per Hypoglycemia Standing Ord. Ceftriaxone Sodium 2 gm/ (Sodium Chloride) 50 mls @ 100 mls/hr IV Q12H [facility] Last Infusion: 04/12/24 08:24 Dose: Infused Documented By: LINDSAY Ampicillin Sodium 2 gm/ Sodium (Chloride) 100 mls @ 200 mls/hr IV Q6H [facility] Last Admin: 04/12/24 12:32 Dose: Not Given Documented By: LINDSAY Non-Admin Reason: No Access Dextrose (D10) 250 mls @ 750 mls/hr IV Q15M PRN; Protocol PRN Reason: per Hypoglycemia Standing Ord. Vancomycin HCl 1,000 mg/ (Sodium Chloride) 270 mls @ 270 mls/hr IV Q24H [facility] Valproic Acid 500 mg/ Dextrose 55 mls @ 55 mls/hr IV Q8H [facility] Dextrose/Lactated Ringer's (D5lr) 1,000 mls @ 100 mls/hr IVCONT .Q10H [facility] Last Admin: 04/12/24 12:38 Dose: Not Given Documented By: LINDSAY Non-Admin Reason: No Access Insulin Glargine (Insulin Glargine,Hum.Rec.Anlog 100 Unit/Ml 10 Ml Vial) 5 unit SUBCUT DAILY [facility] Last Admin: 04/12/24 10:33 Dose: 5 unit Documented By: LINDSAY Insulin Human Lispro (Insulin Lispro 100 Unit/Ml 3 Ml Vial) 0 unit SUBCUT Q6H [facility]; Protocol Last Admin: 04/12/24 10:30 Dose: Not Given Documented By: LINDSAY Non-Admin Reason: NPO Melatonin (Melatonin 3 Mg Tablet) 6 mg PO BEDTIME PRN PRN Reason: Insomnia Metoprolol Tartrate (Metoprolol Tartrate 25 Mg Tablet) 25 mg PO BID [facility]; Protocol Last Admin: 04/12/24 10:19 Dose: Not Given Documented By: LINDSAY Non-Admin Reason: NPO Multivitamins/Vitamin C (Multivitamin Tablet) 1 tab PO DAILY [facility] Last Admin: 04/12/24 10:19 Dose: Not Given Documented By: LINDSAY Non-Admin Reason: NPO Omeprazole (Omeprazole 20 Mg Capsule.Dr) 20 mg PO BID@0630,1630 [facility] Ondansetron HCl (Ondansetron Hcl 4 Mg/2 Ml Vial) 4 mg IVPUSH Q8H PRN PRN Reason: Nausea and Vomiting Pharmacy Consult (Consult Rx Vancomycin Dosing) 1 each MISCELLANE DAILY PRN PRN Reason: Consult order Quetiapine Fumarate (Quetiapine Fumarate 25 Mg Tablet) 25 mg PO BEDTIME PRN PRN Reason: sundowning Sitagliptin Phosphate (Sitagliptin Phosphate 50 Mg Tablet) 50 mg PO DAILY [facility] Last Admin: 04/12/24 10:19 Dose: Not Given Documented By: LINDSAY Non-Admin Reason: NPO Trazodone HCl (Trazodone Hcl 50 Mg Tablet) 50 mg PO BEDTIME [facility] Vitamin D (Cholecalciferol (Vitamin D3) 25 Mcg Tablet) 50 mcg PO DAILY [facility] Last Admin: 04/12/24 10:18 Dose: Not Given Documented By: LINDSAY Non-Admin Reason: NPO Labs 04/12/24 06:08 04/12/24 06:08 Labs: Laboratory Results - last 24 hr 04/11/24 04/11/24 04/11/24 14:35 14:45 15:58 MCV 89.0 MCH 28.6 MCHC 32.1 RDW 15.0 Plt Count 245 MPV 11.6 Immature Gran % (Auto) 0.6 H Neut % (Auto) 78.3 H Lymph % (Auto) 10.0 L [place] % (Auto) 10.9 Eos % (Auto) 0.0 Baso % (Auto) 0.2 Lymph # (Auto) 0.9 L [place] # (Auto) 1.0 Eos # (Auto) 0.0 Baso # (Auto) 0.0 Abs Immat Gran (auto) 0.05 H Absolute Neuts (auto) 7.1 Absolute Nucleated RBC 0.000 Nucleated RBC % (auto) 0.0 Whole Blood PT 12.7 Whole Blood INR 1.1 VBG pH VBG pCO2 VBG pO2 VBG HCO3 VBG O2 Saturation VBG Base Excess Anion Gap 24 H Estim Creat Clear Calc 32.8 Estimated GFR 41 POC Glucose 253 H Random Glucose 290 H Lactic Acid Calcium 9.9 D Total Bilirubin 0.3 AST 13 ALT 7 Alkaline Phosphatase 69 Ammonia Troponin I High Sens 12.9 D Total Protein 8.6 H Albumin 4.0 Urine Color Urine Appearance Urine pH Ur Specific [place] Urine Protein Urine Glucose (UA) Urine Ketones Urine Blood Urine Nitrite Ur Leukocyte Esterase Urine RBC Urine WBC Ur Squamous Epith Cells Urine Bacteria Hyaline Casts Valproic Acid Influenza Type A (PCR) Influenza Type B (PCR) RSV RNA Qual (PCR) SARS-CoV-2 RNA (RT-PCR) 04/11/24 04/11/24 04/11/24 16:26 16:48 22:46 MCV MCH MCHC RDW Plt Count MPV Immature Gran % (Auto) Neut % (Auto) Lymph % (Auto) [place] % (Auto) Eos % (Auto) Baso % (Auto) Lymph # (Auto) [place] # (Auto) Eos # (Auto) Baso # (Auto) Abs Immat Gran (auto) Absolute Neuts (auto) Absolute Nucleated RBC Nucleated RBC % (auto) Whole Blood PT Whole Blood INR VBG pH VBG pCO2 VBG pO2 VBG HCO3 VBG O2 Saturation VBG Base Excess Anion Gap Estim Creat Clear Calc Estimated GFR POC Glucose 217 H Random Glucose Lactic Acid 1.7 Calcium Total Bilirubin AST ALT Alkaline Phosphatase Ammonia Troponin I High Sens Total Protein Albumin Urine Color Yellow Urine Appearance Clear Urine pH 5.5 Ur Specific [place] >= 1.030 H Urine Protein Negative Urine Glucose (UA) >=1000 H Urine Ketones 15 Urine Blood Small (1+) H Urine Nitrite Negative Ur Leukocyte Esterase Negative Urine RBC 0-2 Urine WBC 0-5 Ur Squamous Epith Cells 6-10 Urine Bacteria None Seen Hyaline Casts 0-2 Valproic Acid Influenza Type A (PCR) NEGATIVE Influenza Type B (PCR) NEGATIVE RSV RNA Qual (PCR) NEGATIVE SARS-CoV-2 RNA (RT-PCR) NEGATIVE 05/12/24 05/12/24 05/12/24 06:08 06:08 06:08 MCV 87.9 MCH 28.7 MCHC 32.7 RDW 15.1 Plt Count 209 MPV 11.7 Immature Gran % (Auto) 0.3 Neut % (Auto) 83.4 H Lymph % (Auto) 10.0 L [place] % (Auto) 6.0 Eos % (Auto) 0.0 Baso % (Auto) 0.3 Lymph # (Auto) 0.9 L [place] # (Auto) 0.6 Eos # (Auto) 0.0 Baso # (Auto) 0.0 Abs Immat Gran (auto) 0.03 Absolute Neuts (auto) 7.6 Absolute Nucleated RBC 0.000 Nucleated RBC % (auto) 0.0 Whole Blood PT Whole Blood INR VBG pH VBG pCO2 VBG pO2 VBG HCO3 VBG O2 Saturation VBG Base Excess Anion Gap 19 Estim Creat Clear Calc 41.8 40.6 Estimated GFR 55 53 POC Glucose Random Glucose 226 H Lactic Acid Calcium 8.5 D Total Bilirubin AST ALT Alkaline Phosphatase Ammonia Troponin I High Sens Total Protein Albumin Urine Color Urine Appearance Urine pH Ur Specific [place] Urine Protein Urine Glucose (UA) Urine Ketones Urine Blood Urine Nitrite Ur Leukocyte Esterase Urine RBC Urine WBC Ur Squamous Epith Cells Urine Bacteria Hyaline Casts Valproic Acid Influenza Type A (PCR) Influenza Type B (PCR) RSV RNA Qual (PCR) SARS-CoV-2 RNA (RT-PCR) 04/12/24 04/12/24 04/12/24 07:06 08:44 08:48 MCV MCH MCHC RDW Plt Count MPV Immature Gran % (Auto) Neut % (Auto) Lymph % (Auto) [place] % (Auto) Eos % (Auto) Baso % (Auto) Lymph # (Auto) [place] # (Auto) Eos # (Auto) Baso # (Auto) Abs Immat Gran (auto) Absolute Neuts (auto) Absolute Nucleated RBC Nucleated RBC % (auto) Whole Blood PT Whole Blood INR VBG pH 7.35 VBG pCO2 39 VBG pO2 41 VBG HCO3 22 VBG O2 Saturation 66.0 VBG Base Excess -3.2 Anion Gap Estim Creat Clear Calc Estimated GFR POC Glucose 179 H Random Glucose Lactic Acid Calcium Total Bilirubin AST ALT Alkaline Phosphatase Ammonia 19 Troponin I High Sens Total Protein Albumin Urine Color Urine Appearance Urine pH Ur Specific [place] Urine Protein Urine Glucose (UA) Urine Ketones Urine Blood Urine Nitrite Ur Leukocyte Esterase Urine RBC Urine WBC Ur Squamous Epith Cells Urine Bacteria Hyaline Casts Valproic Acid 22.4 L Influenza Type A (PCR) Influenza Type B (PCR) RSV RNA Qual (PCR) SARS-CoV-2 RNA (RT-PCR) 04/12/24 11:48 MCV MCH MCHC RDW Plt Count MPV Immature Gran % (Auto) Neut % (Auto) Lymph % (Auto) [place] % (Auto) Eos % (Auto) Baso % (Auto) Lymph # (Auto) [place] # (Auto) Eos # (Auto) Baso # (Auto) Abs Immat Gran (auto) Absolute Neuts (auto) Absolute Nucleated RBC Nucleated RBC % (auto) Whole Blood PT Whole Blood INR VBG pH VBG pCO2 VBG pO2 VBG HCO3 VBG O2 Saturation VBG Base Excess Anion Gap Estim Creat Clear Calc Estimated GFR POC Glucose 189 H Random Glucose Lactic Acid Calcium Total Bilirubin AST ALT Alkaline Phosphatase Ammonia Troponin I High Sens Total Protein Albumin Urine Color Urine Appearance Urine pH Ur Specific [place] Urine Protein Urine Glucose (UA) Urine Ketones Urine Blood Urine Nitrite Ur Leukocyte Esterase Urine RBC Urine WBC Ur Squamous Epith Cells Urine Bacteria Hyaline Casts Valproic Acid Influenza Type A (PCR) Influenza Type B (PCR) RSV RNA Qual (PCR) SARS-CoV-2 RNA (RT-PCR) Assessment and Plan (1) Altered mental status: Status: Acute (2) Sepsis: Status: Acute (3) Fever, unknown origin: Status: Acute Plan 78-year-old female with pertinent history of subarachnoid hemorrhage, history of CVA, Alzheimer's dementia, mixed hyperlipidemia, hypertension, insulin-dependent diabetes mellitus, peripheral vascular disease, mood disorder admitted for fevers of unknown origin and encephalopathy. #Suspected sepsis with unclear infection source -Febrile to 102 and tachypnea in the ed- resolved. Lactic acid normal, no end organ damage. No severe sepsis, shock -ua not indicative of infection. CXR WNL -Today with LLQ ttp with guarding. Check Ct abd/pelvis -continue empiric abx to cover for possible menigitis including iv ctx, vanco, ampicillin (initiated 04/11). Decadron (initiated 04/11). Add acyclovir 10mg/kg q8 (initiated 04/12) -LP tomorrow, labs ordered -consider ID consult #Acute metabolic encephalopathy -with background alzheimers dementia -likely r/t infection -VBG, ammonia wnl -Head CT/CTA head neck negative for acute abnormality, stable chronic findings -eeg added -plan as above -keep npo, failed rn bedside swallow, unable to follow commands. [employer]IO PERSONALITY eval. 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
[2024-04-12] MEDS: Valproic Acid (as Sodium Salt) 500 MG in Dextrose 5 % 50 ML 55 MG IV ×2 (14:41→23:43)
[2024-04-12] MEDS: Acyclovir Sodium 600 MG in 0.9 % Sodium Chloride 100 ML 112 MG IV ×2 (16:18→23:43)
--- NOTE | 2024-04-12 16:18 | MHC.CM.PN ---
Addendum entered by Vibha Vale 04/13/24 14:55: CM RECEIVED A RETURN CALL FROM [facility]/HCP, JEREMIAH HE REPORTS THE PT WAS LIVING ALONE, BUT [facility] THE DAY OF ADMISSION HE REPORTS SHE USES A WALKER TO AMBULATE AND A W/C AT TIMES (USUALLY WHEN GOING OUT) HER PCP WAS DEWE[facility] GARRETT, HOWEVER HE EXPECTS SHE WILL SWITCH OVER TO [facility] NOW THAT SHE IS LTC HCP ON FILE IMM DELIVERED DCP: [facility] Addendum entered by Vibha Vale 04/13/24 14:47: CM ATTEMPTED TO MEET WITH PT AGAIN, SHE IS GETTING AN EEG CM ATTEMPTED TO CONTACT PTS HCP, JEREMIAH [phone], VM MESSAGE LEFT REQUESTING A RETURN CALL Original Note: CM ATTEMPTED TO SEE PT WITH [facility] PT OFF UNIT
[2024-04-12 16:21] LABS: Glucose, Whole Blood 159 mg/dL (60-115)
[2024-04-12] MEDS: Dextrose 5 % and Lactated Ring 1,000 ML 100 ML IVCONT ×2 (17:28→20:22)
[2024-04-12 21:44] LABS: Glucose, Whole Blood 183 mg/dL (60-115)
[2024-04-12] MEDS: Atorvastatin Calcium 10 MG TABLET PO (22:00)
[2024-04-12] MEDS: Gabapentin 300 MG CAPSULE PO (22:00)
[2024-04-12] MEDS: Docusate Sodium 100 MG CAPSULE PO (22:00)
[2024-04-12] MEDS: Metoprolol Tartrate 25 MG TABLET PO (22:01)
[2024-04-12] MEDS: vancomycin HCL 1,000 MG in 0.9 % Sodium Chloride 250 ML 270 MG IV (22:02)
[2024-04-12] MEDS: Insulin Lispro 100 UNIT/ML 3 ML VIAL SUBCUT (22:24)
[2024-04-13] VITALS (7 sets, daily range): BP systolic 151–180; BP diastolic 60–86; PULSE 58–88; RESP 16–20; TEMP 36.3–37.1; O2SAT 92–98
[2024-04-13] MEDS: Ampicillin Sodium 2 GM in 0.9 % Sodium Chloride 100 ML IV ×4 (00:35→18:13)
[2024-04-13] MEDS: dexAMETHasone sod phosphate 10 MG/ML VIAL IVPUSH ×4 (00:35→18:13)
[2024-04-13 03:57] LABS: Glucose, Whole Blood 188 mg/dL (60-115)
[2024-04-13] MEDS: Insulin Lispro 100 UNIT/ML 3 ML VIAL SUBCUT ×4 (04:47→21:42)
[2024-04-13] MEDS: Dextrose 5 % and Lactated Ring 1,000 ML 100 ML IVCONT ×2 (04:57→15:28)
[2024-04-13] MEDS: Acyclovir Sodium 600 MG in 0.9 % Sodium Chloride 100 ML 112 MG IV ×3 (05:08→20:54)
[2024-04-13] MEDS: Valproic Acid (as Sodium Salt) 500 MG in Dextrose 5 % 50 ML 55 MG IV ×3 (05:10→21:42)
[2024-04-13 07:19] LABS: Glucose, Whole Blood 218 mg/dL (60-115)
[2024-04-13] MEDS: cefTRIAXone sodium 2 GM in 0.9 % Sodium Chloride 50 ML IV ×2 (08:05→20:48)
[2024-04-13] MEDS: Insulin Glargine,Hum.rec.anlog 100 UNIT/ML 10 ML VIAL SUBCUT (08:05)
[2024-04-13 08:09] LABS: Estimated Glomerular Filt Rate > 60
--- NOTE | 2024-04-13 10:26 | P.PNIM_ITS ---
Subjective Subjective Date of Service: 04/13/24 Interval History: Seen in follow up for AMS awake and confused with baseline hx of dementia Review of Systems Review of Systems: Yes Unobtainable due to mental status Physical Exam 2 Vital Signs: Vital Signs: Last Vital Signs Temp 98.3 F 04/13/24 07:50 Pulse 65 04/13/24 07:50 Resp 20 04/13/24 07:50 BP 156/86 H 04/13/24 07:50 Pulse Ox 96 04/13/24 07:50 O2 Del Method Room Air 04/13/24 07:50 BMI result Body Mass Index 22.0 Appearing in no acute distress lung sounds are clear to auscultation heart regular rate rhythm, clear S1, S2 positive bowel sounds, abdomen is soft, nontender neuro patient is alert, confused Objective Data Active Medications Acetaminophen (Acetaminophen Supp 650 Mg Supp.Rect) 650 mg [place] Q6H PRN PRN Reason: Pain, Mild (Pain Scale 1-3) Acetaminophen (Acetaminophen 325 Mg Tablet) 650 mg PO Q6H PRN PRN Reason: Pain, Mild (Pain Scale 1-3) Aspirin (Aspirin 81 Mg Tab.Chew) 81 mg PO DAILY [facility] Last Admin: 04/13/24 07:59 Dose: Not Given Documented By: GISEL Non-Admin Reason: NPO Atorvastatin Calcium (Atorvastatin Calcium 10 Mg Tablet) 10 mg PO BEDTIME [facility] Last Admin: 04/12/24 22:00 Dose: 10 mg Documented By: SHITAL Dexamethasone Sodium Phosphate (Dexamethasone Sod Phosphate 10 Mg/Ml Vial) 10 mg IVPUSH Q6H [facility] Last Admin: 04/13/24 05:55 Dose: 10 mg Documented By: SHITAL Docusate Sodium (Docusate Sodium 100 Mg Capsule) 100 mg PO BID [facility] Last Admin: 04/13/24 07:59 Dose: Not Given Documented By: GISEL Non-Admin Reason: NPO Empagliflozin (Empagliflozin 10 Mg Tablet) 10 mg PO DAILY [facility] Last Admin: 04/13/24 07:59 Dose: Not Given Documented By: GISEL Non-Admin Reason: NPO Ferrous Sulfate (Ferrous Sulfate 324 Mg Tablet.Dr) 324 mg PO Q48H [facility] Last Admin: 04/12/24 10:18 Dose: Not Given Documented By: LINDSAY Non-Admin Reason: NPO Gabapentin (Gabapentin 300 Mg Capsule) 300 mg PO TID [facility] Last Admin: 04/13/24 07:59 Dose: Not Given Documented By: GISEL Non-Admin Reason: NPO Glucose (Glucose Gel 15 Gm Gel..Gram.) 15 gm PO Q15M PRN; Protocol PRN Reason: per Hypoglycemia Standing Ord. Ceftriaxone Sodium 2 gm/ (Sodium Chloride) 50 mls @ 100 mls/hr IV Q12H [facility] Last Infusion: 04/13/24 08:44 Dose: Infused Documented By: GISEL Dextrose (D10) 250 mls @ 750 mls/hr IV Q15M PRN; Protocol PRN Reason: per Hypoglycemia Standing Ord. Vancomycin HCl 1,000 mg/ (Sodium Chloride) 270 mls @ 270 mls/hr IV Q24H [facility] Last Infusion: 04/12/24 23:15 Dose: Infused Documented By: SHITAL Dextrose/Lactated Ringer's (D5lr) 1,000 mls @ 100 mls/hr IVCONT .Q10H [facility] Last Admin: 04/13/24 04:57 Dose: 100 mls/hr Documented By: SHITAL Ampicillin Sodium 2 gm/ Sodium (Chloride) 100 mls @ 200 mls/hr IV Q6H [facility] Last Infusion: 04/13/24 08:16 Dose: Infused Documented By: GISEL Valproic Acid 500 mg/ Dextrose 55 mls @ 55 mls/hr IV Q8H [facility] Last Infusion: 04/13/24 06:19 Dose: Infused Documented By: SHITAL Acyclovir Sodium 600 mg/ (Sodium Chloride) 112 mls @ 112 mls/hr IV Q8H [facility] Last Infusion: 04/13/24 06:19 Dose: Infused Documented By: SHITAL Insulin Glargine (Insulin Glargine,Hum.Rec.Anlog 100 Unit/Ml 10 Ml Vial) 5 unit SUBCUT DAILY [facility] Last Admin: 04/13/24 08:05 Dose: 5 unit Documented By: GISEL Insulin Human Lispro (Insulin Lispro 100 Unit/Ml 3 Ml Vial) 0 unit SUBCUT Q6H [facility]; Protocol Last Admin: 04/13/24 08:05 Dose: 4 unit Documented By: GISEL Melatonin (Melatonin 3 Mg Tablet) 6 mg PO BEDTIME PRN PRN Reason: Insomnia Metoprolol Tartrate (Metoprolol Tartrate 25 Mg Tablet) 25 mg PO BID [facility]; Protocol Last Admin: 04/13/24 07:59 Dose: Not Given Documented By: GISEL Non-Admin Reason: NPO Multivitamins/Vitamin C (Multivitamin Tablet) 1 tab PO DAILY [facility] Last Admin: 04/13/24 07:59 Dose: Not Given Documented By: GISEL Non-Admin Reason: NPO Omeprazole (Omeprazole 20 Mg Capsule.Dr) 20 mg PO BID@0630,1630 [facility] Last Admin: 04/13/24 05:11 Dose: Not Given Documented By: SHITAL Non-Admin Reason: NPO Ondansetron HCl (Ondansetron Hcl 4 Mg/2 Ml Vial) 4 mg IVPUSH Q8H PRN PRN Reason: Nausea and Vomiting Pharmacy Consult (Consult Rx Vancomycin Dosing) 1 each MISCELLANE DAILY PRN PRN Reason: Consult order Quetiapine Fumarate (Quetiapine Fumarate 25 Mg Tablet) 25 mg PO BEDTIME PRN PRN Reason: sundowning Sitagliptin Phosphate (Sitagliptin Phosphate 50 Mg Tablet) 50 mg PO DAILY [facility] Last Admin: 04/13/24 07:59 Dose: Not Given Documented By: GISEL Non-Admin Reason: NPO Trazodone HCl (Trazodone Hcl 50 Mg Tablet) 50 mg PO BEDTIME [facility] Last Admin: 04/13/24 00:00 Dose: 50 mg Documented By: SHITAL Vitamin D (Cholecalciferol (Vitamin D3) 25 Mcg Tablet) 50 mcg PO DAILY [facility] Last Admin: 04/13/24 07:59 Dose: Not Given Documented By: GISEL Non-Admin Reason: NPO Labs 04/12/24 06:08 04/13/24 07:43 Labs: Laboratory Results - last 24 hr 04/12/24 04/12/24 04/12/24 11:48 16:16 21:31 Estim Creat Clear Calc Estimated GFR POC Glucose 189 H 159 H 183 H 04/13/24 04/13/24 04/13/24 03:52 07:03 07:43 Estim Creat Clear Calc 54.0 Estimated GFR > 60 POC Glucose 188 H 218 H Microbiology Microbiology Results: Microbiology 04/11/24 15:58 Blood Culture - Preliminary Blood - Venous No growth after 24 hours. 04/11/24 15:58 Blood Culture - Preliminary Blood - Venous No growth after 24 hours. Assessment and Plan (1) Altered mental status: Status: Acute (2) Sepsis: Status: Acute (3) Fever, unknown origin: Status: Acute Plan 78-year-old female with pertinent history of subarachnoid hemorrhage, history of CVA, Alzheimer's dementia, mixed hyperlipidemia, hypertension, insulin-dependent diabetes mellitus, peripheral vascular disease, mood disorder admitted for fevers of unknown origin and encephalopathy. Acute metabolic encephalopathy secondary to suspected sepsis with unclear infection source possibly meningitis No severe sepsis or shock, fever resolved Hx of alzheimers dementia VBG, ammonia CXR, UA all neg, no skin wounds no acute abnormality on head CTA continue empiric Vanco, ampicillin, rocephin and acyclovir for possible menigitis continue IV Decadron LP today EEG ordered ID and neuro consults pending Passed swallow eval>chopped diet Insulin dependent type 2 diabetes with hyperglycemia ss, ada diet HTN resume po antihypertensives monitor bp Alzheimers dementia with mood disturbance change depakote to iv- unknown if hx sz hold po mood stabilizers/antipsychotics Hx cva resume asa and statin after LP DVT prophylaxis: Mechanical - initiate lovenox post lp Attending Dr. Zepeda Full code Pt requires ongoing inpt stay for management of sirs with fevers of unknown origin requiring iv abx Quality Stroke Does the patient have a stroke diagnosis?: No VTE Prior VTE?: No VTE Risk Level:: Medical - moderate - high VTE Device Contraindication: N/A - Device Ordered VTE Drug Contraindication: Treatment Not Indicated
--- NOTE | 2024-04-13 10:32 | PM.NEUROCN ---
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 SHE WAS ALSO FEBRILE AND THERE WAS THIS CONCERN OF CAUSE OF CHANGE OF MENTAL STATUS. INITIALLY SHE WAS ADMITTED WITH DIAGNOSIS OF METABOLIC ENCEPHALOPATHY BUT LATER I NOTED THAT MULTIPLE ANTIBIOTICS WERE ADDED. SHE WAS NOT A COOPERATIVE HISTORIAN AND WAS RESISTANT TO INTERVIEW. Review of Systems Review of Systems: COULD NOT BE DONE WITH HER [facility] Past Medical History Medical History Diabetes GERD (gastroesophageal reflux disease) Elevated cholesterol History of femoral angiogram Peripheral vascular disease PAD (peripheral artery disease) HTN (hypertension) Hyperlipemia Osteoporosis Family History Family History Father No problems noted. Mother No problems noted. Daughter No problems noted. Son No problems noted. Son No problems noted. Son No problems noted. Surgical History Surgical History H/O colonoscopy Hx of angioplasty Hx of hand surgery Social History Social History Household Members: Other Household Members Other:: pt lives at [facility] Housing: Apartment Are you a primary direct support professional caregiver to a significant other at home: No Do you presently have visiting nurse or other home services: Yes Alcohol intake: never Patient Tobacco Use Status: Refuse Tobacco use screen Tobacco use type: Cigarette Second Hand Smoke Exposure: No Advance Directives Date on File: 12/20/22 service: No Current occupational status: disabled Meds Allergies Allergy/AdvReac Type Severity Reaction Status Date / Time No Known Allergies Allergy Verified 04/11/24 15:06 Active Medications: Current Medications Acetaminophen (Acetaminophen Supp 650 Mg Supp.Rect) 650 mg [place] Q6H PRN PRN Reason: Pain, Mild (Pain Scale 1-3) Acetaminophen (Acetaminophen 325 Mg Tablet) 650 mg PO Q6H PRN PRN Reason: Pain, Mild (Pain Scale 1-3) Aspirin (Aspirin 81 Mg Tab.Chew) 81 mg PO DAILY [facility] Last Admin: 04/13/24 07:59 Dose: Not Given Atorvastatin Calcium (Atorvastatin Calcium 10 Mg Tablet) 10 mg PO BEDTIME [facility] Last Admin: 04/12/24 22:00 Dose: 10 mg Dexamethasone Sodium Phosphate (Dexamethasone Sod Phosphate 10 Mg/Ml Vial) 10 mg IVPUSH Q6H [facility] Last Admin: 04/13/24 05:55 Dose: 10 mg Docusate Sodium (Docusate Sodium 100 Mg Capsule) 100 mg PO BID [facility] Last Admin: 04/13/24 07:59 Dose: Not Given Empagliflozin (Empagliflozin 10 Mg Tablet) 10 mg PO DAILY [facility] Last Admin: 04/13/24 07:59 Dose: Not Given Ferrous Sulfate (Ferrous Sulfate 324 Mg Tablet.Dr) 324 mg PO Q48H [facility] Last Admin: 04/12/24 10:18 Dose: Not Given Gabapentin (Gabapentin 300 Mg Capsule) 300 mg PO TID [facility] Last Admin: 04/13/24 07:59 Dose: Not Given Glucose (Glucose Gel 15 Gm Gel..Gram.) 15 gm PO Q15M PRN; Protocol PRN Reason: per Hypoglycemia Standing Ord. Ceftriaxone Sodium 2 gm/ (Sodium Chloride) 50 mls @ 100 mls/hr IV Q12H [facility] Last Infusion: 04/13/24 08:44 Dose: Infused Dextrose (D10) 250 mls @ 750 mls/hr IV Q15M PRN; Protocol PRN Reason: per Hypoglycemia Standing Ord. Vancomycin HCl 1,000 mg/ (Sodium Chloride) 270 mls @ 270 mls/hr IV Q24H [facility] Last Infusion: 04/12/24 23:15 Dose: Infused Dextrose/Lactated Ringer's (D5lr) 1,000 mls @ 100 mls/hr IVCONT .Q10H [facility] Last Admin: 04/13/24 04:57 Dose: 100 mls/hr Ampicillin Sodium 2 gm/ Sodium (Chloride) 100 mls @ 200 mls/hr IV Q6H [facility] Last Infusion: 04/13/24 08:16 Dose: Infused Valproic Acid 500 mg/ Dextrose 55 mls @ 55 mls/hr IV Q8H [facility] Last Infusion: 04/13/24 06:19 Dose: Infused Acyclovir Sodium 600 mg/ (Sodium Chloride) 112 mls @ 112 mls/hr IV Q8H [facility] Last Infusion: 04/13/24 06:19 Dose: Infused Insulin Glargine (Insulin Glargine,Hum.Rec.Anlog 100 Unit/Ml 10 Ml Vial) 5 unit SUBCUT DAILY [facility] Last Admin: 04/13/24 08:05 Dose: 5 unit Insulin Human Lispro (Insulin Lispro 100 Unit/Ml 3 Ml Vial) 0 unit SUBCUT Q6H [facility]; Protocol Last Admin: 04/13/24 08:05 Dose: 4 unit Melatonin (Melatonin 3 Mg Tablet) 6 mg PO BEDTIME PRN PRN Reason: Insomnia Metoprolol Tartrate (Metoprolol Tartrate 25 Mg Tablet) 25 mg PO BID [facility]; Protocol Last Admin: 04/13/24 07:59 Dose: Not Given Multivitamins/Vitamin C (Multivitamin Tablet) 1 tab PO DAILY [facility] Last Admin: 04/13/24 07:59 Dose: Not Given Omeprazole (Omeprazole 20 Mg Capsule.Dr) 20 mg PO BID@0630,1630 [facility] Last Admin: 04/13/24 05:11 Dose: Not Given Ondansetron HCl (Ondansetron Hcl 4 Mg/2 Ml Vial) 4 mg IVPUSH Q8H PRN PRN Reason: Nausea and Vomiting Pharmacy Consult (Consult Rx Vancomycin Dosing) 1 each MISCELLANE DAILY PRN PRN Reason: Consult order Quetiapine Fumarate (Quetiapine Fumarate 25 Mg Tablet) 25 mg PO BEDTIME PRN PRN Reason: sundowning Sitagliptin Phosphate (Sitagliptin Phosphate 50 Mg Tablet) 50 mg PO DAILY [facility] Last Admin: 04/13/24 07:59 Dose: Not Given Trazodone HCl (Trazodone Hcl 50 Mg Tablet) 50 mg PO BEDTIME [facility] Last Admin: 04/13/24 00:00 Dose: 50 mg Vitamin D (Cholecalciferol (Vitamin D3) 25 Mcg Tablet) 50 mcg PO DAILY [facility] Last Admin: 04/13/24 07:59 Dose: Not Given Home Medications ?Medication ?Instructions ?Recorded ?Confirmed ?Last Taken ?Type aspirin 81 mg chewable tablet 1 tab PO DAILY 04/18/21 04/12/24 05/31/21 History cholecalciferol (vitamin D3) 50 50 mcg PO DAILY 04/18/21 04/12/24 05/31/21 History mcg (2,000 unit) capsule gabapentin 300 mg capsule 300 mg PO TID 04/18/21 04/12/24 05/31/21 History pantoprazole 20 mg tablet,delayed 20 mg PO BID 04/18/21 04/12/24 05/31/21 History release simvastatin 20 mg tablet 20 mg PO BEDTIME 04/18/21 04/12/24 05/31/21 History trazodone 50 mg tablet 50 mg PO BEDTIME 04/18/21 04/12/24 05/31/21 History lancets 33 gauge (TRUEplus Lancets) #100 ea 04/23/22 12/15/22 Unknown History multivitamin 1 tab PO DAILY 04/23/22 04/12/24 Unknown History dapagliflozin propanediol 5 mg 1 tab PO DAILY 12/14/22 04/12/24 Unknown History tablet (Farxiga) docusate sodium 100 mg capsule 1 cap PO BID 12/14/22 04/12/24 Unknown History insulin glargine 100 unit/mL (3 5 unit subcut DAILY 12/14/22 04/12/24 Unknown History mL) subcutaneous pen (Lantus Solostar U-100 Insulin) sitagliptin phosphate 50 mg tablet 1 tab PO DAILY 12/14/22 04/12/24 Unknown History (Chace) divalproex 500 mg tablet,delayed 500 mg PO TID 02/05/24 04/12/24 Unknown History release ferrous sulfate 325 mg (65 mg 325 mg PO Q OTHER DAY 02/05/24 04/12/24 Unknown History iron) tablet,delayed release quetiapine 25 mg tablet 25 mg PO BEDTIME PRN 02/05/24 04/12/24 Unknown History Physical Exam Vital Signs: Vital Signs: Last Vital Signs Temp 98.3 F 04/13/24 07:50 Pulse 65 04/13/24 07:50 Resp 20 04/13/24 07:50 BP 156/86 H 04/13/24 07:50 Pulse Ox 96 04/13/24 07:50 O2 Del Method Room Air 04/13/24 07:50 BMI result Body Mass Index 22.0 Neuro: Other: SHE WAS ALERT AND AWAKE LOOKING AROUND MADE EYE CONTACT AND CONTINUED TO SAY ?FUCK YOU. SHE HAS SIGNIFICANT GRASP REFLEX WHEN I HELD HER HANDS. EYES WERE MOVING AND SHE WAS ABLE TO LOOK ON EITHER SIDE OF BED. FACE WAS SYMMETRICAL. THERE WAS NO OBVIOUS TREMOR. DEEP TENDON REFLEXES WERE TRACE TO ABSENT WITH FLEXOR PLANTARS. Results Labs 04/12/24 06:08 04/13/24 07:43 Labs: [facility] 04/13/24 07:43 Creatinine 0.76 Microbiology Microbiology Results: Microbiology 04/11/24 15:58 Blood - Venous Blood Culture - Preliminary No growth after 24 hours. 04/11/24 15:58 Blood - Venous Blood Culture - Preliminary No growth after 24 hours. 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 CTA ALSO REVEALED LEFT INTERNAL CAROTID ARTERY INTRA CAVERNOUS STENOSIS. Assessment and Plan (1) Altered mental status: Qualifiers: Altered mental status type: unspecified Qualified Code(s): R41.82 - Altered mental status, unspecified Status: Acute 78 YEARS OLD WOMAN WITH ENCEPHALOPATHY PROBABLY WITH ENCEPHALITIS THERE WAS NO OBVIOUS ETIOLOGY OF SYSTEMIC INFECTION THAT WAS NOTED. SHE WAS ON MULTIPLE BROAD-SPECTRUM ANTIBIOTICS AND ANTIVIRAL DRUGS. IDEALLY, SHE SHOULD HAVE A LUMBAR PUNCTURE TO MAKE DEFINITIVE DIAGNOSIS. WITH SIGNIFICANT DEMENTIA AND DIFFICULTY WITH HER BEHAVIOR, CLINICAL JUDGMENT CAN BE MADE AND COURSE OF ANTIBIOTICS/ANTIVIRAL BE CONTINUED FOR FULL TREATMENT. IN THE MEANTIME PAY ATTENTION TO HYDRATION AND NUTRITION HER RISK OF FURTHER DETERIORATION OF MENTAL STATUS CONFUSION AND AGITATION WAS HIGH. AT THE SAME TIME SHE WAS ALSO AT RISK FOR SEIZURE DISORDER. BUT NO ANTIEPILEPTIC IS RECOMMENDED UNTIL SEIZURE IS DIAGNOSED. Procedures Date of Service Date of Service: 04/13/24
[2024-04-13 11:11] LABS: Glucose, Whole Blood 246 mg/dL (60-115)
--- NOTE | 2024-04-13 13:11 | MHC.SL.SWA ---
Addendum entered and electronically signed by Pat Zambrano MA, CCC-SOLUTION MAKE UP OPERATOR 04/15/24 09:21: Clarification- Recommendation is for NDD3/THIN. Original Note: Speech Pathologist Impression: Oral phase dysphagia Risk of Aspiration Due to: Reduced cognition Dysphasia Diet Status: Start on NDD3/thin Liquid Consistency and Strategies for Safe Swallow: Liquid Intake Recommendation: Thin Liquid Intake Strategies: Small Sips No Straws Liquids by Teaspoon Only Solid Food Consistency: Dietary Recommendations: Chopped/Advanced (NDD3) Additional Modifications to Solid Foods: Patient with mild oral phase dysphagia characterized by slowed and prolonged period of mastication and presence of oral residual post-swallow. Recommend UPGRADE from NPO, START on REGULAR texture DIET and THIN liquids, pills CRUSHED in PUREE. Patient will require 1:1 feeding and strategies to promote oral clearance: give small bites, alternate with sips of liquid, check oral cavity for clearance prior to giving more bites. SOLUTION MAKE UP OPERATOR to f/u 1-2x to monitor tolerance. Oral Medication Intake: Crushed with Puree Please contact the pharmacy regarding appropriate crushable or liquid drug formulations that are available whenever modified delivery is recommended. Compensatory Strategies and Precautions to be Taken for Safe Swallow: Sitting Upright (90 deg) Double Swallow No Straw Liquids from Spoon Small Bites and Sips Alternate Liquids/Solids Rate of Ingestion Change Oral Check Avoid Specific Foods Supervision While Eating and Drinking for Safe Swallow: Total Assistance (1:1) Foods to Avoid: Hard, dry, crunchy solids Swallowing Recommended Treatments: Compens. Strategy Educat. Recommendation for Speech: Inpatient Speech Therapy Comment: 1-2 f/u Frequency/Duration: Date Range for Service Req: Timeline to reassess: Wharf Tally Clerk Clinican/Clinical Fellow: No Supervisory Statement: I have reviewed and agree with the student/clinical fellow's documentation: N/A Speech Language Pathologist: Pat Zambrano M.A., CCC-SOLUTION MAKE UP OPERATOR
--- NOTE | 2024-04-13 14:06 | PM.EVENT ---
Event Note Date of Service: 04/13/24 Event Note: Procedure Note: Lumbar puncture L3-4, Opening pressure 10 cm H20. 8 cc clear csf removed and sent for analysis. No immediate complications Trell DON Interventional Radiology Time Spent With Patient Time: Total time managing care of this patient today ____ minutes.
[2024-04-13 14:35] LABS: CSF Appearance Clear, Colorless; CSF Tube # 1
[2024-04-13 14:41] LABS: Glucose CSF 130 mg/dL; Total Protein CSF 66.5 mg/dL (15-45)
[2024-04-13] MEDS: Gabapentin 300 MG CAPSULE PO ×2 (15:13→20:50)
[2024-04-13] MEDS: Omeprazole 20 MG CAPSULE.DR PO (15:13)
[2024-04-13 15:26] LABS: Glucose, Whole Blood 260 mg/dL (60-115)
[2024-04-13 15:44] LABS: Cryptococcus neoformans/gattii Not Detected (Not Detect.); Enterovirus Not Detected (Not Detect.); Escherichia coli K1 Not Detected (Not Detect.); Haemophilus influenzae Not Detected (Not Detect.); Herpes simplex virus 1 Not Detected (Not Detect.); Herpes simplex virus 2 Not Detected (Not Detect.); Human herpesvirus 6 Not Detected (Not Detect.); Human parechovirus Not Detected (Not Detect.); Listeria monocytogenes Not Detected (Not Detect.); Neisseria meningitidis Not Detected (Not Detect.); Streptococcus agalactiae Not Detected (Not Detect.); Streptococcus pneumoniae Not Detected (Not Detect.); Varicella zoster virus Not Detected (Not Detect.)
[2024-04-13 15:47] LABS: Appearance CSF CLEAR; CSF Tube # 1; Color CSF COLORLESS
[2024-04-13 16:19] LABS: CSF Monos 38 %; Neutrophils CSF 16 %; Red Blood Cell CSF 266 MM*3; White Blood Cell CSF 4 MM*3
[2024-04-13 16:20] LABS: Appearance CSF CLEAR; CSF Tube # 4; Color CSF COLORLESS; Neutrophils CSF 4 %; Red Blood Cell CSF 8 MM*3; White Blood Cell CSF 3 MM*3
[2024-04-13 16:22] LABS: CSF Monos 44 %; Lymphocytes CSF 52 %
[2024-04-13 16:24] LABS: Lymphocytes CSF 46 %
[2024-04-13 20:35] LABS: Vancomycin Random 12.2 mcg/mL (15-20)
--- NOTE | 2024-04-13 20:41 | HE.PHANOTE ---
RE: kathyo Renal function is improving, level on 04/13 came back at 12.2mg/L. Increased dose to 1250mg Q24H with predicted trough of 15.7mg/K, AUC of 542. Next level to be drawn 04/15 @2100
[2024-04-13] MEDS: Metoprolol Tartrate 25 MG TABLET PO (20:49)
[2024-04-13] MEDS: Atorvastatin Calcium 10 MG TABLET PO (20:50)
[2024-04-13] MEDS: traZODone HCL 50 MG TABLET PO ×2 (20:50)
[2024-04-13 21:33] LABS: Glucose, Whole Blood 437 mg/dL (60-115)
[2024-04-13] MEDS: Docusate Sodium 100 MG CAPSULE PO (21:42)
[2024-04-13] MEDS: Insulin Lispro 100 UNIT/ML 3 ML VIAL 8 UNIT SUBCUT (22:34)
[2024-04-13] MEDS: vancomycin HCL 1,250 MG in 0.9 % Sodium Chloride 250 ML 166.67 MG IV (22:57)
[2024-04-13] MEDS: QUEtiapine Fumarate 25 MG TABLET PO (22:57)
[2024-04-14] VITALS (9 sets, daily range): BP systolic 142–198; BP diastolic 57–90; PULSE 57–73; RESP 16–20; TEMP 36–36.6; O2SAT 93–98
[2024-04-14] MEDS: Ampicillin Sodium 2 GM in 0.9 % Sodium Chloride 100 ML IV ×5 (01:35→21:55)
[2024-04-14] MEDS: dexAMETHasone sod phosphate 10 MG/ML VIAL IVPUSH ×4 (01:36→18:22)
[2024-04-14 03:21] LABS: Glucose, Whole Blood 218 mg/dL (60-115)
[2024-04-14] MEDS: Insulin Lispro 100 UNIT/ML 3 ML VIAL SUBCUT ×3 (03:32→21:55)
[2024-04-14] MEDS: Acyclovir Sodium 600 MG in 0.9 % Sodium Chloride 100 ML 112 MG IV ×3 (05:58→22:58)
[2024-04-14] MEDS: Valproic Acid (as Sodium Salt) 500 MG in Dextrose 5 % 50 ML 55 MG IV ×3 (05:58→23:43)
[2024-04-14 06:57] LABS: Glucose, Whole Blood 120 mg/dL (60-115)
[2024-04-14 08:43] LABS: Estimated Glomerular Filt Rate > 60
[2024-04-14] MEDS: cefTRIAXone sodium 2 GM in 0.9 % Sodium Chloride 50 ML IV ×2 (09:42→20:56)
[2024-04-14] MEDS: Omeprazole 20 MG CAPSULE.DR PO ×2 (09:43→17:13)
[2024-04-14] MEDS: Aspirin 81 MG TAB.CHEW PO (09:44)
[2024-04-14] MEDS: Empagliflozin 10 MG TABLET PO (09:44)
[2024-04-14] MEDS: Gabapentin 300 MG CAPSULE PO ×3 (09:44→20:56)
[2024-04-14] MEDS: Multivitamin TABLET 1 TAB PO (09:44)
[2024-04-14] MEDS: SITagliptin Phosphate 50 MG TABLET PO (09:44)
[2024-04-14] MEDS: Cholecalciferol (Vitamin D3) 25 MCG TABLET 50 MCG PO (09:44)
[2024-04-14] MEDS: Ferrous Sulfate 324 MG TABLET.DR PO (09:44)
[2024-04-14] MEDS: Metoprolol Tartrate 25 MG TABLET PO ×2 (09:44→20:56)
[2024-04-14] MEDS: Insulin Glargine,Hum.rec.anlog 100 UNIT/ML 10 ML VIAL SUBCUT (09:45)
[2024-04-14] MEDS: Docusate Sodium 100 MG CAPSULE PO ×2 (09:45→20:56)
--- NOTE | 2024-04-14 09:54 | P.PNIM_ITS ---
Subjective Subjective Date of Service: 04/14/24 Interval History: Seen in follow up for AMS awake and confused with baseline hx of dementia Review of Systems Review of Systems: Yes Unobtainable due to mental status Physical Exam 2 Vital Signs: Vital Signs: Last Vital Signs Temp 97.7 F 04/14/24 07:15 Pulse 57 04/14/24 07:15 Resp 20 04/14/24 07:15 BP 142/57 H 04/14/24 07:15 Pulse Ox 98 04/14/24 07:15 O2 Del Method Room Air 04/14/24 07:15 FiO2 96 04/13/24 21:48 BMI result Body Mass Index 22.0 Appearing in no acute distress lung sounds are clear to auscultation heart regular rate rhythm, clear S1, S2 positive bowel sounds, abdomen is soft, nontender neuro patient is alert, confused Objective Data Active Medications Acetaminophen (Acetaminophen Supp 650 Mg Supp.Rect) 650 mg AK Q6H PRN PRN Reason: Pain, Mild (Pain Scale 1-3) Acetaminophen (Acetaminophen 325 Mg Tablet) 650 mg PO Q6H PRN PRN Reason: Pain, Mild (Pain Scale 1-3) Aspirin (Aspirin 81 Mg Tab.Chew) 81 mg PO DAILY [facility] Last Admin: 04/14/24 09:44 Dose: 81 mg Documented By: TANIKA Atorvastatin Calcium (Atorvastatin Calcium 10 Mg Tablet) 10 mg PO BEDTIME [facility] Last Admin: 04/13/24 20:50 Dose: 10 mg Documented By: SHITAL Dexamethasone Sodium Phosphate (Dexamethasone Sod Phosphate 10 Mg/Ml Vial) 10 mg IVPUSH Q6H [facility] Last Admin: 04/14/24 06:35 Dose: 10 mg Documented By: SHITAL Docusate Sodium (Docusate Sodium 100 Mg Capsule) 100 mg PO BID [facility] Last Admin: 04/14/24 09:45 Dose: 100 mg Documented By: TANIKA Empagliflozin (Empagliflozin 10 Mg Tablet) 10 mg PO DAILY [facility] Last Admin: 04/14/24 09:44 Dose: 10 mg Documented By: TANIKA Ferrous Sulfate (Ferrous Sulfate 324 Mg Tablet.) 324 mg PO Q48H [facility] Last Admin: 04/14/24 09:44 Dose: 324 mg Documented By: TANIKA Gabapentin (Gabapentin 300 Mg Capsule) 300 mg PO TID [facility] Last Admin: 04/14/24 09:44 Dose: 300 mg Documented By: TANIKA Glucose (Glucose Gel 15 Gm Gel..Gram.) 15 gm PO Q15M PRN; Protocol PRN Reason: per Hypoglycemia Standing Ord. Ceftriaxone Sodium 2 gm/ (Sodium Chloride) 50 mls @ 100 mls/hr IV Q12H [facility] Last Admin: 04/14/24 09:42 Dose: 100 mls/hr Documented By: TANIKA Dextrose (D10) 250 mls @ 750 mls/hr IV Q15M PRN; Protocol PRN Reason: per Hypoglycemia Standing Ord. Ampicillin Sodium 2 gm/ Sodium (Chloride) 100 mls @ 200 mls/hr IV Q6H [facility] Last Infusion: 04/14/24 06:37 Dose: Infused Documented By: SHITAL Valproic Acid 500 mg/ Dextrose 55 mls @ 55 mls/hr IV Q8H [facility] Last Infusion: 04/14/24 07:58 Dose: Infused Documented By: TANIKA Acyclovir Sodium 600 mg/ (Sodium Chloride) 112 mls @ 112 mls/hr IV Q8H [facility] Last Infusion: 04/14/24 07:58 Dose: Infused Documented By: TANIKA Vancomycin HCl 1,250 mg/ (Sodium Chloride) 250 mls @ 166.667 mls/hr IV Q24H [facility] Last Infusion: 04/14/24 00:30 Dose: Infused Documented By: SHITAL Insulin Glargine (Insulin Glargine,Hum.Rec.Anlog 100 Unit/Ml 10 Ml Vial) 5 unit SUBCUT DAILY [facility] Last Admin: 04/14/24 09:45 Dose: 5 unit Documented By: TANIKA Insulin Human Lispro (Insulin Lispro 100 Unit/Ml 3 Ml Vial) 0 unit SUBCUT Q6H [facility]; Protocol Last Admin: 04/14/24 09:46 Dose: Not Given Documented By: TANIKA Non-Admin Reason: No Insulin Coverage Melatonin (Melatonin 3 Mg Tablet) 6 mg PO BEDTIME PRN PRN Reason: Insomnia Metoprolol Tartrate (Metoprolol Tartrate 25 Mg Tablet) 25 mg PO BID [facility]; Protocol Last Admin: 04/14/24 09:44 Dose: 25 mg Documented By: TANIKA Multivitamins/Vitamin C (Multivitamin Tablet) 1 tab PO DAILY [facility] Last Admin: 04/14/24 09:44 Dose: 1 tab Documented By: TANIKA Omeprazole (Omeprazole 20 Mg Capsule.Dr) 20 mg PO BID@0630,2430 [facility] Last Admin: 04/14/24 09:43 Dose: 20 mg Documented By: TANIKA Ondansetron HCl (Ondansetron Hcl 4 Mg/2 Ml Vial) 4 mg IVPUSH Q8H PRN PRN Reason: Nausea and Vomiting Pharmacy Consult (Consult Rx Vancomycin Dosing) 1 each MISCELLANE DAILY PRN PRN Reason: Consult order Quetiapine Fumarate (Quetiapine Fumarate 25 Mg Tablet) 25 mg PO BEDTIME PRN PRN Reason: sundowning Last Admin: 04/13/24 22:57 Dose: 25 mg Documented By: SHITAL Sitagliptin Phosphate (Sitagliptin Phosphate 50 Mg Tablet) 50 mg PO DAILY [facility] Last Admin: 04/14/24 09:44 Dose: 50 mg Documented By: TANIKA Trazodone HCl (Trazodone Hcl 50 Mg Tablet) 50 mg PO BEDTIME [facility] Last Admin: 04/13/24 20:50 Dose: 50 mg Documented By: SHITAL Vitamin D (Cholecalciferol (Vitamin D3) 25 Mcg Tablet) 50 mcg PO DAILY [facility] Last Admin: 04/14/24 09:44 Dose: 50 mcg Documented By: TANIKA Labs 04/12/24 06:08 04/14/24 08:15 Labs: Laboratory Results - last 24 hr 04/13/24 04/13/24 04/13/24 10:56 13:10 13:10 Estim Creat Clear Calc Estimated GFR POC Glucose 246 H CSF Tube Number 1 1 CSF Volume CSF Appearance CSF Color CSF WBC CSF RBC CSF Neutrophils CSF Lymphocytes CSF Monocytes % CSF Appearance (b) CSF Glucose CSF Total Protein CSF C.neoform/gat PCR CSF CMV DNA (PCR) CSF Enterovirus (PCR) CSF E. coli K1 (PCR) CSF H. influenzae (PCR) CSF HSV I (PCR) CSF HSV II (PCR) CSF HHV 6 (PCR) CSF L.monocytogenes PCR CSF N. meningitidis PCR CSF Parechovirus (PCR) CSF S. agalactiae (PCR) CSF S. pneumoniae (PCR) CSF VZV (PCR) Random Vancomycin 04/13/24 04/13/24 04/13/24 13:10 13:10 13:10 Estim Creat Clear Calc Estimated GFR POC Glucose CSF Tube Number 4 CSF Volume 3.0 2.0 CSF Appearance CLEAR CLEAR CSF Color COLORLESS CSF WBC CSF RBC CSF Neutrophils CSF Lymphocytes CSF Monocytes % CSF Appearance (b) CSF Glucose CSF Total Protein CSF C.neoform/gat PCR CSF CMV DNA (PCR) CSF Enterovirus (PCR) CSF E. coli K1 (PCR) CSF H. influenzae (PCR) CSF HSV I (PCR) CSF HSV II (PCR) CSF HHV 6 (PCR) CSF L.monocytogenes PCR CSF N. meningitidis PCR CSF Parechovirus (PCR) CSF S. agalactiae (PCR) CSF S. pneumoniae (PCR) CSF VZV (PCR) Random Vancomycin 04/13/24 04/13/24 04/13/24 13:10 13:10 13:10 Estim Creat Clear Calc Estimated GFR POC Glucose CSF Tube Number CSF Volume CSF Appearance CSF Color COLORLESS CSF WBC 4 3 CSF RBC 266 8 CSF Neutrophils 16 CSF Lymphocytes CSF Monocytes % CSF Appearance (b) CSF Glucose CSF Total Protein CSF C.neoform/gat PCR CSF CMV DNA (PCR) CSF Enterovirus (PCR) CSF E. coli K1 (PCR) CSF H. influenzae (PCR) CSF HSV I (PCR) CSF HSV II (PCR) CSF HHV 6 (PCR) CSF L.monocytogenes PCR CSF N. meningitidis PCR CSF Parechovirus (PCR) CSF S. agalactiae (PCR) CSF S. pneumoniae (PCR) CSF VZV (PCR) Random Vancomycin 04/13/24 04/13/24 04/13/24 13:10 13:10 13:10 Estim Creat Clear Calc Estimated GFR POC Glucose CSF Tube Number CSF Volume CSF Appearance CSF Color CSF WBC CSF RBC CSF Neutrophils 4 CSF Lymphocytes 46 52 CSF Monocytes % 38 44 CSF Appearance (b) Clear, Colorless CSF Glucose 130 CSF Total Protein 66.5 H CSF C.neoform/gat PCR Not Detected CSF CMV DNA (PCR) Not Detected CSF Enterovirus (PCR) Not Detected CSF E. coli K1 (PCR) Not Detected CSF H. influenzae (PCR) Not Detected CSF HSV I (PCR) Not Detected CSF HSV II (PCR) Not Detected CSF HHV 6 (PCR) Not Detected CSF L.monocytogenes PCR Not Detected CSF N. meningitidis PCR Not Detected CSF Parechovirus (PCR) Not Detected CSF S. agalactiae (PCR) Not Detected CSF S. pneumoniae (PCR) Not Detected CSF VZV (PCR) Not Detected Random Vancomycin 04/13/24 04/13/24 04/13/24 15:22 20:13 21:19 Estim Creat Clear Calc Estimated GFR POC Glucose 260 H 437 H* CSF Tube Number CSF Volume CSF Appearance CSF Color CSF WBC CSF RBC CSF Neutrophils CSF Lymphocytes CSF Monocytes % CSF Appearance (b) CSF Glucose CSF Total Protein CSF C.neoform/gat PCR CSF CMV DNA (PCR) CSF Enterovirus (PCR) CSF E. coli K1 (PCR) CSF H. influenzae (PCR) CSF HSV I (PCR) CSF HSV II (PCR) CSF HHV 6 (PCR) CSF L.monocytogenes PCR CSF N. meningitidis PCR CSF Parechovirus (PCR) CSF S. agalactiae (PCR) CSF S. pneumoniae (PCR) CSF VZV (PCR) Random Vancomycin 12.2 L 04/14/24 04/14/24 04/14/24 01:18 06:51 08:15 Estim Creat Clear Calc 57.0 Estimated GFR > 60 POC Glucose 218 H 120 H CSF Tube Number CSF Volume CSF Appearance CSF Color CSF WBC CSF RBC CSF Neutrophils CSF Lymphocytes CSF Monocytes % CSF Appearance (b) CSF Glucose CSF Total Protein CSF C.neoform/gat PCR CSF CMV DNA (PCR) CSF Enterovirus (PCR) CSF E. coli K1 (PCR) CSF H. influenzae (PCR) CSF HSV I (PCR) CSF HSV II (PCR) CSF HHV 6 (PCR) CSF L.monocytogenes PCR CSF N. meningitidis PCR CSF Parechovirus (PCR) CSF S. agalactiae (PCR) CSF S. pneumoniae (PCR) CSF VZV (PCR) Random Vancomycin Microbiology Microbiology Results: Microbiology 04/13/24 13:10 Gram Stain - Final Cerebrospinal Fluid CSF Examination - Final Fluid Description - Final CSF Culture - Preliminary No growth after 1 day 04/11/24 15:58 Blood Culture - Preliminary Blood - Venous No growth after 48 hours. 04/11/24 15:58 Blood Culture - Preliminary Blood - Venous No growth after 48 hours. Assessment and Plan (1) Altered mental status: Status: Acute (2) Sepsis: Status: Acute (3) Fever, unknown origin: Status: Acute Plan 78-year-old female with pertinent history of subarachnoid hemorrhage, history of CVA, Alzheimer's dementia, mixed hyperlipidemia, hypertension, insulin-dependent diabetes mellitus, peripheral vascular disease, mood disorder admitted for fevers of unknown origin and encephalopathy. 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 Zepeda Full code DISPO return to LTC when medically clear Pt requires ongoing inpt stay for management of sirs with fevers of unknown origin requiring iv abx Quality Stroke Does the patient have a stroke diagnosis?: No VTE Prior VTE?: No VTE Risk Level:: Medical - moderate - high VTE Device Contraindication: N/A - Device Ordered VTE Drug Contraindication: Treatment Not Indicated
[2024-04-14 10:56] LABS: Glucose, Whole Blood 184 mg/dL (60-115)
--- NOTE | 2024-04-14 11:25 | ECG_ITS ---
Test Reason : cp Blood Pressure : / mmHG Vent. Rate : 067 BPM Atrial Rate : 067 BPM P-R Int : 132 ms QRS Dur : 080 ms QT Int : 458 ms P-R-T Axes : -17 -04 057 degrees QTc Int : 483 ms Normal sinus rhythm ST & T wave abnormality, consider anterior ischemia Prolonged QT Abnormal ECG When compared with ECG of 11-APR-2024 15:03, ST no longer depressed in Inferior leads ST no longer depressed in Lateral leads QT has lengthened Referred By: Trina Doyle Electronically Signed By:ZEE PIERCE MD
--- NOTE | 2024-04-14 13:31 | MHC.SPEECHCO ---
Pt was upset about something when I arrived. She is tolerating her current diet. NETWORK PROFESSIONAL will reattempt later today, or tomorrow, as schedule allows.
[2024-04-14 17:17] LABS: Glucose, Whole Blood 231 mg/dL (60-115)
[2024-04-14] MEDS: Atorvastatin Calcium 10 MG TABLET PO (20:56)
[2024-04-14] MEDS: traZODone HCL 50 MG TABLET PO (20:56)
[2024-04-14 21:04] LABS: Glucose, Whole Blood 284 mg/dL (60-115)
[2024-04-14 23:46] LABS: Glucose, Whole Blood 201 mg/dL (60-115)
[2024-04-15] MEDS: vancomycin HCL 1,250 MG in 0.9 % Sodium Chloride 250 ML 166.67 MG IV (00:28)
[2024-04-15] MEDS: Ampicillin Sodium 2 GM in 0.9 % Sodium Chloride 100 ML IV ×2 (01:09→04:08)
[2024-04-15] MEDS: dexAMETHasone sod phosphate 10 MG/ML VIAL IVPUSH ×2 (01:09→06:26)
[2024-04-15 02:48] LABS: Glucose, Whole Blood 149 mg/dL (60-115)
[2024-04-15 03:14] VITALS: BP 168/66; PULSE 55; RESP 18; TEMP 36.3; O2SAT 100
[2024-04-15] MEDS: Acyclovir Sodium 600 MG in 0.9 % Sodium Chloride 100 ML 112 MG IV (05:05)
[2024-04-15] MEDS: Valproic Acid (as Sodium Salt) 500 MG in Dextrose 5 % 50 ML 55 MG IV (05:05)
[2024-04-15] MEDS: Omeprazole 20 MG CAPSULE.DR PO (06:26)
[2024-04-15 06:44] LABS: Glucose, Whole Blood 177 mg/dL (60-115)
[2024-04-15 07:32] VITALS: BP 190/70; PULSE 63; RESP 18; TEMP 36.4; O2SAT 94
[2024-04-15] MEDS: cefTRIAXone sodium 2 GM in 0.9 % Sodium Chloride 50 ML IV (07:48)
[2024-04-15 07:51] VITALS: BP 190/70; PULSE 63
[2024-04-15] MEDS: Metoprolol Tartrate 25 MG TABLET PO (07:51)
[2024-04-15] MEDS: Cholecalciferol (Vitamin D3) 25 MCG TABLET 50 MCG PO (07:52)
[2024-04-15] MEDS: Gabapentin 300 MG CAPSULE PO (07:52)
[2024-04-15] MEDS: Empagliflozin 10 MG TABLET PO (07:52)
[2024-04-15] MEDS: SITagliptin Phosphate 50 MG TABLET PO (07:52)
[2024-04-15] MEDS: Multivitamin TABLET 1 TAB PO (07:52)
[2024-04-15] MEDS: Aspirin 81 MG TAB.CHEW PO (07:52)
[2024-04-15] MEDS: Insulin Glargine,Hum.rec.anlog 100 UNIT/ML 10 ML VIAL SUBCUT (07:53)
[2024-04-15] MEDS: Docusate Sodium 100 MG CAPSULE PO (07:53)
[2024-04-15] MEDS: Insulin Lispro 100 UNIT/ML 3 ML VIAL SUBCUT ×2 (08:01→11:29)
[2024-04-15] MEDS: Divalproex Sodium 500 MG TABLET.DR PO (09:13)
--- NOTE | 2024-04-15 09:24 | MHC.CM.PN ---
PT TO BE MEDICALLY CLEARED TO RETURN TO LTC AT [facility], CM RECEIVED MESSAGE FROM DTR GERONIMO AND RETURNED CALL AT 9:17AM [phone], GERONIMO AGREEABLE TO DC PLAN AND CM TO CONTACT GERONIMO ONCE TIME IS ARRANGED W/IRIS PER REQUEST.
--- NOTE | 2024-04-15 10:21 | MHC.SL.SWA ---
Dysphasia Diet Status: NO CHANGE Liquid Consistency and Strategies for Safe Swallow: Liquid Intake Recommendation: Thin Liquid Intake Strategies: Small Sips Solid Food Consistency: Dietary Recommendations: Chopped/Advanced (NDD3) Oral Medication Intake: Crushed with Puree Please contact the pharmacy regarding appropriate crushable or liquid drug formulations that are available whenever modified delivery is recommended. Compensatory Strategies and Precautions to be Taken for Safe Swallow: Sitting Upright (90 deg) Double Swallow Small Bites and Sips Alternate Liquids/Solids Rate of Ingestion Change Oral Check Avoid Specific Foods Supervision While Eating and Drinking for Safe Swallow: Total Supervision (1:1) Foods to Avoid: Hard, dry, crunchy solids Swallowing Recommended Treatments: Compens. Strategy Educat. Recommendation for Speech: Inpatient Speech Therapy Patient tolerated NDD3 solids and THIN liquids via cup and straw. Presented w/ brief moment of wet breathwork when rapidly drinking water via straw. Cue patient to take small sips and swallow again. Recommend patient continue with CHOPPED/ADVANCED solids (NDD3), THIN liquids, and pills CRUSHED in PUREE. Patient will require 1:1 SUPERVISION. Supervision d/t confusion, need for intermittent assistance, and to provide safe eating strategies to promote oral clearance: give small bites and sips, alternate with sips of liquid, check oral cavity for clearance prior to giving more bites. With straw, cue patient to take small sips. Encourage patient to assist w/ feeding. CIRCULAR KNIFE CUTTER MACHINE to f/u 1x to monitor tolerance and upgrade if/when warranted. Comment: 1-2 f/u Machine Gun Mechanic Clinican/Clinical Fellow: No Supervisory Statement: I have reviewed and agree with the student/clinical fellow's documentation: N/A Speech Language Pathologist: Marge Daley M.A., [facility]-CIRCULAR KNIFE CUTTER MACHINE
[2024-04-15 11:02] LABS: Glucose, Whole Blood 228 mg/dL (60-115)
[2024-04-15 11:55] VITALS: BP 130/72; PULSE 62
--- NOTE | 2024-04-15 12:03 | P.DS_ITS ---
DS: Providers Provider Date of Service: 04/15/24 Date of admission: 04/11/24 19:42 Primary care physician: Hafsa Carlos MD Consults: 04/13/24 07:02 Consult to Infectious Diseases Routine Consulting Provider: [facility] [place] Infectious Disease Reason for consultation: ?meningitis, encephalitis 04/13/24 07:25 Consult to Neurology Routine Consulting Provider: [facility] Reason for consultation: encephalopathy, ? encephalitis, hx of alzheimers DS: Diagnosis Discharge Diagnosis (1) Altered mental status: Status: Acute (2) Sepsis: Status: Acute (3) Fever, unknown origin: Status: Acute DS: Summary Hospital Course Hospital Course: History and physical as per admitting provider. This is a 78-year-old female with pertinent history of subarachnoid hemorrhage, history of CVA, Alzheimer's dementia, mixed hyperlipidemia, hypertension, insulin-dependent diabetes mellitus, peripheral vascular disease, mood disorder who was sent to the emergency department for evaluation of fevers and altered mentation. Unable to obtain history from the patient due to altered mentation. History obtained from ER provider, chart review and talk to patient's healthcare proxy on phone. Patient was seen in the ER on 04/07 and kept for physician observation. Patient was discharged on 04/11 from the [facility] to a [facility] facility. She was found to be febrile at [facility] and sent to the ER for further evaluation. Patient's grandson also stated that patient has had difficulty moving her neck and did c omplain of neck pain. Unable to obtain review of systems. In the emergency department, patient with temp 102 degrees F. UA, CT head and chest x-ray without any acute abnormalities. 78-year-old woman with history of Alzheimer's dementia treated for acute metabolic encephalopathy with sepsis secondary to viral encephalitis. Treated with empiric vancomycin, ampicillin, Rocephin, IV Decadron and acyclovir. LP performed with essentially negative CSF. Seen and evaluated by Neurology who thought symptoms related to viral encephalitis. VBG, ammonia, chest x-ray, UA all negative, skin assessment also negative therefore no other signs of infection. Acute metabolic encephalopathy secondary to suspected sepsis with unclear infection source possibly meningitis. EEG not showing any obvious seiz ure but did show slowing with history of Alzheimer's dementia and likely encephalitis. Seen and evaluated by speech therapy, and chopped diet at this time. Patient's mental status is now back at her baseline. Patient is a long- term care resident a day jatinder and plan is to discharge back there today. Patient's daughter is in agreement with the plan. 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 Continue Lantus, Januvia HTN. Continue home medications Alzheimers dementia with mood disturbance. Continue Depakote Hx cva. Continue aspirin and statin Time Attestation Discharge Coordination Time (in mins): 60 Quality: Safe Use of Opioids Does Pt have an Active Cancer Diagnosis on the Problem List?: No Quality: Stroke Does the patient have a stroke diagnosis?: No Physical Exam Vital Signs: Vital Signs: Last Vital Signs Temp 97.5 F 04/15/24 07:32 Pulse 62 04/15/24 11:55 Resp 18 04/15/24 07:32 BP 130/72 04/15/24 11:55 Pulse Ox 94 04/15/24 07:32 O2 Del Method Room Air 04/15/24 07:32 FiO2 96 04/13/24 21:48 BMI result Body Mass Index 22.0 Appearing in no acute distress head is normocephalic atraumatic eyes pupils are PERRLA sclera is anicteric mouth throat mucous membranes are intact and moist neck is supple no lymphadenopathy, no JVD noted lung sounds are clear to auscultation heart regular rate rhythm, clear S1, S2 positive bowel sounds, abdomen is soft, nontender neuro patient is alert, confused DS: Data Data Completed and Pending Labs on day of discharge: Laboratory Results - last 24 hr 04/14/24 04/14/24 04/14/24 17:13 20:52 23:43 POC Glucose 231 H 284 H 201 H 04/15/24 04/15/24 04/15/24 02:44 06:39 10:54 POC Glucose 149 H 177 H 228 H Preliminary micro results at discharge 04/13/24 13:10 CSF Culture - Preliminary Cerebrospinal Fluid No growth after 2 days 04/11/24 15:58 Blood Culture - Preliminary Blood - Venous No growth after 48 hours. 04/11/24 15:58 Blood Culture - Preliminary Blood - Venous No growth after 48 hours. Discharge Plan Discharge Anticipated Discharge Date/Time: 04/15/24 12:01 Patient Disposition: er [facility] Discharge Diagnosis: Viral encephalitis Acute metabolic encephalopathy Sepsis Referrals: Jeannette Fink [Outside] - 1 Day (COMPOUND MACHINE OPERATOR CARE) Hafsa Skinner MD [Primary Care Provider] - 1 Week Discharge Medications: Continued metoprolol tartrate 25 mg Tablet 25 mg PO BID Qty: 60 0RF Protocol: Hold for SBP/HR < HOLD for SBP < : 90 HOLD for HR < : 60 docusate sodium 100 mg capsule 1 cap PO BID Januvia 50 mg tablet 1 tab PO DAILY dapagliflozin propanediol [Farxiga] 5 mg tablet 1 tab PO DAILY insulin glargine [Lantus Solostar U-100 Insulin] 100 unit/mL (3 mL) insulin pen 5 unit subcut DAILY quetiapine 25 mg tablet 25 mg PO BEDTIME PRN (Reason: ) divalproex 500 mg tablet,delayed release (DR/EC) 500 mg PO TID ferrous sulfate 325 mg (65 mg iron) tablet,delayed release (DR/EC) 325 mg PO Q OTHER DAY gabapentin 300 mg capsule 300 mg PO TID simvastatin 20 mg tablet 20 mg PO BEDTIME trazodone 50 mg tablet 50 mg PO BEDTIME cholecalciferol (vitamin D3) 50 mcg (2,000 unit) capsule 50 mcg PO DAILY pantoprazole 20 mg tablet,delayed release (DR/EC) 20 mg PO BID aspirin 81 mg tablet,chewable 1 tab PO DAILY Hold Instructions: Resume on 02/12/24. (DME) lancets [TRUEplus Lancets] 33 gauge misc See Rx Instructions topical .MEDSUPPLY Qty: 100 Rx Instructions: As directed multivitamin Tablet 1 tab PO DAILY Discharge Orders: Discharge Order (Routine); Ordered 04/15/24 Ordered By: Trina Doyle Diet: Advance to usual diet Activity on Discharge: As tolerated Stand Alone Forms: Patient Portal Discharge page Print Language: Bulgarian Care Plan Goals: Transfer to long-term [facility] facility Health Concerns: Viral encephalitis Acute metabolic encephalopathy Sepsis Plan of Treatment: Follow-up with primary care provider as needed Take all medications as prescribed Assessment: See discharge summary
[2024-04-15 14:50] LABS: Estimated Glomerular Filt Rate > 60
== END 2024-04-15 14:40 | DRG 871 ==
LOC: HO.ED 16:25 → HO.EDOVER 20:18 → HO.IMC 04-12 00:43
PROVIDERS: Nurse Practitioner Family; Physician Assistant; Student in an Organized Health Care Education/Training Program; Admitting Provider Student in an Organized Health Care Education/Training Program; Emergency Provider Emergency Medicine; PCP Internal Medicine; Visit Provider Nurse Practitioner Acute Care
DX: A41.9 Sepsis, unspecified organism (principal); G03.9 Meningitis, unspecified; G93.41 Metabolic encephalopathy; F02.83 Dementia in other diseases classified elsewhere, unspecified severity, with mood disturbance; A86 Unspecified viral encephalitis; E11.51 Type 2 diabetes mellitus with diabetic peripheral angiopathy without gangrene; G30.9 Alzheimer's disease, unspecified; E11.65 Type 2 diabetes mellitus with hyperglycemia; E78.2 Mixed hyperlipidemia; Z20.822 Contact with and (suspected) exposure to COVID-19; Z86.73 Personal history of transient ischemic attack (TIA), and cerebral infarction without residual deficits; Z79.4 Long term (current) use of insulin; Z79.82 Long term (current) use of aspirin; Z79.899 Other long term (current) drug therapy
CPT/HCPCS: 0241U; 36415; 62328; 70450; 70496; 70498; 71045; 74176; 80048; 80053; 80164; 80202; 81001; 82140; 82565; 82803; 82945; 82947; 83605; 84157; 84484; 85025; 85610; 87015; 87040; 87070; 87205; 87483; 89051; 92526; 92610; 93005; 95816; 99285; J0133; J0290; J0696; J1100; J3370; J3371; Q9967

== ENCOUNTER → 2024-04-11 14:19 | Outpatient (BNV) | payer OTHER, SELFPAY | PROVIDERS: Admitting Provider Student in an Organized Health Care Education/Training Program; Emergency Provider Emergency Medicine; Visit Provider Internal Medicine Cardiovascular Disease | DX: R94.31 Abnormal electrocardiogram [ECG] [EKG] (principal) | CPT/HCPCS: 93010 ==

== ENCOUNTER 2024-04-11 19:42 | Outpatient (BNV) | payer OTHER, SELFPAY | END 2024-04-13 13:00 | PROVIDERS: Admitting Provider Student in an Organized Health Care Education/Training Program; Emergency Provider Emergency Medicine; PCP Internal Medicine; Visit Provider Physician Assistant Surgical | DX: R41.82 Altered mental status, unspecified (principal); R50.9 Fever, unspecified | CPT/HCPCS: 62328 ==

== ENCOUNTER 2024-04-11 19:42 | Outpatient (BNV) | payer OTHER, SELFPAY | END 2024-04-14 11:25 | PROVIDERS: Admitting Provider Student in an Organized Health Care Education/Training Program; Emergency Provider Emergency Medicine; PCP Internal Medicine; Visit Provider Internal Medicine Cardiovascular Disease | DX: I45.81 Long QT syndrome (principal) | CPT/HCPCS: 93010 ==

== ENCOUNTER → 2024-04-11 19:42 | Outpatient (BNV) | payer OTHER, SELFPAY | PROVIDERS: Admitting Provider Student in an Organized Health Care Education/Training Program; Emergency Provider Emergency Medicine; Visit Provider Psychiatry & Neurology Neurology | DX: R41.82 Altered mental status, unspecified (principal); F03.90 Unspecified dementia, unspecified severity, without behavioral disturbance, psychotic disturbance, mood disturbance, and anxiety; G93.40 Encephalopathy, unspecified | CPT/HCPCS: 99222 ==

== ENCOUNTER → 2024-04-11 19:42 | Outpatient (BNV) | payer OTHER, SELFPAY | PROVIDERS: Admitting Provider Student in an Organized Health Care Education/Training Program; Emergency Provider Emergency Medicine; Visit Provider Student in an Organized Health Care Education/Training Program | DX: A41.9 Sepsis, unspecified organism (principal); R41.82 Altered mental status, unspecified; R50.9 Fever, unspecified | CPT/HCPCS: 99223; 99232; 99239 ==